=== PATIENT | male | born 1945 | race Caucasian/White ===

== ENCOUNTER → 2016-11-18 | Day surgery (SDC) | payer OTHER, BC ==
[2016-11-15 11:54] VITALS: Ht 190.5 cm; Wt 106.8 kg
[~2016-11-18] VITALS: Ht 190.5 cm; Wt 106.8 kg
[~2016-11-18] MED LIST: ACET-1138 PO; ASPCH81X PO; ASPEC325 PO; ASPI325T45 PO; ATOR-22 PO; BUPIVACAINE 0.25% 2.5MG/ML PF 10 ML VIAL ONE; DTRSR4 PO; FAMO40TA6 PO; FLUO0.0566 TOP; GABA1CAP5 PO; GABA800T PO; IOPAMIDOL INJ 61% 15 ML VIAL ONE; LIDOCAINE HCL 1% MPF 5 ML VIAL ONE; LOSA1TAB PO; MELO7.5T5 PO; METH500T37 PO; PEPCID PO; PRLSR20 PO; RXC5 PO; SODIUM CHLORIDE 0.9% INJ 10 ML VIAL ONE; TEST100I IM; TOLN1CRE TOP
--- NOTE | 2016-11-18 15:20 | History & Physical Bridge - [place] ---
H&P Re-Evaluation Bridge Note: I have examined the patient, reviewed the History & Physical and in the interval since the performance of the History & Physical I have noted the following changes of clinical significance: No changes noted
[2016-11-18 15:45] VITALS: TEMP 36.9
--- NOTE | 2016-11-18 15:47 | Discharge Instructions ---
Discharge Instructions Visit Reason for Visit: Lumbar Radiculopathy Discharge Discharge Diagnosis / Problem: lumbar stenosis with righ leg pain Discharge Goals Goal(s): Decrease discomfort, Improve function Medications Stopped Medications Name(s): mobtato and baby asa stopped x 1 week. Activity Recommendations Activity Limitations: resume your previous activity Anesthesia . Post Anesthesia Instructions: If you have had General Anesthesia or IV Sedation: * Do not drive today. * Resume driving when surgeon permits. * Do not make important decisions or sign legal documents today. * Call surgeon for: 1. Temperature elevations greater than 101 degrees F. 2. Uncontrollable pain. 3. Excessive bleeding. 4. Persistent nausea and vomiting. 5. Medication intolerance (nausea, vomiting or rash). * For nausea and vomiting use only clear liquids such as: tea, soda, bouillon until nausea subsides, then gradually increase diet as tolerated. * If you have any concerns or questions, call your surgeon's office. If physician is unavailable and it is an emergency, call 911 or go to the nearest emergency room. . Diet Recommendations Recommended Home Diet: resume previous diet Procedures Procedures Performed: Lumbar Epidural Steroid injection Pending Studies Studies pending at discharge: no Medical Emergencies . Who to Call and When: Medical Emergencies: If at any time you feel your situation is an emergency, please call 911 immediately. . Non-Emergent Contact Non-Emergency issues call your: Specialist . . "Provider Documentation" section prepared by Donald Ruiz.
[2016-11-18 15:57] VITALS: BP 159/92; PULSE 64; O2SAT 98
--- NOTE | 2016-11-18 16:00 | OPERATIVE REPORT ---
DATE OF OPERATION: 11/18/2016 PREOPERATIVE DIAGNOSIS: Severe L3-L4 foraminal stenosis with right lower extremity radiculopathy. History of an an L4-5 laminectomy. POSTOPERATIVE DIAGNOSIS: Same. PROCEDURE: Right paramedian L2-3 intralaminar epidural steroid injection under fluoroscopic guidance. SURGEON: Dr. Donald Ruiz. INDICATIONS: The patient is a 71-year-old white male who has underwent an epidural injection a little more than 3 months ago with good relief. He reports that he is now having problems a little bit higher up the leg that he did prior to the epidural, which was more distal. Recent imaging reveals very tight multifactorial stenosis at 3-4, presents today for an epidural injection to provide him with relief. In addition, he is describing pain in the groin which is uncomfortable to him and is becoming increasingly more uncomfortable. PHYSICAL EXAMINATION: Some reduced range of motion towards the right reproduces the intense pain. Tenderness to palpation of his lower lumbar spine. He has no focal weakness. CONSENT: Verbal and written consent was obtained from the patient and he wishes to proceed. PROCEDURE: The patient was taken back to the special procedures room of the [facility] maintained in a prone position. Backside was cleansed with Betadine x3 and a dry sterile dressing was applied. Fluoroscope was used to identify the interlaminar spaces. His surgical site and scar involved 3-4. Decision was made to enter superior to this area at L2-3. Overlying skin on the right side was anesthetized with 4 mL of lidocaine 1% with a 21 gauge 1.5-inch needle with 4 mL of lidocaine 1%. He then underwent placement of a 22 gauge 3-1/2 inch Tuohy needle. It was advanced under lateral fluoroscopic guidance and loss of resistance was noted at a depth of 7 cm. Isovue-300 contrast 1 mL was injected in which demonstrated epidural uptake pattern which was confirmed with both AP and lateral views. He then underwent injection after negative aspiration of 40 mg of Depo-Medrol and 4 mL of preservative free sodium chloride. Injection was well tolerated. DISPOSITION: 1. The patient is taken out into the discharge recovery area where he will be discharged home once discharge criteria have been met. 2. Follow up in the [facility] office in 2-4 weeks. I attest to the content of the Intraoperative Record and any orders documented therein. Any exceptio ns are noted below.
== END | disposition home or self-care (01) ==
LOC: X.SURG 14:09
PROVIDERS: ATTEND Physical Medicine & Rehabilitation
DX: M54.16 Radiculopathy, lumbar region (principal); M48.06 Spinal stenosis, lumbar region; Z98.890 Other specified postprocedural states

== ENCOUNTER → 2017-02-04 | Outpatient (CLI) | payer OTHER, BC ==
[~2017-02-04] MED LIST changes: -BUPIVACAINE 0.25% 2.5MG/ML PF 10 ML VIAL ONE; -IOPAMIDOL INJ 61% 15 ML VIAL ONE; -LIDOCAINE HCL 1% MPF 5 ML VIAL ONE; -SODIUM CHLORIDE 0.9% INJ 10 ML VIAL ONE
--- NOTE | 2017-02-04 12:49 | DIAGNOSTIC IMAGING REPORT ---
CHEST 2 VIEWS ROUTINE HISTORY: COUGH COMPARISON: Chest 06/28/2014. FINDINGS: No pleural effusions. No pneumothorax. There is mild diffuse interstitial thickening. Stable bilateral hilar prominence. No new focal lung consolidations. Linear densities at the left lung base persist and favor subsegmental atelectasis. IMPRESSION: 1 Mild diffuse interstitial thickening which is likely progressed. This may represent a chronic interstitial lung disease or a developing atypical pneumonitis. 2. Left basilar linear densities favor subsegmental atelectasis. Electronically signed by: Lorne Muñoz M.D. 02/04/2017 12:48 PM Dictated Date/Time: 02/04/2017 12:45 PM
== END | disposition home or self-care (01) ==
LOC: C.RAD1850 12:09
PROVIDERS: ATTEND Family Medicine
DX: R05 Cough (principal)

== ENCOUNTER 2017-03-22 05:15 | Inpatient (IN) | payer OTHER, BC ==
[2017-02-22 09:18] VITALS: BMI 31.0
--- NOTE | 2017-02-22 10:06 | PAT Medication Instructions ---
Service Date Feb 22, 2017. Current Home Medication List Aspirin (Aspirin Chewable), 81 MG PO QAM Atorvastatin (Lipitor), 20 MG PO QAM Famotidine (Pepcid), 40 MG PO HS Fluocinonide (Fluocinonide), 1 APPLN TOP DAILY PRN for PRN Gabapentin (Neurontin), 400 MG PO 6XA DAY Gabapentin (Neurontin), 800 MG PO HS Losartan Potassium (Cozaar), 25 MG PO HS Omeprazole (Prilosec), 20 MG PO BID Testosterone Cypionate (Depo-Testosterone), 50 MG IM MONTHLY Tolnaftate (Tolnaftate 1% Antifungal), 1 DOSE TOP QPM Tolterodine Tartrate (Detrol La *), 4 MG PO HS Medication Instructions For Your Scheduled Surgery Aspirin (Aspirin Chewable), 81 MG PO QAM (patient not taking currently) Testosterone Cypionate (Depo-Testosterone), 50 MG IM MONTHLY (continue as usual) - Hold the following medications 24 hours prior to surgery: Tolnaftate (Tolnaftate 1% Antifungal), 1 DOSE TOP QPM Fluocinonide (Fluocinonide), 1 APPLN TOP DAILY PRN for PRN - Hold the following medications evening prior to surgery: Losartan Potassium (Cozaar), 25 MG PO HS - Take the following medications the morning of surgery with a sip of water: Omeprazole (Prilosec), 20 MG PO BID Atorvastatin (Lipitor), 20 MG PO QAM Gabapentin (Neurontin), 400 MG PO 6XA DAY - Take the following medications as scheduled the night before surgery: Tolterodine Tartrate (Detrol La *), 4 MG PO HS Omeprazole (Prilosec), 20 MG PO BID Gabapentin (Neurontin), 800 MG PO HS Famotidine (Pepcid), 40 MG PO HS If you have any questions please call us at [phone] or [phone] or [phone]
[2017-02-22 10:42] LABS: MEAN CELL VOLUME 90.1 fL (80-100); MEAN CORPUSCULAR HGB CONC 34.4 g/dl (32-36); MEAN PLATELET VOLUME 8.9 fL (7.4-10.4); PLATELET COUNT 261 K/uL (130-400); RED BLOOD COUNT 4.55 M/uL (4.7-6.1)
--- NOTE | 2017-02-22 10:48 | DIAGNOSTIC IMAGING REPORT ---
CHEST PREADMISSION(PA/LAT) CLINICAL HISTORY: Preoperative evaluation. COMPARISON STUDY: Chest radiograph February 04, 2017. FINDINGS: Lung volumes are normal. There is no consolidation to suggest pneumonia. No pneumothorax or pleural effusion is present. Mild left lower lung opacity favors atelectasis. Cardiac size is at the upper limits of normal. IMPRESSION: 1. No acute cardiopulmonary findings. 2. Linear left basilar opacity suggestive of atelectasis. Electronically signed by: Jose Arias M.D. 02/22/2017 10:46 AM Dictated Date/Time: 02/22/2017 10:44 AM
[2017-02-22 10:55] LABS: PROTHROMBIN TIME (PATIENT) 10.9 SECONDS (9.0-12.0)
[2017-02-22 11:04] LABS: BLOOD UREA NITROGEN 24 mg/dl (7-18); BUN/CREATININE RATIO 20.2 (10-20); CARBON DIOXIDE 25 mmol/L (21-32); CHLORIDE 109 mmol/L (98-107); GLUCOSE 92 mg/dl (70-99); POTASSIUM 4.5 mmol/L (3.5-5.1); SODIUM 141 mmol/L (136-145)
[2017-02-22 11:06] LABS: C-REACTIVE PROTEIN < 0.29 mg/dl (0-0.29)
[2017-02-22 11:08] LABS: BASO ABS # 0.08 K/uL (0-0.2); BASOPHIL % 1.7 % (0-2); COMPLETE YES; LYMPH ABS # 1.41 K/uL (1.2-3.4); LYMPHOCYTE % 29.3 %; NEUTROPHILS % 53.5 %
--- NOTE | 2017-03-20 00:02 | HISTORY & PHYSICAL EXAMINATION ---
DATE OF ADMISSION: 03/22/2017 CHIEF COMPLAINT: Right knee pain and discomfort. HISTORY OF PRESENT ILLNESS: A 71-year-old gentleman who presents for surgical treatment of his right knee. He has had a long history of right knee pain and discomfort and these have been contemplating surgery for quite some time. The pain is mostly in the medial side, but some global pain. The more he walks, the more it hurts. He has become less active as a result of his pain. He has been through extensive conservative treatment including steroid shots and viscous supplementation which provided very temporary relief only. He is putting this off as he had a bad experience with his left knee and had multiple surgeries within 1 year of index operation done at [facility] 8-10 years ago. He now would like to proceed with right knee replacement helping things a little bit better. PAST MEDICAL HISTORY: 1. Left bundle branch block. 2. Hypertension. 3. Elevated cholesterol. 4. Sleep apnea. 5. Low back pain/sciatica/spinal stenosis. 6. Obesity with a BMI of 31. 7. Gastroesophageal reflux disease. PAST SURGICAL HISTORY: 1. Left knee replacement. Three revisions done within 1 year period of time, 8 to 10 years ago. 2. Spine surgery for spinal stenosis. 3. Hernia surgery x3. ALLERGIES: LEVAQUIN. CURRENT MEDICINES: 1. Aspirin 81 mg a day. 2. Lipitor 25 mg a day. 3. Prilosec 20 mg twice a day. 4. Gabapentin 3200 mg a day. 5. Losartan 20 mg a day. 6. Testosterone once a week. 7. Pepcid once a day. 8. Meloxicam once a day. 9. Tolterodine once a day. SOCIAL HISTORY: A 71-year-old gentleman. He is . Rare alcohol intake. FAMILY HISTORY: Significant for heart disease. REVIEW OF SYSTEMS: Negative for diabetes. Denies any chest pain. No shortness of breath. He denies any history of infection, problems with his other knee. No DVT or PE. PHYSICAL EXAMINATION: GENERAL: Reveals a pleasant, middle-aged male. He looks to be in good health. HEENT: Benign. NECK: Supple. No lymphadenopathy. LUNGS: Clear to auscultation. HEART: Has a regular rate and rhythm. ABDOMEN: Soft, nontender, nondistended. EXTREMITIES: Grossly neurovascularly intact except as follows: Examination of the right knee reveals patient walks with a slight varus alignment to his knee. He has got bony hypertrophy medially, tender over the medial joint line. Small knee effusion. Range of motion is 5-125. No instability. Examination of the left knee reveals a well-healed incision. Range of motion about 5 degrees short of full extension and 20 degrees of flexion. No significant effusion or signs of infection. X-RAYS: X-rays of the right knee were reviewed. It shows advanced medial compartment DJD. He has got complete loss of his medial joint space. He has got subchondral sclerosis. His left knee replacement looks to be in acceptable position without any obvious problems. A little lucency at the cement mantle. ASSESSMENT: A 71-year-old gentleman with advanced right knee degenerative joint disease. He has failed conservative treatment. He has been putting off surgery due to the poor experience he had in his left knee. The left knee does appear stable. PLAN: We are going to take him to the operating room and do a right total knee replacement. The risks and benefits of this procedure were explained to patient including but not limited to DVT, PE, , infection, neurological injury, vascular injury, bleeding problem, pain, limited range of motion, stiffness, failure to relieve his symptoms, incomplete relief of symptoms, need for further surgery in the future, fracture, leg length inequality, nerve palsy, etc. The patient understands and desires to proceed. Informed consent was obtained. I did check some labs, his sed rate and C-reactive protein are both normal, which pretty much rules out an infection in his other knee. As far as discharge plans, he is hoping to be discharged to home. He likely has [facility]. I will see him back 2 weeks postop. ISAURO
[2017-03-22] VITALS (8 sets, daily range): BP systolic 112–160; BP diastolic 70–92; PULSE 53–72; TEMP 36.4–37.3; O2SAT 97–100; Ht 188 cm; Wt 108.7 kg
[~2017-03-22] VITALS: Ht 188 cm; Wt 108.7 kg
[~2017-03-22 05:15] MED LIST changes: -ACET-1138 PO; -ASPEC325 PO; -ASPI325T45 PO; -MELO7.5T5 PO; -METH500T37 PO; -PEPCID PO; -RXC5 PO
[2017-03-22] MEDS ORDERED: CEFAZOLIN 2000 MG/60 ML D5W 60 ML IV SCH (06:00)
[2017-03-22] MEDS ORDERED: LACTATED RINGER'S 500 ML IV SCH (06:00)
[2017-03-22] MEDS ORDERED: TRANEXAMIC ACID INJ 1,000 MG in SODIUM CHLORIDE 0.9% 100ML 100 ML IV SCH ×2 (06:00→14:30)
[2017-03-22] MEDS ORDERED: SCOPOLAMINE 1.5 MG TDSY TD SCH (06:00)
[2017-03-22] MEDS ORDERED: GABAPENTIN 300 MG CAP PO SCH (06:00)
[2017-03-22] MEDS ORDERED: ACETAMINOPHEN 500 MG TAB PO SCH (06:00)
[2017-03-22] MEDS ORDERED: LACTATED RINGER'S 1000ML IV SCH ×2 (06:00)
[2017-03-22] MEDS ORDERED: FAMOTIDINE 20 MG TAB PO SCH (06:00)
[2017-03-22] MEDS ORDERED: BUPIVACAINE LIPOSOME 266 MG, BUPIVACAINE/EPINEPHRINE INJ 50 ML, SODIUM CHLORIDE 0.9% PF... INFIL SCH ×3 (06:00)
[2017-03-22] MEDS ORDERED: METOCLOPRAMIDE HCL 10 MG TAB PO SCH (06:00)
[2017-03-22] MEDS ORDERED: PROPOFOL IV EMULSION 10 MG/ML 20 ML VIAL IV ONE ×2 (06:18→07:35)
[2017-03-22] MEDS ORDERED: MIDAZOLAM HCL 1 MG/ML 2ML VIAL ONE (06:19)
[2017-03-22] MEDS ORDERED: BUPIVACAINE/EPINEPHRINE 0.25% 1:200,000 30 ML VIAL ONE ×3 (06:21→06:29)
[2017-03-22] MEDS ORDERED: BUPIVACAINE 0.5 % 5 MG/1 ML PF 10ML VIAL ONE (06:21)
[2017-03-22] MEDS ORDERED: BACITRACIN 50000 UNIT VIAL ONE (06:28)
[2017-03-22] MEDS ORDERED: SODIUM CHLORIDE 0.9% PF 50 ML VIAL ONE (06:28)
[2017-03-22] MEDS ORDERED: BUPIVACAINE LIPOSOME 1/3% 266 MG/20 ML VIAL INFIL ONE (06:28)
[2017-03-22] MEDS ORDERED: MEPERIDINE HCL 25 MG/ML CARP IV PRN (07:45)
[2017-03-22] MEDS ORDERED: PHENYLEPHRINE 100MCG/ML 5ML SYR IV PRN (07:45)
[2017-03-22] MEDS ORDERED: HYDROmorphone INJ 2 MG/ML SYR/VIAL IV PRN (07:45)
[2017-03-22] MEDS ORDERED: ATROPINE SULFATE 0.1 MG/ML 5ML SYR IV PRN (07:45)
[2017-03-22] MEDS ORDERED: NALOXONE HCL 0.4 MG/1 ML VIAL/CARP IV PRN (07:45)
[2017-03-22] MEDS ORDERED: FLUMAZENIL 0.1 MG/1 ML 10 ML VIAL IV PRN (07:45)
[2017-03-22] MEDS ORDERED: FENTANYL CITRATE INJ 50 MCG/1 ML 2 ML VIAL IV PRN (07:45)
[2017-03-22] MEDS ORDERED: ONDANSETRON INJ 2 MG/ML 2 ML VIAL IV PRN ×2 (07:45→08:45)
[2017-03-22] MEDS ORDERED: LABETALOL HCL IV 5 MG/ML 20ML IV PRN (07:45)
[2017-03-22] MEDS ORDERED: EpHEDrine SULFATE INJ 50 MG/ML AMP IV PRN (07:45)
--- NOTE | 2017-03-22 08:42 | [facility] Post Operative Brief Note ---
Immediate Operative Summary Operative Date March 22, 2017. Pre-Operative Diagnosis Advanced Right Knee Degenerative Joint Disease Post-Operative Diagnosis Advanced Right Knee Degenerative Joint Disease Procedure(s) Performed Right Total Knee Arthroplasty, Cemented Surgeon Dr. Carrera Vaccine Customer Representative Surgeon(s) Terrance Durbin PA-C Estimated Blood Loss 50 mL Findings Right Knee DJD Fluids (cc crystalloids) 1300 cc Specimens A: Right Knee Bone and Tissue Drains None Anesthesia Spinal Complication(s) None Disposition Recovery Room / PACU
[2017-03-22] MEDS ORDERED: TESTOSTERONE CYPIONATE 50 MG IM SCH (08:45)
[2017-03-22] MEDS ORDERED: FLUOCINONIDE 0.05% CR 15 GM TUBE EXT PRN (08:45)
[2017-03-22] MEDS ORDERED: ALUMINUM/MAGNESIUM/SIMETH (MAALOX MAX) 30 ML UDC PO PRN (08:45)
[2017-03-22] MEDS ORDERED: TAMSULOSIN HCL 0.4 MG CAP PO PRN (08:45)
[2017-03-22] MEDS ORDERED: MAGNESIUM HYDROXIDE SUSP 30 ML UDC PO PRN (08:45)
[2017-03-22] MEDS ORDERED: BISACODYL 10 MG SUPP PR PRN (08:45)
[2017-03-22] MEDS ORDERED: SILVER SULFADIAZINE 1% CR 50 GM JAR EXT PRN (08:45)
[2017-03-22] MEDS ORDERED: ZOLPIDEM TARTRATE 5 MG TAB PO PRN (08:45)
[2017-03-22] MEDS ORDERED: METOCLOPRAMIDE HCL INJ 5 MG/ML 2 ML VIAL IV PRN (08:45)
[2017-03-22] MEDS ORDERED: NON-FORMULARY MEDICATION (Omeprazole (Prilosec) 20 MG) PO SCH (09:00)
--- NOTE | 2017-03-22 09:23 | DIAGNOSTIC IMAGING REPORT ---
RIGHT KNEE 2 VIEWS History: Right total knee arthroplasty. Degenerative arthritis. Postop. FINDINGS: The patient is status post a right total knee arthroplasty. The hardware is intact. No fracture or dislocation. Skin radha are in place. IMPRESSION: Right total knee arthroplasty. No evidence for hardware complication. Electronically signed by: Lorne Muñoz M.D. 03/22/2017 9:21 AM Dictated Date/Time: 03/22/2017 9:21 AM
--- NOTE | 2017-03-22 09:59 | Anesthesiology Progress Note ---
Anesthesia Post Op Note Date & Time March 22, 2017 at 09:59 Vital Signs Pain Intensity: 0 Vital Signs Past 12 Hours Date Time Temp Pulse Resp B/P Pulse Ox O2 Delivery O2 Flow Rate FiO2 03/22/17 09:45 36.2 14 126/72 99 Nasal Cannula 4 03/22/17 09:30 64 17 121/64 99 Nasal Cannula 4 03/22/17 09:20 60 14 128/59 99 Nasal Cannula 4 03/22/17 09:10 62 12 110/78 98 Nasal Cannula 4 03/22/17 09:00 60 12 108/61 98 Nasal Cannula 4 03/22/17 08:50 60 18 96/73 97 Nasal Cannula 4 03/22/17 08:42 36.2 77 12 97/78 95 Nasal Cannula 4 03/22/17 05:45 36.7 72 18 140/92 97 Room Air Notes Mental Status: alert / awake / arousable, participated in evaluation Pt Amnestic to Procedure: Yes Nausea / Vomiting: adequately controlled Pain: adequately controlled Airway Patency, RR, SpO2: stable & adequate BP & HR: stable & adequate Hydration State: stable & adequate Neuraxial Anesthesia: was administered, sensory block is resolving Anesthetic Complications: no major complications apparent
[2017-03-22] MEDS ORDERED: HYDROmorphone INJ 1 MG/ML SYR IV PRN (11:00)
[2017-03-22] MEDS: D5W AND 1/2NSS + 20MEQ KCL 1,000 ML IV SCH ×2 (11:30→19:08)
[2017-03-22] MEDS: FERROUS GLUCONATE 324 MG TAB PO SCH ×2 (12:35→17:41)
[2017-03-22] MEDS: CEFAZOLIN IV 2,000 MG in DEXTROSE 5% 50ML 50 ML IV SCH ×2 (13:36→21:40)
[2017-03-22] MEDS: ACETAMINOPHEN 500 MG TAB PO SCH ×2 (13:37→21:42)
[2017-03-22] MEDS: KETOROLAC TROMETHAMINE 15 MG/ML VIAL IV. SCH ×2 (13:37→19:09)
[2017-03-22] MEDS ORDERED: OXYCODONE HCL IR 5 MG TAB (IMMEDIATE RELEASE) ONE (13:41)
[2017-03-22] MEDS: OXYCODONE HCL IR 5 MG TAB (IMMEDIATE RELEASE) PO PRN ×2 (13:43→19:11)
--- NOTE | 2017-03-22 15:40 | OPERATIVE REPORT ---
DATE OF OPERATION: 03/22/2017 SURGEON: Miko Carrera MD MEDICAL RECORD TRANSCRIBER: NOVA Hightower PREOPERATIVE DIAGNOSIS: Right knee degenerative joint disease. POSTOPERATIVE DIAGNOSIS: Same. PROCEDURE PERFORMED: Right cemented posterior stabilized total knee arthroplasty. COMPLICATIONS: None. ESTIMATED BLOOD LOSS: 50 mL. FLUID REPLACEMENT: 1300 mL crystalloid fluid replacement. ANESTHESIA: Spinal with adductor canal block. DRAINS: None. SPECIMENS: Right knee sent for pathology. TOURNIQUET TIME: 56 minutes at 300 mmHg. OPERATIVE INDICATIONS: The patient is a 71-year-old very active gentleman who has had his left knee replaced about 10 years ago. Pretty miserable experience with that and he has had a long history of knee pain on the right side, but put off surgery due to previous experience. He has failed conservative treatment. The pain has become more debilitating and he has elected to proceed with right total knee arthroplasty. OPERATIVE FINDINGS: Operative findings revealed advanced right knee DJD. He had grade 4 [id number] disease of the medial femoral condyle and medial tibial plateau with eburnation of both the structures, particular the posteromedial and medial femoral condyle. He did have some diffuse grade 3 and 4 changes of the patella, particular the medial facet as well as the trochlea and the lateral compartment. Moderate size joint effusion. OPERATIVE IMPLANTS: Operative implants consisted of: 1. Biomet Vanguard size 75 right posterior stabilized femoral component. 2. Biomet size 79 tibial tray. 3. A 12 mm posterior stabilized polyethylene insert. 4. A 34 x 8.5 all poly patella. OPERATIVE PROCEDURE: The patient was taken to the operating room, identified and placed on the operating room table in supine position. All contact areas were meticulously padded. A spinal anesthetic had been implemented in the holding area. Waters catheter was placed in sterile fashion. Right thigh tourniquet was then placed. The right lower extremity was then prepped and draped in usual sterile fashion. The right leg was elevated and exsanguinated with Esmarch and tourniquet was placed at 300 mmHg. An anterior approach to the right knee was then performed through a longitudinal incision centered over the patella. Sharp dissection was carried through the subcutaneous tissues down to the level of the extensor mechanism. A medial parapatellar arthrotomy incision was made. Some subperiosteal dissection was carried out medially. The fat pad was resected from beneath the patellar tendon. The lateral patellofemoral ligament was released. The patella was everted and knee was flexed. The osteophytes were taken off the distal femur. The ACL and PCL were then released from the distal femur and the tibia subluxated anteriorly. External tibial alignment jig was then placed in the anterior face of the tibia and adjusted 16 mm medially. Proximal tibial cut was made to remove about 1 millimeter or 2 of bone from the most deficient aspect of the posteromedial tibial plateau. Tibia was sized to a size 79. Some osteophytes were taken off medial and posteromedially. Attention was then drawn to the femur. The distal femur was entered with a sharp drill bit. Intramedullary canal was suctioned. A right 6 degree valgus cutting guide was placed. Distal femoral cutting block was pinned in place. Distal femoral cut was made to take an additional 5 mm of bone off the distal femur. The 3 mm cut did even get down to the intercondylar notch area. The femur was then sized to a size 75. We did downsize this slightly. The AP cutting block was pinned parallel to the epicondylar axis, which was 4 degrees of external rotation. The anterior cut, anterior chamfer, posterior cut, and posterior chamfer cuts were made. Box cutting guide was placed and adjusted slightly lateral and the box cut was made. The knee was flexed. The remnants of the medial and lateral menisci were excised. The osteophytes were taken off the posterior aspect of the femur. Trial femoral component was placed. Tibial tray was pinned in maximum external rotation and the drill and stem punch were used to create defect in the proximal tibia for the tibial tray. The knee was then trialed and the 12 mm insert fit most appropriately. Attention was then drawn to the patella. The patella was cleaned of all soft tissues. The patellar thickness measured 25 mm and cut down to 13. It was sized to a size 34 patella. Lug holes were drilled for a 34 patella. Lateral osteophyte was removed. Patellar button was placed. Knee was taken through range of motion and the patella tracked nicely with no thumbs test. Attention was then drawn toward placement of permanent components. All trial components were removed. A bone plug was placed in the distal femur to limit blood loss. A double batch of Palacos G cement was mixed. A right size 75 posterior stabilized femoral component, size 79 tibial tray, a 12 mm posterior stabilized polyethylene insert, and a 34 x 8.5 all poly patella were then cemented in place. Knee was brought out into full extension until cement hardened. A final cement check was performed. I did inject the knee with 100 mL of a combination of 20 mL of Exparel, 30 mL of normal saline, and 50 mL of 0.25% Marcaine with epinephrine. The patient did receive 1 gram of tranexamic acid. The tourniquet was then let down for final tourniquet time of 56 minutes. Hemostasis was assured with use of electrocautery. The extensor mechanism was then closed with a combination of #1 PDS suture and #1 Vicryl suture in a [id number] fashion. Extensor mechanism was checked and found to be intact. The subcutaneous tissues were then closed with 2-0 Dexon suture in a buried interrupted fashion. Skin was closed with skin radha. Leg was then cleaned and dried and a sterile dressing of Xeroform, 4 x 4, sterile cast padding and Oracio bandage were applied. The patient then transferred to the recovery room in stable condition. The patient tolerated the procedure well with no complications. All needle and sponge counts were correct at the end of the operation. I attest to the content of the Intraoperative Record and any orders documented therein. Any exceptions are noted below. LUNAD
[2017-03-22] MEDS: CHECK SCOPOLAMINE PATCH PLACEMENT SCH ×2 (16:26→23:46)
--- NOTE | 2017-03-22 20:13 | PROGRESS NOTE ---
DATE: 03/22/2017 SUBJECTIVE: A 71-year-old gentleman postop from a right knee replacement. He is doing well. Really not having too much pain yet. He rates it about a 4-5. No chest pain or shortness of breath. Not feeling dizzy or lightheaded. He had a bunch of medicine request, which I have addressed today. OBJECTIVE: VITAL SIGNS: Temperature is 36.5. Vital signs stable. GENERAL: Reveals a healthy, pleasant, middle-aged male. He is sitting up in bed reading when I visited him this evening. LUNGS: Clear to auscultation. HEART: Regular rate and rhythm. ABDOMEN: Soft, nontender, nondistended. EXTREMITIES: Grossly neurovascularly intact except as follows: Examination of the right lower extremity reveals the leg to be well aligned. Dressing is clean, dry, and intact. He can dorsiflex and plantarflex his foot appropriately. He is neurologically intact. X-RAYS: X-rays of the right knee from recovery room were reviewed. It shows a right cemented posterior stabilized total knee arthroplasty. Components looked to be in good position. No signs of problems. ASSESSMENT: A 71-year-old gentleman postop from a right knee replacement, doing pretty well. His pain is reasonably well controlled. He had a lot of medicine request today, which I have addressed. PLAN: 1. DVT prophylaxis including thigh-high TEDs, SCDs, and aspirin twice a day. 2. PT/OT. Weightbearing as tolerated. Right total knee protocol. 3. Pain control, doing pretty well with current pain regimen. We will get him back on close to his normal dose of gabapentin, supplement this with additional medications as needed. We will try and limit narcotics. 4. IV antibiotics x24 hours. 5. Disposition: He is hoping to be discharged likely to home with some home health once adequately recovered.
[2017-03-22] MEDS ORDERED: ASPIRIN 325 MG ECTAB PO SCH (21:00)
[2017-03-22] MEDS ORDERED: TOLNAFTATE TOP SCH (21:00)
[2017-03-22] MEDS: TAPENTADOL ER 50 MG TABCR PO SCH (21:39)
[2017-03-22] MEDS: GABAPENTIN 800 MG TAB PO SCH (21:42)
[2017-03-22] MEDS: LOSARTAN POTASSIUM 25 MG TAB PO SCH (21:43)
[2017-03-22] MEDS: DOCUSATE SODIUM 100 MG CAP PO SCH (21:43)
[2017-03-22] MEDS: TOLTERODINE TARTRATE LA 4 MG CAPCR PO SCH (21:44)
[2017-03-22] MEDS: FAMOTIDINE 20 MG TAB PO SCH (22:58)
[2017-03-23] MEDS: KETOROLAC TROMETHAMINE 15 MG/ML VIAL IV. SCH ×4 (01:55→21:38)
[2017-03-23] MEDS: D5W AND 1/2NSS + 20MEQ KCL 1,000 ML IV SCH (02:03)
[2017-03-23 03:24] VITALS: BP 118/70; PULSE 72; TEMP 36.9; O2SAT 94
[2017-03-23] MEDS: OXYCODONE HCL IR 5 MG TAB (IMMEDIATE RELEASE) PO PRN ×2 (04:17→23:48)
[2017-03-23] MEDS: ACETAMINOPHEN 500 MG TAB PO SCH ×3 (06:24→21:37)
[2017-03-23 07:01] LABS: HEMATOCRIT 39.6 % (42-52); MEAN CELL VOLUME 93.4 fL (80-100); MEAN CORPUSCULAR HEMOGLOBIN 31.1 pg (25-34); MEAN CORPUSCULAR HGB CONC 33.3 g/dl (32-36); MEAN PLATELET VOLUME 9.4 fL (7.4-10.4); PLATELET COUNT 202 K/uL (130-400); RED BLOOD COUNT 4.24 M/uL (4.7-6.1)
[2017-03-23] MEDS: ASPIRIN 325 MG ECTAB PO SCH ×2 (07:15→17:38)
[2017-03-23 07:38] LABS: BUN/CREATININE RATIO 15.6 (10-20); CALCIUM 8.3 mg/dl (8.5-10.1); CREATININE 1.2 mg/dl (0.60-1.40); POTASSIUM 4.3 mmol/L (3.5-5.1)
[2017-03-23] MEDS: CHECK SCOPOLAMINE PATCH PLACEMENT SCH ×3 (07:39→23:47)
[2017-03-23] MEDS: ATORVASTATIN 20 MG TAB PO SCH (07:49)
[2017-03-23] MEDS: MULTIVITAMIN TAB PO SCH (07:49)
[2017-03-23] MEDS: DOCUSATE SODIUM 100 MG CAP PO SCH ×2 (07:49→21:36)
[2017-03-23] MEDS: TAPENTADOL ER 50 MG TABCR PO SCH ×2 (07:49→21:37)
[2017-03-23] MEDS: GABAPENTIN 400 MG CAP PO PRN ×2 (07:49→16:12)
[2017-03-23] MEDS: FERROUS GLUCONATE 324 MG TAB PO SCH ×3 (07:49→17:39)
--- NOTE | 2017-03-23 08:17 | Anesthesiology Progress Note ---
Anesthesia Post Op Note Date & Time March 23, 2017 at 08:17 Vital Signs Pain Intensity: 5.0 Vital Signs Past 12 Hours Date Time Temp Pulse Resp B/P Pulse Ox O2 Delivery O2 Flow Rate FiO2 03/23/17 03:24 36.9 72 20 118/70 94 Room Air 03/23/17 00:00 Room Air 03/22/17 22:45 37.3 66 16 160/78 97 Room Air Notes Mental Status: alert / awake / arousable, participated in evaluation Pt Amnestic to Procedure: Yes Nausea / Vomiting: adequately controlled Pain: adequately controlled Airway Patency, RR, SpO2: stable & adequate BP & HR: stable & adequate Hydration State: stable & adequate Neuraxial Anesthesia: sensory block resolved Anesthetic Complications: no major complications apparent
[2017-03-23 08:19] VITALS: BP 135/77; PULSE 74; TEMP 37.3; O2SAT 93
[2017-03-23] MEDS ORDERED: PANTOprazole SOD 40 MG TAB PO SCH (09:00)
[2017-03-23] MEDS ORDERED: GABAPENTIN 400 MG CAP PO SCH (09:00)
[2017-03-23 12:45] VITALS: BP 139/77; PULSE 78; TEMP 36.8; O2SAT 93
[2017-03-23] MEDS ORDERED: ASPEC325 PO (12:51)
[2017-03-23] MEDS ORDERED: ACET-1138 PO (12:51)
[2017-03-23] MEDS ORDERED: RXC5 PO (12:51)
--- NOTE | 2017-03-23 12:53 | Discharge Instructions ---
Discharge Instructions Date of Service March 23, 2017. Admission Reason for Admission: Right Knee Degenerative Joint Disease Discharge Discharge Diagnosis / Problem: Right Knee Replacement Discharge Goals Goal(s): Decrease discomfort, Improve function, Increase independence, Improve disease control, Therapeutic intervention Activity Recommendations Activity Level: Assistance Required Therapies: Physical Therapy, Occupational Therapy . Additional Information Patient informed of condition: Yes Advance Directives: No DNR: No Level of Care: Acute Rehab Communicable Disease: No Prognosis: Improving Instructions / Follow-Up Instructions / Follow-Up ACTIVITY RECOMMENDATIONS: Physical Therapy: * You will go to physical therapy three times each week for four to six weeks after your surgery in order to regain your knee range of motion and to retrain your knee to work properly. * It is just as important to make sure you are getting your knee perfectly straight as it is to regain your knee bend. * Taking a pain pill an hour before therapy can help you have a more productive and comfortable therapy session. Home Exercise: * You were shown a series of exercises (heel props, heel slides, etc.) in the hospital. Do these exercises three to four times each day including the exercises you were shown in physical therapy. Walking: * Get up and walk several times each day. For the first four weeks, try not to stand or walk for more than one hour at a time. If you do stand or walk for more than one hour, you will not hurt anything, but your knee and leg will likely swell. * As you feel comfortable, you may change from the walker or crutches to a cane and then to independent walking. MEDICATIONS: New Medicine: * You will likely be taking one or more of these medications: 1. Oxycodone - A quick and shorter-acting pain medication. Take one to two tablets every four to six hours to lessen your pain. 2. Aspirin - Thins your blood to lessen the chance of forming a blood clot. * The most common side effects of pain medicine and iron are nausea and constipation. If nausea or constipation is too much of a problem or if you have any questions about your new medicines or doses, call [facility] at [phone]. We will try to help you manage these issues. VERY IMPORTANT TO READ AND REVIEW" Pain: * The immediate post-operative period after knee replacement surgery is often quite painful. * You are given a prescription for pain medicine. You should take it, as directed, when you need it, especially before physical therapy and before going to bed. Pain that interferes with sleep is very common and can last several months. * You will likely need pain medicine for the first four to six weeks. It will not stop all of the pain. The pain will lessen and as you feel better, you may change to milder pain medicine such as Tylenol. * The most common side effects of pain medicine are nausea and constipation, so don't take more than you need. SPECIAL CARE INSTRUCTIONS: TEDs/Elastic Stockings: * The white elastic stockings help limit swelling and prevent blood clots from forming in your legs. The more you wear them, the more they work. * Wear them for six weeks after knee replacement surgery and four weeks after partial knee replacement. Prevention of Infection: * Take antibiotics one hour before any dental cleaning, dental work, urological procedure, gastrointestinal procedure or any invasive surgery in order to prevent your new joint from getting infected. * You may get the antibiotics from the doctor performing the procedure or you may call our office at before and we will call in a prescription to the pharmacy of your choice. Things to Watch For: * Drainage from the incision site that occurs more than one week after your surgery. * Severely increased knee/leg pain or swelling. * Increased redness at the incision site. * Fever above 102 degrees Fahrenheit. * Unusual chest pain or shortness of breath. * Unusual pain or burning with urination. Call [facility] at with any of the above problems or if you have any questions about your medicines or recovery. FOLLOW UP VISIT: Make an appointment to see your doctor for approximately two weeks after surgery for a progress check and staple removal by calling the office at . Current Hospital Diet Patient's current hospital diet: Regular Diet Discharge Diet Recommended Diet: Regular Diet Procedures Procedures Performed: Right Total Knee Arthroplasty, Cemented Pending Studies Studies pending at discharge: no Medical Emergencies . Who to Call and When: Medical Emergencies: If at any time you feel your situation is an emergency, please call [phone] immediately. . Non-Emergent Contact Non-Emergency issues call your: Surgeon . . "Provider Documentation" section prepared by Miko Carrera. . Core Measure Problem Core Measures: None
--- NOTE | 2017-03-23 13:28 | PROGRESS NOTE ---
DATE: 03/23/2017 SUBJECTIVE: A 71-year-old gentleman postop day #1 from right knee replacement. He is doing pretty well. Still more sore today. No chest pain or shortness of breath. Not feeling dizzy or lightheaded. OBJECTIVE: VITAL SIGNS: Temperature 36.8. Vital signs stable. PHYSICAL EXAMINATION: GENERAL: Reveals a healthy, pleasant, middle-aged male. He is sitting up in bed and looks reasonably comfortable. LUNGS: Clear to auscultation. HEART: Regular rate and rhythm. ABDOMEN: Soft, nontender, and nondistended. EXTREMITIES: Grossly neurovascularly intact except as follows. Examination of the right lower extremity reveals the dressing to be clean, dry, and intact. He can dorsiflex and plantarflex his foot appropriately. He is neurologically intact. LABORATORY DATA: Hemoglobin 13.2. Hematocrit 39.6. Electrolytes are stable. ASSESSMENT: A 71-year-old gentleman postop day #1 from right knee replacement, doing reasonably well. His pain is reasonably well controlled. He is neurologically intact. PLAN: 1. DVT prophylaxis including thigh-high TEDs, SCDs, and aspirin twice a day. 2. PT/OT. Weightbearing as tolerated. Right total knee protocol. 3. Pain control, doing pretty well with current pain regimen. We are going to try and limit narcotics to avoid constipation issues. 4. Disposition: He is hoping to be discharged to [facility] for rehab stay. Allow the mental health social worker involved and see if he qualifies.
[2017-03-23 15:59] VITALS: BP 134/77; PULSE 75; TEMP 37.1; O2SAT 93
[2017-03-23 19:53] VITALS: BP 127/65; PULSE 73; TEMP 36.8; O2SAT 99
[2017-03-23] MEDS: LOSARTAN POTASSIUM 25 MG TAB PO SCH (21:36)
[2017-03-23] MEDS: GABAPENTIN 800 MG TAB PO SCH (21:36)
[2017-03-23] MEDS: TOLTERODINE TARTRATE LA 4 MG CAPCR PO SCH (21:36)
[2017-03-23] MEDS: FAMOTIDINE 20 MG TAB PO SCH (21:40)
[2017-03-23 23:29] VITALS: BP 134/70; PULSE 76; TEMP 37.1; O2SAT 92
[2017-03-24] MEDS: KETOROLAC TROMETHAMINE 15 MG/ML VIAL IV. SCH ×2 (02:00→07:23)
[2017-03-24] MEDS: ACETAMINOPHEN 500 MG TAB PO SCH ×2 (05:24→13:32)
[2017-03-24 06:00] VITALS: BP 145/81; PULSE 75; TEMP 36.8; O2SAT 98
[2017-03-24] MEDS ORDERED: PANTOprazole SOD 40 MG TAB PO SCH (07:00)
[2017-03-24] MEDS: ASPIRIN 325 MG ECTAB PO SCH (07:14)
[2017-03-24] MEDS: ATORVASTATIN 20 MG TAB PO SCH (07:23)
[2017-03-24] MEDS: FERROUS GLUCONATE 324 MG TAB PO SCH ×2 (07:23→12:34)
[2017-03-24] MEDS: MULTIVITAMIN TAB PO SCH (07:23)
[2017-03-24] MEDS: DOCUSATE SODIUM 100 MG CAP PO SCH (07:23)
[2017-03-24] MEDS: TAPENTADOL ER 50 MG TABCR PO SCH (07:24)
[2017-03-24] MEDS: GABAPENTIN 400 MG CAP PO PRN ×3 (07:24→16:14)
[2017-03-24] MEDS: OXYCODONE HCL IR 5 MG TAB (IMMEDIATE RELEASE) PO PRN ×2 (07:25→16:15)
--- NOTE | 2017-03-24 07:41 | PROGRESS NOTE ---
DATE: 03/24/2017 DATE: 03/24/2017. SUBJECTIVE: A 71-year-old gentleman postop day 2 from a right knee replacement. He is doing okay. Moderate amount of pain. Denies any chest pain or shortness of breath. OBJECTIVE: VITAL SIGNS: Temperature 36.8. Vital signs stable. PHYSICAL EXAMINATION: GENERAL: Reveals a pleasant elderly male. He is lying in bed, looks pretty comfortable. LUNGS: Clear to auscultation. HEART: Regular rate and rhythm. ABDOMEN: Soft, nontender, nondistended. He has got good bowel sounds. EXTREMITIES: Examination of the lower extremities reveals his right leg to be well aligned. Dressing is clean, dry and intact. No significant drainage. He is neurologically intact. He can dorsiflex and plantarflex his foot appropriately. ASSESSMENT: A 71-year-old gentleman postop day 2 from a right knee replacement, doing pretty well. His pain is controlled. He is hoping to go to [facility] for rehab. PLAN: 1. DVT prophylaxis including thigh-high TEDs, SCDs, and aspirin twice a day. 2. PT/OT. Weightbearing as tolerated. Right total knee protocol. 3. Pain control. Doing pretty well with current pain regimen. 4. Disposition. He is hoping to go to [facility] for a brief rehab stay. We will see if he gets approved.
[2017-03-24 10:23] VITALS: BP 145/81; PULSE 75; TEMP 36.8; O2SAT 98
--- NOTE | 2017-03-30 16:05 | DISCHARGE SUMMARY ---
ADMITTING PHYSICIAN AND SURGEON: Dr. Carrera. ADMITTING DIAGNOSIS: Right knee degenerative joint disease. SURGERY PERFORMED: Right total knee arthroplasty. SECONDARY DIAGNOSES: Left bundle branch block, hypertension, elevated cholesterol, sleep apnea, low back pain, sciatica, spinal stenosis, obesity, gastroesophageal reflux disease. CONSULTS: None obtained. HISTORY AND PHYSICAL EXAMINATION: Well documented in the patient's chart. HOSPITAL COURSE: The patient was admitted on 03/22/2017, underwent total knee arthroplasty. He tolerated the procedure well. There were no complications. He was transferred to the PACU postoperatively and later to the orthopedic floor for further care. He was given Ancef for antibiotic prophylaxis, SRIDEVI stockings, SCDs and aspirin for DVT prophylaxis. Hemoglobin, hematocrit and vital signs were monitored during his hospital stay and remained stable. He did not require any blood transfusions. There were no complications. By postoperative day #2, he was tolerating a general diet. Pain was controlled with oral pain medicine. He was participating in physical therapy and had no signs or symptoms of deep vein thrombosis. On postop day #2, he was transferred to rehab facility. He was given printed discharge instructions including prescriptions for extra strength Tylenol, aspirin 325 mg b.i.d., and oxycodone. Continue his home medications with exception of his home dose of aspirin which was changed. Continue physical therapy, weightbearing as tolerated. SRIDEVI stockings. Follow up in 10-12 days or sooner if there are any problems or concerns.
[2017-06-02] MEDS ORDERED: ASPI325T45 PO (13:38)
[2017-09-28] MEDS ORDERED: MIRA100T PO (11:17)
== END 2017-03-24 16:41 | DRG 470 ==
LOC: ENRESERVDT → ENRESERVTM → C.ACU 05:15 → C.3E 06:40
PROVIDERS: ADMIT Orthopaedic Surgery Sports Medicine; ATTEND Orthopaedic Surgery Sports Medicine
PROC: 0SRC0J9 Replacement of Right Knee Joint with Synthetic Substitute, Cemented, Open Approach (ICD-10-PCS; principal; 2017-03-22 07:00)
DX: M17.11 Unilateral primary osteoarthritis, right knee (principal); I47.1 Supraventricular tachycardia; I10 Essential (primary) hypertension; E78.00 Pure hypercholesterolemia, unspecified; G47.33 Obstructive sleep apnea (adult) (pediatric); M54.5 Low back pain; E66.9 Obesity, unspecified; K21.9 Gastro-esophageal reflux disease without esophagitis; M54.10 Radiculopathy, site unspecified; M48.00 Spinal stenosis, site unspecified; I44.7 Left bundle-branch block, unspecified; M25.461 Effusion, right knee; Z96.652 Presence of left artificial knee joint; Z79.82 Long term (current) use of aspirin; Z79.899 Other long term (current) drug therapy; Z68.31 Body mass index [BMI] 31.0-31.9, adult; Z99.89 Dependence on other enabling machines and devices

== ENCOUNTER → 2017-06-17 | Outpatient (CLI) | payer OTHER, BC ==
[~2017-06-17] MED LIST changes: -ASPCH81X PO; +ASPI325T45 PO; -FLUO0.0566 TOP; -TOLN1CRE TOP
--- NOTE | 2017-06-17 10:15 | DIAGNOSTIC IMAGING REPORT ---
RIGHT HAND 3 VIEWS CLINICAL HISTORY: Right hand pain. No reported history of trauma. FINDINGS: 3 views of the right hand are obtained. No prior studies are available for comparison at the time of dictation. The skeletal structures are well mineralized for age. No fracture is seen. There is mild arthritic change at the first metacarpophalangeal joint and throughout the interphalangeal joints. No erosive change is identified. The overlying soft tissues are within normal limits. IMPRESSION: Minimal arthritic change as above. No acute bony abnormality is seen in the right hand. Electronically signed by: Rubén Winslow M.D. 06/17/2017 10:14 AM Dictated Date/Time: 06/17/2017 10:12 AM
== END | disposition home or self-care (01) ==
LOC: C.RDSM 10:52
PROVIDERS: ATTEND Physician Assistant
DX: M79.641 Pain in right hand (principal)

== ENCOUNTER → 2017-06-29 | Day surgery (SDC) | payer OTHER, BC ==
[2017-06-02 13:41] VITALS: Ht 188 cm; Wt 108.7 kg
[~2017-06-29] VITALS: Ht 188 cm; Wt 108.7 kg
[~2017-06-29] MED LIST changes: +IOPAMIDOL INJ 61% 15 ML VIAL ONE; +LIDOCAINE HCL 1% MPF 5 ML VIAL ONE; +SODIUM CHLORIDE 0.9% INJ 10 ML VIAL ONE
[2017-06-29 14:46] VITALS: TEMP 36.3
--- NOTE | 2017-06-29 14:51 | Discharge Instructions ---
Discharge Instructions Date of Service Jun 29, 2017. Visit Reason for Visit: Lumbar Radiculopathy Discharge Discharge Diagnosis / Problem: right leg pain Discharge Goals Goal(s): Decrease discomfort, Improve function Activity Recommendations Activity Limitations: resume your previous activity Anesthesia . Post Anesthesia Instructions: If you have had General Anesthesia or IV Sedation: * Do not drive today. * Resume driving when surgeon permits. * Do not make important decisions or sign legal documents today. * Call surgeon for: 1. Temperature elevations greater than 101 degrees F. 2. Uncontrollable pain. 3. Excessive bleeding. 4. Persistent nausea and vomiting. 5. Medication intolerance (nausea, vomiting or rash). * For nausea and vomiting use only clear liquids such as: tea, soda, bouillon until nausea subsides, then gradually increase diet as tolerated. * If you have any concerns or questions, call your surgeon's office. If physician is unavailable and it is an emergency, call 911 or go to the nearest emergency room. . Diet Recommendations Recommended Home Diet: resume previous diet Procedures Procedures Performed: CAUDAL EPIDURAL STEROID INJECTION Pending Studies Studies pending at discharge: no Medical Emergencies . Who to Call and When: Medical Emergencies: If at any time you feel your situation is an emergency, please call 911 immediately. . Non-Emergent Contact Non-Emergency issues call your: Specialist . . "Provider Documentation" section prepared by Donald Ruiz. .
[2017-06-29 15:00] VITALS: BP 134/80; PULSE 64; O2SAT 96
--- NOTE | 2017-06-29 15:04 | OPERATIVE REPORT ---
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 POSTOPERATIVE DIAGNOSIS: Same. PROCEDURE: Caudal epidural steroid injection under fluoroscopic guidance. SURGEON: Dr. Donald Ruiz. INDICATIONS: The patient is a 72-year-old white male who underwent a lumbar epidural steroid injection in October for radicular pain. He has good results that last a fair number of months. He reports, however, the improvement he had received from October injection of last year is starting to wane and become problematic for him. He presents today for an epidural steroid injection. He did take aspirin this morning inadvertently and the injection will be done via the caudal approach rather than an intralaminar approach. PHYSICAL EXAMINATION: GENERAL: Pleasant male seated comfortably in no apparent distress. MUSCULOSKELETAL EXAMINATION: Lumbar paraspinal muscles were palpated and noted be nontender. He had no focal weakness of the lower extremities. Negative seated straight leg raises. CONSENT: Verbal and written consent was obtained from the patient. Risks and benefits were reviewed. Risks include but are not limited to abscess and allergic reaction. The patient wishes to proceed. PROCEDURE: The patient was taken back to the special procedures room of the [facility] maintained in a prone position. Backside was cleansed with Betadine x3 and a dry sterile dressing was applied. Fluoroscope was used to identify the sacral hiatus from a lateral view. The overlying skin was anesthetized with 4 mL of lidocaine 1% with a 25 gauge 1.5-inch needle. A 25 gauge 3.5 inch spinal needle was then directed under fluoroscopic guidance into the canal. He then underwent injection after negative aspiration of 40 mg of Depo-Medrol, 4 mL of preservative free sodium chloride. Injection was well tolerated. DISPOSITION: 1. The patient is taken out into the discharge recovery area where he will be discharged home once discharge criteria have been met. 2. Follow up in the [facility] office in 2-4 weeks. I attest to the content of the Intraoperative Record and any orders documented therein. Any exception s are noted below.
== END | disposition home or self-care (01) ==
LOC: X.SURG 13:18
PROVIDERS: ATTEND Physical Medicine & Rehabilitation
DX: M48.06 Spinal stenosis, lumbar region (principal)

== ENCOUNTER → 2017-10-27 | Day surgery (SDC) | payer OTHER, BC ==
[2017-09-28 11:18] VITALS: Ht 188 cm; Wt 108.6 kg
[~2017-10-27] VITALS: Ht 188 cm; Wt 108.6 kg
[~2017-10-27] MED LIST changes: -DTRSR4 PO; -GABA800T PO; +MIRA100T PO
[2017-10-27 14:19] VITALS: TEMP 36.6
[2017-10-27 14:21] VITALS: BP 133/83; PULSE 59; O2SAT 98
--- NOTE | 2017-10-27 14:22 | OPERATIVE REPORT ---
DATE OF OPERATION: 10/27/2017 PREOPERATIVE DIAGNOSES: Neural foraminal stenosis with right L5 radiculopathy and a history of an L4-L5 laminectomy. POSTOPERATIVE DIAGNOSES: Same. PROCEDURE: Caudal epidural steroid injection under fluoroscopic guidance. INDICATIONS: The patient is a 72-year-old white male who underwent a caudal epidural injection a number of months ago. The caudal approach was done as he forgot to take his aspirin. He reports that he is doing fantastic and it was the best response he had better than an intralaminar approach. He desires to do a caudal approach today given the success of that last approach and it helped him in terms of reducing right L5 radiculopathy. PHYSICAL EXAMINATION: Pleasant male seated comfortably. He has some intact sensation and strength and negative seated straight leg raises. CONSENT: Verbal and written consent was obtained from the patient. Risks and benefits were reviewed. Risks include, but are not limited to abscess and allergic reaction. The patient wishes to proceed. DESCRIPTION OF PROCEDURE: The patient was taken back into the special procedures room of the [facility], where he was maintained in a prone position. Backside was cleansed with Betadine x3 and a dry sterile dressing was applied. Fluoroscope was used to identify the sacral hiatus and overlying skin was anesthetized with 4 mL of lidocaine 1% with a 25-gauge 1-1/2 inch needle. A 25-gauge 3-1/2 inch spinal needle was then directed under fluoroscopic guidance into the canal. He then underwent injection after negative aspiration of 40 mg of Depo-Medrol and 4 mL of preservative free sodium chloride. Injection was well tolerated. DISPOSITION: 1. The patient was taken out into the discharge recovery area, where he will be discharged home once discharge criteria have been met. 2. Follow up in the [facility] office in 2-4 weeks. I attest to the content of the Intraoperative Record and any orders documented therein. Any exception s are noted below.
--- NOTE | 2017-10-27 14:30 | Discharge Instructions ---
Discharge Instructions Date of Service Oct 27, 2017. Visit Reason for Visit: Lumbar Radiculopathy Discharge Discharge Diagnosis / Problem: Right leg pain Discharge Goals Goal(s): Decrease discomfort, Improve function Activity Recommendations Activity Limitations: resume your previous activity Anesthesia . Post Anesthesia Instructions: If you have had General Anesthesia or IV Sedation: * Do not drive today. * Resume driving when surgeon permits. * Do not make important decisions or sign legal documents today. * Call surgeon for: 1. Temperature elevations greater than 101 degrees F. 2. Uncontrollable pain. 3. Excessive bleeding. 4. Persistent nausea and vomiting. 5. Medication intolerance (nausea, vomiting or rash). * For nausea and vomiting use only clear liquids such as: tea, soda, bouillon until nausea subsides, then gradually increase diet as tolerated. * If you have any concerns or questions, call your surgeon's office. If physician is unavailable and it is an emergency, call 911 or go to the nearest emergency room. . Diet Recommendations Recommended Home Diet: resume previous diet Procedures Procedures Performed: LUMBAR EPIDURAL STEROID INJECTION Pending Studies Studies pending at discharge: no Medical Emergencies . Who to Call and When: Medical Emergencies: If at any time you feel your situation is an emergency, please call 911 immediately. . Non-Emergent Contact Non-Emergency issues call your: Specialist . . "Provider Documentation" section prepared by Donald Ruiz. .
== END | disposition home or self-care (01) ==
LOC: X.SURG 12:44
PROVIDERS: ATTEND Physical Medicine & Rehabilitation
DX: M54.16 Radiculopathy, lumbar region (principal); Z79.82 Long term (current) use of aspirin

== ENCOUNTER → 2017-12-08 | Outpatient (CLI) | payer OTHER, BC ==
[~2017-12-08] MED LIST changes: -IOPAMIDOL INJ 61% 15 ML VIAL ONE; -LIDOCAINE HCL 1% MPF 5 ML VIAL ONE; -SODIUM CHLORIDE 0.9% INJ 10 ML VIAL ONE
--- NOTE | 2017-12-08 11:30 | DIAGNOSTIC IMAGING REPORT ---
CHEST 2 VIEWS ROUTINE CLINICAL HISTORY: COUGH dyspnea COMPARISON STUDY: 02/22/2017 FINDINGS: Chronic pleural and parenchymal scarring left lung base. Mild stable cardiomegaly. Lungs are considered clear. IMPRESSION: Chronic change left base. Mild stable cardiomegaly. Otherwise negative study. The above report was generated using voice recognition software. It may contain grammatical, syntax or spelling errors. Electronically signed by: Quang Jackson M.D. 12/08/2017 11:28 AM Dictated Date/Time: 12/08/2017 11:28 AM
== END | disposition home or self-care (01) ==
LOC: C.RAD 10:56
PROVIDERS: ATTEND Family Medicine
DX: R05 Cough (principal)

== ENCOUNTER 2018-03-05 18:27 | Emergency (ER) | payer OTHER, BC ==
[~2018-03-05] VITALS: Ht 188 cm; Wt 99.8 kg
[~2018-03-05 18:27] MED LIST changes: +AMOX500C3 PO; +ASPI-461 PO; -ASPI325T45 PO; +GABA-1220 PO; -GABA1CAP5 PO
[2018-03-05 18:29] VITALS: BP 150/88; PULSE 83; TEMP 36.8; Ht 188 cm; Wt 99.8 kg
[2018-03-05] MEDS ORDERED: PROPARACAINE HCL 0.5% OP SOLN 15 ML BTL OP STA (18:53)
--- NOTE | 2018-03-05 19:00 | EMERGENCY ROOM VISIT NOTE ---
History First contact with patient: 18:38 Chief Complaint: EYE ASSESSMENT Stated Complaint: EYE PROBLEM? History of Present Illness The patient is a 72 year old male who presents to the Emergency Room with complaints of drainage and irritation of left eye. The patient reports that he has had redness, greenish discharge and irritation in the left eye since this morning. 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 He does report that he uses a chemical substance which sometimes aerosolizes and he is not sure if this is acidic or basic. The patient additionally reports he is currently on a course of steroids due to issues with his ears. He has been seen twice at urgent care and by his primary care provider for right-sided ear infection. He was on a course of amoxicillin and was then started on prednisone due to having persistent pressure in the ear. The patient denies any changes of his vision. He denies any history of problems with his eyes. He rates his discomfort a 5/10. Review of Systems A complete 10 point review of systems was reviewed with the patient with pertinent positives and negatives as per history of present illness. All else were negative. Past Medical/Surgical History Medical Problems: (1) Benign Neoplasm Lg Bowel (2) Bilat Inguinal Hernia (3) Esophageal Reflux (4) Hypertension Nos (5) Pure Hypercholesterolem (6) Right Knee DJD (7) Umbilical Hernia Family History Cardiovascular disease Social History Smoking Status: Never Smoker Alcohol Use: occasionally Drug Use: none Marital Status: Housing Status: lives with family Occupation Status: retired Current/Historical Medications Scheduled Amoxicillin (Amoxil), Unknown Dose PO BID Aspirin (Aspirin), 162 MG PO QAM Atorvastatin (Lipitor), 20 MG PO QAM Famotidine (Pepcid), 40 MG PO HS Gabapentin (Neurontin), 400 MG PO QID Losartan Potassium (Cozaar), 25 MG PO HS Mirabegron (Myrbetriq Er), 25 MG PO HS Omeprazole (Prilosec), 20 MG PO BID Testosterone Cypionate (Depo-Testosterone), 50 MG IM MONTHLY Physical Exam Vital Signs Date Time Temp Pulse Resp B/P (MAP) Pulse Ox O2 Delivery O2 Flow Rate FiO2 03/05/18 20:01 18 99 03/05/18 18:29 36.8 83 18 150/88 96 Room Air Right Eye Acuity: 20/50 Left Eye Acuity: 20/40 Physical Exam VITALS: Vitals are noted on the nurse's note and reviewed by myself. Vital signs stable. GENERAL: This is a 72-year-old male, in no acute distress, nondiaphoretic, well- developed well-nourished. SKIN: The skin was without rashes. EARS: External auditory canals clear, tympanic membranes pearly thomas without erythema or effusion bilaterally. EYES: Pupils equal round and reactive to light and accommodation. There is greenish discharge from the left eye which is mildly injected. Slit lamp examination shows no foreign bodies or fluorescein uptake under UV light examination. NOSE: Patent, turbinates without inflammation or discharge. MOUTH: Mucous membranes moist. Tonsils are not enlarged. Pharynx without erythema or exudate. NEURO: Patient was alert and oriented to person place and time. Medical Decision & Procedures Medications Administered Medications (Trade) Dose Ordered Sig/Shemar Route Start Time Stop Time Status Last Admin Dose Admin Ciprofloxacin HCl (Ciprofloxacin 0.3% Op Soln) 2 drops Q4H ONCE OP 03/05/18 19:45 03/05/18 19:47 DC 03/05/18 19:45 2 DROPS Medical Decision Differential diagnosis includes conjunctivitis, corneal abrasion, corneal ulcer , foreign body, among others. The patient is a 72-year-old male who presents today complaining of left eye irritation. Exam showed no foreign body or uptake of fluorescein. The patient appears to have a conjunctivitis. He was given Floxin drops and instructed on the use. 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 He verbalized understanding of my assessment and treatment plan was discharged home in good condition. Medication Reconcilliation Current Medication List: was personally reviewed by me Blood Pressure Screening Patient's blood pressure: Elevated blood pressure Blood pressure disposition: Elevated BP felt to be situational Impression Primary Impression: Acute conjunctivitis Departure Information Dispostion Home / Self-Care Condition GOOD Referrals Giancarlo Lester M.D. (PCP) Patient Instructions My [facility] Additional Instructions You have been treated in the Emergency Department today for your conjunctivitis. You have been prescribed Ciloxan eye drops. This is an antibiotic. You should use 2 drops in the affected eye every 2 hours while awake for the first 2 days, then every 4 hours for the remaining 5 days. This is a total of a 7-day course for these antibiotic eye drops. For pain control, you can use the following [id number] medicines (if >12 yo): - Regular strength (325mg/tab) Tylenol (acetaminophen) 2 tabs every 4-6 hours as needed. Do not exceed 12 tablets in a 24 hour period. Avoid taking more than 4 grams (4000 mg) of Tylenol per day. This includes any other sources of acetaminophen you may take on a regular basis. - Regular strength (200 mg/tab) Advil (ibuprofen) 1-2 tabs every 4-6 hours as needed. Do not exceed a dose of 3200 mg per day. Follow-up with your primary care provider or eye doctor this week if you have persistent symptoms. Return to the Emergency Department if your current symptoms worsen despite treatment course outlined above, or if you develop any of the following symptoms : intractable pain, visual disturbances, loss of vision, increased redness, swelling, increasing drainage drainage, or if you develop a fever. Problem Qualifiers Primary Impression: Acute conjunctivitis Acute conjunctivitis type: bacterial Laterality: left Qualified Codes: H10.32 - Unspecified acute conjunctivitis, left eye
[2018-03-05] MEDS ORDERED: CIPROFLOXACIN HCL 0.3% OP SOLN 2.5 ML BTL OP ONE (19:45)
[2018-03-05 20:01] VITALS: O2SAT 99
[2018-03-08] MEDS ORDERED: PRED10TA PO (14:17)
== END 2018-03-05 20:02 | disposition home or self-care (01) ==
LOC: C.EDB 18:28 → C.EDD 20:02
DX: H10.32 Unspecified acute conjunctivitis, left eye (principal); I10 Essential (primary) hypertension; K21.9 Gastro-esophageal reflux disease without esophagitis; E78.00 Pure hypercholesterolemia, unspecified; M17.11 Unilateral primary osteoarthritis, right knee; Z79.82 Long term (current) use of aspirin

== ENCOUNTER → 2018-03-08 | Day surgery (SDC) | payer OTHER, BC ==
[2018-02-21 10:36] VITALS: Ht 188 cm; Wt 106.8 kg
[~2018-03-08] VITALS: Ht 188 cm; Wt 106.8 kg
[~2018-03-08] MED LIST changes: +IOPAMIDOL INJ 61% 15 ML VIAL ONE; +LIDOCAINE HCL 1% MPF 5 ML VIAL ONE; +PRED10TA PO; +SODIUM CHLORIDE 0.9% INJ 10 ML VIAL ONE
[2018-03-08 14:20] VITALS: TEMP 36
--- NOTE | 2018-03-08 15:16 | [facility] Post Operative Brief Note ---
Immediate Operative Summary Operative Date Mar 08, 2018. 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 Valerio Ruiz Chimney Repairer Surgeon(s) None Estimated Blood Loss 0 Findings Consistent with Post-Op Diagnosis Specimens NA Drains None Anesthesia Type Local Complication(s) none Disposition Disposition:
--- NOTE | 2018-03-08 15:17 | Discharge Instructions ---
Discharge Instructions Date of Service Mar 08, 2018. Visit Reason for Visit: Radiculopathy, Lumbar Region, Neural Foraminal Cy Discharge Discharge Diagnosis / Problem: right leg pain Discharge Goals Goal(s): Decrease discomfort, Improve function Medications Stopped Medications Name(s): aspirin stopped. last dose on tuesday03/04/18 Activity Recommendations Activity Limitations: resume your previous activity Anesthesia . Post Anesthesia Instructions: If you have had General Anesthesia or IV Sedation: * Do not drive today. * Resume driving when surgeon permits. * Do not make important decisions or sign legal documents today. * Call surgeon for: 1. Temperature elevations greater than 101 degrees F. 2. Uncontrollable pain. 3. Excessive bleeding. 4. Persistent nausea and vomiting. 5. Medication intolerance (nausea, vomiting or rash). * For nausea and vomiting use only clear liquids such as: tea, soda, bouillon until nausea subsides, then gradually increase diet as tolerated. * If you have any concerns or questions, call your surgeon's office. If physician is unavailable and it is an emergency, call 911 or go to the nearest emergency room. . Diet Recommendations Recommended Home Diet: resume previous diet Procedures Procedures Performed: Lumbar Epidural Steroid Injection Pending Studies Studies pending at discharge: no Medical Emergencies . Who to Call and When: Medical Emergencies: If at any time you feel your situation is an emergency, please call 911 immediately. . Non-Emergent Contact Non-Emergency issues call your: Specialist . . "Provider Documentation" section prepared by Donald Ruiz. .
[2018-03-08 15:35] VITALS: BP 120/73; PULSE 67; O2SAT 96
--- NOTE | 2018-03-08 16:17 | OPERATIVE REPORT ---
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 PROCEDURE: Right paramedian L5-S1 interlaminar epidural steroid injection under fluoroscopic guidance. INDICATIONS: The patient is a 72-year-old white male who received an epidural injection in October, did very well for a number of days following the injection; however, the pain has returned, and he is requesting another injection be done, is wondering if it could be done via the interlaminar approach despite the fact that he has had a surgery in the low back. We will do at the interlaminar approach and enter either above or below his surgical site. PHYSICAL EXAMINATION: Pleasant male seated comfortably. Lower extremities were examined. He is without any focal weakness of the hip flexors, hip adductors, hip adductors, knee extensors, dorsi and plantar flexors. Intact sensation with negative seated straight leg raises. CONSENT: Verbal and written consent obtained from the patient. Risks and benefits reviewed. Risks include but are not limited to epidural abscess, epidural hematoma, allergic reaction, dural puncture. The patient wishes to proceed. DESCRIPTION OF PROCEDURE: The patient was taken back to the special procedures room of the [facility] where he was maintained in a prone position. Backside was cleansed with Betadine x3, and a dry sterile dressing was applied. Fluoroscope was used to identify the L5-S1 interlaminar space. Overlying skin on the right side was anesthetized with 4 mL of lidocaine 1% with a 25 gauge 1-1/2-inch needle. A 22-gauge 3-1/2 inch Tuohy needle was then directed down toward the interlaminar space. It was advanced under lateral fluoroscopic guidance, and loss of resistance was noted at a depth of 6.5 cm. Isovue 300 contrast was injected 1 mL which demonstrated epidural uptake pattern on lateral views. He then underwent injection after negative aspiration of 40 mg Depo-Medrol and 4 mL of preservative free sodium chloride. Injection was well tolerated and reproduced the familiar transient radicular sensation down the right leg. DISPOSITION: 1. The patient is taken out into the discharge recovery area where he will be discharged home once discharge criteria met. 2. Follow up in the [facility] office in 4 weeks' time. I attest to the content of the Intraoperative Record and any orders documented therein. Any exception s are noted below.
== END | disposition home or self-care (01) ==
LOC: X.SURG 14:08
PROVIDERS: ATTEND Physical Medicine & Rehabilitation
DX: M48.00 Spinal stenosis, site unspecified (principal); M54.10 Radiculopathy, site unspecified

== ENCOUNTER 2020-05-27 12:03 | Observation (INO) ==
[2020-05-27] MEDS ORDERED: fentaNYL citrate 100 MCG/2 ML VIAL ONE ×2 (12:33→14:05)
[2020-05-27] MEDS ORDERED: MIDAZOLAM HCL 5 MG/ML 1 ML VIAL ONE ×2 (12:33→14:07)
[2020-05-27] MEDS ORDERED: BACITRACIN OINT 0.9 GM PKT ONE (12:33)
[2020-05-27] MEDS ORDERED: LIDOCAINE HCL 1% 20 ML VIAL ONE (12:34)
[2020-05-27] MEDS ORDERED: BACITRACIN INJ 50,000 UNIT VIAL ONE (12:34)
[2020-05-27] MEDS ORDERED: CEFAZOLIN 250 MG/ML 1 GM VIAL ONE (12:43)
--- NOTE | 2020-05-27 13:35 | History & Physical Report ---
Date of Service May 27, 2020 Assessment & Plan (1) Nonischemic cardiomyopathy: Bi-Ventricular ICD implant today. 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 He describes being aware that he has periods of a rapid heart rate since somewhere around 1999, they occurred sporadically but approximately 6-8 times per year for 1-2 times per month initially. He has checked his pulse during the arrhythmia and it is regular and he has timed it between 120 and 130 beats per minute, the episodes almost always terminated after around 5 minutes. Other than being aware of the heart rate which he believes starts and stops suddenly he does not have much in the way of symptoms although he had a somewhat more prolonged episode on one occasion and had a little chest discomfort with it. After that episode he was aware of having an irregular pulse, I don't believe he has had palpitations but when he checks his pulse he will sometimes feel what he calls a skipped beat. By his description it sounds like premature beat. He was worried about that sensation and therefore presented to the [facility] room on February 05, 2012. He was monitored there and did have premature atrial beats and premature ventricular beats. He was also scheduled for an echocardiogram and a stress test to evaluate his prior chest discomfort, he has knee problems and therefore a dobutamine echo was done which was negative for ischemia. He underwent an EGD on 06/03/2015 and during that was noted to have a wide QRS complex on monitoring. Electrocardiography after the procedure confirmed a left bundle branch block pattern with a QRS duration of 160 ms. His electrocardiogram was repeated on 06/04/2015 in our office at a follow-up visit and he had an IVCD of the left bundle type. This was similar to May 2014, but in 2011 his complex was narrow. Evaluation subsequent to identification of this abnormality included an echocardiogram which showed an abnormal septal motion consistent with the bundle branch block but low normal left ventricular function and no wall motion abnormalities, a Lexiscan Cardiolite stress test June 25, 2015 showed a moderate size defect in the inferior and inferoseptal area, this was fixed and thought to be diaphragmatic attenuation. There was however a possible small area of ischemia in the base to mid inferior and inferoseptal fleming versus attenuation artifact. Echocardiography July 13, 2017 showed normal left ventricular size with a low normal ejection fraction of 50-55%. He had been feeling more fatigued than usual and developed left jaw discomfort associated with precordial chest discomfort around mid July 2018. He was seen in the emergency room and his enzymes were negative, however the discomfort lasted several hours and was worrisome. With his left bundle branch block and risk factors for coronary disease he had catheterization performed on July 28, 2018 where nonobstructive disease was identified. He has therefore been treated with aspirin and atorvastatin for this. He then had worsening difficulty with fatigue and echocardiography February 13, 2019 showed an ejection fraction of 30 to 35%. He was scheduled to come in for an office visit but he was moving at the time and he missed an appointment, I did see him on May 31, 2019. It appeared that he developed a nonischemic cardiomyopathy which may have been related to his left bundle branch block pattern. We decided to treat his cardiomyopathy medically, with plans to consider biventricular pacing if that failed to improve his ejection fraction. I started him on carvedilol and Entresto at that time and stopped his losartan. He was then seen very frequently in our heart failure area and had a lot of difficulty with medical therapy. He felt that he had severe side effects both on carvedilol and on Entresto and ultimately metoprolol succinate was tried and titrated but he also had severe side effects on that (fatigue and decreased mental acuity) and he has dropped back down to 50 mg daily, feels better and is going to discontinue that starting today by his choice. He did go back on the losartan which he had been on for some time for hypertension and feels that he does not have side effects with that. With this medical therapy another echocardiogram was done on December 04, 2019 which showed an ejection fraction of 30 to 35% felt to be unchanged from his prior last year. He has continued to adjust his medications, currently he is cutting a losartan tablet of 50 mg down to 6.25 mg (1/8 tablet) and recognizes that this is not very accurate. He feels he cannot tolerate it anymore. He did try metoprolol succinate 50 mg daily but had a lot of difficulty with it. He therefore remains on virtually nothing for his left ventricular dysfunction. 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 He feels that his quality of life has diminished substantially. He also has frequent episodes of hypotension and he brought in a log to demonstrate, his blood pressure will sometimes be in the 80s and he feels very fatigued. He has not had presyncope or syncope. At his last visit I had discussed the possibility of biventricular pacing with him, he is still considering that but his symptoms have certainly not improved recently. After discussion we have elected to implant a Bi-Ventricular ICD. I discussed the indications, procedure, risks and alternatives with him and he understands and agrees to proceed. Consent obtained. I also discussed sedation with him and he agrees. Consent obtained. Allergies Allergy/AdvReac Type Severity Reaction Status Date / Time levofloxacin AdvReac Intermediate achilles Verified 04/29/20 09:09 heel pain-po only Home Medications Home Medications Medication Instructions Recorded Confirmed Type Myrbetriq 25 mg PO QPM 10/06/18 05/27/20 History meloxicam 15 mg PO DAILY PRN 10/06/18 05/27/20 History aspirin 325 mg PO QAM 10/31/18 05/27/20 History atorvastatin 80 mg tablet 40 mg PO QAM #90 tab 06/08/19 05/27/20 History acetaminophen-codeine 0.5 tab PO DAILY PRN 06/12/19 05/27/20 History [Tylenol-Codeine #3] pregabalin 50 mg capsule 50 mg PO BID 07/19/19 05/27/20 History tolterodine 4 mg capsule,extended 2 mg PO PM cap 11/20/19 05/27/20 History release 24 hr pantoprazole 40 mg PO QAM 03/28/20 05/27/20 History cyanocobalamin (vitamin B-12) 1,000 mcg IM MONTHLY ea 04/08/20 05/27/20 History 1,000 mcg/mL injection kit losartan 50 mg tablet 6.25 mg PO QPM tab 04/25/20 05/27/20 History testosterone propionate See Rx Instructions .ROUTE .COMPLEX 04/25/20 05/27/20 History melatonin 5 mg PO HS 05/27/20 05/27/20 History Past Med/Surg History Social History Preferred Language: Tristanian Communication Ability: Effective Fur Blower Required: No Beliefs That Will Affect Care: None Current Living Situation: Alone Feels Safe at Home: Yes Safety Concerns: Feels Safe At This Time Smoking Status: Never smoker Tobacco Type: cigars ; Cigarettes Per Day: CIGAR ONCE A YEAR ; Second Hand Exposure: No ; Hx Alcohol Use: No Hx Substance Use: No Physical Exam Physical Exam: Constitutional: Alert, cooperative and in no distress. HEENT: Unremarkable Neck: No jugular venous distention, carotid pulses are normal and equal bilaterally without bruits. Pulmonary: Clear to auscultation bilaterally. Cardiac: Regular rhythm with no murmur, gallop or rub. Abdomen: Soft, nontender with normal bowel sounds. Extremities: No edema. Distal pulses intact. Neurologic: No focal findings. Gait is steady. Skin: No rash, ecchymoses or petechiae. Results & Data Results & Data ([facility]) Vital Signs (Past 12 Hours) Vital Signs Temp Pulse Resp BP Pulse Ox 05/27/20 12:24 36.7 C 74 18 158/95 H 97 PG Care Time/CCT Total # of Minutes Spent Total Time Spent with Patient: Total time spent is greater than 50% in coordination of care (as documented) at patient's floor/unit and/or counseling patient: Coding Level of Care Code None Diagnoses Nonischemic cardiomyopathy I42.8
--- NOTE | 2020-05-27 13:37 | Pre Anesthesia Assessment ---
Date of Service May 27, 2020 Pre Sedation Assessment Vital Signs Temp Pulse Resp BP Pulse Ox 05/27/20 12:24 36.7 C 74 18 158/95 H 97 Cardiovascular RRR, no murmur, no edema Respiratory normal respiratory effort, lungs clear to auscultation Pre-Sedation Airway Assessment Smoking Status: Never smoker Hx Sleep Apnea: No Hx Difficult Intubation: No Short, Thick Neck: No Thyromental Distance: > or= 3.5 Finger Breadths Oral Cavity: + WNL Mallampati Class: III ASA: ASA3 NPO Status Date of Last Intake of Fluids: 05/19/20 Date of Last Intake of Solid Food: 05/26/20 Procedure Planning Contraindications for Sedation: none Current Medications Reviewed: Yes Notes The planned sedation has been discussed with the patient. Informed Consent was obtained. I have identified the patient, determined the appropriateness of sedation and have assessed the patient immediately prior to the procedure. All medicine(s) and interventions are by my order.
[2020-05-27] MEDS ORDERED: ACETAMINOPHEN W/CODEINE #3 1 TAB PO PRN (15:30)
[2020-05-27] MEDS ORDERED: ACETAMINOPHEN 325 MG TAB PO PRN (15:30)
--- NOTE | 2020-05-27 15:30 | Electrophysiology Report ---
Date of Service May 27, 2020 Electrophysiology Procedure Electrophysiology Procedure Report Preoperative diagnosis: Left bundle branch block, cardiomyopathy, congestive heart failure Postoperative diagnosis: Same Procedure: Atrial and ventricular defibrillator lead implantation Coronary sinus angiography Left ventricular lead implantation Biventricular ICD implantation Surgeon: Sriram Byrd MD Estimated blood loss: 30 cc Complications: None Disposition: Cardiology recovery Procedure details: After obtaining informed consent for the procedure, the patient was brought to the laboratory and prepped and draped in the standard sterile manner. The left prepectoral region was anesthetized with 1% lidocaine local anesthetic and left axillary venipuncture was performed by percutaneous technique and a guidewire placed through the left subclavian vein into the superior vena cava. The area was further infiltrated with 1% lidocaine local anesthetic and a 5 cm incision was made parallel to the left clavicle and 2 cm below it and carried down to the anterior pectoralis fascia. An ICD pocket was formed by blunt dissection anterior to the pectoralis fascia and a bacitracin- soaked sponge (50,000 units in 50 cc normal saline solution) was placed in the pocket. A 10.5 Hungarian Medtronic lead introducer was placed over the guidewire into the left subclavian vein, the dilator and guidewire were removed and a bipolar active fixation steroid tipped ventricular ICD lead was advanced through the introducer into the superior vena cava. A guidewire was placed through the introducer and the introducer was stripped from the lead and guidewire. An 8 Hungarian Medtronic lead introducer was placed over the guidewire into the left subclavian vein, the dilator and guidewire were removed and a bipolar active fixation steroid tipped atrial lead was advanced through the introducer into the superior vena cava. A guidewire was placed back through the introducer and the introducer was stripped from the lead and guidewire. Using a curved stylette the ventricular lead was advanced through the right ventricular outflow tract into the pulmonary artery and then using a straight stylette was positioned in the right ventricular apex. The screw was extended fixing the lead in position. Pacing and sensing thresholds were evaluated in bipolar configuration and are recorded on the implant data sheet. Diaphragmatic pacing was evaluated at full bipolar output as indicated on the data sheet. Using a curved stylette the atrial lead was positioned in the region of the atrial appendage and the screw extended fixing the lead in position. Pacing and sensing thresholds were evaluated in bipolar configuration and are recorded on the implant data sheet. Diaphragmatic pacing was evaluated at full bipolar output as indicated on the data sheet. Once the leads were in position they were attached to the anterior pectoralis fascia using 1 suture of 2-0 silk around each lead collar. The short guidewire was exchanged for a long guidewire and a Lind coronary sinus sheath was advanced to position in the right atrium. The curved obturator was placed through the sheath and using x-ray dye the os of the coronary sinus was identi fied. A guidewire was placed through the introducer into the coronary sinus and the Lind sheath was advanced into the coronary sinus. A balloon occlusion catheter was advanced through this sheath into the coronary sinus, the balloon was inflated and dye was injected in various projections to obtain a coronary sinus angiogram. A good vessel was identified and a 0.014 inch guidewire was advanced into this vessel. A quadripolar coronary sinus catheter was advanced over the guidewire into good distal position. The left ventricular pacing threshold was evaluated in various configurations, as recorded on the implant data sheet. Diaphragmatic pacing was evaluated at full output, as indicated on the data sheet. Once this lead was in position the introducer system was removed from the lead and the lead was attached to the anterior pectoral fascia using 2 sutures of 2-0 silk around the lead collar. An additional suture of 2-0 silk was placed around each of the atrial and ventricular lead collars as well. The bacitracin-soaked sponge was removed from the pocket, hemostasis was obtained, the ICD was attached to the leads and placed in the pocket with the leads coiled beneath it. The incision was closed with a running double subcutaneous closure of 3-0 Vicryl absorbable suture, followed by running subcuticular skin closure of 4-0 Vicryl absorbable suture. Bacitracin ointment was placed on the incision and a dressing applied. [facility] [place] [place] codes Indication for Procedure (1) Nonischemic cardiomyopathy: (2) LBBB (left bundle branch block): (3) Systolic CHF, chronic: Pacing Procedure 1: Pacin BiV electrode w/Pacer / ICD implant, add on code ICD Procedure 1: ICD: 26812 Insert single or dual ICD system Miscellaneous Procedures Procedure 1: EP Miscellaneous: 75025 Contrast injection for venography Procedure 2: EP Miscellaneous: 47751-26 Venography, CS supevsion/interp PG Moderate Sedation Codes Moderate Sedation Codes Procedure 1: Sedation/Anesthesia: 07012 Mod Sedation by the same physician;Init15 Min Child Age 5 & Up Procedure 2: Sedation/Anesthesia: 96476 Mod Sedation by the same physician; Ea [id number] Minutes
[2020-05-27] MEDS ORDERED: MELOXICAM 7.5 MG TAB PO PRN (15:35)
[2020-05-27] MEDS ORDERED: NON-FORMULARY MEDICATION (Cyanocobalamin (Vitamin B-12) 1,000 MCG) IM SCH (15:45)
[2020-05-27] MEDS: PREGABALIN 50 MG CAP PO SCH (20:17)
[2020-05-27] MEDS ORDERED: MELATONIN 3 MG TAB PO SCH (21:00)
[2020-05-27] MEDS ORDERED: MIRABEGRON ER 25 MG TAB PO SCH (21:00)
[2020-05-27] MEDS ORDERED: TOLTERODINE TARTRATE LA 2 MG CAPCR PO SCH (21:00)
[2020-05-27] MEDS ORDERED: LOSARTAN POTASSIUM 25 MG TAB PO SCH (21:00)
--- NOTE | 2020-05-28 07:30 | XRay Report ---
TWO VIEW CHEST CLINICAL HISTORY: Pacemaker implantation. FINDINGS: PA and lateral chest radiographs are compared to study dated 07/25/2018. A 3-lead cardiac AI CD has been placed. This partially obscures the left mid chest. Leads project over the right atrial a ppendage, the right ventricle, and the coronary sinus. The heart is enlarged noting atherosclerotic c alcification of the thoracic aorta. The pulmonary vasculature is noncongested. Chronic interstitial t hickening is similar to previous. There is bibasilar scarring/atelectasis. No airspace consolidation or pleural effusion is identified. There is no pneumothorax. The skeletal structures are osteopenic. The bony thorax appears intact. Degenerative change is seen throughout the thoracic spine. IMPRESSION: 1. A 3-lead cardiac AICD has been placed as above. No pneumothorax is seen post procedure. 2. Cardiomegaly without radiographic evidence of congestive failure. 3. There is no airspace consolidation or pleural effusion identified.. ACT 112: Negative or not required by law. Electronically signed by: Rubén Winslow M.D. 05/28/2020 7:28 AM
[2020-05-28] MEDS: PREGABALIN 50 MG CAP PO SCH (07:45)
--- NOTE | 2020-05-28 07:50 | Cardiology Progress Note ---
Date of Service May 28, 2020 Assessment & Plan (1) Status post implantation of automatic cardioverter/defibrillator (AICD): He is doing well postoperatively. The device is working well, electrocardiogram looks good, his chest x-ray looks good and the site looks good. He is stable for discharge. Admission and Anticipated Discharge Date Admission Date: May 27, 2020 Subjective He is feeling relatively well, he had a little bit of a lightheaded spell with some clammy sensation while in x-ray today, that resolved quickly. He also notes some type of floater sensation in his left eye transiently for a few minutes this morning and that has resolved as well. No significant discomfort his site. No chest pain or shortness of breath. Physical Exam Physical Exam: The incision is clean and dry, no bleeding, no ecchymosis or swelling. Results & Data ([facility]) Vital Signs (Past 12 Hours) Vital Signs Temp Pulse Resp BP Pulse Ox 05/28/20 04:13 36.7 C 65 18 109/71 95 05/27/20 23:08 36.7 C 79 18 122/75 94 05/27/20 20:23 36.4 C L 76 18 134/89 94 Laboratory Results Intake and Output 05/27/20 05/28/20 05/28/20 22:59 06:59 14:59 Intake Total 240 / 440 200 / 440 Output Total 500 / 500 Balance -260 / -60 200 / -60 Intake: Oral 240 / 440 200 / 440 Output: Urine 500 / 500 Other: # Unmeasured Voids 1 Cardiac Enzymes 05/28/20 Range/Units 08:13 AST 15 (15-37) U/L Lipids 05/28/20 Range/Units 08:13 Triglycerides 91 (0-150) mg/dl Cholesterol 137 (0-200) mg/dl HDL Cholesterol 47 mg/dl Cholesterol/HDL Ratio 3 Comprehensive Metabolic Panel 05/28/20 Range/Units 08:13 Sodium 138 (136-145) mmol/L Potassium 4.0 (3.5-5.1) mmol/L Chloride 106 (98-107) mmol/L Carbon Dioxide 25 (21-32) mmol/L BUN 19 H (7-18) mg/dl Creatinine 1.33 (0.6-1.4) mg/dl Glucose 139 H (70-99) mg/dl Calcium 8.5 (8.5-10.1) mg/dl Direct Bilirubin 0.2 (0-0.2) mg/dl AST 15 (15-37) U/L ALT 26 (12-78) U/L Alkaline Phosphatase 60 (45-117) U/L Total Protein 6.4 (6.4-8.2) gm/dl Albumin 3.5 (3.4-5.0) gm/dl Intake and Output 05/27/20 05/28/20 05/28/20 22:59 06:59 14:59 Intake Total 240 / 440 200 / 440 Output Total 500 / 500 Balance -260 / -60 200 / -60 Intake: Oral 240 / 440 200 / 440 Output: Urine 500 / 500 Other: # Unmeasured Voids 1 Diagnostic Findings Postop electrocardiogram: Appropriate pacing, with complex looks much better th an preop. Telemetry: Normal ICD function with biventricular pacing. Chest x-ray: Good lead position, no pneumothorax. ICD evaluation: Excellent pacing and sensing characteristics. PG Care Time/CCT Total # of Minutes Spent Total Time Spent with Patient: Total time spent is greater than 50% in coord ination of care (as documented) at patient's floor/unit and/or counseling patient: Coding Level of Care Code 49222 Post Operative Follow-Up Diagnoses Status post implantation of automatic cardioverter/defibrillator (AICD) Z95.810 CPT Codes Implantable Defib Multi lead programming - 81476 ([id number])
[2020-05-28] MEDS ORDERED: PANTOprazole 40 MG TAB PO SCH (09:00)
[2020-05-28] MEDS ORDERED: ATORVASTATIN 40 MG TAB PO SCH (09:00)
[2020-05-28] MEDS ORDERED: ASPIRIN 325 MG ECTAB PO SCH (09:00)
[2020-05-28 09:01] LABS: Albumin Level 3.5 gm/dl (3.4-5.0); BUN Creatinine Ratio 14.6 (10-20); Bilirubin Direct 0.2 mg/dl (0-0.2); Calcium 8.5 mg/dl (8.5-10.1); Creatinine Clr Calc Pharmacy 62.5 ml/min; Est GFR (African American) 60.2; Est GFR (Non-African American) 51.9
[2020-05-28 09:04] LABS: Bilirubin,Total 0.8 mg/dl (0.2-1); Total Protein 6.4 gm/dl (6.4-8.2)
[2020-05-28 10:07] LABS: Estimated Average Glucose 114 mg/dl; Hemoglobin A1C 5.6 % (4.5-5.6)
--- NOTE | 2020-05-28 19:14 | Electrocardiogram Report ---
Test Reason : Blood Pressure : / mmHG Vent. Rate : 070 BPM Atrial Rate : 070 BPM P-R Int : 180 ms QRS Dur : 132 ms QT Int : 470 ms P-R-T Axes : 050 014 -48 degrees QTc Int : 507 ms Atrial-sensed ventricular-paced rhythm Abnormal ECG When compared with ECG of 25-JUL-2018 23:08, Electronic ventricular pacemaker has replaced Sinus rhythm Confirmed by Akin Zafar ([id number]) on 05/28/2020 7:14:27 PM Referred By: Sriram Byrd Confirmed By:Isidro Zafar
--- NOTE | 2020-05-29 08:03 | Post Anesthesia Assessment ---
Date of Service May 29, 2020 Post Sedation Assessment Vital Signs Temp Pulse Resp BP Pulse Ox 05/28/20 10:08 36.5 C 67 19 153/89 H 98 Recovery Score Activity: Moves 4 extremities Respiration: Deep Breath/Cough Circulation: +/-20% PreAnes Value Consciousness: Fully Awake Oxygen Saturation: > 92% On Room Air Post Anesthesia Score: 10 Discharge Sedation Level of Care: Fast Track Phase II Post Sedation Plan On clinical assessment, the patient appears to have tolerated the sedation without complications. Patient is recovering as anticipated. Patient will continue to be monitored by nursing and may be discharged when sedation discharge criteria are met per below protocol. Upon Completions of procedure up to 15 minutes continue every 5 minute vital signs and the P.A.R. score; then discharge to a Phase I or Fast Track to Phase II per the following guidelines: * Discharge Patient to appropriate Phase II area if PAR is 8 or greater or return to pre- procedure baseline. The post - procedure orders will be as directed. * If PAR score is less than 8 or not return to pre-procedure baseline then patient will follow Phase I monitoring till PAR is reached for Phase II. The Phase I may be done in procedure room or may call to secure a Phase I area. * If naloxone or flumazenil are used for reversal, hold in Phase I for continued monitoring from when last reversal dose was given for a minimum of 60 minutes or longer pending the nurse and/or physician discretion of patient condition before discharge to Phase II. Please call the Sedation Physician to re-evaluate and complete post-note for discharge to Phase II area. Do NOT discharge from procedure sedation or Phase 1 until post- sedation evaluation note is complete by procedure /sedation MD Sedation Discharge Instructions to be given to the patient at discharge to home.
--- NOTE | 2020-06-02 09:34 | Discharge Summary ---
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 He describes being aware that he has periods of a rapid heart rate since somewhere around 1999, they occurred sporadically but approximately 6-8 times per year for 1-2 times per month initially. He has checked his pulse during the arrhythmia and it is regular and he has timed it between 120 and 130 beats per minute, the episodes almost always terminated after around 5 minutes. Other than being aware of the heart rate which he believes starts and stops suddenly he does not have much in the way of symptoms although he had a somewhat more prolonged episode on one occasion and had a little chest discomfort with it. After that episode he was aware of having an irregular pulse, I don't believe he has had palpitations but when he checks his pulse he will sometimes feel what he calls a skipped beat. By his description it sounds like premature beat. He was worried about that sensation and therefore presented to the emergency room on February 05, 2012. He was monitored there and did have premature atrial beats and premature ventricular beats. He was also scheduled for an echocardiogram and a stress test to evaluate his prior chest discomfort, he has knee problems and therefore a dobutamine echo was done which was negative for ischemia. He underwent an EGD on 06/03/2015 and during that was noted to have a wide QRS complex on monitoring. Electrocardiography after the procedure confirmed a left bundle branch block pattern with a QRS duration of 160 ms. His electrocardiogram was repeated on 06/04/2015 in our office at a follow-up visit and he had an IVCD of the left bundle type. This was similar to May 2014, but in 2011 his complex was narrow. Evaluation subsequent to identification of this abnormality included an echocardiogram which showed an abnormal septal motion consistent with the bundle branch block but low normal left ventricular function and no wall motion abnormalities, a Lexiscan Cardiolite stress test June 25, 2015 showed a moderate size defect in the inferior and inferoseptal area, this was fixed and thought to be diaphragmatic attenuation. There was however a possible small area of ischemia in the base to mid inferior and inferoseptal fleming versus attenuation artifact. Echocardiography July 13, 2017 showed normal left ventricular size with a low normal ejection fraction of 50-55%. He had been feeling more fatigued than usual and developed left jaw discomfort associated with precordial chest discomfort around mid July 2018. He was seen in the emergency room and his enzymes were negative, however the discomfort lasted several hours and was worrisome. With his left bundle branch block and risk factors for coronary disease he had catheterization performed on July 28, 2018 where nonobstructive disease was identified. He has therefore been treated with aspirin and atorvastatin for this. He then had worsening difficulty with fatigue and echocardiography February 13, 2019 showed an ejection fraction of 30 to 35%. He was scheduled to come in for an office visit but he was moving at the time and he missed an appointment, I did see him on May 31, 2019. It appeared that he developed a nonischemic cardiomyopathy which may have been related to his left bundle branch block pattern. We decided to treat his cardiomyopathy medically, with plans to consider biventricular pacing if that failed to improve his ejection fraction. I started him on carvedilol and Entresto at that time and stopped his losartan. He was then seen very frequently in our heart failure area and had a lot of difficulty with medical therapy. He felt that he had severe side effects both on carvedilol and on Entresto and ultimately metoprolol succinate was tried and titrated but he also had severe side effects on that (fatigue and decreased mental acuity) and he has dropped back down to 50 mg daily, feels better and is going to discontinue that starting today by his choice. He did go back on the losartan which he had been on for some time for hypertension and feels that he does not have side effects with that. With this medical therapy another echocardiogram was done on December 04, 2019 which showed an ejection fraction of 30 to 35% felt to be unchanged from his prior last year. He has continued to adjust his medications, currently he is cutting a losartan tablet of 50 mg down to 6.25 mg (1/8 tablet) and recognizes that this is not very accurate. He feels he cannot tolerate it anymore. He did try metoprolol succinate 50 mg daily but had a lot of difficulty with it. He therefore remains on virtually nothing for his left ventricular dysfunction. 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 He feels that his quality of life has diminished substantially. He also has frequent episodes of hypotension and he brought in a log to demonstrate, his blood pressure will sometimes be in the 80s and he feels very fatigued. He has not had presyncope or syncope. At his last visit I had discussed the possibility of biventricular pacing with him, he is still considering that but his symptoms have certainly not improved recently. After discussion we have elected to implant a Bi-Ventricular ICD. I discussed the indications, procedure, risks and alternatives with him and he understands and agrees to proceed. Consent obtained. I also discussed sedation with him and he agrees. Consent obtained. Admission Exam Per Admitting Provider Constitutional: Alert, cooperative and in no distress. HEENT: Unremarkable Neck: No jugular venous distention, carotid pulses are normal and equal bilaterally without bruits. Pulmonary: Clear to auscultation bilaterally. Cardiac: Regular rhythm with no murmur, gallop or rub. Abdomen: Soft, nontender with normal bowel sounds. Extremities: No edema. Distal pulses intact. Neurologic: No focal findings. Gait is steady. Skin: No rash, ecchymoses or petechiae. Principal Diagnosis Cardiomyopathy, nonischemic Discharge Exam The implant site is clean and dry, no bleeding or ecchymosis Cardiac rhythm is regular with no rub Lungs are clear to auscultation Discharge Data Allergies Allergy/AdvReac Type Severity Reaction Status Date / Time levofloxacin AdvReac Intermediate achilles Verified 04/29/20 09:09 heel pain-po only Procedures Performed Operation Date: 05/27/20 13:00 Actual Procedures p ICD Insertion Single or Dual - Sriram Byrd MD s Lead LV (No Priopr Implant) - Sriram Byrd MD Ordered Studies 05/27/20 06:45 EP Lab Images for PACS ONCE Hospital Course (1) History of implantable cardioverter-defibrillator (ICD) placement: A biventricular ICD was implanted on May 27, 2020, the procedure was uneventful. He did well overnight, feels better this morning and has no sig nificant discomfort. He is stable for discharge. Total Time Total Time Spent Total Time Spent (In Minutes): 15 Total Time Includes: Examination of the Patient, Discharge Planning and Medication Reconciliation Discharge Plan Discharge Items Patient Disposition: Home - Self-Care Reason For Visit: Biventricular ICD implantation Discharge Diagnosis: Nonischemic cardiomyopathy Activity: Per Instructions section Bathing: Keep incision dry Driving/Machine Use: No limitations Non-emergency contact: Primary Care Provider Call non-emergency contact if: you have any medication questions Follow-up/Referrals: Sriram Byrd MD [Physician] - 05/30/20 11:00 am Giancarlo Lester MD [Primary Care Provider] - 06/05/20 11:20 am Diet: Heart Healthy Addtl Attending Provider Instructions: ACTIVITY RECOMMENDATIONS: * Do not raise affected arm over head for 2 weeks. SPECIAL CARE INSTRUCTIONS: * If bleeding occurs, apply direct pressure to area for 5 minutes. * Call your doctor if you have severe pain, fever, drainage or bleeding at site. * Keep dressing on and dry for 48 hours then remove. * Keep any scheduled doctor's appointment. * Implant Card - hand held device with website information given. SKIN IRRITATION: * You may experience some redness and/or swelling in the area where radiation was administered. If any skin irritation occurs, please contact your family physician. FOLLOW UP VISIT: Keep any scheduled doctor appointments. Pending Studies at Discharge: Yes Studies:: Hgb A1c Stand-Alone Forms: My [facility] Medications and DC Order Prescriptions: Continued cyanocobalamin (vitamin B-12) 1,000 mcg/mL kit 1,000 mcg IM MONTHLY RF: 0 atorvastatin [Lipitor] 80 mg tablet 40 mg PO QAM Qty: 90 RF: 0 pregabalin [Lyrica] 50 mg capsule 50 mg PO BID RF: 0 testosterone propionate See Rx Instructions .ROUTE .COMPLEX RF: 0 acetaminophen-codeine [Tylenol-Codeine #3] 300-30 mg tablet 0.5 tab PO DAILY PRN (Reason: pain) RF: 0 tolterodine 4 mg capsule,extended release 24hr 2 mg PO PM RF: 0 melatonin 5 mg Capsule 5 mg PO HS RF: 0 aspirin 325 mg Tablet,Delayed Release (Dr/Ec) 325 mg PO QAM RF: 0 meloxicam 15 mg Tablet 15 mg PO DAILY PRN (Reason: Pain) RF: 0 Myrbetriq 25 mg Tablet Extended Release 24 Hr 25 mg PO QPM RF: 0 pantoprazole 40 mg Tablet,Delayed Release (Dr/Ec) 40 mg PO QAM RF: 0 losartan [Cozaar] 50 mg tablet 6.25 mg PO QPM RF: 0 Discharge Orders: Discharge Order (Routine); Ordered 05/28/20 Ordered By: Sriram Dumont/Other Patient Handouts: Pacemaker Biventricular and ICD, Living with a Pacemaker Admission Data Admit Date/Time: 05/27/20 15:40 Attending Provider: Sriram Byrd Admit Provider: Sriram Byrd Primary Care Provider: Giancarlo Lester Other Interventions: Discharge Summary Assessment (RN) Last Done: 05/28/20 10:08 DC Date/Time DO NOT enter until pt leaves facility: 05/28/20 11:06 Coding Level of Care Code D/C Day Management <30 mins Diagnoses History of implantable cardioverter-defibrillator (ICD) placement Z95.810 Time Spent (min) 15
== END 2020-05-28 11:06 | disposition home or self-care (01) ==
LOC: EP 12:03 → 2S 12:03
PROC: EPB.ICD (2020-05-27 13:00)

== ENCOUNTER 2024-03-05 08:22 | Inpatient (IN) ==
--- NOTE | 2024-03-05 08:54 | Emergency Department Note ---
Impression & Plan Pneumonia, Shortness of breath, Cough productive of yellow sputum, Non-ST elevation IN (NSTEMI), Coronavirus infection, Leukocytosis ED Provider Note HISTORY OF PRESENT ILLNESS: Patient is a 78-year-old male presenting with shortness of breath and productive cough. Reports that symptoms started 10 to 12 days ago. Reports that his symptoms began progressively worse. He reports he is unable to walk more than about 15 feet before he becomes lightheaded like he is going to pass out. He has a cough productive of a yellow-white sputum. Reports that 2 weeks ago he was around someone with similar symptoms, but their symptoms improved after only a few days. He denies any chest pain. Denies any measured fevers at home. Denies any recent antibiotic or steroid use. Denies any DVT or PE history. Denies any anticoagulation use. Reports that he was dry heaving 3 days ago but otherwise has not had any vomiting. He states he feels very fatigued and rundown over the last week. ROS: as above PHYSICAL EXAM: Constitutional: Patient appears in no acute distress. HENT: Head: Normocephalic and atraumatic. Eyes: EOMI, PERRL Mouth/Throat: Mucous membranes moist. Neck: Trachea midline. Neck supple. Cardiovascular: RRR, No murmurs, rubs or gallops. Intact distal pulses. Pulmonary/Chest: No respiratory distress. Breath sounds clear and equal bilaterally. No wheezes or rales. Abdominal: Abdomen soft, no tenderness, rebound or guarding. Musculoskeletal: No edema, tenderness or deformity noted. Skin: Warm and dry. No rash, erythema, pallor or cyanosis Psychiatric: Appropriate mood and affect for situation. Neurological: Alert and keenly responsive. CN II-XII grossly intact, moving all extremities equally and fully. MDM: - Vitals signs stable - History obtained via patient. History as above. - Chronic conditions affecting care: CAD; LBBB; HTN; non-ischemic cardiomyopathy (s/p ICD implantation) - Differential diagnoses include, but are not limited to: Congestive heart failure; acute coronary syndrome; COPD/asthma exacerbation; pulmonary edema; pulmonary embolism; pneumonia; pneumothorax; viral syndrome - Order placed for continuous cardiac monitoring. At this time, monitor showed rate of 95 bpm with normal sinus rhythm, per my interpretation. - External medical records reviewed. Echocardiogram dated 12/15/2023 was reviewed. Patient has reduced EF at 30-35% - EKG interpreted by myself showed normal sinus rhythm. Rate 97 bpm. QT 362. No acute ischemic changes - Laboratory workup interpreted by myself showed leukocytosis (WBC 15.54) with left shift; hyponatremia (Na 129); elevated anion gap (13); normal BNP; elevated troponin (25.9); normal procalcitonin; normal lactate - Blood cultures obtained - CXR shows left-sided pneumonia, per my interpretation - Viral respiratory panel positive for coronavirus type OC43 - Patient given 1L NS and 2g IV rocephin and 100 mg IV doxycycline for antibiotic therapy. Only 1L NS ordered, as patient's EF is low at 30-35%. - Patient moderate risk based on CURB-65 score. - Discussion was had with pillowcase cutter about patient's case and need for admission - Hospitalist consulted for admission - [facility] ASSESSMENT AND PLAN: Diagnosis: shortness of breath; productive cough; pneumonia; coronavirus infection; NSTEMI; leukocytosis Plan: admit Past Med/Surg History Medical History LBBB (left bundle branch block) CAD (coronary artery disease) Barretts esophagus Zenkers diverticulum Right lumbar radiculopathy History of pacemaker Nonischemic cardiomyopathy Osteoarthritis Chronic back pain Overactive bladder Hiatal hernia GERD (gastroesophageal reflux disease) Hypertension Hyperlipidemia Sleep apnea Lumbar stenosis with neurogenic claudication Surgical History History of umbilical hernia repair (10/27/12) History of repair of rotator cuff History of revision of total replacement of left knee joint History of cataract surgery History of implantable cardioverter-defibrillator (ICD) placement Hx of surgical procedure Hx of vasectomy History of cardiac cath History of esophageal dilatation History of total knee replacement History of laminectomy History of colonoscopy History of esophagogastroduodenoscopy (EGD) History of tooth extraction History of tonsillectomy S/P hernia surgery (06/24/14) Family History Father Heart disease Mother Heart disease Other No pertinent family history Social History Smoking Status: Never smoker Second Hand Exposure: No; Do You Dip or Chew Tobacco: No; Hx Alcohol Use: No Hx Substance Use: No Preferred Language: Sudanese Communication Ability: Effective Visual Impairment: No Limitations Sleeping Room Cleaner Required: No Beliefs That Will Affect Care: None Current Living Situation: Alone current occupational status: employed 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 [employer] Feels Safe at Home: Yes Assistive Devices: Glasses Allergies Allergies Allergy/AdvReac Type Severity Reaction Status Date / Time hazelnut AdvReac Mild Throat Verified 12/26/23 11:23 numbness levofloxacin AdvReac Unknown Achilles Verified 12/26/23 11:23 heel pain (rxn with oral, tolerated IV) cough suppressant Allergy Mild Swelling Uncoded 12/26/23 11:23 of Lip/Tongue/Throat Home Meds Home Medications Medication Instructions Recorded Confirmed tolterodine 4 mg capsule,extended 2 mg PO HS 11/20/19 03/05/24 release 24 hr pantoprazole 40 mg tablet,delayed 20 mg PO QAM 03/28/20 03/05/24 release cyanocobalamin (vitamin B-12) 1,000 mcg IM UD 04/08/20 03/05/24 1,000 mcg/mL injection kit testosterone propionate 1 dose UD 04/25/20 03/05/24 amitriptyline 50 mg tablet 12.5 mg PO QPM 12/08/20 03/05/24 mirabegron 25 mg tablet,extended 25 mg PO QPM 12/08/20 03/05/24 release 24 hr (Myrbetriq) Magnesium Otc 1 tab PO HS 06/04/21 03/05/24 melatonin 3 mg tablet 3 mg PO HS 06/04/21 03/05/24 multivitamin 1 tab PO QAM 06/04/21 03/05/24 atorvastatin 80 mg tablet (Lipitor) 20 mg PO QAM #90 tabs 05/13/22 03/05/24 sacubitril 97 mg-valsartan 103 mg 0.5 tab PO BID 09/07/22 03/05/24 tablet (Entresto) Previous Rx's Medication Instructions Recorded BiPap Machine #1 ea 06/23/20 spironolactone 25 mg tablet 25 mg PO DAILY #30 tabs 02/08/24 Results & Data (ED) Vital Signs Vital Signs - 24 hr 03/05/24 08:29 03/05/24 08:41 03/05/24 09:16 Temperature 36.2 C L Temperature Source Temporal Artery Scan Pulse Rate 101 H 95 H Pulse Rate [Apical] Respiratory Rate 18 Respiratory Effort / Characteristics Non-Labored Respiratory Depth Normal Respiratory Pattern Regular Blood Pressure 109/59 L Blood Pressure [Left Arm] Blood Pressure Mean 75 Blood Pressure Mean [Left Arm] Pulse Oximetry 93 Oxygen Delivery Method Room Air Room Air Sepsis Recent Fever Within 48 Hours No Sepsis New/Unexplained Change in Mental Status N/A Sepsis Action Taken by Nursing No Action Required 03/05/24 11:09 Temperature Temperature Source Pulse Rate Pulse Rate [Apical] 92 H Respiratory Rate 15 Respiratory Effort / Characteristics Respiratory Depth Respiratory Pattern Blood Pressure Blood Pressure [Left Arm] 118/69 Blood Pressure Mean Blood Pressure Mean [Left Arm] 85 Pulse Oximetry 93 Oxygen Delivery Method Room Air Sepsis Recent Fever Within 48 Hours Sepsis New/Unexplained Change in Mental Status Sepsis Action Taken by Nursing Laboratory Data 03/05/24 09:06 03/05/24 09:06 Lab Results 03/05/24 03/05/24 Range/Units 09:06 10:55 WBC 15.54 H (4.8-10.8) K/ul RBC 4.31 L (4.70-6.10) M/uL Hgb 13.8 L (14.0-18.0) g/dl Hct 39.6 L (42.0-52.0) % MCV 91.9 (80.0-100.0) fL MCH 32.0 (25.0-34.0) pg MCHC 34.8 (32.0-36.0) g/dL RDW Std Deviation 48.6 H (36.4-46.3) fL RDW Coeff of Joshua 14.3 (11.5-14.5) % Plt Count 253 (130-400) K/uL MPV 9.2 L (9.4-12.4) fL Immature Gran % (Auto) 1.5 % Neut % (Auto) 80.2 % Lymph % (Auto) 7.9 % Kay % (Auto) 9.0 % Eos % (Auto) 0.9 % Baso % (Auto) 0.5 % Neut # (Auto) 12.48 H (1.40-6.50) K/uL Lymph # (Auto) 1.22 (1.20-3.40) K/uL Kay # (Auto) 1.40 H (0.11-0.59) K/uL Eos # (Auto) 0.14 (0.00-0.50) K/uL Baso # (Auto) 0.07 (0.00-0.20) K/uL Immature Gran # (Auto) 0.23 H (0.01-0.20) K/uL PT 12.4 H (9.0-12.0) Seconds INR 1.1 (0.9-1.1) Sodium 129 L (136-145) mmol/L Potassium 3.8 (3.5-5.1) mmol/L Chloride 98 (98-107) mmol/L Carbon Dioxide 18 L (21-32) mmol/L Anion Gap 13 H (3-11) BUN 19 (6-23) mg/dl Creatinine 1.24 (0.6-1.4) mg/dl Est Cr Clr Drug Dosing 62.2 ml/min Est GFR ( Amer) 64.1 ml/min Est GFR (Non-Af Amer) 55.3 ml/min BUN/Creatinine Ratio 15.3 (10-20) Glucose 117 H (70-99(Fasting)) mg/dl Lactate 1.1 (0.4-2.0) mmol/L Calcium 9.1 (8.6-10.3) mg/dl Total Bilirubin 1.0 (0.2-1.0) mg/dl AST 43 H (13-39) U/L ALT 53 H (7-52) U/L Alkaline Phosphatase 100 (34-104) U/L Troponin I High Sens 25.9 H (0-20) pg/ml B-Natriuretic Peptide 73 (0-100) pg/ml Total Protein 6.7 (6.0-8.3) gm/dl Albumin 3.8 (3.4-5.0) gm/dl Globulin 2.9 (2.5-4.0) gm/dl Albumin/Globulin Ratio 1.3 (0.9-2) Procalcitonin 0.21 (0-0.5) ng/ml Adenovirus (PCR) Not Detected (NotDetected) B. pertussis DNA (PCR) Not Detected (NotDetected) B.parapertussis DNA PCR Not Detected (NotDetected) C. pneumoniae DNA (PCR) Not Detected (NotDetected) Coronavirus OC43 (PCR) DETECTED A (NotDetected) Coronavirus HKU1 (PCR) Not Detected (NotDetected) Coronavirus 229E (PCR) Not Detected (NotDetected) SARS-CoV-2 (PCR) Not Detected (NotDetected) Coronavirus NL63 (PCR) Not Detected (NotDetected) Human Metapneumovir PCR Not Detected (NotDetected) Influenza Type A (PCR) Not Detected (NotDetected) Influenza Type B (PCR) Not Detected (NotDetected) M. pneumoniae (PCR) Not Detected (NotDetected) Parainfluenza 1 (PCR) Not Detected (NotDetected) Parainfluenza 2 (PCR) Not Detected (NotDetected) Parainfluenza 3 (PCR) Not Detected (NotDetected) Parainfluenza 4 (PCR) Not Detected (NotDetected) RSV (PCR) Not Detected (NotDetected) Entero/Rhino (PCR) Not Detected (NotDetected) Administered Medications Doxycycline Hyclate 100 mg/ (Dextrose) 100 mls @ 50 mls/hr IV NOW STA Stop: 03/05/24 12:18 Last Admin: 03/05/24 10:58 Dose: 50 mls/hr Documented By: LÓPEZ Discontinued Medications Sodium Chloride (Nss) 1,000 mls @ 999 mls/hr IV .Q1H1M ONE Stop: 03/05/24 11:17 Last Admin: 03/05/24 10:58 Dose: 999 mls/hr Documented By: LÓPEZ Ceftriaxone Sodium (Rocephin) 2,000 mg in 50 mls @ 100 mls/hr IV NOW STA Stop: 03/05/24 10:48 Last Admin: 03/05/24 10:58 Dose: 100 mls/hr Documented By: LÓPEZ Imaging Data Radiologist's Impression: Chest X-Ray 03/05/24 08:41 XR chest 1V portable HISTORY: 78 years-old Male productive cough acute cough COMPARISON: 09/03/2023 TECHNIQUE: AP view of the chest FINDINGS: Cardiomediastinal and hilar silhouettes are unchanged. Left subclavian pacer/AICD. No pneumothorax, pleural effusion or overt pulmonary edema. Ill- defined retrocardiac left basilar opacities. Mild chronic interstitial coarsening of the lung bases. Degenerative changes of the shoulders and spine. IMPRESSION: Mild retrocardiac left basilar opacities are suspicious for pneumonia. ACT 112: Negative or not required by law. The above report was generated using voice recognition software. It may contain grammatical, syntax or spelling errors. Electronically signed by: Israel Infante M.D. 03/05/2024 9:10 AM Discharge Plan Visit Data Chief Complaint: Illness Stated Complaint: COUGH, MUCUS, FATIGUE, DIZZY, LETHARGIC ED Provider: Radha Rdz Discharge Problem: Pneumonia, Shortness of breath, Cough productive of yellow sputum, Non-ST elevation IN (NSTEMI), Coronavirus infection, Leukocytosis Forms Stand Alone Forms: [facility] Prescriptions Prescriptions: No Action (DME) BiPap Machine Misc See Rx Instructions .ROUTE .MEDSUPPLY Qty: 1 0RF Rx Instructions: BIPAP 14/10 with heated humidification, tubing, and supplies. OLYA: 99+ years. Entresto 97-103 mg tablet 0.5 tab PO BID spironolactone 25 mg tablet 25 mg PO DAILY Qty: 30 5RF cyanocobalamin (vitamin B-12) 1,000 mcg/mL kit 1,000 mcg IM UD Rx Instructions: once every other month atorvastatin [Lipitor] 80 mg tablet 20 mg PO QAM Qty: 90 testosterone propionate 1 dose UD Patient Comments: INJECTIONS ONCE A MONTH Rx Instructions: injection monthly. tolterodine 4 mg capsule,extended release 24hr 2 mg PO HS Myrbetriq 25 mg tablet extended release 24 hr 25 mg PO QPM pantoprazole 40 mg Tablet,Delayed Release (Dr/Ec) 20 mg PO QAM amitriptyline 50 mg tablet 12.5 mg PO QPM multivitamin Tablet 1 tab PO QAM melatonin 3 mg Tablet 3 mg PO HS Magnesium Otc 1 tab PO HS Referrals Referrals: Giancarlo Lester MD [Primary Care Provider] -
--- OUTSIDE RECORDS SUMMARY | 2024-03-05 08:59 | External Medical Summary | Summary of Care ---
Author Name Unknown Organization [facility] Address [address] [place] [address] Phone [phone] Care Team Providers Care Master Certified Rv Technician Name Role Phone Giancarlo Lester MD Primary Care Provider [phone] Reason for Visit * Reason Comments Follow Up Bilateral feet Encounter Details Date Type Department Care Team (Late st Contact Info) Description 02/24/2024 3:40 PM EDT Office Visit Podiatry [facility] [address] [facility] [place] [id number] Radha Da Silva, DPJohn [address], [place] [address] Pain in toes of both feet*; Bony prominence Allergies Active Allergy Reactions Criticality Noted Date Comments Cephalexin Diarrhea Low 01/03/2012 Levofloxacin 06/12/2012 Pt developed pain in his achilles tendon. Levofloxacin Unknown 02/27/2017 Other Reaction(s): Achilles heel pain (rxn with oral, tolerated IV) Benzonatate Cough 10/18/2019 documented as of this encounter (statuses as of 02/24/2024) Medications Medication Sig Dispensed Refills Start Date End Date Status Multiple Vitamin Tablet Take 1 Tablet by mouth in the morning. 0 Active melatonin 3 MG Tablet Take 2 Tablets by mouth at bedtime. 0 Active zoster vac recomb adjuvanted (SHINGRIX) 50 MCG/0.5ML injectionIndications:N eed for vaccination for zoster Inject 0.5 mL into a large muscle now and repeat dose in 60 to 180 days 1 Each 1 01/14/2020 Active Additional Information Patient not taking.Reported on 10/04/2023 Cyanocobalamin 1000 MCG/ML Injection Solution (CYANOCOBALAMIN) Inject 1,000 mcg into a large muscle. 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 0 Active Diclofenac Sodium 75 MG Oral Tablet Delayed Release (Voltaren) Take 1 Tablet by mouth daily as needed. 0 01/12/2023 Active Azithromycin 250 MG Oral Tablet (Zithromax)Indications :SOB (shortness of breath),Acute cough,Hyponatremia Take 2 Tablets by mouth in the morning. 20 Tablet 0 09/02/2023 Active Additional Information Patient not taking.Reported on 01/23/2024 traMADol HCl 50 MG Oral Tablet (Ultram)Indications:En thesopathy of knee,Spinal stenosis of lumbar region with neurogenic claudication Take 1 Tablet by mouth every 8 hours as needed for Pain, Moderate. 90 Tablet 0 10/04/2023 Active Pantoprazole Sodium 40 MG Oral Tablet Delayed Release (Protonix) Take one tablet by mouth before breakfast 90 Tablet 3 10/04/2023 Active Tolterodine Tartrate ER 4 MG Oral Capsule Extended Release 24 Hour (Detrol LA)Indications:Urinary frequency Take 1 Capsule by mouth in the morning. 90 Capsule 3 10/04/2023 Active Myrbetriq 50 MG Oral Tablet Extended Release 24 Hour (Mirabegron ER)Indications:Urinary frequency Take 1 Tablet by mouth in the morning. 90 Tablet 3 10/04/2023 Active Additional Information Patient taking differently: 25 mgOral Daily(AM), Reported on 01/23/2024 Amitriptyline HCl 50 MG Oral Tablet (Elavil) Take 1 Tablet by mouth at bedtime. 90 Tablet 3 10/04/2023 Active Atorvastatin Calcium 80 MG Oral Tablet (Lipitor) Take 1 Tablet by mouth in the morning. 90 Tablet 3 10/04/2023 Active Additional Information Patient taking differently: 40 mgOral Daily(AM), Reported on 01/23/2024 guaiFENesin-Codeine 100-10 MG/5ML Oral Syrup (Robitussin AC)Indications:Acute bronchitis, antibiotics not indicated Take 5 mL by mouth every 4 hours as needed for Cough. 120 mL 0 10/19/2023 Active Additional Information Patient not taking.Reported on 01/23/2024 Doxycycline Hyclate 100 MG Oral Tablet Take 1 Tablet by mouth in the morning and 1 Tablet before bedtime. 14 Tablet 0 01/11/2024 Active Additional Information Patient not taking.Reported on 01/23/2024 Magnesium Citrate 100 MG Oral Capsule Take 200 mg by mouth at bedtime. 0 07/29/2023 Active Sacubitril-Valsartan 97-103 MG Oral Tablet (Entresto) Take one pill by mouth twice a day 180 Tablet 3 02/13/2024 Active Hospital, Clinic, or Other Facility Administered Medication Ordered Dose Route Frequency Start Date End Date Status testosterone cypionate (DEPOTESTOSTERONE CYPIONATE) 200 MG/ML inj 200 mgIndications:Hypotestoster onism 200 mg IM [id number] 10/15/2020 Active vitamin b-12 (Cyanocobalamin) inj 1,000 mcgIndications:B12 deficiency 1000 mcg IM [id number] 06/16/2022 03/20/2025 Active Testosterone Cypionate (Depotestosterone Cypionate) 200 MG/ML inj 200 mgIndications:Hypotestoster onemia 200 mg IM [id number] 02/15/2023 Active vitamin b-12 (Cyanocobalamin) inj 1,000 mcgIndications:B12 deficiency 1000 mcg IM [id number] 02/15/2023 12/18/2024 Active vitamin b-12 (Cyanocobalamin) inj 1,000 mcgIndications:B12 deficiency 1000 mcg IM [id number] 10/04/2023 08/06/2025 Active Testosterone Cypionate (Depotestosterone Cypionate) 200 MG/ML inj 200 mgIndications:Hypotestoster onemia 200 mg IM [id number] 10/04/2023 09/04/2024 Active documented as of this encounter (statuses as of 02/24/2024) Active Problems Problem Noted Date Diagnosed Date 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 10/27/2022 History of esophageal surgery 10/27/2022 Zenkers diverticulum 10/22/2022 B12 deficiency 02/04/2022 Chronic kidney disease, stage 3a 11/23/2021 Overview: Per CKD protocol Prediabetes 11/24/2020 Overview: Per Prediabetes protocol Nonischemic cardiomyopathy 02/06/2020 Paroxysmal supraventricular tachycardia 01/24/20 19 Idiopathic chronic gout of multiple sites withou t tophus 07/13/2018 Neuropathy 11/17/2017 Essential tremor 03/08/2017 Dyslipidemia, goal LDL below 100 10/22/2013 Prostatalgia 07/10/2012 Urge incontinence 06/12/2012 Testosterone deficiency in male 06/12/2012 SLEEP APNEA, UNSPECIFIED: moderate, AHI 19 01/26 Periodic limb movement disorder (PLMD) 1 Osteoarthritis of knee 06/12/2008 Other adverse food reactions, not elsewhere clas sified 10/02/2002 HTN, goal below 140/90 10/29/1998 Knee joint replacement status, bilateral GERD (gastroesophageal reflux disease) documented as of this encounter (statuses as of 02/24/2024) Resolved Problems Problem Noted Date Diagnosed Date Resolved Date 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 Sleep apnea 11/11/2008 01/26/2011 Anemia 07/04/2008 11/19/2018 Knee joint replacement status 07/04/2008 11/19/2018 ADVANCE DIRECTIVE INFORMATION 05/13/2006 11/19/2018 Overview: Yes-advised to bring copy into be scanned into EMR Certain adverse effects, not elsewhere classified, other 08/28/2003 11/11/2008 Overview: pt declines generics, wants brand rx's Reflux esophagitis 10/29/1998 9 Mixed dyslipidemia 10/29/1998 9 Overview: Per Lipid Taxonomy. Allergic rhinitis 09/05/2019 HTN, goal to be determined 0 03/02/2019 Dyslipidemia, goal to be determined 03/02/2019 documented as of this encounter (statuses as of 02/24/2024) Immunizations Name Administration Dates Next Due COVID-19 mRNA, LNP-s, No Pre serve, 2-Dose Series ([employer]) 08/10/2022,01/27/2021,12/30/2020 HEP A - Hepatitis A (Adult > 18 yrs) 04/02/2008, 07/03/2007 Hepatitis B, 20+ yrs 04/02/2008,08/17/2007,07/03 Pneumococcal Conjugate Vacc, 13 Valent (Prevnar) 11/02/2016 Pneumococcal Polysaccharide PPV23 (Pneumovax) 08/14/2010 RSV Vac., Recomb, Adjuvant, PF,0.5 Ml (Arexvy) 11/17/2023 Seasonal Influenza, PF, 6 M & above, IM , (FluLaval or Fluzone) 08/04/2020,08/09/2019,08/03/2018 Seasonal Influenza, Quadriva lent Hd (Fluzone Hd) 08/08/2023,08/11/2022,09/18/2021 Seasonal Influenza, Quadriva lent Hd, 65+ Yrs 08/04/2020 Seasonal Influenza, Quadriva lent, No Preserve, IM 07/28/2017,07/28/2016 Seasonal Influenza, Split, I IV3, With Preserve, Inj 07/31/2015,07/31/2014,08/01/2013,09/03/2012,08/13/2011,08/14/2010,10/15/20,08/17/2007,09/24/2006 07/31/2016 TD, Preservative Free 10/15/2008 TDAP (age 10 and older)(Boostrix) 08/05/2014 Varicella Zoster Vaccine (Adult) 08/09/2011 Zoster Vaccine Recombinant (Shingrix) 04/15/2020 ,01/17/2020 documented as of this encounter Social History Tobacco Use Types Packs/Day Years Used Date Smoking Tobacco: Never Smokeless Tobacco: Never Alcohol Use Standard Drinks/Week Comments Yes 0 (1 standard drink = 0.6 oz pur e alcohol) rarely PHQ-2 Answer Date Recorded PHQ Adult Total Score 0 02/15/2023 Hunger Vital Sign Answer Date Recorded Worried About Running Out of Food in the Last Ye ar Never true 06/05/2020 Ran Out of Food in the Last Year Never true 06/05/2020 Sex and Gender Information Value Date Recorded Sex Assigned at Not on file Gender Identity Not on file Sexual Orientation Not on file Job Start Date Occupation Industry Not on file Not on file Not on file documented as of this encounter Progress Notes * Radha Da Silva DPM - 02/24/2024 3:40 PM EDT Podiatry Established Note [facility] Name: Tato Sterling : 1945 Date: 02/24/2024 REASON FOR VISIT: return - persistent toe pain, had fungal culture and SOLIS studies SUBJECTIVE: This patient is a 78 year old male who presents today for follow up of bilateral great toe pain. I had seen Bishop twice before. At his last visit, I discussed options of SOLIS studies, fungal culture, and return for partial nail avulsion if needed. He was to make a follow up but did not. I asked our nurse to reach out with results and he then requested a follow up as both great toes stil l hurt. He had previously reported this started after a nail trimming at another office. He notes using Benzocaine 20% with a toe cap daily. He also uses kerasol cream to the areas of thickened skin which includes the distal nail folds. He notes feeling a little better. He no longer notices as muchpain in the evening. He also inquires about the right great toe prominence. Past Medical History: Diagnosis Date Dyslipidemia, goal to be determined GERD (gastroesophageal reflux disease) HTN, goal to be determined Knee joint replacement status, bilateral Localized osteoarthrosis, lower leg Osteoarthritis, local/knee left Neuropathy 11/17/2017 Other and unspecified hormones and synthetic substitutes causing adverse effect in therapeutic use decrease testosterone level Periodic limb movement disorder (PLMD) 01/26/2011 ALLERGIES: Review of patient's allergies indicates: Allergen Reactions Levofloxacin Pt developed pain in his achilles tendon. Levofloxacin Unknown Other Reaction(s): Achilles heel pain (rxn with oral, tolerated IV) Tessalon [Benzonatate] Cough Cephalexin Diarrhea REVIEW OF SYSTEMS: N/A FOCUSED PODIATRIC EXAM: Vascular: Pedal pulses palpable including dorsalis pedis and posterior tibial artery at 2/4 bilaterally. Capillary refill time is within normal limits to all toes. Mild chronic appearing edema of both lower legs. No warmth. Pedal hair growth diminished. Neurologic: Sensation (light touch) intact to the bilateral forefoot. (Patient notes a history of peripheral neuropathy). Musculoskeletal: No significant pain is reported with palpation of either great toes. Prominent dorsal IPJ to the right great toe. Dermatological: Skin is thin, dry. DIAGNOSTIC STUDIES: SOLIS vasospasm studies, 02/02/24, Dr. Vallecillo report: IMPRESSION: SOLIS at rest is 1.3 on the right and 1.2 on the left. For the right lower extremity: Lower extremity Doppler Evaluation is normal at rest with no evidence of significant arterial occlusive disease. Great toe pressure is 140. PPG tracing of the great toe has decreased amplitude. For the left lower extremity: Lower extremity Doppler Evaluation is normal at rest with no evidence of significant arterial occlusive disease. Great toe pressure is 152. PPG tracing of the great toe has decreased amplitude Toenail culture: CULTURE, FUNGUS, DERM Order: [id number] Status: Final result Visible to patient: Yes (not seen) Next appt: 02/24/2024 at 03:40 PM in *Ortho* (Radha Da Silva DPM) Dx: Onychomycosis Specimen Information: Toe, Right; Nail 0 Result Notes Culture Growth No fungus isolated ASSESSMENT: ICD-10-CM 1. Pain in toes of both feet M79.674 M79.675 2. Bony prominence M89.8X9 PLAN: Fungal culture was negative. SOLIS studies reviewed. I discussed decreased waveform to the toes, but this may in part be due to age. He prefers to avoid an ingrown toenail procedure and is doing slightly better. We discussed possibility of radiculopathy and neuropathy pain of which he declines further work up. He may continue OTC anesthetic agent (benzocaine). My nurse was to provide him with toe caps today. He plans on following up with [facility] podiatry for foot care. I did review the prominence of the right first toe of which the toe cap may be helpful. I advised against removal though. Radha Da Silva DPM documented in this encounter Nursing Notes * Camille Calderon LPN - 02/24/2024 3:06 PM EDT Pt presents for follow up bilateral feet, had vascular studies 02/02/2024. C/o 'moderate pain' in bilateral great toes, a 5-6/10. documented in this encounter Plan of Treatment Upcoming Encounters Date Type Department Care Team (Late st Contact Info) Description 03/08/2024 10:30 AM EDT Immunization/Injecti on Ancillary Department, [address] [address] [place], Nurse [address] [place] [address] 03/09/2024 10:15 AM EDT Office Visit Otolaryngology [facility] [address] [address] Kavya Knight MD [address] [address] 04/05/2024 9:30 AM EDT Procedure Only Endoscopy, [facility]ldo Jeffers [address] [place] [address] William Hoffmann MD [address] [place] [address] 06/05/2024 9:30 AM EDT Office Visit Urology, [facility] [address] [place] [address] Edd Schuster MD [address] [place] [address] Scheduled Procedures Name Priority Associated Diagnoses Date/Ti me COLONOSCOPY FLEXIBLE PROXIMA L DIAGNOSTIC Recall Personal history of colonic polyps Health Maintenance Due Date Last Done Comments CKD PHOS USE SMARTSET 60060 04/23/2023 04/23/2022 COVID-19 Vaccine ( season) 2023 08/10/2022, 01/27/2021, 12/30/2020 Depression Screening 02/16/2024 02/15/2023 Albumin/Creatinine Ratio 02/23/2024 02/22/2023, 09/15 GFR 03/03/2024 09/02/2023, 08/14, 02/22/2023, Additional history exists COLONOSCOPY-EVERY 5 YRS AGES 18-100 06/07/2024 06/07/2019, 06/07/2019, 11/19/2013, Additional history exists DTaP,Tdap,and Td Vaccines (2 - Td or Tdap) 08/05/2024 08/05/2014, 10/15/2008, 04/11/1998 CKD HGB USE SMARTSET 40877 11/24/202411/24, 09/02/2023, 09/02/2023, Additional history exists HbA1c 11/24/2024 11/24/2023, 02/12, 09/15/2022, Additional history exists Grimaldo's Esophagus Surveilance 10/21/2025 10/21/2022, 10/21/2022, 09/17/2022, Additional history exists Hepatitis B Completed 04/02/2008, 02/2007, 07/03/2007 Pneumococcal Vaccine: 65+ Years Completed 11/02/2016, 08/14/2010 Zoster Vaccines Completed 04/15/2020, 03/2020, 08/09/2011 Influenza Vaccine (FLU shot) Completed , 08/11/2022, 09/18/2021, Additional history exists GARDASIL-HPV IMMUNIZATION SERIES Aged Out No longer eligible based on patient's age to complete this topic MENINGOCOCCAL (MENACTRA/MENVEO) Aged Out No longer eligible based on patient's age to complete this topic documented as of this encounter Medical Devices Implanted Type Area R Programmer Device Identifier Shelf Expiration Date Model / Serial / Lot Cement Bone R 1112-140-01 - [id number] Implanted:Qty: 1 on 07/03/2008 [place] [facility] [place] Knee [employer] 10/14/2012 00-1112-1 40-01 / / [id number] Plate Tibial Flu - [id number] Implanted:Qty: 1 on 07/03/2008 at [place] [facility] [place]: Knee [employer] 00-5996-0 58-02 / / [id number] Patella Poly Nexgen - [id number] Implanted:Qty: 1 on 07/03/2008 at [place] [facility] [place]: Knee [employer] 03/14/2016 00-5972-0 65-41 / / [id number] Femur Nexgn F Left - [id number] Implanted:Qty: 1 on 07/03/2008 at [place] [facility] [place]: Knee [employer] 04/14/2018 [id number] 16-51 / / [id number] Implant On [employer] Fly - [id number] Implanted:Qty: 1 on 07/03/2008 at [place] [facility] [place]: Knee [employer] 00-5964-0 51-10 / / [id number] Duraclip 11mm Repositionable - [id number] Implanted:Qty: 6 on 10/21/2022 by Elmo Booker MD at [place] [facility] [place] N/A: [facility] [employer] 01/20/2025 [id number] / / [id number] documented as of this encounter Visit Diagnoses Diagnosis Pain in toes of both feet- Primary Bony prominence documented in this encounter Advance Directives Latest Code Status on File Code Status Date Activated Date Inactivated Comments Full Code 10/21/2022 5:37 PM 10/22/2022 8:56 PM This order reflects the patients wishes and were consensually agreed upon. Question Answer Comments Discussion of Advance Directives occurred with: Patient Code Status History Code Status Date Activated Date Inactivated Comments Full Code 10/21/2022 12:57 PM 10/21/2022 5:37 PM Question Answer Comments Discussion of Advance Directives occurred with: Not Discussed due to patient's condition Full Code 06/18/2009 12:05 PM 06/20/2009 4:32 PM This o rder reflects the patients wishes and were consensually agreed upon. Full Code 02/12/2009 1:22 PM 02/13/2009 6:53 PM Full Code 02/12/2009 1:21 PM 02/12/2009 1:22 PM Care Teams Master Certified Rv Technician Relationship Specialty Start Date End Date Giancarlo Lester MD [address] [place] [address] PCP - General Family Medicine 12/21/18 documented as of this encounter
--- OUTSIDE RECORDS SUMMARY | 2024-03-05 09:00 | External Medical Summary | Summary of Care ---
Author Name Unknown Organization [facility] Address [address] [place] [address] Phone [phone] Care Team Providers Care Correctional Lieutenant Name Role Phone Giancarlo Lester MD Primary Care Provider [phone]- [phone] Reason for Visit * Reason Comments Follow Up Encounter Details Date Type Department Care Team (Late st Contact Info) Description 02/01/2024 1:00 PM EDT Office Visit Podiatry [facility] [address] [facility] [place] [id number] Radha Da Silva, DPM [address] [place] [address] Pain in toes of both feet*; Onychomycosis Allergies Active Allergy Reactions Criticality Noted Date Comments Cephalexin Diarrhea Low 01/03/2012 Levofloxacin 06/12/2012 Pt developed pain in his achilles tendon. Levofloxacin Unknown 02/27/2017 Other Reaction(s): Achilles heel pain (rxn with oral, tolerated IV) Benzonatate Cough 10/18/2019 documented as of this encounter (statuses as of 02/01/2024) Medications Medication Sig Dispensed Refills Start Date End Date Status Multiple Vitamin Tablet Take 1 Tablet by mouth in the morning. 0 Active melatonin 3 MG Tablet Take 2 Tablets by mouth at bedtime. 0 Active zoster vac recomb adjuvanted (SHINGRIX) 50 MCG/0.5ML injectionIndications: Need for vaccination for zoster Inject 0.5 mL into a large muscle now and repeat dose in 60 to 180 days 1 Each 1 01/14/2020 Active Additional Information Patient not taking.Reported on 10/04/2023 Cyanocobalamin 1000 MCG/ML Injection Solution (CYANOCOBALAMIN) Inject 1,000 mcg into a large muscle. Q60 days 0 04/08/2020 Active Triamcinolone Acetonide 0.1 % External Cream (Aristocort)Indicatio ns:Atopic dermatitis, unspecified type Apply twice per day to affected area behind ear as needed 15 g 1 04/23/2022 Active Acetaminophen 500 MG Oral Tablet (Tylenol)Indications: Zenkers diverticulum,Grimaldo' s esophagus without dysplasia,HTN, goal below 140/90,Nonischemic cardiomyopathy (HCC),Dyslipidemia, goal LDL below 100,Gastroesophageal reflux disease with esophagitis without hemorrhage,Chronic kidney disease, stage 3a (HCC),Pre-op evaluation,Pre-operat doreen examination take 2 tabs by mouth every 8 hours pain after surgery for 3 days 18 Tablet 0 09/22/2022 Active CPAP every night at bedtime. 0 Active Diclofenac Sodium 75 MG Oral Tablet Delayed Release (Voltaren) Take 1 Tablet by mouth daily as needed. 0 01/12/2023 Active Azithromycin 250 MG Oral Tablet (Zithromax)Indication s:SOB (shortness of breath),Acute cough,Hyponatremia Take 2 Tablets by mouth in the morning. 20 Tablet 0 09/02/2023 Active Additional Information Patient not taking.Reported on 01/23/2024 traMADol HCl 50 MG Oral Tablet (Ultram)Indications:E nthesopathy of knee,Spinal stenosis of lumbar region with neurogenic claudication Take 1 Tablet by mouth every 8 hours as needed for Pain, Moderate. 90 Tablet 0 10/04/2023 Active Pantoprazole Sodium 40 MG Oral Tablet Delayed Release (Protonix) Take one tablet by mouth before breakfast 90 Tablet 3 10/04/2023 Active Sacubitril-Valsartan 97-103 MG Oral Tablet (Entresto) Take 1 by mouth daily 90 Tablet 3 10/04/2023 Active Additional Information Patient taking differently: 1 Tablet Oral BID (.AM/PM), (No instructions reported), Reported on 01/23/2024 Tolterodine Tartrate ER 4 MG Oral Capsule Extended Release 24 Hour (Detrol LA)Indications:Urinar y frequency Take 1 Capsule by mouth in the morning. 90 Capsule 3 10/04/2023 Active Myrbetriq 50 MG Oral Tablet Extended Release 24 Hour (Mirabegron ER)Indications:Urinar y frequency Take 1 Tablet by mouth in [...] by mouth at bedtime. 0 07/29/2023 Active Hospital, Clinic, or Other Facility Administered Medication Ordered Dose Route Frequency Start Date End Date Status testosterone cypionate (DEPOTESTOSTERONE CYPIONATE) 200 MG/ML inj 200 mgIndications:Hypotestoster onism 200 mg IM [id number] 10/15/2020 Active vitamin b-12 (Cyanocobalamin) inj 1,000 mcgIndications:B12 deficiency 1000 mcg IM [id number] 06/16/2022 03/20/2025 Active Testosterone Cypionate (Depotestosterone Cypionate) 200 MG/ML inj 200 mgIndications:Hypotestoster onemia 200 mg IM [id number] 02/15/2023 Active vitamin b-12 (Cyanocobalamin) inj 1,000 mcgIndications:B12 deficiency 1000 mcg IM [id number] 02/15/2023 12/18/2024 Active vitamin b-12 (Cyanocobalamin) inj 1,000 mcgIndications:B12 deficiency 1000 mcg IM [id number] 10/04/2023 08/06/2025 Active Testosterone Cypionate (Depotestosterone Cypionate) 200 MG/ML inj 200 mgIndications:Hypotestoster onemia 200 mg IM [id number] 10/04/2023 09/04/2024 Active documented as of this encounter (statuses as of 02/01/2024) Active Problems Problem Noted Date Diagnosed Date 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 10/27/2022 History of esophageal surgery 10/27/2022 Zenkers diverticulum 10/22/2022 B12 deficiency 02/04/2022 Chronic kidney disease, stage 3a 11/23/2021 Overview: Per CKD protocol Prediabetes 11/24/2020 Overview: Per Prediabetes protocol Nonischemic cardiomyopathy 02/06/2020 Paroxysmal supraventricular tachycardia 01/24/20 Idiopathic chronic gout of multiple sites withou [...] as of this encounter (statuses as of 02/01/2024) Resolved Problems Problem Noted Date Diagnosed Date [...] as of this encounter (statuses as of 02/01/2024) Immunizations Name Administration Dates Next Due COVID-19 mRNA, LNP-s, No Pre serve, 2-Dose Series ([employer]) 08/10/2022,01/27/2021,12/30/2020 HEP A - Hepatitis A (Adult [...] Influenza, Split, I IV3, With Preserve, Inj 07/31/2015,07/31/2014,08/01/2013,03/2012,08/13/2011,08/14/2010,10/15/20 08,08/17/2007,09/24/2006 07/31/2016 TD, Preservative Free 10/15/2008 TDAP (age [...] Notes * Radha Da Silva DPM - 02/01/2024 12:51 PM EDT Podiatry Established Note [facility] Name: Tato Sterling : 1945 Date: 02/01/2024 REASON FOR VISIT: toe pain follow up SUBJECTIVE: This patient is a 78 year old male who presents today for follow up of bilateral great toe pain. At his last appointment (01/11/24), he complained of similar issues which seemed to start after a routine nail care visit at another office. He failed to get relief after following up there. I had prescribed Doxycycline and recommended an OTC topical. He reports today with no significant change in his symptoms. He notes the right is more painful than the left. Most soreness to the right first toe medial border. He notes a flare a few nights ago that prevented him from resting. He questions if he can use benzocaine topical. He inquires about discoloration to the right first toenail, chronic discoloration of the second toenail, as well as a chronic bump to the top of the right first toe. He also requests I trim the left toe thickened skin. He reports being aware that I am not accepting new foot care. Past Medical History: Diagnosis Date Dyslipidemia, goal [...] legs. No warmth. Pedal hair growth diminished. Toes are cool to touch. Neurologic: Sensation (light touch) intact to the bilateral forefoot. (Patient notes a history of peripheral neuropathy). Musculoskeletal: No significant pain is reported with palpation of either great toes. Dermatological: Skin is thin, dry. There are two small calluses to the distal tips of left toes 2, 3. There is slight discoloration of the right first toenail, distal medial aspect. There is complete discoloration of the right second toenail. Class Findings for Routine Foot Care Class A Findings: None Class B Findings: Advanced trophic changes (at least three of the following): hair growth (decreaseor absence), nail changes (thickening), and pigmentary changes (discoloration) Class C Findings: Edema and Paresthesia (abnormal spontaneous sensations in feet) Modifier: Q9 - 1 Class B Finding and 2 Class C Findings DIAGNOSTIC STUDIES: None ASSESSMENT: ICD-10-CM 1. Pain in toes of both feet M79.674 M79.675 2. Onychomycosis B35.1 PLAN: I discussed with Bishop the possibility of nerve pain, ingrown toenail pain, or small vessel diseasewhich could cause pain. I recommended he try an OTC analgesic and I ordered SOLIS studies. If SOLIS studies are normal, we can consider a partial nail avulsion if needed. He inquired about discoloration. I obtained a culture of both the right first and second toenails. We can consider an anti fungal based on the results which can take 2 weeks. As far as the prominence, this would require x-rays and a return to further discuss, but I suspect this is his joint and not a spur. (Top of the right first IP joint). I did explain foot care is only covered every 60+ days and I have no follow up appointments for this. He is to follow up after ABIs and we may consider partial nail avulsion. Radha Da Silva DPM documented in this encounter Nursing Notes * Camille Calderon LPN - 02/01/2024 12:47 PM EDT Pt presents for follow up, c/o continuing pain in bilateral first toes, along the nail borders, R > L. documented in this encounter Plan of Treatment Upcoming Encounters Date Type Department Care Team (Late st Contact Info) Description 02/02/2024 11:30 AM EDT Imaging Vascular Lab, [facility] 2nd Floor, [address] [place] [address] 02/07/2024 10:30 AM EDT Immunization/Injecti on Ancillary Department, [facility] [place] [address] Nurse [facility] [address] [place] [address] 03/08/2024 10:30 AM EDT Immunization/Injecti on Ancillary Department, [place] [address] [place] [address] [place], Nurse [address] [facility], [place] [address] 03/09/2024 10:15 AM EDT Office Visit Otolaryngology [facility] [address] [facility] [place] [address] Kavya Knight MD [address] [place] [address] 04/05/2024 9:30 AM EDT Procedure Only Endoscopy, [place] [address] [facility] [place] [address] William Hoffmann MD [address] [place] [address] 06/05/2024 9:30 AM EDT Office Visit Urology, [facility] [address] [facility] [place] [address] Edd Schuster MD [address] [address] [place] [address] Scheduled Orders Name Type Priority Associated Diagnoses Orde r Schedule VASC ANKLE BRACHIAL INDICES WITH PPG (DIABETIC FOOT/VASOSPASM) Medical Imaging Routine Pain in toes of both feet Expected: 02/02/2024, Expires: 03/03/2025 CULTURE, FUNGUS, DERM Lab Routine Onychomycosis Ordered: 02/01/2024 Scheduled Procedures Name Priority Associated Diagnoses Date/Ti me COLONOSCOPY FLEXIBLE PROXIMA L DIAGNOSTIC Recall Personal history of colonic polyps Health Maintenance Due Date Last Done Comments CKD PHOS USE SMARTSET 54752 04/23/2023 04/23/2022 COVID-19 Vaccine ( season) 2023 08/10/2022, 01/27/2021, 12/30/2020 Depression Screening 02/16/2024 02/15/2023 Albumin/Creatinine Ratio 02/23/2024 02/22/2023, 09/15 GFR 03/03/2024 09/02/2023, 08/14, 02/22/2023, Additional history exists COLONOSCOPY-EVERY 5 YRS AGES 18-100 06/07/2024 06/07/2019, 06/07/2019, 11/19/2013, Additional history exists DTaP,Tdap,and Td Vaccines (2 - Td or Tdap) 08/05/2024 08/05/2014, 10/15/2008, 04/11/1998 CKD HGB USE SMARTSET 47785 11/24/202411/24, 09/02/2023, 09/02/2023, Additional history exists HbA1c [...] this encounter Medical Devices Implanted Type Area Gasoline Attendant Device Identifier Shelf Expiration Date Model / Serial / Lot Cement Bone R 1112-140-01 - [id number] Implanted:Qty: 1 on 07/03[place] [facility] [place] Knee [employer] 10/14/2012 00-1112-1 40- / [id number] Plate Tibial Flu - [id number] Implanted:Qty: 1 on 07/03/2008 at [place] [facility] [place]: Knee [employer] 00-5996-0 58 [id number] Patella Poly Nexgen - [id number] Implanted:Qty: 1 on 07/03/2008 at [place] [facility] [place]: Knee [employer] 03/14/2016 00-5972-0 65-41 / / [id number] Femur Nexgn F Left - [id number] Implanted:Qty: 1 on 07/03/2008 at [place] [facility] [place]: Knee [employer] 04/14/2018-5996-0 16-51 / / [id number] Implant On The Fly - [id number] Implanted:Qty: 1 on 07/03/2008 at [place] [facility] [place]: Knee [employer] 00-5964-0 51-10 / / [id number] Duraclip 11mm Repositionable - [id number] Implanted:Qty: 6 on 10/21/2022 by Elmo Booker MD at [place] [facility] [place] N/A: [facility] Creditable 01/20/2025 [id number] / / [id number] documented as of this encounter Visit Diagnoses Diagnosis Pain in toes of both feet- Primary Onychomycosis Dermatophytosis of nail documented in this encounter Advance Directives Latest [...] 1:21 PM 02/12/2009 1:22 PM Care Teams Correctional Lieutenant Relationship Specialty Start Date End Date Giancarlo Lester MD [address] [place] [address] PCP - General Family Medicine 12/21/18 documented as of this encounter
--- OUTSIDE RECORDS SUMMARY | 2024-03-05 09:00 | External Medical Summary | Summary of Care ---
Author Name Unknown Organization [facility] Address [address] [place] [address] Phone [phone] Care Team Providers Care Retail Merchandiser Name Role Phone Giancarlo Lester MD Primary Care Provider [phone]- [phone] Reason for Visit * Reason Comments Medication Administration Pt here today for his testosterone injection Encounter Details Date Type Department Care Team (Latest Contact Info) Description 02/07/2024 10:30 AM EDT Immunization/I njection Ancillary Department, [place] [address] [place] [address] [place], Nurse [address] [place] [address] Testosterone deficiency in male* Allergies Active Allergy Reactions Criticality Noted Date Comments Cephalexin Diarrhea Low 01/03/2012 Levofloxacin 06/12/2012 Pt developed pain in his achilles tendon. Levofloxacin Unknown 02/27/2017 Other Reaction(s): Achilles heel pain (rxn with oral, tolerated IV) Benzonatate Cough 10/18/2019 documented as of this encounter (statuses as of 02/07/2024) Medications Medication Sig Dispensed Refills Start Date [...] inj 200 mgIndications:Hypotestoster onism 200 mg IM [id number] 10/15/2020 Active vitamin b-12 (Cyanocobalamin) inj 1,000 mcgIndications:B12 deficiency 1000 mcg IM [id number] 06/16/2022 03/20/2025 Active Testosterone Cypionate (Depotestosterone Cypionate) 200 MG/ML inj 200 mgIndications:Hypotestoster onemia 200 mg IM [id number] 02/15/2023 Active vitamin b-12 (Cyanocobalamin) inj 1,000 mcgIndications:B12 deficiency 1000 mcg IM [id number] 02/15/2023 12/18/2024 Active vitamin b-12 (Cyanocobalamin) inj 1,000 mcgIndications:B12 deficiency 1000 mcg IM [id number] 10/04/2023 08/06/2025 Active Testosterone Cypionate (Depotestosterone Cypionate) 200 MG/ML inj 200 mgIndications:Hypotestoster onemia 200 mg IM [id number] 10/04/2023 09/04/2024 Active documented as of this encounter (statuses as of 02/07/2024) Active Problems Problem Noted Date Diagnosed Date [...] as of this encounter (statuses as of 02/07/2024) Resolved Problems Problem Noted Date Diagnosed Date Resolved Date 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, bilateral legs 01/23/2019 02/15/2023 Prediabetes 12/27/2017 10/30/2020 Overview: Per Prediabetes protocol #1 Cellulitis 06/06/2016 11/17/2017 Urinary frequency 06/12/2012 11/23/2017 Acute prostatitis 06/12/2012 11/23/2017 Dysuria 06/12/2012 11/23/2017 Obesity, Class I, BMI 30.0-3 4.9 (see actual BMI) 12/17/2011 07/01/2018 Overview: BMI= 31.58 2/3/12 Dyslipidemia, goal to be determined 10/23/2009 10/22/2013 [...] as of this encounter (statuses as of 02/07/2024) Immunizations Name Administration Dates Next Due COVID-19 mRNA, LNP-s, No Pre serve, 2-Dose Series ([employer]) 08/10/2022,01/27/2021,12/30/2020 HEP A - Hepatitis A (Adult [...] as of this encounter Progress Notes * Caitie Stanley LPN - 02/07/2024 11:04 AM EDT Immunization Administration Documentation Time Out Procedure Performed: Yes Patient Identified (Ask Name/Date of ): Yes Does the patient have a fever greater than 101 degrees today? No Patient allergic to latex? No VFC Stock: No Injection(s) verified: Yes, Injection Name: testosterone cypionate 200 mg/ml Verified Side and Site: Yes Verified Shot(s) with Parent(s)/Patient: Yes documented in this encounter Plan of Treatment Upcoming Encounters Date Type Department Care Team (Late st Contact Info) Description 03/08/2024 10:30 AM EDT Immunization/Injecti on Ancillary Department, [address] [address] [place] Nurse [address] [facility] [place] [address] 03/09/2024 10:15 AM EDT Office Visit Otolaryngology [facility] [address] [place] [address] Kavya Knight MD [address] [place] [address] 04/05/2024 9:30 AM EDT Procedure Only Endoscopy, [place] [address] [place] [address] William Hoffmann MD [address] [place] [address] 06/05/2024 9:30 AM EDT [facility], [facility] [place] [address] Edd Schuster MD [address] [place] [id number] Scheduled Procedures Name Priority Associated Diagnoses Date/Ti me COLONOSCOPY FLEXIBLE PROXIMA L DIAGNOSTIC Recall Personal history of colonic polyps Health Maintenance Due Date Last Done Comments CKD PHOS USE SMARTSET 51613 04/23/2023 04/23/2022 COVID-19 Vaccine ( season) 2023 08/10/2022, 01/27/2021, 12/30/2020 Depression Screening 02/16/2024 02/15/2023 Albumin/Creatinine Ratio 02/23/2024 02/22/2023, 09/15 GFR 03/03/2024 09/02/2023, 08/14, 02/22/2023, Additional history exists COLONOSCOPY-EVERY 5 YRS AGES 18-100 06/07/2024 06/07/2019, 06/07/2019, 11/19/2013, Additional history exists DTaP,Tdap,and Td Vaccines (2 - Td or Tdap) 08/05/2024 08/05/2014, 10/15/2008, 04/11/1998 CKD HGB USE SMARTSET 21164 11/24/202411/24, 09/02/2023, 09/02/2023, Additional history exists HbA1c [...] this encounter Medical Devices Implanted Type Area Exploitation Analyst Device Identifier Shelf Expiration Date Model / Serial / Lot Cement Bone R 1112-140-01 - [id number] Implanted:Qty: 1 on 07/03/2008 at [place] [facility] [place] Left: Knee [employer] 10/14/2012 00-1112-1 40-01 / / [id number] Plate Tibial Flu - [id number] Implanted:Qty: 1 on 07/03/2008 at [place] [facility] [place] Left: Knee [employer] 00-5996-0 58-02 / / [id number] Patella Poly Nexgen - [id number] Implanted:Qty: 1 on 07/03/2008 at [place] [facility] [place] Left: Knee [employer] 03/14/2016 00-5972-0 65-41 / / [id number] Femur Nexgn F Left - [id number] Implanted:Qty: 1 on 07/03/2008 at [facility] Left: Knee [employer] 04/14/2018 00-5996-0 16-51 / / [id number] Implant On The Fly - [id number] Implanted:Qty: 1 on 07/03/2008 at [facility] Left: Knee [employer] 00-5964-0 51-10 / / [id number] Duraclip 11mm Repositionable - [id number] Implanted:Qty: 6 on 10/21/2022 by Elmo Booker MD at [place] [facility] [place] N/A: Esophagus [employer] SHANEKA 01/20/2025 [id number] / / [id number] documented as of this encounter Visit Diagnoses Diagnosis Testosterone deficiency in male- Primary documented in this encounter Administered Medications Active Administered Medications - up to 3 most recent administrations Medication Order MAR Action Action Date Dose Rate Site testosterone cypionate (DEPOTESTOSTERONE CYPIONATE) 200 MG/ML inj 200 mg 200 mg, Intramuscular, [id number], First dose on Tue10/15/20 at 1115, Until Discontinued Given 02/07/2024 10:59 AM EDT 200 mg Dorsogluteal Right Given 01/10/2024 11:23 AM EST 200 mg D orsogluteal Left Given 08/08/2023 10:18 AM EDT 200 mg D orsogluteal Left documented in this encounter Advance Directives Latest [...] 1:21 PM 02/12/2009 1:22 PM Care Teams Retail Merchandiser Relationship Specialty Start Date End Date Giancarlo Lester MD [address] [place] [address] PCP - General Family Medicine 12/21/18 documented as of this encounter
--- OUTSIDE RECORDS SUMMARY | 2024-03-05 09:00 | External Medical Summary | Summary of Care ---
Author Name Unknown Organization [facility] Address [address] [place] [address] Phone [phone] Care Team Providers Care Bd Special Education Teacher Name Role Phone Giancarlo Lester MD Primary Care Provider [phone]- [phone] Reason for Visit * Reason Onset Date Comments Test Results 02/17/2024 SOLIS results Encounter Details Date Type Department Care Team (Late st Contact Info) Description 02/17/2024 Telephone Podiatry [facility] [address] [facility] [place] [address] Radha Da Silva, [address] [place], [place] [id number] Test Results (SOLIS results ) Allergies Active Allergy Reactions Criticality Noted Date Comments Cephalexin Diarrhea Low 01/03/2012 Levofloxacin 06/12/2012 Pt developed pain in his achilles tendon. Levofloxacin Unknown 02/27/2017 Other Reaction(s): Achilles heel pain (rxn with oral, tolerated IV) Benzonatate Cough 10/18/2019 documented as of this encounter (statuses as of 02/17/2024) Medications Medication Sig Dispensed Refills Start Date [...] inj 200 mgIndications:Hypotestoster onism 200 mg IM [id number] 10/15/2020 Active vitamin b-12 (Cyanocobalamin) inj 1,000 mcgIndications:B12 deficiency 1000 mcg IM [id number] 06/16/2022 03/20/2025 Active Testosterone Cypionate (Depotestosterone Cypionate) 200 MG/ML inj 200 mgIndications:Hypotestoster onemia 200 mg IM [id number] 02/15/2023 Active vitamin b-12 (Cyanocobalamin) inj 1,000 mcgIndications:B12 deficiency 1000 mcg IM [id number] 02/15/2023 12/18/2024 Active vitamin b-12 (Cyanocobalamin) inj 1,000 mcgIndications:B12 deficiency 1000 mcg IM [id number] 10/04/2023 08/06/2025 Active Testosterone Cypionate (Depotestosterone Cypionate) 200 MG/ML inj 200 mgIndications:Hypotestoster onemia 200 mg IM [id number] 10/04/2023 09/04/2024 Active documented as of this encounter (statuses as of 02/17/2024) Active Problems Problem Noted Date Diagnosed Date [...] as of this encounter (statuses as of 02/17/2024) Resolved Problems Problem Noted Date Diagnosed Date [...] as of this encounter (statuses as of 02/17/2024) Immunizations Name Administration Dates Next Due COVID-19 mRNA, LNP-s, No Pre serve, 2-Dose Series ([employer]) 08/10/2022,01/27/2021,12/30/2020 HEP A - Hepatitis A (Adult [...] Influenza, Split, I IV3, With Preserve, Inj 07/31/2015,07/31/2014,08/01/2013,09/0 03/2012,08/13/2011,08/14/2010,10/15/20 08,08/17/2007,09/24/2006 07/31/2016 TD, Preservative Free 10/15/2008 TDAP [...] on file documented as of this encounter Miscellaneous Notes * Telephone Encounter - Emilie Tobar MED ASSIST - 02/17/2024 8:36 AM EDT Called patient to let him know that Dr. Da Silva has got the results from his blood flow study and she noticed that he did not schedule a follow up appointment. Was to let him know that his recent vascular study did not show significant arterial disease, that there is some decrease to the toes but thatmay be age related. If he continues to have issues, he can follow up if needed. Got sent to [facility], and told him to call back. * Telephone Encounter - Radha Da Silva DPM - 02/17/2024 8:31 AM EDT I thought Bishop was following up after his blood flow studies. I checked today and he did not schedule a follow up. Could you update him that his recent vascular study did not show significant arterial disease. There is some decreased wave form to the toes which may be in part age related. If he con tinues to have issues, he certainly can follow up. (Just FYI - he had requested foot care and I was not willing to follow up for this) documented in this encounter Plan of Treatment Upcoming Encounters Date Type Department Care Team (Late st Contact Info) Description 03/08/2024 10:30 AM EDT Immunization[facility]Injecti on Ancillary Department, [place] [address] [facility] [address] [place], Nurse [address] [place] [address] 03/09/2024 10:15 AM EDT Office Visit Otolaryngology [facility] [address] [place] [address] Kavya Knight MD [address] [place] [address] 04/05/2024 9:30 AM EDT Procedure Only Endoscopy, [facility] [address] [place] [address] William [facility] [place] [address] 06/05/2024 9:30 AM EDT Office Visit Urology, [facility] [place] [address] Edd Schuster MD [address] [place] [address] Scheduled Procedures Name Priority Associated Diagnoses Date/Ti me COLONOSCOPY FLEXIBLE PROXIMA L DIAGNOSTIC Recall Personal history of colonic polyps Health Maintenance Due Date Last Done Comments CKD PHOS USE SMARTSET 61471 04/23/2023 04/23/2022 COVID-19 Vaccine ( season) 2023 08/10/2022, 01/27/2021, 12/30/2020 Depression Screening 02/16/2024 02/15/2023 Albumin/Creatinine Ratio 02/23/2024 02/22/2023, 09/15 GFR 03/03/2024 09/02/2023, 08/14, 02/22/2023, Additional history exists COLONOSCOPY-EVERY 5 YRS AGES 18-100 06/07/2024 06/07/2019, 06/07/2019, 11/19/2013, Additional history exists DTaP,Tdap,and Td Vaccines (2 - Td or Tdap) 08/05/2024 08/05/2014, 10/15/2008, 04/11/1998 CKD HGB USE SMARTSET 26217 11/24/202411/24, 09/02/2023, 09/02/2023, Additional history exists HbA1c [...] this encounter Medical Devices Implanted Type Area Accounting Intern Device Identifier Shelf Expiration Date Model / Serial / Lot Cement Bone R 1112-140-01 - [id number] Implanted:Qty: 1 on 07/03/2008 at [place] [facility] Left: Knee [employer] 10/14/2012 00-1112-1 40-01 / / [id number] Plate Tibial Flu - [id number] Implanted:Qty: 1 on 07/03/2008 at OR [facility] Left: Knee [employer] 00-5996-0 58-02 / / [id number] Patella Poly Nexgen - [id number] Implanted:Qty: 1 on 07/03/2008 at OR [facility] Left: Knee [employer] 03/14/2016-5972-0 65-41 / / [id number] Femur Nexgn F Left - [id number] Implanted:Qty: 1 on 07/03/2008 at OR [facility] Left: Knee [employer] 04/14/2018 00-5996-0 16-51 / / [id number] Implant On The Fly - [id number] Implanted:Qty: 1 on 07/03/2008 at OR [facility] Left: Knee [employer] 00-5964-0 51-10 / / [id number] Duraclip 11mm Repositionable - [id number] Implanted:Qty: 6 on 10/21/2022 by Elmo Booker MD at OR [facility] N/A: [facility] [employer] 01/20/2025 [id number] / / [id number] documented as of this encounter Advance Directives Latest Code Status [...] 1:21 PM 02/12/2009 1:22 PM Care Teams Bd Special Education Teacher Relationship Specialty Start Date End Date Giancarlo Lester MD [address] [place] [address] PCP - General Family Medicine 12/21/18 documented as of this encounter
--- OUTSIDE RECORDS SUMMARY | 2024-03-05 09:00 | External Medical Summary | Summary of Care ---
Author Name Unknown Organization [facility] Address [address] [place] [address] Phone [phone] Care Team Providers Care Electronics Manufacturer Name Role Phone Giancarlo Lester MD Primary Care Provider [phone]- [phone] Reason for Visit * Reason Onset Date Comments Test Results 02/17/2024 SOLIS results Encounter Details Date Type Department Care Team (Late st Contact Info) Description 02/17/2024 Telephone Podiatry [facility] [address] [facility] [place] [address] Radha Da Silva, [address] [place], [place] [id number] Test Results (SOLIS results ) Allergies Active [...] inj 200 mgIndications:Hypotestoster onism 200 mg IM [id number] 10/15/2020 Active vitamin b-12 (Cyanocobalamin) inj 1,000 mcgIndications:B12 deficiency 1000 mcg IM [id number] 06/16/2022 03/20/2025 Active Testosterone Cypionate (Depotestosterone Cypionate) 200 MG/ML inj 200 mgIndications:Hypotestoster onemia 200 mg IM [id number] 02/15/2023 Active vitamin b-12 (Cyanocobalamin) inj 1,000 mcgIndications:B12 deficiency 1000 mcg IM [id number] 02/15/2023 12/18/2024 Active vitamin b-12 (Cyanocobalamin) inj 1,000 mcgIndications:B12 deficiency 1000 mcg IM [id number] 10/04/2023 08/06/2025 Active Testosterone Cypionate (Depotestosterone Cypionate) 200 MG/ML inj 200 mgIndications:Hypotestoster onemia 200 mg IM [id number] 10/04/2023 09/04/2024 Active documented as of this [...] mRNA, LNP-s, No Pre serve, 2-Dose Series ([employer]) 08/10/2022,01/27/2021,12/30/2020 Diptheria/Tetanus (Adult) 04/11/1998 HEP A - Hepatitis A (Adult > 18 yrs) 04/02/2008, 07/03/2007 Hepatitis B, 20+ yrs 04/02/2008,08/17/2007,07/03 Pneumococcal Conjugate Vacc, 13 Valent (Prevnar) 11/02/2016 Pneumococcal Polysaccharide PPV23 (Pneumovax) 08/14/2010 RSV Vac., Recomb, Adjuvant, PF,0.5 Ml (Arexvy) 11/17/2023 Seasonal Influenza Virus Vac cine, Unspecified Formulation 09/16/1998 Seasonal Influenza, PF, 6 M & above, IM , (FluLaval or Fluzone) 08/04/2020,08/09/2019,08/03/2018 Seasonal Influenza, Quadriva lent Hd (Fluzone Hd) 08/08/2023,08/11/2022,09/18/2021 Seasonal Influenza, Quadriva lent Hd, 65+ Yrs 08/04/2020 Seasonal Influenza, Quadriva lent, No Preserve, IM 07/28/2017,07/28/2016 Seasonal Influenza, Split, I IV3, With Preserve, Inj 07/31/2015,07/31/2014,08/01/2013,03/2012,08/13/2011,08/14/2010,10/15/20 08,08/17/2007,09/24/2006,10/19/2005,0 11/16/2004,08/28/2003,11/17/2000,08/2507/31/2016 TD, Preservative Free 10/15/2008 TDAP (age 10 [...] encounter Miscellaneous Notes * Telephone Encounter - Marlene Chauhan OSA - 02/17/2024 10:24 AM EDT Patient returned your call. When he called back it brought him into scheduling. We can not relay the results to patients. Please call [phone] * Telephone Encounter - Emilie Tobar MED [...] follow up if needed. Got sent to [employer], and told him to call back. * [...] 10:30 AM EDT Immunization/Injecti on Ancillary Department, [place] [address] [place] [address] [place], Nurse [address] [place] [address] 03/09/2024 10:15 AM EDT Office Visit Otolaryngology [facility] [address] [place] [address] Kavya Knight MD [address] [place] [address] 04/05/2024 9:30 AM EDT Procedure Only Endoscopy, [facility] [address] [place] [address] William Hoffmann MD [address] [place] [address] 06/05/2024 9:30 AM EDT Office Visit Urology, [facility] [address] [place] [address] Edd Schuster MD [address] [place] [address] Scheduled Procedures Name Priority Associated Diagnoses Date/Ti me COLONOSCOPY FLEXIBLE PROXIMA L DIAGNOSTIC Recall Personal history of colonic polyps Health Maintenance Due Date Last Done Comments CKD PHOS USE SMARTSET 96688 04/23/2023 04/23/2022 COVID-19 Vaccine ( season) 2023 08/10/2022, 01/27/2021, 12/30/2020 Depression Screening 02/16/2024 02/15/2023 Albumin/Creatinine Ratio 02/23/2024 02/22/2023, 09/15 GFR 03/03/2024 09/02/2023, 08/14, 02/22/2023, Additional history exists COLONOSCOPY-EVERY 5 YRS AGES 18-100 06/07/2024 06/07/2019, 06/07/2019, 11/19/2013, Additional history exists DTaP,Tdap,and Td Vaccines (2 - Td or Tdap) 08/05/2024 08/05/2014, 10/15/2008, 04/11/1998 CKD HGB USE SMARTSET 45370 11/24/202411/24, 09/02/2023, 09/02/2023, Additional history exists HbA1c [...] this encounter Medical Devices Implanted Type Area Professional Development Director Device Identifier Shelf Expiration Date Model / Serial / Lot Cement Bone R 1112-140-01 - [id number] Implanted:Qty: 1 on 07/03/2008 at [place] [facility] [facility] Left: Knee [employer] 10/14/2012 00-1112-1 40-01 / / [id number] Plate Tibial Flu - [id number] Implanted:Qty: 1 on 07/03/2008 at [place] [facility] [place] Left: Knee [employer] 00-5996-0 58-02 / / [id number] Patella Poly Nexgen - [id number] Implanted:Qty: 1 on 07/03/2008 at [place] [facility] [place] Left: Knee [employer] 03/14/2016 00-5972-0 65-41 / / [id number] Femur Nexgn F Left - [id number] Implanted:Qty: 1 on 07/03/2008 at [place] [facility] [place] Left: Knee [employer] 04/14/2018 00-5996-0 16-51 / / [id number] Implant On The Fly - [id number] Implanted:Qty: 1 on 07/03/2008 at [place] [facility] [place] Left: Knee [employer] 00-5964-0 51-10 / / [id number] Duraclip 11mm Repositionable - [id number] Implanted:Qty: 6 on 10/21/2022 by Elmo Booker MD at [place] [facility] [place] [facility] N/A: [facility] [employer] 01/20/2025 [id number] / / [id number] 2 documented as of this encounter Advance [...] 1:21 PM 02/12/2009 1:22 PM Care Teams Electronics Manufacturer Relationship Specialty Start Date End Date Giancarlo Lester MD [address] [place] [address] PCP - General Family Medicine 12/21/18 documented as of this encounter
--- OUTSIDE RECORDS SUMMARY | 2024-03-05 09:00 | External Medical Summary | Summary of Care ---
Author Name Unknown Organization [facility] Address [address] [place] [address] Phone [phone] Care Team Providers Care Rope Silica Machine Operator Name Role Phone Giancarlo Lester MD Primary Care Provider +1- [phone] Reason for Visit * Reason Onset Date Comments Test Results 02/17/2024 SOLIS results Encounter Details Date Type Department Care Team (Late st Contact Info) Description 02/17/2024 Telephone Podiatry [facility] [address] [facility] [place] [address] Radha Da Silva, [address] [place], [place] [id number] Test Results (SOLIS results ) Allergies Active [...] inj 200 mgIndications:Hypotestoster onism 200 mg IM [id number] 10/15/2020 Active vitamin b-12 (Cyanocobalamin) inj 1,000 mcgIndications:B12 deficiency 1000 mcg IM [id number] 06/16/2022 03/20/2025 Active Testosterone Cypionate (Depotestosterone Cypionate) 200 MG/ML inj 200 mgIndications:Hypotestoster onemia 200 mg IM [id number] 02/15/2023 Active vitamin b-12 (Cyanocobalamin) inj 1,000 mcgIndications:B12 deficiency 1000 mcg IM [id number] 02/15/2023 12/18/2024 Active vitamin b-12 (Cyanocobalamin) inj 1,000 mcgIndications:B12 deficiency 1000 mcg IM [id number] 10/04/2023 08/06/2025 Active Testosterone Cypionate (Depotestosterone Cypionate) 200 MG/ML inj 200 mgIndications:Hypotestoster onemia 200 mg IM [id number] 10/04/2023 09/04/2024 Active documented as of this [...] mRNA, LNP-s, No Pre serve, 2-Dose Series ([employer]) 08/10/2022,01/27/2021,12/30/2020 Diptheria/Tetanus (Adult) 04/11/1998 HEP A - [...] - Emilie Tobar MED ASSIST - 02/17/2024 10:32 AM EDT Returned patients phone call. Let him know that Dr. Da Silva had gotten the results, I had tried telling the patient about the results, but he stated he wanted to talk to Dr. Da Silva instead of me. Transferred him to front desk lead to schedule a follow up visit. * Telephone Encounter - Marlene Chauhan OSA - 02/17/2024 10:24 AM EDT Patient returned your call. When he called back it brought him into scheduling. We can not relay the results to patients. Please call [phone] * Telephone Encounter - Emilie Tobar MED [...] follow up if needed. Got sent to [employer], and told him to call back. * [...] EDT Immunization/Injecti on Ancillary Department, [place] [address] [facility] [address] [place] [facility] [address] [facility] [address] 03/09/2024 10:15 AM EDT Office Visit Otol[facility]ology [facility] [address] [place] [address] Kavya Knight MD [address] [place] [address] 04/05/2024 9:30 AM EDT Procedure Only Endoscopy, [place] [address] [place] [address] William Hoffmann MD [address] [place] [address] 06/05/2024 9:30 AM EDT Office Visit Urology, [facility] [address] [place] [address] Edd Schuster MD [address] [place] [address] Scheduled Procedures Name Priority Associated Diagnoses Date/Ti me COLONOSCOPY FLEXIBLE PROXIMA L DIAGNOSTIC Recall Personal history of colonic polyps Health Maintenance Due Date Last Done Comments CKD PHOS USE SMARTSET 86083 04/23/2023 04/23/2022 COVID-19 Vaccine ( season) 2023 08/10/2022, 01/27/2021, 12/30/2020 Depression Screening 02/16/2024 02/15/2023 Albumin/Creatinine Ratio 02/23/2024 02/22/2023, 09/15 GFR 03/03/2024 09/02/2023, 08/14, 02/22/2023, Additional history exists COLONOSCOPY-EVERY 5 YRS AGES 18-100 06/07/2024 06/07/2019, 06/07/2019, 11/19/2013, Additional history exists DTaP,Tdap,and Td Vaccines (2 - Td or Tdap) 08/05/2024 08/05/2014, 10/15/2008, 04/11/1998 CKD HGB USE SMARTSET 28197 11/24/202411/24, 09/02/2023, 09/02/2023, Additional history exists HbA1c 11/24/2024 11/24/2023, 04/11/2022, 09/15/2022, Additional history exists Grimaldo's Esophagus Surveilance [...] this encounter Medical Devices Implanted Type Area Horse Rider Device Identifier Shelf Expiration Date Model / Serial / Lot Cement Bone R 1112-140-01 - [id number] [place]planted:[place] 1 [place] 07/03[place] [facility] [place] Knee [employer] 10/14/2012 00-1112-1 40-01 / / [id number] Plate Tibial Flu - [id number] Implanted:Qty: 1 on 07/03/2008 [place] [facility] [place]: Knee [employer] 00-5996-0 58-02 / / [id number] Patella Poly Nexgen - [id number] Implanted:Qty: 1 on 07/03/2008 [place] [facility] [place]: Knee [employer] 03/14/2016 00-5972-0 65-41 / / [id number] Femur Nexgn F Left - [id number] Implanted:Qty: 1 on 07/03/2008 [place] [facility]: Knee [employer] 04/14/2018 00-5996-0 16-51 / / [id number] Implant On The Fly - [id number] Implanted:Qty: 1 on 07/03/2008 [place] [facility] [place]: Knee [employer] 00-5964-0 51-10 / / [id number] Duraclip 11mm Repositionable - [id number] Implanted:Qty: 6 on 10/21/2022 by Elmo Booker MD [place] [facility] N/A: Esophagus [employer] 01/20/2025 [id number] / / [id number] documented as of this encounter Advance [...] 1:21 PM 02/12/2009 1:22 PM Care Teams Rope Silica Machine Operator Relationship Specialty Start Date End Date Giancarlo Lester MD [address] [place] [address] PCP - General Family Medicine 12/21/18 documented as of this encounter
--- OUTSIDE RECORDS SUMMARY | 2024-03-05 09:00 | External Medical Summary | Summary of Care ---
Author Name Unknown Organization [facility] Address [address] [place] [address] Phone [phone] Care Team Providers Care Occupational Therapy Technician Name Role Phone Giancarlo Lester MD Primary Care Provider [phone]- [phone] Encounter Details Date Type Department Care Team (Late st Contact Info) Description 02/13/2024 Telephone [facility] [address] [place] [address] Giancarlo Lester MD [address] [place] [address] Allergies Active Allergy Reactions Criticality Noted Date Comments Cephalexin Diarrhea Low 01/03/2012 Levofloxacin 06/12/2012 Pt developed pain in his achilles tendon. Levofloxacin Unknown 02/27/2017 Other Reaction(s): Achilles heel pain (rxn with oral, tolerated IV) Benzonatate Cough 10/18/2019 documented as of this encounter (statuses as of 02/13/2024) Medications Medication Sig Dispensed Refills Start Date [...] 60 to 180 days 1 Each 1 0 Active Additional Information Patient not taking.Reported on 10/04/2023 Cyanocobalamin 1000 MCG/ML Injection Solution (CYANOCOBALAMIN) Inject 1,000 mcg into a large muscle. 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 0 Active Diclofenac Sodium 75 MG Oral Tablet Delayed Release (Voltaren) Take 1 Tablet by mouth daily as needed. 0 3 Active Azithromycin 250 MG Oral Tablet (Zithromax)Indication s:SOB (shortness of breath),Acute cough,Hyponatremia Take 2 Tablets by mouth in the morning. 20 Tablet 0 3 Active Additional Information Patient not taking.Reported on 01/23/2024 traMADol HCl 50 MG Oral Tablet (Ultram)Indications:E nthesopathy of knee,Spinal stenosis of lumbar region with neurogenic claudication Take 1 Tablet by mouth every 8 hours as needed for Pain, Moderate. 90 Tablet 0 3 Active Pantoprazole Sodium 40 MG Oral Tablet Delayed Release (Protonix) Take one tablet by mouth before breakfast 90 Tablet 3 3 Active Tolterodine Tartrate ER 4 MG Oral Capsule Extended Release 24 Hour (Detrol LA)Indications:Urinar y frequency Take 1 Capsule by mouth in the morning. 90 Capsule 3 3 Active Myrbetriq 50 MG Oral Tablet Extended Release 24 Hour (Mirabegron ER)Indications:Urinar y frequency Take 1 Tablet by mouth in the morning. 90 Tablet 3 3 Active Additional Information Patient taking differently: 25 mgOral Daily(AM), Reported on 01/23/2024 Amitriptyline HCl 50 MG Oral Tablet (Elavil) Take 1 Tablet by mouth at bedtime. 90 Tablet 3 3 Active Atorvastatin Calcium 80 MG Oral Tablet (Lipitor) Take 1 Tablet by mouth in the morning. 90 Tablet 3 3 Active Additional Information Patient taking differently: 40 mgOral Daily(AM), Reported on 01/23/2024 guaiFENesin-Codeine 100-10 MG/5ML Oral Syrup (Robitussin AC)Indications:Acute bronchitis, antibiotics not indicated Take 5 mL by mouth every 4 hours as needed for Cough. 120 mL 0 3 Active Additional Information Patient not taking.Reported on 01/23/2024 Doxycycline Hyclate 100 MG Oral Tablet Take 1 Tablet by mouth in the morning and 1 Tablet before bedtime. 14 Tablet 0 4 Active Additional Information Patient not taking.Reported on 01/23/2024 Magnesium Citrate 100 MG Oral Capsule Take 200 mg by mouth at bedtime. 0 3 Active Sacubitril-Valsartan 97-103 MG Oral Tablet (Entresto) Take one pill by mouth twice a day 180 Tablet 3 4 Active Sacubitril-Valsartan 97-103 MG Oral Tablet (Entresto) Take 1 by mouth daily 90 Tablet 3 3 02/13/20 24 Discontinu ed(Refill) Hospital, Clinic, or Other Facility Administered Medication Ordered Dose Route Frequency Start Date End Date Status testosterone cypionate (DEPOTESTOSTERONE CYPIONATE) 200 MG/ML inj 200 mgIndications:Hypotestoster onism 200 mg IM [id number] 10/15/2020 Active vitamin b-12 (Cyanocobalamin) inj 1,000 mcgIndications:B12 deficiency 1000 mcg IM [id number] 06/16/2022 03/20/2025 Active Testosterone Cypionate (Depotestosterone Cypionate) 200 MG/ML inj 200 mgIndications:Hypotestoster onemia 200 mg IM [id number] 02/15/2023 Active vitamin b-12 (Cyanocobalamin) inj 1,000 mcgIndications:B12 deficiency 1000 mcg IM [id number] 02/15/2023 12/18/2024 Active vitamin b-12 (Cyanocobalamin) inj 1,000 mcgIndications:B12 deficiency 1000 mcg IM [id number] 10/04/2023 08/06/2025 Active Testosterone Cypionate (Depotestosterone Cypionate) 200 MG/ML inj 200 mgIndications:Hypotestoster onemia 200 mg IM [id number] 10/04/2023 09/04/2024 Active documented as of this encounter (statuses as of 02/13/2024) Active Problems Problem Noted Date Diagnosed Date [...] as of this encounter (statuses as of 02/13/2024) Resolved Problems Problem Noted Date Diagnosed Date [...] as of this encounter (statuses as of 02/13/2024) Immunizations Name Administration Dates Next Due COVID-19 mRNA, LNP-s, No Pre serve, 2-Dose Series (ClickHome) 08/10/2022,01/27/2021,12/30/2020 HEP A - Hepatitis A (Adult [...] on file documented as of this encounter Plan of Treatment Upcoming Encounters Date Type Department Care Team (Late st Contact Info) Description 03/08/2024 10:30 AM EDT Immunization/Injecti on Ancillary Department, Aldo [facility] [address] [facility] [address] [facility] [address] 03/09/2024 10:15 AM EDT Office Visit Otolaryngology [facility] [address] [address] Kavya Knight MD [address] [place] [address] 04/05/2024 9:30 AM EDT Procedure Only Endoscopy, [facility] [address] [place] [address] William Hoffmann MD [address] [place] [address] 06/05/2024 9:30 AM EDT Office Visit Urology, [facility] [address] [place] [address] Edd Schuster MD [address] [place] [address] Scheduled Procedures Name Priority Associated Diagnoses Date/Ti me COLONOSCOPY FLEXIBLE PROXIMA L DIAGNOSTIC Recall Personal history of colonic polyps Health Maintenance Due Date Last Done Comments CKD PHOS USE SMARTSET 05830 04/23/2023 04/23/2022 COVID-19 Vaccine ( season) 2023 08/10/2022, 01/27/2021, 12/30/2020 Depression Screening 02/16/2024 02/15/2023 Albumin/Creatinine Ratio 02/23/2024 02/22/2023, 09/15 GFR 03/03/2024 09/02/2023, 08/14, 02/22/2023, Additional history exists COLONOSCOPY-EVERY 5 YRS AGES 18-100 06/07/2024 06/07/2019, 06/07/2019, 11/19/2013, Additional history exists DTaP,Tdap,and Td Vaccines (2 - Td or Tdap) 08/05/2024 08/05/2014, 10/15/2008, 04/11/1998 CKD HGB USE SMARTSET 75950 11/24/202411/24, 09/02/2023, 09/02/2023, Additional history exists HbA1c [...] this encounter Medical Devices Implanted Type Area 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 Rack Worker Device Identifier Shelf Expiration Date Model / Serial / Lot Cement Bone R 1112-140-01 - [id number] Implanted:Qty: 1 on 07/03/2008 at OR [facility] Left: Knee [employer] 10/14/2012 00-1112-1 40-01 / / [id number] Plate Tibial Flu - [id number] Implanted:Qty: 1 on 07/03/2008 at OR [facility] Left: Knee [employer] 00-5996-0 58-02 / / [id number] Patella Poly Nexgen - [id number] Implanted:Qty: 1 on 07/03/2008 at OR [facility] Left: Knee [employer] 03/14/2016 00-5972-0 65-41 / / [id number] Femur Nexgn F Left - [id number] Implanted:Qty: 1 on 07/03/2008 at OR [facility] Left: Knee [employer] 04/14/2018 [id number] 16-51 / / [id number] Implant On The Fly - [id number] Implanted:Qty: 1 on 07/03/2008 at OR [facility] Left: Knee [employer] 00-5964-0 51-10 / / [id number] Duraclip 11mm Repositionable - [id number] Implanted:Qty: 6 on 10/21/2022 by Elmo Booker MD at OR [facility] N/A: [facility] [employer] 01/20/2025 [id number] / / [id number] documented as of this encounter Advance [...] 1:21 PM 02/12/2009 1:22 PM Care Teams Occupational Therapy Technician Relationship Specialty Start Date End Date Giancarlo Lester MD [address] [place] [facility] [place] [address] PCP - General Family Medicine 12/21/18 documented as of this encounter
--- OUTSIDE RECORDS SUMMARY | 2024-03-05 09:01 | External Medical Summary | Summary of Care ---
Author Name Unknown Organization [facility] Address [address] [place] [address] Phone [phone] Care Team Providers Care Mortgage Or Loan Underwriter Name Role Phone Giancarlo Lester MD Primary Care Provider [phone]- [phone] Reason for Visit * Reason Comments NEW PATIENT Encounter Details Date Type Department Care Team (Late st Contact Info) Description 01/11/2024 9:20 AM EST Office Visit Podiatry [facility] [address] [facility] [place] [address] Radha Da Silva, DPJohn [address] [place] [address] Paronychia of toe, unspecified laterality*; Pain in toes of both feet; Neuropathy; Chronic kidney disease, stage 3a (HCC); Callus of toe Allergies Active Allergy Reactions Criticality Noted Date Comments Levofloxacin 06/12/2012 Pt developed pain in his achilles tendon. Benzonatate Cough 10/18/2019 documented as of this encounter (statuses as of 01/11/2024) Medications Medication Sig Dispensed Refills Start Date [...] 10/04/2023 Cyanocobalamin 1000 MCG/ML Injection Solution (CYANOCOBALAMIN) MONTHLY 0 04/08/2020 Active Triamcinolone Acetonide 0.1 % [...] the morning. 20 Tablet 0 09/02/2023 Active traMADol HCl 50 MG Oral Tablet (Ultram)Indications:En [...] mouth daily 90 Tablet 3 10/04/2023 Active Tolterodine Tartrate ER 4 MG Oral Capsule Extended Release 24 Hour (Detrol LA)Indications:Urinary frequency Take 1 Capsule by mouth in the morning. 90 Capsule 3 10/04/2023 Active Myrbetriq 50 MG Oral Tablet Extended Release 24 Hour (Mirabegron ER)Indications:Urinary frequency Take 1 Tablet by mouth in the morning. 90 Tablet 3 10/04/2023 Active Amitriptyline HCl 50 MG Oral Tablet (Elavil) Take 1 Tablet by mouth at bedtime. 90 Tablet 3 10/04/2023 Active Atorvastatin Calcium 80 MG Oral Tablet (Lipitor) Take 1 Tablet by mouth in the morning. 90 Tablet 3 10/04/2023 Active guaiFENesin-Codeine 100-10 MG/5ML Oral Syrup (Robitussin AC)Indications:Acute bronchitis, antibiotics not indicated Take 5 mL by mouth every 4 hours as needed for Cough. 120 mL 0 10/19/2023 Active Doxycycline Hyclate 100 MG Oral Tablet Take 1 Tablet by mouth in the morning and 1 Tablet before bedtime. 14 Tablet 0 01/11/2024 Active Hospital, Clinic, or Other Facility Administered Medication Ordered Dose Route Frequency Start Date End Date Status testosterone cypionate (DEPOTESTOSTERONE CYPIONATE) 200 MG/ML inj 200 mgIndications:Hypotestoster onism 200 mg IM [id number] 10/15/2020 Active vitamin b-12 (Cyanocobalamin) inj 1,000 mcgIndications:B12 deficiency 1000 mcg IM [id number] 06/16/2022 03/20/2025 Active Testosterone Cypionate (Depotestosterone Cypionate) 200 MG/ML inj 200 mgIndications:Hypotestoster onemia 200 mg IM [id number] 02/15/2023 Active vitamin b-12 (Cyanocobalamin) inj 1,000 mcgIndications:B12 deficiency 1000 mcg IM [id number] 02/15/2023 12/18/2024 Active vitamin b-12 (Cyanocobalamin) inj 1,000 mcgIndications:B12 deficiency 1000 mcg IM [id number] 10/04/2023 08/06/2025 Active Testosterone Cypionate (Depotestosterone Cypionate) 200 MG/ML inj 200 mgIndications:Hypotestoster onemia 200 mg IM [id number] 10/04/2023 09/04/2024 Active documented as of this encounter (statuses as of 01/11/2024) Active Problems Problem Noted Date Diagnosed Date [...] as of this encounter (statuses as of 01/11/2024) Resolved Problems Problem Noted Date Diagnosed Date [...] as of this encounter (statuses as of 01/11/2024) Immunizations Name Administration Dates Next Due COVID-19 mRNA, LNP-s, No Pre serve, 2-Dose Series (Nasty Gal) 08/10/2022,01/27/2021,12/30/2020 Diptheria/Tetanus (Adult) 04/11/1998 HEP A - [...] Influenza, Split, I IV3, With Preserve, Inj 07/31/2015,07/31/2014,08/01/2013,090 03/2012,08/13/2011,08/14/2010,10/15/20 08,08/17/2007,09/24/2006,10/19/2005,0 11/16/2004,08/28/2003,11/17/2000,08/2507/31/2016 TD, Preservative Free 10/15/2008 TDAP (age 10 and older)(Boostrix) 08/05/2014 Varicella Zoster Vaccine (Adult) 08/09/2011 Zoster Vaccine Recombinant (Shingrix) 04/15/2020 ,01/17/2020 documented as of this encounter Social History Tobacco Use Types Packs/Day Years Used Date Smoking Tobacco: Never Smokeless Tobacco: Never Alcohol Use Standard Drinks/Week Comments Yes 0 (1 standard drink = 0.6 oz pur e alcohol) once a month PHQ-2 Answer Date Recorded PHQ Adult Total [...] this encounter Progress Notes * Radha Da Silva, DPM - 01/11/2024 9:20 AM EST Podiatry New Patient Note [facility] Name: Tato Sterling : 1945 Date: 01/11/2024 CHIEF COMPLAINT: toe pain HISTORY OF PRESENT ILLNESS: This patient is a 78 year old male who presents today with complaints of persisting toe pain. He notes a history of neuropathy and has his nails and callosities done by a package center supervisor on a routine basis. He had seen a doctor who recently left and he started with a new doctor. He reports pain after nail trimming sometime in November. Pain is located to both borders of bothgreat toes. He returned two more times and the nails were trimmed down which did not seem to help. It was then discussed his pain may be from an L5 nerve issue or arterial disease. He feels these areunlikely as pain started only after nail trimming. He does complain of callosities to left toes 2-3of which he would like me to pare. He also reports using urea cream on a routine basis. Medical necessity reason: CKD 3 and peripheral neuropathy Last primary care appointment: 10/04/2023 Giancarlo Lester MD Past Medical History: Diagnosis Date Dyslipidemia, goal to be determined GERD (gastroesophageal reflux disease) HTN, goal to be determined Knee joint replacement status, bilateral Localized osteoarthrosis, lower leg Osteoarthritis, local/knee left Neuropathy 11/17/2017 Other and unspecified hormones and synthetic substitutes causing adverse effect in therapeutic use decrease testosterone level Periodic limb movement disorder (PLMD) 01/26/2011 Past Surgical History: Procedure Laterality Date ARTHROPLASTY KNEE TOTAL 07/03/2008 ARTHROPLASTY KNEE TOTAL performed by JASNO CLOUD at [facility] COLONOSCOPY, DIAGNOSTIC (RECTUM) 06/10/2008 normal, repeat in 5 yrs COLONOSCOPY, DIAGNOSTIC (RECTUM) 11/19/2013 COLONOSCOPY FLEXIBLE PROXIMAL DIAGNOSTIC performed by Alonso Gonsales MD at ENDOSCOPY [facility] COLONOSCOPY, DIAGNOSTIC (RECTUM) 06/07/2019 normal w/ fair prep, repeat 5 yrs/COLONOSCOPY FLEXIBLE PROXIMAL DIAGNOSTIC performed by Alonso Gonsales MD at ENDOSCOPY [facility] EGD, FLEXIBLE, DIAGNOSTIC 06/03/2015 [place], HH, repeat 3 yrs EGD, FLEXIBLE, DIAGNOSTIC 03/31/2018 [place]ts, hiatal hernia, repeat 3 yrs/ESOPHAGOGASTRODUODENOSCOPY (EGD), FLEXIBLE, TRANSORAL, DIAGNOSTIC performed by Alonso Gonsales MD at ENDOSCOPY [facility] EGD, FLEXIBLE, DIAGNOSTIC 10/24/2019 [place]ts, Zenkers diverticulum, hiatal hernia, repeat 3 yrs / [facility] EGD, FLEXIBLE, DIAGNOSTIC N/A 10/21/2022 ESOPHAGOGASTRODUODENOSCOPY (EGD), FLEXIBLE, TRANSORAL, DIAGNOSTIC performed by Elmo Booker MD at [facility] EGD, FLEXIBLE, DIAGNOSTIC 09/17/2022 moderate chronic reflux esophagitis, egd, 3 yr recall, [place] ESOPHAGOSCOPY RIGID TRANSORAL HYPOPHARYNX ESOPHAGUS N/A 10/21/2022 ESOPHAGOSCOPY, RIGID, TRANSORAL WITH DIVERTICULECTOMY OF HYPOPHARYNX OR CERVICAL ESOPHAGUS (EG, ZENKER'S DIVERTICULUM), WITH CRICOPHARYNGEAL MYOTOMY performed by Elmo Booker MD at [facility] KNEE ARTHROSCOPY, DIAGNOSTIC Knee Arthroscopy Left MISCELLANEOUS ORDER ([facility] ONLY) 1985 Had to have part of epidydimitis removed PUNCTURE DRAINAGE BREAST CYST age 29 REMOVE TONSILS & ADENOIDS, UNDER 12 age 10 REVISE KNEE JOINT REPLACEMENT 06/18/2009 TOTAL KNEE REVISION ONE COMPONENT performed by JASON CLOUD at [facility] REVISION OF UNSTABLE KNEECAP 02/12/2009 RECONSTRUCTION OF PATELLA TENDON WITH EXTENSOR REALIGNMENT performed by JASON CLOUD at [facility] SIGMOIDOSCOPY/BIOPSY 10/21/1995 THROAT MUSCLE SURGERY N/A 10/21/2022 CRICOPHARYNGEAL MYOTOMY performed by Elmo Booker MD at [facility] VASECTOMY 1983 Family History Problem Relation Age of Onset Heart Disorder Mother DC 64 Heart Disorder Father DC 50's No Past Hx Sister No Past Hx Sister No Past Hx Son Social History Socioeconomic History Marital status: Spouse name: Jaimee Number of children: 1 Occupational History 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 melatonin 3 MG Tablet Take 2 Tablets by mouth at bedtime. (Patient not taking: Reported on 08/29/2023) zoster vac recomb adjuvanted (SHINGRIX) 50 MCG/0.5ML injection Inject 0.5 mL into a large muscle now and repeat dose in 60 to 180 days (Patient not taking: Reported on 10/04/2023) 1 Each 1 Cyanocobalamin 1000 MCG/ML Injection Solution (CYANOCOBALAMIN) MONTHLY Triamcinolone Acetonide 0.1 % External Cream (Aristocort) Apply twice per day to affected area behind ear as needed 15 g 1 Acetaminophen 500 MG Oral Tablet (Tylenol) take 2 tabs by mouth every 8 hours pain after surgery for 3 days 18 Tablet 0 CPAP every night at bedtime. Diclofenac Sodium 75 MG Oral Tablet Delayed Release (Voltaren) Take 1 Tablet by mouth daily as needed. (Patient not taking: Reported on 08/29/2023) Azithromycin 250 MG Oral Tablet (Zithromax) Take 2 Tablets by mouth in the morning. 20 Tablet 0 traMADol HCl 50 MG Oral Tablet (Ultram) Take 1 Tablet by mouth every 8 hours as needed for Pain, Moderate. 90 Tablet 0 Pantoprazole Sodium 40 MG Oral Tablet Delayed Release (Protonix) Take one tablet by mouth before breakfast 90 Tablet 3 Sacubitril-Valsartan 97-103 MG Oral Tablet (Entresto) Take 1 by mouth daily 90 Tablet 3 Tolterodine Tartrate ER 4 MG Oral Capsule Extended Release 24 Hour (Detrol LA) Take 1 Capsule by mouth in the morning. 90 Capsule 3 Myrbetriq 50 MG Oral Tablet Extended Release 24 Hour (Mirabegron ER) Take 1 Tablet by mouth in the morning. 90 Tablet 3 Amitriptyline HCl 50 MG Oral Tablet (Elavil) Take 1 Tablet by mouth at bedtime. 90 Tablet 3 Atorvastatin Calcium 80 MG Oral Tablet (Lipitor) Take 1 Tablet by mouth in the morning. 90 Tablet 3 guaiFENesin-Codeine 100-10 MG/5ML Oral Syrup (Robitussin AC) Take 5 mL by mouth every 4 hours as needed for Cough. 120 mL 0 Current Facility-Administered Medications Medication Dose Route Frequency Provider Last Rate Last Admin testosterone cypionate (DEPOTESTOSTERONE CYPIONATE) 200 MG/ML inj 200 mg 200 mg Intramuscular Q30 Days Giancarlo Lester MD 200 mg at 08/08/23 1018 vitamin b-12 (Cyanocobalamin) inj 1,000 mcg 1,000 mcg Intramuscular Q12 Weeks Giancarlo Lester MD 1,000 mcg at 09/09/23 0939 Testosterone Cypionate (Depotestosterone Cypionate) 200 MG/ML inj 200 mg 200 mg Intramuscular Q4 Weeks Giancarlo Lester MD 200 mg at 11/09/23 1122 vitamin b-12 (Cyanocobalamin) inj 1,000 mcg 1,000 mcg Intramuscular Q8 Weeks Giancarlo Lester MD 1,000 mcg at 11/09/23 1123 vitamin b-12 (Cyanocobalamin) inj 1,000 mcg 1,000 mcg Intramuscular Q8 Weeks Giancarlo Lester MD Testosterone Cypionate (Depotestosterone Cypionate) 200 MG/ML inj 200 mg 200 mg Intramuscular Q4 Weeks Giancarlo Lester MD 200 mg at 12/12/23 1157 ALLERGIES: Review of patient's allergies indicates: Allergen Reactions Levofloxacin Pt developed pain in his achilles tendon. Tessalon [Benzonatate] Cough REVIEW OF SYSTEMS: CONSTITUTIONAL: No fever FOCUSED PODIATRIC EXAM: Vascular: Pedal pulses palpable including dorsalis pedis and posterior tibial artery at 2/4 bilaterally. Capillary refill time is within normal limits to all toes. Mild chronic appearing edema of both lower legs. No warmth. Pedal hair growth diminished. Neurologic: Sensation (light touch) intact to the bilateral forefoot. Musculoskeletal: Discomfort is reported with side to side palpation of both great toes. Pain is noted to the medial and lateral borders of both great toenails. Contracture of the right first toe at the IP joint with prominent bone noted. Dermatological: Skin is thin, dry. There are two small calluses to the distal tips of left toes 2, 3. There is faint redness to the left first toe medial skin fold. The nails do not appear incurvated, but have been trimmed back. The nails appear mildly thickened. Class Findings for Routine Foot Care Class A Findings: None Class B Findings: Advanced trophic changes (at least three of the following): hair growth (decreaseor absence), nail changes (thickening), and pigmentary changes (discoloration) Class C Findings: Edema and Paresthesia (abnormal spontaneous sensations in feet) Modifier: Q9 - 1 Class B Finding and 2 Class C Findings DIAGNOSTIC STUDIES: No new ASSESSMENT: 1. Paronychia of toe, unspecified laterality 2. Pain in toes of both feet 3. Neuropathy 4. Chronic kidney disease, stage 3a (HCC) 5. Callus of toe x 2 left toes, 2, 3 PLAN: I suspect he is having residual pain from ingrown toenails and possible infection. I recommended weconsider oral antibiotic and topical antibiotic. Orders Placed This Encounter Medications Doxycycline Hyclate 100 MG Oral Tablet Sig: Take 1 Tablet by mouth in the morning and 1 Tablet before bedtime. Dispense: 14 Tablet Refill: 0 Triple antibiotic ointment or similar recommended to the nail borders without a dressing once dailyx 7 days. He may use urea to thicker callus type skin and plantar feet. He inquired about soaking. I am ok if he wants to consider this, but soaking can dry skin out so he may want to apply cream regimen after soaking. Procedure: After prepping the area with alcohol and allowing to dry, the hyperkeratotic lesions to left toes 2and 3 (2 total) were sharply pared of all hyperkeratotic skin without incident. This was performed with a #15 blade. An electrical umbrella bur was used to reduce any remaining edges. Patient tolerated well and noted improvement following procedure. He may contact this office if symptoms persist. I did explain that we do not accept new foot care due to clinical capacity and need for follow ups.Our hotel front desk agent can provide outside list of doctors for this service. I did apologize to him as we did not know the reason for today's visit included this. Radha Da Silva DPM documented in this encounter Nursing Notes * Camille Calderon LPN - 01/11/2024 9:04 AM EST Pt presents for new visit, c/o pain in bilateral great toes. States he had his nails trimmed the first week of November, continues to have pain since. documented in this encounter Plan of Treatment Upcoming Encounters Date Type Department Care Team (Late st Contact Info) Description 02/06/2024 10:30 AM EDT Immunization/Injecti on [address]illary Department, [address] [address] Nurse Aldo [address] [place] [facility] [place] [address] 02/14/2024 10:40 AM EDT Office Visit Gastroenterology, [facility] [address] [place] [address] William Hoffmann MD [address] [place] [address] 03/08/2024 10:30 AM EDT Immunization/Injecti on Ancillary Department, [address] [address] Aldo [facility] [address] [facility] [address] 03/09/2024 10:15 AM EDT Office Visit Otolaryngology [facility] [address] [place] [address] Kavya Knight MD [address] [place] [address] 04/05/2024 9:30 AM EDT Procedure Only [facility] [place] [address] William Hoffmann MD [address] [place] [address] 06/05/2024 9:30 AM EDT Office Visit Urology, [facility] [address] [facility] [place] [address] Edd Schuster MD [address] [place] [address] Scheduled Procedures Name Priority Associated Diagnoses Date/Ti me COLONOSCOPY FLEXIBLE PROXIMA L DIAGNOSTIC Recall Personal history of colonic polyps Health Maintenance Due Date Last Done Comments CKD PHOS USE SMARTSET 87775 04/23/2023 04/23/2022 COVID-19 Vaccine ( season) 2023 08/10/2022, 01/27/2021, 12/30/2020 Depression Screening 02/16/2024 02/15/2023 Albumin/Creatinine Ratio 02/23/2024 02/22/2023, 09/15 GFR 03/03/2024 09/02/2023, 08/14, 02/22/2023, Additional history exists COLONOSCOPY-EVERY 5 YRS AGES 18-100 06/07/2024 06/07/2019, 06/07/2019, 11/19/2013, Additional history exists DTaP,Tdap,and Td Vaccines (2 - Td or Tdap) 08/05/2024 08/05/2014, 10/15/2008, 04/11/1998 CKD HGB USE SMARTSET 59233 11/24/202411/24, 09/02/2023, 09/02/2023, Additional history exists HbA1c [...] this encounter Medical Devices Implanted Type Area Sports [employer] Manager Device Identifier Shelf Expiration Date Model / Serial / Lot Cement Bone R 1112-140-01 - [id number] Implanted:Qty: 1 on 07/03/2008 at [facility] Left: Knee [employer] 10/14/2012 00-1112-1 40-01 / / [id number] Plate Tibial Flu - [id number] Implanted:Qty: 1 on 07/03/2008 at [facility] Left: Knee [employer] 00-5996-0 58-02 / / [id number] Patella Poly Nexgen - [id number] Implanted:Qty: 1 on 07/03/2008 at [facility] Left: Knee [employer] 03/14/2016 00-5972-0 65-41 / / [id number] Femur Nexgn F Left - [id number] Implanted:Qty: 1 on 07/03/2008 at [facility] Left: Knee [employer] 04/14/2018 [id number] 16-51 / / [id number] Implant On The [facility] - [id number] Implanted:Qty: 1 on 07/03/2008 at [facility] Left: Knee [employer] 00-5964-0 51-10 / / [id number] Duraclip 11mm Repositionable - [id number] Implanted:Qty: 6 on 10/21/2022 by Elmo Booker MD at [facility] N/A: Esophagus [employer] SHANEKA 01/20/2025 [id number] / / [id number] documented as of this encounter Visit Diagnoses Diagnosis Paronychia of toe, unspecified laterality- Primary Pain in toes of both feet Neuropathy Mononeuritis of unspecified site Chronic kidney disease, stage 3a (HCC) Callus of toe documented in this encounter Advance Directives Latest [...] 1:21 PM 02/12/2009 1:22 PM Care Teams Mortgage Or Loan Underwriter Relationship Specialty Start Date End Date Giancarlo Lester MD [address] [place] [address] PCP - General Family Medicine 12/21/18 documented as of this encounter
--- OUTSIDE RECORDS SUMMARY | 2024-03-05 09:01 | External Medical Summary | Summary of Care ---
Author Name Unknown Organization [facility] Address [address] [place] [address] Phone [phone] Care Team Providers Care Jewelry Racker Name Role Phone Giancarlo Lester MD Primary Care Provider [phone]- [phone] Reason for Visit * Reason Comments Medication Administration Pt here for hi s B-12 shot and testosterone given Encounter Details Date Type Department Care Team (Late st Contact Info) Description 01/10/2024 11:00 AM EST Nurse Only Ancillary Department, [address] [address] [place], Nurse [address] [place] [address] Medication Administration (Pt here for his... Allergies Active Allergy Reactions Criticality Noted Date Comments Levofloxacin 06/12/2012 Pt developed pain in his achilles tendon. Benzonatate Cough 10/18/2019 documented as of this encounter (statuses as of 01/10/2024) Medications Medication Sig Dispensed Refills Start Date [...] for Cough. 120 mL 0 10/19/2023 Active Hospital, Clinic, or Other Facility Administered Medication Ordered Dose Route Frequency Start Date End Date Status testosterone cypionate (DEPOTESTOSTERONE CYPIONATE) 200 MG/ML inj 200 mgIndications:Hypotestoster onism 200 mg IM [id number] 10/15/2020 Active vitamin b-12 (Cyanocobalamin) inj 1,000 mcgIndications:B12 deficiency 1000 mcg IM [id number] 06/16/2022 03/20/2025 Active Testosterone Cypionate (Depotestosterone Cypionate) 200 MG/ML inj 200 mgIndications:Hypotestoster onemia 200 mg IM [id number] 02/15/2023 Active vitamin b-12 (Cyanocobalamin) inj 1,000 mcgIndications:B12 deficiency 1000 mcg IM [id number] 02/15/2023 12/18/2024 Active vitamin b-12 (Cyanocobalamin) inj 1,000 mcgIndications:B12 deficiency 1000 mcg IM [id number] 10/04/2023 08/06/2025 Active Testosterone Cypionate (Depotestosterone Cypionate) 200 MG/ML inj 200 mgIndications:Hypotestoster onemia 200 mg IM [id number] 10/04/2023 09/04/2024 Active documented as of this encounter (statuses as of 01/10/2024) Active Problems Problem Noted Date Diagnosed Date [...] as of this encounter (statuses as of 01/10/2024) Resolved Problems Problem Noted Date Diagnosed Date [...] as of this encounter (statuses as of 01/10/2024) Immunizations Name Administration Dates Next Due COVID-19 mRNA, LNP-s, No Pre serve, 2-Dose Series (CircleCI) 08/10/2022,01/27/2021,12/30/2020 HEP A - Hepatitis A (Adult [...] Progress Notes * Caitie Stanley LPN - 01/10/2024 11:26 AM EST Immunization Administration Documentation Time Out Procedure Performed: Yes Patient Identified (Ask Name/Date of ): Yes Does the patient have a fever greater than 101 degrees today? No Patient allergic to latex? No VFC Stock: No Injection(s) verified: Yes, Injection Name: Testosterone Cypionate 200 mg and Vitamin B-12 Verified Side and Site: Yes Verified Shot(s) with Parent(s)/Patient: Yes documented in this encounter Plan of Treatment Upcoming Encounters Date Type Department Care Team (Late st Contact Info) Description 01/11/2024 9:20 AM EST Office Visit Podiatry [facility] [address] [facility] [place] [address] Radha Da Silva DPM [address] [place] [address] 02/06/2024 10:30 AM EDT Immunization/Injecti on Ancillary Department, [place] [address] [place] [address] [place], Nurse [address] [place] [address] 02/14/2024 10:40 AM EDT Office Visit Gastroenterology, [facility] [address] [place] [address] William Hoffmann MD 132 [facility] [place] [address] 03/08/2024 10:30 AM EDT Immunization/Injecti on Ancillary Department, [place] [address] [facility] [place] [address] [place], Nurse [address] [place] [address] 03/09/2024 10:15 AM EDT Office Visit Otolaryngology [facility] [address] [facility] [place] [address] Kavya Knight MD [address] [place] [address] 04/05/2024 9:30 AM EDT Procedure Only [facility], [facility] [place] [address] William Hoffmann MD [address] [place] [address] 06/05/2024 9:30 AM EDT Office Visit Urology, [facility] [address] [facility] [place] [address] Edd Schuster MD [address] [place] [address] Scheduled Procedures Name Priority Associated Diagnoses Date/Ti me COLONOSCOPY FLEXIBLE PROXIMA L DIAGNOSTIC Recall Personal history of colonic polyps Health Maintenance Due Date Last Done Comments CKD PHOS USE SMARTSET 29764 04/23/2023 04/23/2022 COVID-19 Vaccine ( season) 2023 08/10/2022, 01/27/2021, 12/30/2020 Depression Screening 02/16/2024 02/15/2023 Albumin/Creatinine Ratio 02/23/2024 02/22/2023, 09/15 GFR 03/03/2024 09/02/2023, 08/14, 02/22/2023, Additional history exists COLONOSCOPY-EVERY 5 YRS AGES 18-100 06/07/2024 06/07/2019, 06/07/2019, 11/19/2013, Additional history exists DTaP,Tdap,and Td Vaccines (2 - Td or Tdap) 08/05/2024 08/05/2014, 10/15/2008, 04/11/1998 CKD HGB USE SMARTSET 58834 11/24/202411/24, 09/02/2023, 09/02/2023, Additional history exists HbA1c [...] this encounter Medical Devices Implanted Type Area Superintendent Laundry Device Identifier Shelf Expiration Date Model / Serial / Lot Cement Bone R 1112-140-01 - [id number] Implanted:Qty: 1 on 07/03/2008 at OR [facility] Left: Knee [employer] 10/14/2012 00-1112-1 40-01 / / [id number] Plate Tibial Flu - [id number] Implanted:Qty: 1 on 07/03/2008 at OR [facility] Left: Knee [employer] 00-5996-0 58-02 / / [id number] Patella Poly Nexgen - [id number] Implanted:Qty: 1 on 07/03/2008 at OR [facility] Left: Knee [employer] 03/14/2016 00-5972-0 65-41 / / [id number] Femur Nexgn F Left - [id number] Implanted:Qty: 1 on 07/03/2008 at OR [facility] Left: Knee [employer] 04/14/2018 00-5996-0 16-51 / / [id number] Implant On The Fly - [id number] Implanted:Qty: 1 on 07/03/2008 at OR [facility] Left: Knee [employer] 00-5964-0 51-10 / / [id number] Duraclip 11mm Repositionable - [id number] Implanted:Qty: 6 on 10/21/2022 by Elmo Booker MD at OR [facility] N/A: [facility] [employer] 01/20/2025 [id number] / / [id number] documented as of this encounter Visit Diagnoses Diagnosis Testosterone deficiency in male- Primary B12 deficiency Other B-complex deficiencies documented in this encounter Administered Medications Active Administered Medications - up to 3 most recent administrations Medication Order MAR Action Action Date Dose Rate Site testosterone cypionate (DEPOTESTOSTERONE CYPIONATE) 200 MG/ML inj 200 mg 200 mg, Intramuscular, [id number], First dose on Tue10/15/20 at 1115, Until Discontinued Given 01/10/2024 11:23 AM EST 200 mg Dorsogluteal Left Given 08/08/2023 10:18 AM EDT 200 mg D orsogluteal Left Given 07/07/2023 10:37 AM EDT 200 mg D orsogluteal Right vitamin b-12 (Cyanocobalamin) inj 1,000 mcg 1,000 mcg, Intramuscular, [id number], First dose on Tue06/16/22 at 1415, Last dose on Tue12/26/24 at 1415, For 12 doses Given 01/10/2024 11:05 AM EST 1,000 mcg Deltoid Left Upper Given 09/09/2023 9:39 AM EDT 1,000 mcg De ltoid Left Upper Given 08/08/2023 10:17 AM EDT 1,000 mcg D eltoid Right Upper documented in this encounter Advance Directives Latest [...] 1:21 PM 02/12/2009 1:22 PM Care Teams Jewelry Racker Relationship Specialty Start Date End Date Giancarlo Lester MD [address] [facility] [place] [address] PCP - General Family Medicine 12/21/18 documented as of this encounter
--- OUTSIDE RECORDS SUMMARY | 2024-03-05 09:01 | External Medical Summary | Summary of Care ---
Author Name Unknown Organization [facility] Address [address] [place] [address] Phone [phone] Care Team Providers Care Copyman Name Role Phone Giancarlo Lester MD Primary Care Provider +1- [phone] Reason for Visit * Reason Comments NEW PATIENT Encounter Details Date Type Department Care Team (Latest Contact Info) Description 01/23/2024 2:00 PM EDT Office Visit Gastroenterology, [facility] [address] [place] [address] William Hoffmann MD [address] [facility] [place] [address] Gastroesophageal reflux disease without esophagitis* Allergies Active Allergy Reactions Criticality Noted Date Comments Cephalexin Diarrhea Low 01/03/2012 Levofloxacin 06/12/2012 Pt developed pain in his achilles tendon. Levofloxacin Unknown 02/27/2017 Other Reaction(s): Achilles heel pain (rxn with oral, tolerated IV) Benzonatate Cough 10/18/2019 documented as of this encounter (statuses as of 01/23/2024) Medications Medication Sig Dispensed Refills Start Date [...] inj 200 mgIndications:Hypotestoster onism 200 mg IM [id number] 10/15/2020 Active vitamin b-12 (Cyanocobalamin) inj 1,000 mcgIndications:B12 deficiency 1000 mcg IM [id number] 06/16/2022 03/20/2025 Active Testosterone Cypionate (Depotestosterone Cypionate) 200 MG/ML inj 200 mgIndications:Hypotestoster onemia 200 mg IM [id number] 02/15/2023 Active vitamin b-12 (Cyanocobalamin) inj 1,000 mcgIndications:B12 deficiency 1000 mcg IM [id number] 02/15/2023 12/18/2024 Active vitamin b-12 (Cyanocobalamin) inj 1,000 mcgIndications:B12 deficiency 1000 mcg IM [id number] 10/04/2023 08/06/2025 Active Testosterone Cypionate (Depotestosterone Cypionate) 200 MG/ML inj 200 mgIndications:Hypotestoster onemia 200 mg IM [id number] 10/04/2023 09/04/2024 Active documented as of this encounter (statuses as of 01/23/2024) Active Problems Problem Noted Date Diagnosed Date [...] as of this encounter (statuses as of 01/23/2024) Resolved Problems Problem Noted Date Diagnosed Date [...] as of this encounter (statuses as of 01/23/2024) Immunizations Name Administration Dates Next Due COVID-19 mRNA, LNP-s, No Pre serve, 2-Dose Series (uParts) 08/10/2022,01/27/2021,12/30/2020 HEP A - Hepatitis A (Adult [...] Date Smoking Tobacco: Never Smokeless Tobacco: Never Tobacco Cessation:Counseling Given: Not Answered Alcohol Use Standard Drinks/Week Comments Yes 0 [...] on file documented as of this encounter Last Filed Vital Signs Vital Sign Reading Time Taken Comments Blood Pressure 121/76 01/23/2024 1:44 PM EDT Pulse 95 01/23/2024 1:44 PM EDT Temperature 36.8 C (98.2 F) 01/23/2024 1:44 PM ED T Respiratory Rate 20 01/23/2024 1:44 PM EDT Oxygen Saturation - - Inhaled Oxygen Concentration - - Weight 107.2 kg (236 lb 4.8 oz) 01/23/2024 1:44 PM EDT Height 180.3 cm (5' 11") 01/23/2024 1:44 PM EDT Body Mass Index 32.96 01/23/2024 1:44 PM EDT documented in this encounter Progress Notes * William Hoffmann MD - 01/23/2024 2:22 PM EDT Consult requested by Ref: SELF[[id number]] NO STREET ADDRESS AVAILABLE None (office) None (fax) HPI: 78 year old male with 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 He reports chest pain, acid taste in back of mouth, sensation of globus. Symptoms are sporadic, mayoccur daily for a week; may not occur for a weeks at a time. He takes two tums tabs with complete relief of his symptoms. No chest burning/regurgitation. No post-prandial symptoms. No nocturnal symptoms. Persistent cough. No dysphagia - prior to Zenker's, he had prominent dysphagia localized to neck and frequent regurgitation. Prior EGD with "irregular Z line." Focal IM on bx. Last scope 10/05. ROS: GEN: no weight loss, fever, fatigue HEENT: no changes in vision or hearing, no sinus problems, no sore throat, no hoarsenss RESP: no cough, wheezing, SOB or change in breathing CARDIOVASCULAR: no exertional chest pain, dyspnea, palpitations GI: see HPI , otherwise negative : no dysuria, hematuria, polyuria MUSCULOSKELETAL: no change in joint pains, no new arthritis PSYCHIATRIC: no significant anxiety or depression, unchanged sleep pattern HEME: no bleeding tendency, no transfusion history NEURO: no significant headache, no seizures , no tremors SKIN: no new rashes, no itching ALLERGIES: Review of patient's allergies indicates: Allergen Reactions Levofloxacin Pt developed pain in his achilles tendon. Levofloxacin Unknown Other Reaction(s): Achilles heel pain (rxn with oral, tolerated IV) Tessalon [Benzonatate] Cough Cephalexin Diarrhea Past Medical History: Diagnosis Date Dyslipidemia, goal [...] TOTAL 07/03/2008 ARTHROPLASTY KNEE TOTAL performed by JASON CLOUD at OR [facility] COLONOSCOPY, DIAGNOSTIC (RECTUM) 06/10/2008 normal, repeat in 5 yrs COLONOSCOPY, DIAGNOSTIC (RECTUM) 11/19/2013 COLONOSCOPY FLEXIBLE PROXIMAL DIAGNOSTIC performed by Alonso Gonasles MD at [facility] COLONOSCOPY, DIAGNOSTIC (RECTUM) 06/07/2019 normal w/ fair prep, repeat 5 yrs/COLONOSCOPY FLEXIBLE PROXIMAL DIAGNOSTIC performed by Alonso Gonsales MD at [facility] EGD, FLEXIBLE, DIAGNOSTIC 06/03/2015 [place], HH, repeat 3 yrs EGD, FLEXIBLE, DIAGNOSTIC 03/31/2018 [place], hiatal hernia, repeat 3 yrs/ESOPHAGOGASTRODUODENOSCOPY (EGD), FLEXIBLE, TRANSORAL, DIAGNOSTIC performed by Alonso Gonsales MD at [facility] EGD, FLEXIBLE, DIAGNOSTIC 10/24/2019 [place], Zenkers diverticulum, hiatal hernia, repeat 3 yrs / [facility] EGD, FLEXIBLE, DIAGNOSTIC N/A 10/21/2022 ESOPHAGOGASTRODUODENOSCOPY (EGD), FLEXIBLE, TRANSORAL, DIAGNOSTIC performed by Elmo Booker MD at OR [facility] EGD, FLEXIBLE, DIAGNOSTIC 09/17/2022 moderate chronic reflux esophagitis, egd, 3 yr recall, [place] ESOPHAGOSCOPY RIGID TRANSORAL HYPOPHARYNX ESOPHAGUS N/A 10/21/2022 ESOPHAGOSCOPY, RIGID, TRANSORAL WITH DIVERTICULECTOMY OF HYPOPHARYNX OR CERVICAL ESOPHAGUS (EG, ZENKER'S DIVERTICULUM), WITH CRICOPHARYNGEAL MYOTOMY performed by Elmo Booker MD at [facility] KNEE ARTHROSCOPY, DIAGNOSTIC Knee Arthroscopy Left MISCELLANEOUS ORDER ([facility] ONLY) 1984 Had to have part of epidydimitis removed PUNCTURE DRAINAGE BREAST CYST age 29 REMOVE TONSILS & ADENOIDS, UNDER 12 age 10 REVISE KNEE JOINT REPLACEMENT 06/18/2009 TOTAL KNEE REVISION ONE COMPONENT performed by JASON CLOUD at [facility] REVISION OF UNSTABLE KNEECAP 02/12/2009 RECONSTRUCTION OF PATELLA TENDON WITH EXTENSOR REALIGNMENT performed by JASON CLOUD at [facility] SIGMOIDOSCOPY/BIOPSY 10/21/1995 THROAT MUSCLE SURGERY N/A 10/21/2022 CRICOPHARYNGEAL MYOTOMY performed by Elmo Booker MD at [facility] VASECTOMY 1982 Family History Problem Relation Age of Onset Heart Disorder Mother [place] 64 Heart Disorder Father [place] 50's No Past Hx Sister No Past Hx Sister No Past Hx Son Social History Socioeconomic History Marital status: Spouse name: Jaimee Number of children: 1 Occupational History 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 Triamcinolone Acetonide 0.1 % External Cream (Aristocort) Apply twice per day to affected area behind ear as needed 15 g 1 Acetaminophen 500 MG Oral Tablet (Tylenol) take 2 tabs by mouth every 8 hours pain after surgery for 3 days 18 Tablet 0 CPAP every night at bedtime. traMADol HCl 50 MG Oral Tablet (Ultram) Take 1 Tablet by mouth every 8 hours as needed for Pain, Moderate. 90 Tablet 0 Pantoprazole Sodium 40 MG Oral Tablet Delayed Release (Protonix) Take one tablet by mouth before breakfast 90 Tablet 3 Tolterodine Tartrate ER 4 MG Oral Capsule Extended Release 24 Hour (Detrol LA) Take 1 Capsule by mouth in the morning. 90 Capsule 3 Myrbetriq 50 MG Oral Tablet Extended Release 24 Hour (Mirabegron ER) Take 1 Tablet by mouth in the morning. (Patient taking differently: Take 25 mg by mouth in the morning.) 90 Tablet 3 Amitriptyline HCl 50 MG Oral Tablet (Elavil) Take 1 Tablet by mouth at bedtime. 90 Tablet 3 Atorvastatin Calcium 80 MG Oral Tablet (Lipitor) Take 1 Tablet by mouth in the morning. (Patient taking differently: Take 0.5 Tablets by mouth in the morning.) 90 Tablet 3 Magnesium Citrate 100 MG Oral Capsule Take 200 mg by mouth at bedtime. zoster vac recomb adjuvanted (SHINGRIX) 50 MCG/0.5ML injection Inject 0.5 mL into a large muscle now and repeat dose in 60 to 180 days (Patient not taking: Reported on 10/04/2023) 1 Each 1 Cyanocobalamin 1000 MCG/ML Injection Solution (CYANOCOBALAMIN) Inject 1,000 mcg into a large muscle. Q60 days Diclofenac Sodium 75 MG Oral Tablet Delayed Release (Voltaren) Take 1 Tablet by mouth daily as needed. (Patient not taking: Reported on 08/29/2023) Azithromycin 250 MG Oral Tablet (Zithromax) Take 2 Tablets by mouth in the morning. (Patient not taking: Reported on 01/23/2024) 20 Tablet 0 Sacubitril-Valsartan 97-103 MG Oral Tablet (Entresto) Take 1 by mouth daily (Patient taking differently: Take 1 Tablet by mouth in the morning and 1 Tablet before bedtime.) 90 Tablet 3 guaiFENesin-Codeine 100-10 MG/5ML Oral Syrup (Robitussin AC) Take 5 mL by mouth every 4 hours as needed for Cough. (Patient not taking: Reported on 01/23/2024) 120 mL 0 Doxycycline Hyclate 100 MG Oral Tablet Take 1 Tablet by mouth in the morning and 1 Tablet before bedtime. (Patient not taking: Reported on 01/23/2024) 14 Tablet 0 Current Facility-Administered Medications Medication Dose Route Frequency Provider Last Rate Last Admin testosterone cypionate (DEPOTESTOSTERONE CYPIONATE) 200 MG/ML inj 200 mg 200 mg Intramuscular Q30 Days Giancarlo Lester MD 200 mg at 01/10/24 1123 vitamin b-12 (Cyanocobalamin) inj 1,000 mcg 1,000 mcg Intramuscular Q12 Weeks Giancarlo Lester MD 1,000 mcg at 01/10/24 1105 Testosterone Cypionate (Depotestosterone Cypionate) 200 MG/ML inj [...] Lester MD 200 mg at 12/12/23 1157 BP 121/76 | Pulse 95 | Temp 36.8 C (98.2 F) (Infrared ) | Resp 20 | Ht 1.803 m (5' 11") | Wt 107.2 kg (236 lb 4.8 oz) | BMI 32.96 kg/m | BSA 2.32 m GENERAL: well developed and well nourished in no acute distress SKIN: no rashes, ulcers, or spider angiomata HEENT: normocephalic, sclerae clear, pharynx normal NECK: supple, no masses or thyroid enlargement NEURO: no lateralizing findings, Sensory/Motor grossly normal ASSESSMENT/PLAN: GERD - GERD symptoms are mild and stable, without any alarm symptoms. He can continue once daily PPI and PRN antacid. We discussed possible alarm symptoms, and indications for endoscopy. Review of prior scopes do not show columnar mucosa > 1 cm above GEJ; he does not have Grimaldo's. William Hoffmann MD documented in this encounter Nursing Notes * Kristie Richardson RN - 01/23/2024 1:52 PM EDT Patient identified by full name and date of Chief Complaint Patient presents with NEW PATIENT Duration of symptoms: years Symptoms: occasional dysphagia, globus sensation, mid epigastric pain/reflux Bowel Movement frequency: few times per week, then several times daily Bowel Movement consistency: grape/raisin sized stool Straining: no Rectal pain: yes Blood in stool: no Type of blood: N/A Previous procedures: EGD 2021 and Colonoscopy 2018 History of Zenkers Diverticulum. Takes Pantoprazole daily. documented in this encounter Plan of Treatment Upcoming Encounters Date Type Department Care Team (Late st Contact Info) Description 02/06/2024 11:40 AM EDT Office Visit Podiatry [facility] [address] [place] [address] Radha Da Silva DPM [address] [place] [address] [place] [id number] 02/07/2024 10:30 AM EDT Immunization/Injecti on Ancillary Department, [address] [place] [address] [place], Nurse [address] [facility], [place] [address] 03/08/2024 10:30 AM EDT Immunization/Injecti on Ancillary Department, [place] [address] [facility], [place] [address] [place], Nurse [address] [facility], [place] [address] 03/09/2024 10:15 AM EDT Office Visit Otolaryngology [facility] 132 [facility] [place] [address] Kavya Knight MD 132 [facility] [place] [address] 04/05/2024 9:30 AM EDT Procedure Only Endoscopy, [facility] 132 [facility] [place] [address] William Hoffmann MD 132 [facility] [place] [address] 06/05/2024 9:30 AM EDT Office Visit Urology, [facility] 132 [facility] [place] [address] Edd Schuster MD [address] [facility] [address] [place] [id number] Scheduled Procedures Name Priority Associated Diagnoses Date/Ti me COLONOSCOPY FLEXIBLE PROXIMA L DIAGNOSTIC Recall Personal history of colonic polyps Health Maintenance Due Date Last Done Comments CKD PHOS USE SMARTSET 80764 04/23/2023 04/23/2022 COVID-19 Vaccine ( season) 2023 08/10/2022, 01/27/2021, 12/30/2020 Depression Screening 02/16/2024 02/15/2023 Albumin/Creatinine Ratio 02/23/2024 02/22/2023, 09/15 GFR 03/03/2024 09/02/2023, 08/14, 02/22/2023, Additional history exists COLONOSCOPY-EVERY 5 YRS AGES 18-100 06/07/2024 06/07/2019, 06/07/2019, 11/19/2013, Additional history exists DTaP,Tdap,and Td Vaccines (2 - Td or Tdap) 08/05/2024 08/05/2014, 10/15/2008, 04/11/1998 CKD HGB USE SMARTSET 99980 11/24/202411/24, 09/02/2023, 09/02/2023, Additional history exists HbA1c [...] this encounter Medical Devices Implanted Type Area Lock And Dam Operator Device Identifier Shelf Expiration Date Model / Serial / Lot Cement Bone R 1112-140-01 - [id number] Implanted:Qty: 1 on 07/03/[address] [facility] Left: Knee [employer] 10/14/2012 00-1112-1 40- [id number] Plate Tibial Flu - [id number] Implanted:Qty: 1 on 07/03/[address] [facility] Left: Knee [employer] 00-5996-0 58-02 / / [id number] Patella Poly Nexgen - [id number] Implanted:Qty: 1 on 07/03/[address] [facility] Left: Knee [employer] 03/14/2016 00-5972-0 65-41 / / [id number] Femur Nexgn F Left - [id number] Implanted:Qty: 1 on 07/03/[address] [facility] Left: Knee [employer] 04/14/2018-5996-0 16-51 / / [id number] Implant On The Fly - [id number] Implanted:Qty: 1 on 07/03/[address] [facility] Left: Knee [employer] 00-5964-0 51-10 / / [id number] Duraclip 11mm Repositionable - [id number] Implanted:Qty: 6 on 10/21/2022 by Elmo Booker MD at OR [facility] N/A: Esophagus CONMED SHANEKA 01/20/2025 [id number] / / [id number] documented as of this encounter Visit Diagnoses Diagnosis Gastroesophageal reflux disease without esophagitis- Primary Esophageal reflux documented in this encounter Advance Directives Latest [...] 1:21 PM 02/12/2009 1:22 PM Care Teams Copyman Relationship Specialty Start Date End Date Giancarlo Lester MD [address] [place] [address] PCP - General Family Medicine 12/21/18 documented as of this encounter
--- OUTSIDE RECORDS SUMMARY | 2024-03-05 09:01 | External Medical Summary ---
Author Name Unknown Address Unknown Organization K01:[facility] [place] [facility] [place] [address] [place] [address] Laboratory Report Ordering Provider Test Date Status ALYSAYULISA 02/01/2024 13:54:34 Final Observation Date Value Abnormality Reference (Units ) Status Bacteria identified in Specimen by Culture 02/01/2024 13:54:34 No fungus isolated Final Test: Culture, Fungus, Derm< br/>Specimen Source: Toe, Right
Specimen Type: Nail
Specimen Date: 02/01/2024 1:54 PM
Result Date: 02/22/2024 8:31 AM
Result Status: Final result
Resulting Lab: [facility] [place] [place]
[address]
[place] [id number]

CULTURE

No fungus isolated

null Performing Location [facility] [place] [facility] [place] - [address] [place] [facility]
--- OUTSIDE RECORDS SUMMARY | 2024-03-05 09:01 | External Medical Summary | Summary of Care ---
Author Name Unknown Organization [facility] Address [address] [place] [address] Phone [phone] Care Team Providers Care Acute Specialist Name Role Phone Giancarlo Lester MD Primary Care Provider +1- [phone] Reason for Visit * Reason Comments NEW PATIENT Encounter Details Date Type Department Care Team (Late st Contact Info) Description 01/11/2024 9:20 AM EST Office Visit Podiatry [facility] [address] [facility] [place] [address] Radha Da Silva, DPJohn [address] [place] [address] Paronychia of toe, unspecified laterality*; Pain [...] inj 200 mgIndications:Hypotestoster onism 200 mg IM [id number] 10/15/2020 Active vitamin b-12 (Cyanocobalamin) inj 1,000 mcgIndications:B12 deficiency 1000 mcg IM [id number] 06/16/2022 03/20/2025 Active Testosterone Cypionate (Depotestosterone Cypionate) 200 MG/ML inj 200 mgIndications:Hypotestoster onemia 200 mg IM [id number] 02/15/2023 Active vitamin b-12 (Cyanocobalamin) inj 1,000 mcgIndications:B12 deficiency 1000 mcg IM [id number] 02/15/2023 12/18/2024 Active vitamin b-12 (Cyanocobalamin) inj 1,000 mcgIndications:B12 deficiency 1000 mcg IM [id number] 10/04/2023 08/06/2025 Active Testosterone Cypionate (Depotestosterone Cypionate) 200 MG/ML inj 200 mgIndications:Hypotestoster onemia 200 mg IM [id number] 10/04/2023 09/04/2024 Active documented as of this [...] mRNA, LNP-s, No Pre serve, 2-Dose Series (WebKite) 08/10/2022,01/27/2021,12/30/2020 Diptheria/Tetanus (Adult) 04/11/1998 HEP A - [...] 9:20 AM EST Podiatry New Patient Note [facility] Name: Tato Sterling : 1945 Date: 01/11/2024 CHIEF COMPLAINT: toe pain HISTORY OF PRESENT ILLNESS: This patient is a 78 year old male who presents today with complaints of persisting toe pain. He notes a history of neuropathy and has his nails and callosities done by a information technology project manager on a routine basis. He had seen [...] KNEE TOTAL performed by JASON CLOUD at [facility] COLONOSCOPY, DIAGNOSTIC (RECTUM) 06/10/2008 normal, repeat in 5 yrs COLONOSCOPY, DIAGNOSTIC (RECTUM) 11/19/2013 COLONOSCOPY FLEXIBLE PROXIMAL DIAGNOSTIC performed by Alonso Gonsales MD at ENDOSCOPY [facility] COLONOSCOPY, DIAGNOSTIC (RECTUM) 06/07/2019 normal w/ fair prep, repeat 5 yrs/COLONOSCOPY FLEXIBLE PROXIMAL DIAGNOSTIC performed by Alonso Gonsales MD at ENDOSCOPY [facility] EGD, FLEXIBLE, DIAGNOSTIC 06/03/2015 [place], HH, repeat 3 yrs EGD, FLEXIBLE, DIAGNOSTIC 03/31/2018 [place], hiatal hernia, repeat 3 yrs/ESOPHAGOGASTRODUODENOSCOPY (EGD), FLEXIBLE, TRANSORAL, DIAGNOSTIC performed by Alonso Gonsales MD at ENDOSCOPY [facility] EGD, FLEXIBLE, DIAGNOSTIC 10/24/2019 [place], Zenkers diverticulum, hiatal hernia, repeat 3 yrs / [facility] EGD, FLEXIBLE, DIAGNOSTIC N/A 10/21/2022 ESOPHAGOGASTRODUODENOSCOPY (EGD), FLEXIBLE, TRANSORAL, DIAGNOSTIC performed by Elmo Booker MD at [facility] EGD, FLEXIBLE, DIAGNOSTIC 09/17/2022 moderate chronic reflux esophagitis, egd, 3 yr recall, [place] ESOPHAGOSCOPY RIGID TRANSORAL HYPOPHARYNX ESOPHAGUS N/A 10/21/2022 ESOPHAGOSCOPY, RIGID, TRANSORAL WITH DIVERTICULECTOMY OF HYPOPHARYNX OR CERVICAL ESOPHAGUS (EG, ZENKER'S DIVERTICULUM), WITH CRICOPHARYNGEAL MYOTOMY performed by Elmo Booker MD at [facility] KNEE ARTHROSCOPY, DIAGNOSTIC Knee Arthroscopy Left MISCELLANEOUS ORDER ([facility] ONLY) 1985 Had to have part of epidydimitis removed PUNCTURE DRAINAGE BREAST CYST age 29 REMOVE TONSILS & ADENOIDS, UNDER 12 age 10 REVISE KNEE JOINT REPLACEMENT 06/18/2009 TOTAL KNEE REVISION ONE COMPONENT performed by JASON CLODU at [facility] REVISION OF UNSTABLE KNEECAP 02/12/2009 RECONSTRUCTION OF PATELLA TENDON WITH EXTENSOR REALIGNMENT performed by JASON CLOUD at [facility] SIGMOIDOSCOPY/BIOPSY 10/21/1995 THROAT MUSCLE SURGERY N/A 10/21/2022 CRICOPHARYNGEAL MYOTOMY performed by Elmo Booker MD at [facility] VASECTOMY 1983 Family History Problem Relation Age of Onset Heart Disorder Mother [place] 64 Heart Disorder Father [place] 50's No Past Hx Sister No Past [...] clinical capacity and need for follow ups.Our front desk specialist can provide outside list of doctors for [...] 10:30 AM EDT Immunization/Injecti on Ancillary Department, [address] [address] Nurse Aldo [address] [place] [facility] [place] [address] 02/14/2024 10:40 AM EDT Office Visit Gastroenterology, [facility] [address] [place] [address] William Hoffmann MD [address] [place] [address] 03/08/2024 10:30 AM EDT Immunization/Injecti on Ancillary Department, [address] [address] Aldo [facility] [address] [facility] [address] 03/09/2024 10:15 AM EDT Office Visit Otolaryngology [facility] [address] [place] [address] Kavya Knight MD [address] [place] [address] 04/05/2024 9:30 AM EDT Procedure Only [facility], [facility] [place] [address] William Hoffmann MD [address] [place] [address] 06/05/2024 9:30 AM EDT Office Visit Urology, [facility] [address] [facility] [place] [address] Edd Schuster MD [address] [place] [address] Scheduled Procedures Name Priority Associated Diagnoses Date/Ti me COLONOSCOPY FLEXIBLE PROXIMA L DIAGNOSTIC Recall Personal history of colonic polyps Health Maintenance Due Date Last Done Comments CKD PHOS USE SMARTSET 07843 04/23/2023 04/23/2022 COVID-19 Vaccine ( season) 2023 08/10/2022, 01/27/2021, 12/30/2020 Depression Screening 02/16/2024 02/15/2023 Albumin/Creatinine Ratio 02/23/2024 02/22/2023, 09/15 GFR 03/03/2024 09/02/2023, 08/14, 02/22/2023, Additional history exists COLONOSCOPY-EVERY 5 YRS AGES 18-100 06/07/2024 06/07/2019, 06/07/2019, 11/19/2013, Additional history exists DTaP,Tdap,and Td Vaccines (2 - Td or Tdap) 08/05/2024 08/05/2014, 10/15/2008, 04/11/1998 CKD HGB USE SMARTSET 30361 11/24/202411/24, 09/02/2023, 09/02/2023, Additional history exists HbA1c [...] this encounter Medical Devices Implanted Type Area Kiln Operator Device Identifier Shelf Expiration Date Model / Serial / Lot Cement Bone R 1112-140-01 - [id number] Implanted:Qty: 1 on 07/03/2008 at [place] [facility] Left: Knee [employer] 10/14/2012 00-1112-1 40-01 / / [id number] Plate Tibial Flu - [id number] Implanted:Qty: 1 on 07/03/2008 at OR [facility] Left: Knee [employer] 00-5996-0 58-02 / / [id number] Patella Poly Nexgen - [id number] Implanted:Qty: 1 on 07/03/2008 at OR [facility] Left: Knee [employer] 03/14/2016 00-5972-0 65-41 / / [id number] Femur Nexgn F Left - [id number] Implanted:Qty: 1 on 07/03/2008 at OR [facility] Left: Knee [employer] 04/14/2018 00-5996-0 16-51 / / [id number] Implant On [facility] - [id number] Implanted:Qty: 1 on 07/03/2008 at OR [facility] Left: Knee [employer] 00-5964-0 51-10 / / [id number] Duraclip 11mm Repositionable - [id number] Implanted:Qty: 6 on 10/21/2022 by Elmo Booker MD at OR [facility] N/A: Esophagus CONMED SHANEKA 01/20/2025 [id number] / / [id number] 2 documented as of this encounter Visit [...] 1:21 PM 02/12/2009 1:22 PM Care Teams Acute Specialist Relationship Specialty Start Date End Date Giancarlo Lester MD [address] [place] [address] PCP - General Family Medicine 12/21/18 documented as of this encounter
--- OUTSIDE RECORDS SUMMARY | 2024-03-05 09:01 | External Medical Summary | Continuity of Care Document ---
Author Name Unknown Organization [facility] [address] [place], [place] [address] Address [address] [place] [id number] Care Team Providers Care Economic Specialist Name Role Phone Giancarlo Lester Primary Care Physician [phone] [facility]counter [facility] [id number] Date(s): 01/24/24 - 01/24/24 [facility] [address] [email or web address] [address] [facility] [address] [address] Encounter Diagnosis Right lumbar radiculopathy(Discharge Diagnosis) - 01/23/24 Neural foraminal stenosis of lumbar spine(Discharge Diagnosis) - 01/23/24 Discharge Disposition: Home or Self Care Attending Physician: MD Ruiz Gregory G Referring Physician: MD Ruiz Gregory G Allergies, Adverse Reactions, Alerts Substance Reaction Severity Status benzonatate Cough Active Levaquin ORAL pain/achilles heel tendon Active Cephalexin Monohydrate Diarrhea Mild Activ e levoFLOXacin Unknown Active Medications Allergy 25 mg oral capsule Start: 10/18/16 10:23:00, 1 cap, PO, qhs, Disp# 100 cap, given to patient Start Date: 10/18/16 Status: Ordered amitriptyline 50 mg oral tablet Start: 02/24/21 10:38:00 EDT, 0.5 tab, PO, qhs Start Date: 02/24/21 Status: Ordered Entresto 97 mg-103 mg oral tablet Start: 07/05/23 16:37:00 EDT, 1 tab, PO, bid Start Date: 07/05/23 Status: Ordered famotidine 40 mg oral tablet Start: 10/18/16 13:02:00, 1 tab, PO, Daily, Disp# 30 tab, Refills: 5 Start Date: 10/18/16 Status: Ordered Lipitor 20 mg oral tablet Start: 03/13/13 11:02:00 EDT, 2 tab, PO, Daily Start Date: 03/13/13 Status: Ordered magnesium citrate 100 mg oral capsule Start: 07/29/23 12:45:00 EDT, 1 cap, PO, Daily Start Date: 07/29/23 Status: Ordered melatonin Start: 06/16/22 7:59:00 EDT Start Date: 06/16/22 Status: Ordered multivitamin Start: 06/16/22 8:03:00 EDT, 1 tab, PO, Daily Start Date: 06/16/22 Status: Ordered Myrbetriq 50 mg oral tablet, extended release Start: 09/15/23 13:03:00 EDT, 30 tab Start Date: 09/15/23 Status: Ordered pantoprazole 40 mg oral delayed release tablet Start: 06/16/22 8:00:00 EDT Start Date: 06/16/22 Status: Ordered testosterone 50 mg/mL intramuscular solution Start: 08/20/13 8:11:00, IM, once a month Start Date: 08/20/13 Status: Ordered tolterodine 2 mg oral capsule, extended release Start: 08/23/19 8:05:00 EDT Start Date: 08/23/19 Status: Ordered triamcinolone 0.1% topical lotion Start: 06/17/23 10:01:00 EDT, 1 appl, topical, bid, Disp# 60 mL, Refills: 3, apply to ears, scalp, neck, Pharmacy: [id number] Start Date: 06/17/23 Status: Ordered Tylenol with Codeine #3 oral tablet Start: 04/20/18 8:36:00 EDT, 1 tab, PO, bid, Disp# 10 tab, Refills: 0, PRN: Breakthrough Pain Start Date: 04/20/18 Stop Date: 04/25/18 Status: Ordered Vitamin B12 Start: 06/17/23 9:44:00 EDT Start Date: 06/17/23 Status: Ordered Mental Status 01/24/24 Barriers to Learning one year None evide nt Mandatory Health Literacy Documentation Yes Health Literacy Communication Barriers N ever Primary Language Andorran Problem List Condition Confirmation Course Effective Dates Status H ealth Status Informant Acid reflux Confirmed Active Rhinitis, allergic Confirmed Active Back pain Confirmed Active Biceps tendinitis Confirmed Active Cervical arthritis Confirmed Active Chronic knee pain Confirmed Active Rash Confirmed Active HTN (hypertension) Confirmed Active Injury of shoulder region Confirmed Active Ulnar neuropathy Confirmed Active Knee pain Confirmed Active Lateral epicondylitis Confirmed Active Osteoarthritis of knee Confirmed Active Right lumbar radiculopathy Confirmed Active Medial epicondylitis Confirmed Active Neuropathy 1 Confirmed Active Pain in elbow Confirmed Active Patellar tendinitis, left knee Confirmed Active Pes anserinus bursitis of right knee Confirmed Active Bursitis/tendonitis, pes anserinus Confirmed Active Rotator cuff syndrome Confirmed Active Spastic bladder Confirmed Active Neural foraminal stenosis of lumbar spine Confirmed Active Strain of muscle and/or tendon of elbow region Confirmed Active 1perif. Diagnosis Diagnosis Type Effective Dates Health Status Clinical Service Informant Right lumbar radiculopathy Discharge Diagnosis 01/23/24 Neural foraminal stenosis of lumbar spine Discharge Diagnosis 01/23/24 Procedures Procedure Date Related Diagnosis Body Site Status Excision 03/23/18 Completed TKA + 2 revisions 2007 Complet ed Hernia repair Completed Surgery 1 Completed vesectomy Completed 1For lumbar stenosis Vital Signs Most recent to oldest [Reference Range]: 1 Heart Rate 87 bpm (01/24/24 10:56 AM) Blood Pressure 130/84mmHg (01/24/24 10:56 AM) Social History Social History Type Response Smoking Status Never smoked cigaret benji Sex Male Ortho Outpt Note * MD Joseph, Donald Neely: PERFORM Event Display: Ortho Outpt Note Authored Date: Name:JAYLEEN REGAN Patient Number:[id number] :1945 Date of Service:01/24/2024 Preoperative diagnosis:Neuroforaminal stenosis with right lumbar radiculopathyhistory of prior back surgery Postoperative diagnosis: Same Procedure: Right paramedian L5-S1 interlaminar epidural steroid injection under fluoroscopic guidance Indications: Patient is [id number] male who had an effective epidural done in September 2023 the effectiveness is worn off he presents today for another injection. Physical examination:Pleasant malewithout any focal motor or sensory deficit negative seated straight leg raises Consent: Verbal consent was obtained from the patient. Prior to the procedure a timeout was done for safety to confirm patient's full name and date of injection type location and approach. Procedure: Patient was maintained in a prone position backside was cleansed with orange ChloraPrep 3, fluoroscope was used to identify the L5-S1 interlaminar space. The overlying skin on the right side was anesthetized with 4 mL of lidocaine 1% with a 25-gauge 1-1/2 inch needle. 22-gauge 3-1/2 inch Tuohy needle was then directed down towards the interlaminar space was advanced under lateralfluoroscopic guidance and loss of resistance was noted at a depth of 6-1/2cm. Omnipaque 300 contrast half milliliter was injected and which demonstrated an epidural uptake pattern they then underwent injection after negative aspiration of 40 mg Depo-Medrol and 4 mL of preservative-free sodium chloride. Injection was tolerated. Images from the procedure were saved and downloaded to PACS. Disposition: Patient will be discharged home once discharge criteria have been met Electronic Signature on File CC: Giancarlo Lester MD [address] [place] [id number] * Electronically Reviewed/Signed by: Donald Ruiz MD Author Signature Dt/Tm:01/24/2024 11:14 AM Distance Education Director of Orthopaedics & Rehabilitation and Physical Medicine & Rehabilitation [facility] .Outpt Proc * GLENNA Carbone Angela M: PERFORM Event Display: .Outpt Proc Authored Date: OUTPATIENT PROCEDURE Name: JAYLEEN REGAN Patient Number: [id number] : 1945 Date of Service: 01/24/2024 OUTPATIENT PROCEDURE NOTE Is patient no Procedure performedRightLumbar Epidural Steroid Injection 70165Mrntneoea byDr. Donald Ruiz MD Resuscitation equipment checkedyes Anticoagulants stoppedN/A Patient has a driveryes xray guidance usedyesConscious sedationnoTime out completedyes consent signedyes Allergies checkedyeslevoFLOXacin; Cephalexin Monohydrate; Levaquin; benzonatate Diabeticno PositionPronePre procedure pain level __7_/10 Skin PrepchlorhexadineSterile drapes usedyes Skin Local Anesthetic: Needle ___25__ga ___1.5___in Lidocaile __1___%__4___ml Other HR: 87 SpO2: 95% BP: 130/84 Block Needle _25_GA3.5__InchesType _Tuohy needle_ Procedure medication used Cortical Steroids _40__mg MethylprednisoloneLocal Anesthetic % ml _NSS 4 ml TimeDrug/Event/RemarkBPHRSPO2 Comments 1106 Omnipaque 0.25 ml 1107 Procedure complete 128/82 84 98 Status:Pain on discharge _7___/10ComplicationsNo Neurologically stableYes DispositionDischarged Home with aftercare instructions given Follow up __4-6___weeks _ Electronic Signature on File Electronically Reviewed/Signed by: Yari Carbone Author Signature Dt/Tm:01/24/2024 11:14 AM Electronically Reviewed/Signed by: Donald Ruiz MD Cosigner Signature Dt/Tm: 01/24/2024 01:48 PM Distance Education Director of Orthopaedics & Rehabilitation and Physical Medicine & Rehabilitation AM Patient Care team information Care Team Personnel Name: MD Trevon, Giancarlo Kirby Position: Referring DIRECT Member Role: Primary Care Provider Address: Address: [address] [place] [address] [place] Care Team Related Persons Name: LUPILLO REGAN Name: LUPILLO REGAN Address: home No Address Provided
--- OUTSIDE RECORDS SUMMARY | 2024-03-05 09:01 | External Medical Summary | Summary of Care ---
Author Name Unknown Organization [facility] Address [address] [place] [address] Phone [phone] Care Team Providers Care Web Methods Developer Name Role Phone Giancarlo Lester MD Primary Care Provider +[phone]- [phone] Reason for Visit * Reason Onset Date Comments Appointment 02/01/2024 Encounter Details Date Type Department Care Team (Late st Contact Info) Description 02/01/2024 Telephone Podiatry [facility] [address] [facility] [place] [address] Radha Da Silva, DPJohn [address] [place] [address] Appointment Allergies Active Allergy Reactions Criticality Noted Date [...] inj 200 mgIndications:Hypotestoster onism 200 mg IM [id number] 10/15/2020 Active vitamin b-12 (Cyanocobalamin) inj 1,000 mcgIndications:B12 deficiency 1000 mcg IM [id number] 06/16/2022 03/20/2025 Active Testosterone Cypionate (Depotestosterone Cypionate) 200 MG/ML inj 200 mgIndications:Hypotestoster onemia 200 mg IM [id number] 02/15/2023 Active vitamin b-12 (Cyanocobalamin) inj 1,000 mcgIndications:B12 deficiency 1000 mcg IM [id number] 02/15/2023 12/18/2024 Active vitamin b-12 (Cyanocobalamin) inj 1,000 mcgIndications:B12 deficiency 1000 mcg IM [id number] 10/04/2023 08/06/2025 Active Testosterone Cypionate (Depotestosterone Cypionate) 200 MG/ML inj 200 mgIndications:Hypotestoster onemia 200 mg IM [id number] 10/04/2023 09/04/2024 Active documented as of this [...] mRNA, LNP-s, No Pre serve, 2-Dose Series (Baynote) 08/10/2022,01/27/2021,12/30/2020 HEP A - Hepatitis A (Adult [...] Influenza, Split, I IV3, With Preserve, Inj 07/31/2015,07/31/2014,08/01/2013,03/2012,08/13/2011,08/14/2010,10/15/20,08/17/2007,09/24/2006 07/31/2016 TD, Preservative Free 10/15/2008 TDAP (age [...] encounter Miscellaneous Notes * Telephone Encounter - Linette Ritchie OSA - 02/01/2024 1:21 PM EDT Bishop will call to set up his f/u appt with Dr. Da Silva documented in this encounter Plan of Treatment Upcoming Encounters Date Type Department Care Team (Late st Contact Info) Description 02/02/2024 11:30 AM EDT Imaging Vascular Lab, [facility] 2nd Floor, [address] [place] [address] 02/07/2024 10:30 AM EDT Immunization/Injecti on Ancillary Department, [place] [address] [place] [address] [place] [address] [facility] [address] 03/08/2024 10:30 AM EDT Immunization/Injecti on Ancillary Department, [place] [address] [facility] [address] [place], Nurse [address] [facility], [place] [address] 03/09/2024 10:15 AM EDT Office Visit [facility]ology [facility] [place] [address] Kavya Knight MD [address] [place] [address] 04/05/2024 9:30 AM EDT Procedure Only Endoscopy, [facility] [address] [place] [address] William Hoffmann MD [address] [place] [address] 06/05/2024 9:30 AM EDT Office Visit Urology, [facility] [address] [facility] [place] [address] Edd Schuster MD [address] [facility] [address] [place] [id number] Scheduled Procedures Name Priority Associated Diagnoses Date/Ti me COLONOSCOPY FLEXIBLE PROXIMA L DIAGNOSTIC Recall Personal history of colonic polyps Health Maintenance Due Date Last Done Comments CKD PHOS USE SMARTSET 90988 04/23/2023 04/23/2022 COVID-19 Vaccine ( season) 2023 08/10/2022, 01/27/2021, 12/30/2020 Depression Screening 02/16/2024 02/15/2023 Albumin/Creatinine Ratio 02/23/2024 02/22/2023, 09/15 GFR 03/03/2024 09/02/2023, 08/14, 02/22/2023, Additional history exists COLONOSCOPY-EVERY 5 YRS AGES 18-100 06/07/2024 06/07/2019, 06/07/2019, 11/19/2013, Additional history exists DTaP,Tdap,and Td Vaccines (2 - Td or Tdap) 08/05/2024 08/05/2014, 10/15/2008, 04/11/1998 CKD HGB USE SMARTSET 31041 11/24/202411/24, 09/02/2023, 09/02/2023, Additional history exists HbA1c [...] encounter Medical Devices Implanted Type Area Kiln Repairer Device Identifier Shelf Expiration Date Model / Serial / Lot Cement Bone R 1112-140-01 - [id number] Implanted:Qty: 1 on 07/03/2008 at OR [facility] Left: Knee [employer] 10/14/2012 00-1112-1 40- / / [id number] Plate Tibial Flu - [id number] Implanted:Qty: 1 on 07/03/2008 at OR [facility] Left: Knee [employer] 00-5996-0 58- / / [id number] Patella Poly Nexgen - [id number] Implanted:Qty: 1 on 07/03/2008 at OR [facility] Left: Knee [employer] 03/14/2016 00-5972-0 65-41 / / [id number] Femur Nexgn F Left - [id number] Implanted:Qty: 1 on 07/03/2008 at OR [facility] Left: Knee [employer] 04/14/2018 00-5996-0 16-51 / / [id number] Implant On The Fly - [id number] Implanted:Qty: 1 on 07/03/2008 at OR [facility] Left: Knee [employer] 00-5964-0 51-10 / / [id number] Duraclip 11mm Repositionable - [id number] Implanted:Qty: 6 on 10/21/2022 by Elmo Booker MD at OR [facility] N/A: Esophagus [employer] 01/20/2025 [id number] / / [id number] 2 documented as of this encounter Advance [...] 1:21 PM 02/12/2009 1:22 PM Care Teams Web Methods Developer Relationship Specialty Start Date End Date Giancarlo Lester MD [address] [facility] [place] [address] PCP - General Family Medicine 12/21/18 documented as of this encounter
--- NOTE | 2024-03-05 09:11 | XRay Report ---
XR chest 1V portable HISTORY: 78 years-old Male productive cough acute cough COMPARISON: 09/03/2023 TECHNIQUE: AP view of the chest FINDINGS: Cardiomediastinal and hilar silhouettes are unchanged. Left subclavian pacer/AICD. No pneumothorax, p leural effusion or overt pulmonary edema. Ill-defined retrocardiac left basilar opacities. Mild chron ic interstitial coarsening of the lung bases. Degenerative changes of the shoulders and spine. IMPRESSION: Mild retrocardiac left basilar opacities are suspicious for pneumonia. ACT 112: Negative or not required by law. The above report was generated using voice recognition software. It may contain grammatical, syntax o r spelling errors. Electronically signed by: Israel Infante M.D. 03/05/2024 9:10 AM
[2024-03-05 10:03] LABS: Basophils # (auto) 0.07 K/uL (0.00-0.20); Basophils % (auto) 0.5 %; Eosinophils # (auto) 0.14 K/uL (0.00-0.50); Eosinophils % (auto) 0.9 %; Hematocrit (blood only) 39.6 % (42.0-52.0); Hemoglobin 13.8 g/dl (14.0-18.0); Immature Granulocytes # (auto) 0.23 K/uL (0.01-0.20); Immature Granulocytes % (auto) 1.5 %; Lymphocytes # (auto) 1.22 K/uL (1.20-3.40); Lymphocytes % (auto) 7.9 %; Mean Corpuscular Hgb Conc 34.8 g/dL (32.0-36.0); Mean Corpuscular Volume 91.9 fL (80.0-100.0); Mean Platelet Volume 9.2 fL (9.4-12.4); Neutrophils # (auto) 12.48 K/uL (1.40-6.50); Neutrophils % (auto) 80.2 %; Platelet Count 253 K/uL (130-400); RDW Coefficient of Variation 14.3 % (11.5-14.5); RDW Standard Deviation 48.6 fL (36.4-46.3); Red Blood Count 4.31 M/uL (4.70-6.10); White Blood Count 15.54 K/ul (4.8-10.8)
[2024-03-05 10:16] LABS: Albumin Globulin Ratio 1.3 (0.9-2); Albumin Level 3.8 gm/dl (3.4-5.0); BUN Creatinine Ratio 15.3 (10-20); Calcium 9.1 mg/dl (8.6-10.3); Creatinine Clr Calc Pharmacy 62.2 ml/min; Est GFR (African American) 64.1 ml/min; Est GFR (Non-African American) 55.3 ml/min; Globulin 2.9 gm/dl (2.5-4.0); Potassium 3.8 mmol/L (3.5-5.1); Total Protein 6.7 gm/dl (6.0-8.3)
[2024-03-05 10:17] LABS: Adenovirus PCR Not Detected (NotDetected); Bordetella parapertussis PCR Not Detected (NotDetected); Bordetella pertussis PCR Not Detected (NotDetected); Chlamydia pneumoniae PCR Not Detected (NotDetected); Coronavirus 229E PCR Not Detected (NotDetected); Coronavirus CoV-2 (COVID19)PCR Not Detected (NotDetected); Coronavirus HKU1 PCR Not Detected (NotDetected); Coronavirus NL63 PCR Not Detected (NotDetected); Coronavirus OC43PCR DETECTED (NotDetected); Human Metapneumovirus PCR Not Detected (NotDetected); Influenza A PCR Not Detected (NotDetected); Influenza B PCR Not Detected (NotDetected); Mycoplasma pneumoniae PCR Not Detected (NotDetected); Parainfluenza Virus 1 PCR Not Detected (NotDetected); Parainfluenza Virus 2 PCR Not Detected (NotDetected); Parainfluenza Virus 3 PCR Not Detected (NotDetected); Parainfluenza Virus 4 PCR Not Detected (NotDetected); Respiratory Syncytial VirusPCR Not Detected (NotDetected); Rhinovirus/Enterovirus PCR Not Detected (NotDetected)
[2024-03-05 10:22] LABS: INR 1.1 (0.9-1.1); Prothrombin Time 12.4 Seconds (9.0-12.0); Troponin I High Sensitivity 25.9 pg/ml (0-20)
[2024-03-05] MEDS: DOXYCYCLINE HYCLATE 100 MG in DEXTROSE 5% MINI-B 100 ML IV STA (10:58)
[2024-03-05] MEDS: cefTRIAXone SODIUM 2,000 MG/50 ML BAG IV STA (10:58)
[2024-03-05] MEDS: SODIUM CHLORIDE 0.9% 1,000 ML IV ONE (10:58)
--- NOTE | 2024-03-05 11:03 | Electrocardiogram Report ---
Test Reason : Blood Pressure : / mmHG Vent. Rate : 097 BPM Atrial Rate : 097 BPM P-R Int : 188 ms QRS Dur : 092 ms QT Int : 362 ms P-R-T Axes : 059 126 069 degrees QTc Int : 459 ms Normal sinus rhythm ventricular-paced complexes Low voltage QRS Anterolateral infarct (cited on or before 03-SEP-2023) Abnormal ECG When compared with ECG of 03-SEP-2023 11:20, Premature ventricular complexes are no longer Present QRS axis Shifted right Questionable change in initial forces of Lateral leads Confirmed by Alonso Girard ([id number]) on 03/05/2024 11:02:52 AM Referred By: Confirmed By:Alonso Girard
--- NOTE | 2024-03-05 11:33 | History & Physical Report ---
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 Patient was seen and examined in collaboration with, Dr. Chandler, please see addendum A total of 60 minutes was spent coordinating, documenting, and providing care for this patient excluding time spent in the performance of separately billed services. This included personally viewing all current laboratories and imaging studies, medication reconciliation, outpatient chart review, and discussion with specialists. History of Present Illness Chief Complaint: Cough x 2 weeks. 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 Initially sx started with cough, general malaise, weakness and dizziness. After 3-4 days he started producing productive purulent sputum. He has been producing anywhere between 1/3 to 1/2 cup of mucus a day. He denies hemoptysis. He did feel nausea but was unable to vomit. He generally feels weak and unwell. He initially got an appt with his PCP, but was feeling so bad that he had his son bring him to the hospital. Overall appetite has been reduced, but admits to fasting. In ED patient was hemodynamically stable and oxygen saturations were in the low 90s. His respiratory bio fire did reveal a coronavirus strain. Lab abnormalities were notable for mild elevation in AST and ALT at 43 and 53, sodium 129, leukocytosis with WBC of 15.5k,, H&H 13.8 and 39.6. Chest x-ray concerning for pneumonia. Chest CTA was negative for PE but did reveal a bilateral lower lobe airspace opacity consistent with pneumonia. He received IV Rocephin and doxycycline. Allergies Allergy/AdvReac Type Severity Reaction Status Date / Time hazelnut AdvReac Mild Throat Verified 12/26/23 11:23 numbness levofloxacin AdvReac Unknown Achilles Verified 12/26/23 11:23 heel pain (rxn with oral, tolerated IV) cough suppressant Allergy Mild Swelling Uncoded 12/26/23 11:23 of Lip/Tongue/Throat Home Medications Medication Instructions Recorded Confirmed Type tolterodine 4 mg capsule,extended 2 mg PO HS 11/20/19 03/05/24 History release 24 hr pantoprazole 40 mg tablet,delayed 20 mg PO QAM 03/28/20 03/05/24 History release cyanocobalamin (vitamin B-12) 1,000 mcg IM UD 04/08/20 03/05/24 History 1,000 mcg/mL injection kit testosterone propionate 1 dose UD 04/25/20 03/05/24 History BiPap Machine #1 ea 06/23/20 03/05/24 Rx amitriptyline 50 mg tablet 25 mg PO QPM 12/08/20 03/05/24 History mirabegron 25 mg tablet,extended 25 mg PO QPM 12/08/20 03/05/24 History release 24 hr (Myrbetriq) Magnesium Otc 1 tab PO HS 06/04/21 03/05/24 History melatonin 3 mg tablet 3 mg PO HS 06/04/21 03/05/24 History multivitamin 1 tab PO QAM 06/04/21 03/05/24 History atorvastatin 80 mg tablet (Lipitor) 20 mg PO QAM #90 tabs 05/13/22 03/05/24 History sacubitril 97 mg-valsartan 103 mg 0.5 tab PO BID 09/07/22 03/05/24 History tablet (Entresto) spironolactone 25 mg tablet 25 mg PO DAILY 03/05/24 03/05/24 History Past Med/Surg History Medical History LBBB (left bundle branch block) CAD (coronary artery disease) Mild non-obstructive CAD per 2018 cardiac cath Barretts esophagus Zenkers diverticulum Right lumbar radiculopathy History of pacemaker Pacer/ICD (Implanted 05/2020), [employer]> follows with Dr. Kong> will be getting checked today (04/16/22) per pt Nonischemic cardiomyopathy Echo 02/2019 showed EF 30-35%, felt secondary to LBBB. No improvement with medical therapy. S/P pacer/ICD implantation 05/2020. Osteoarthritis Chronic back pain Overactive bladder Hiatal hernia GERD (gastroesophageal reflux disease) Hypertension Hyperlipidemia Sleep apnea BIPAP Lumbar stenosis with neurogenic claudication Surgical History History of umbilical hernia repair (10/27/12) Umbilical hernia repair History of repair of rotator cuff right History of revision of total replacement of left knee joint x2 History of cataract surgery R/L History of implantable cardioverter-defibrillator (ICD) placement 05/2020 Hx of surgical procedure Epididymectomy Hx of vasectomy History of cardiac cath 2017 > no stents History of esophageal dilatation History of total knee replacement R/L History of laminectomy Lumbar History of colonoscopy History of esophagogastroduodenoscopy (EGD) History of tooth extraction History of tonsillectomy S/P hernia surgery (06/24/14) Laparoscopic bilateral inguinal hernia repair, Family History Father Heart disease Mother Heart disease Other No pertinent family history Social History Smoking Status: Never smoker Second Hand Exposure: No; Do You Dip or Chew Tobacco: No; Hx Alcohol Use: No Hx Substance Use: No Preferred Language: Maldivian Communication Ability: Effective Visual Impairment: No Limitations 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 Chandler addendum for physical exam findings. Results & Data Results & Data Vital Signs (Past 12 Hours) Vital Signs Temp Pulse Pulse Resp BP BP Pulse Ox 03/05/24 11:09 92 H 15 118/69 93 03/05/24 09:16 95 H 03/05/24 08:41 03/05/24 08:29 36.2 C L 101 H 18 109/59 L 93 O2 Del Method 03/05/24 11:09 Room Air 03/05/24 09:16 03/05/24 08:41 Room Air 03/05/24 08:29 Room Air Laboratory Results I have independently reviewed and interpreted patient's admitting labs including CBC, CMP, PTT, PT/INR, lactate, bnp, procal and troponin. SARS COV 2 Diagnostic Findings Chest X-Ray 03/05/24 08:41 XR chest 1V portable HISTORY: 78 years-old Male productive cough acute cough COMPARISON: 09/03/2023 TECHNIQUE: AP view of the chest FINDINGS: Cardiomediastinal and hilar silhouettes are unchanged. Left subclavian pacer/AICD. No pneumothorax, pleural effusion or overt pulmonary edema. Ill- defined retrocardiac left basilar opacities. Mild chronic interstitial coarsening of the lung bases. Degenerative changes of the shoulders and spine. IMPRESSION: Mild retrocardiac left basilar opacities are suspicious for pneumonia. ACT 112: Negative or not required by law. The above report was generated using voice recognition software. It may contain grammatical, syntax or spelling errors. Electronically signed by: Israel Infante M.D. 03/05/2024 9:10 AM Medications Administered Medication List Doxycycline Hyclate 100 mg/ (Dextrose) 100 mls @ 50 mls/hr IV NOW STA Stop: 03/05/24 12:18 Last Admin: 03/05/24 10:58 Dose: 50 mls/hr Documented By: LÓPEZ Discontinued Medications Sodium Chloride (Nss) 1,000 mls @ 999 mls/hr IV .Q1H1M ONE Stop: 03/05/24 11:17 Last Admin: 03/05/24 10:58 Dose: 999 mls/hr Documented By: LÓPEZ Ceftriaxone Sodium (Rocephin) 2,000 mg in 50 mls @ 100 mls/hr IV NOW STA Stop: 03/05/24 10:48 Last Admin: 03/05/24 10:58 Dose: 100 mls/hr Documented By: LÓPEZ COVID-19 Results Results COVID-19 Adm Lab Results: RBC 4.31 M/uL (4.70-6.10) L 03/05/24 WBC 15.54 K/ul (4.8-10.8) H 03/05/24 Hgb 13.8 g/dl (14.0-18.0) L 03/05/24 Hct 39.6 % (42.0-52.0) L 03/05/24 Plt Count 253 K/uL (130-400) 03/05/24 Neutrophils (%) (Auto) 80.2 % 03/05/24 Lymphocytes (%) (Auto) 7.9 % 03/05/24 Monocytes # (Auto) 1.40 K/uL (0.11-0.59) H 03/05/24 Eosinophils # (Auto) 0.14 K/uL (0.00-0.50) 03/05/24 Immature Granulocyte % (Auto) 1.5 % 03/05/24 Neutrophils # (Auto) 12.48 K/uL (1.40-6.50) H 03/05/24 Lymphocytes # (Auto) 1.22 K/uL (1.20-3.40) 03/05/24 Monocytes # (Auto) 1.40 K/uL (0.11-0.59) H 03/05/24 Eosinophils # (Auto) 0.14 K/uL (0.00-0.50) 03/05/24 Immature Granulocyte # (Auto) 0.23 K/uL (0.01-0.20) H 03/05 Na 129 mmol/L (136-145) L 03/05/24 K 3.8 mmol/L (3.5-5.1) 03/05/24 Cl 98 mmol/L (98-107) 03/05/24 CO2 18 mmol/L (21-32) L 03/05/24 Anion Gap 13 (3-11) H 03/05/24 BUN 19 mg/dl (6-23) 03/05/24 Creatinine 1.24 mg/dl (0.6-1.4) 03/05/24 BUN/Creatinine Ratio 15.3 (10-20) 03/05/24 Glucose Level 117 mg/dl (70-99(Fasting)) H 03/05/24 Ca 9.1 mg/dl (8.6-10.3) 03/05/24 Total Bilirubin 1.0 mg/dl (0.2-1.0) 03/05/24 AST/SGOT 43 U/L (13-39) H 03/05/24 ALT/SGPT 53 U/L (7-52) H 03/05/24 Alkaline Phosphatase 100 U/L (34-104) 03/05/24 Total Protein 6.7 gm/dl (6.0-8.3) 03/05/24 Albumin 3.8 gm/dl (3.4-5.0) 03/05/24 Globulin 2.9 gm/dl (2.5-4.0) 03/05/24 Albumin/Globulin Ratio 1.3 (0.9-2) 03/05/24 Procalcitonin 0.21 ng/ml (0-0.5) 03/05/24 INR 1.1 (0.9-1.1) 03/05/24 Adenovirus (PCR) Not Detected (NotDetected) 03/05/24 B. parapertussis DNA (PCR) Not Detected (NotDetected) 02/13 01/07 B. pertussis DNA (PCR) Not Detected (NotDetected) 03/05/24 C. pneumoniae DNA (PCR) Not Detected (NotDetected) 4 Coronavirus Type OC43 (PCR) DETECTED (NotDetected) A 03/05 Coronavirus Type HKU1 (PCR) Not Detected (NotDetected) Coronavirus Type 229E (PCR) Not Detected (NotDetected) COVID-19 PCR Not Detected (NotDetected) 03/05/24 Coronavirus Type NL63 (PCR) Not Detected (NotDetected) Human Metapneumovirus (PCR) Not Detected (NotDetected) Influenza Virus Type A (PCR) Not Detected (NotDetected) Influenza Virus Type B (PCR) Not Detected (NotDetected) M. pneumoniae (PCR) Not Detected (NotDetected) 03/05/24 Parainfluenza Type 1 (PCR) Not Detected (NotDetected) 02/13 01/07 Parainfluenza Type 2 (PCR) Not Detected (NotDetected) 02/13 01/07 Parainfluenza Type 3 (PCR) Not Detected (NotDetected) 02/13 01/07 Parainfluenza Type 4 (PCR) Not Detected (NotDetected) 02/13 01/07 RSV (PCR) Not Detected (NotDetected) 03/05/24 Enterovirus/Rhinovirus (PCR) Not Detected (NotDetected) Chest X-Ray 03/05/24 Code Status & VTE Plan Code Status FULL CODE VTE Prophylaxis Plan VTE Prophylaxis will be ordered: Yes Supervising Physician Co-Signing Physician Notes Patient is a 78-year-old male with past medical history of hyperlipidemia, gout, testosterone deficiency, hypertension, paroxysmal SVT, GERD, Grimaldo's esophagus, urgent continence, osteoarthritis who presents to the ED with productive cough, generalized weakness for several days. Patient reports that he started coughing 10 days back; initially nonproductive. He started to produce yellowish mucus last few days. He reports generalized weakness, fatigue and tiredness. Denies any fever recently. On physical examination; Constitutional: Alert oriented x 3; not in distress. Respiratory: Decreased breath sound at bases. No added sound. Cardiovascular: RRR, no murmur, no edema Vessels: no JVD or carotid bruit Chest: normal inspection of chest Abdomen: normal bowel sounds, soft, nontender, no hepatosplenomegaly Musculoskeletal: no cyanosis or clubbing, extremities motor strength 5/5 Skin: no rashes, warm and dry normal turgor Neurologic: PERRL, EOMI, accommodation nl, no face palsy, no dysarthria CN's II- XI intact bilaterally and moves all extremities Psychiatric: A+Ox3, euthymic affect Assessment/plan Coronavirus Pneumonia Patient presents with productive cough fatigue and tiredness Leukocytosis present Respiratory viral panel positive for coronavirus Chest x-raymild retrocardiac left basilar opacities. CTA personally reviewed; no PE. Airway opacity present consistent with pneumonia. Suspect superimposed bacterial infection along with coronavirus infection; will start on ceftriaxone and doxycycline DuoNebs and hypertonic saline for airway clearance Obtain sputum culture Obtain urine Legionella antigen Monitor oxygen saturations; supplemental oxygen as needed if SpO2 is less than 92%. Hyponatremia Suspect due to decreased oral intake Sodium of 129 on presentation Serum osmolarity consistent with true hyponatremia Obtain urine osmolarity, urine electrolytes Will start him on IV fluids with NS at 100 cc/h for 1 L and response BMP daily Chronic conditions; History of nonischemic cardiomyopathy-biventricular ICD in place; continue on Entresto, spironolactone. Paroxysmal SVT; no recent episodes; monitor on telemetry History of GERD, Grimaldo esophaguscontinue on PPI. CTA chest showed fluid- filled esophagus. Patient had recently followed up with GI as outpatient on 01/23/2024. He has a history of prior Zenker's myotomy in 11/04. Will need follow-up with GI after discharge from the hospital. Hyperlipidemiacontinue Lipitor Mood disordercontinue on amitriptyline OSAcontinue BiPAP at night. I have reviewed the advanced practitioner's documentation, and I agree with, and take responsibility for the plan of care I spent a total of 60 minutes coordinating, documenting, and providing care for this patient excluding time spent in the performance of separately billed services. All of the aforementioned completed while collaborating with the assigned advanced practitioner for a full treatment plan Please note the above document was generated using voice recognition software. It may contain grammatical, syntax or spelling errors. Any formal questions or concerns about the content, text or information contained within the body of this dictation should be directly addressed to the provider for clarification (4) CAD (coronary artery disease) Associated angina: without angina Coronary Disease-Associated Artery/Lesion type: [place] artery [place] vs. transplanted heart: [place] heart Qualified Code(s): I25.10 - Atherosclerotic heart disease of [place] coronary artery without angina pectoris
[2024-03-05] MEDS: OPTIRAY 320 125ml IV ONE (12:11)
--- NOTE | 2024-03-05 12:39 | CT Scan Report ---
CHEST CTA for PULMONARY ARTERIES CT DOSE: 984.41 mGy.cm HISTORY: Productive cough. Weakness. TECHNIQUE: Multiaxial CT images of the chest were performed following the intravenous administration of contrast to evaluate the pulmonary arteries. 3D/Maximal intensity projection images were also obta ined. Sagittal and coronal reformations were also reviewed. A dose lowering technique was utilized a dhering to the principles of ALARA. COMPARISON STUDY: Chest CTA 09/03/2023. FINDINGS: Normal caliber thoracic aorta with no evidence for a dissection. The heart is top normal in size. No pleural or pericardial effusions. Is left-sided pacemaker noted. Advanced coronary artery c alcifications are present. No filling defects within the pulmonary arteries to suggest a pulmonary em bolus. Postoperative changes seen within the proximal esophagus. Partially fluid-filled mildly disten ded esophagus. Mildly enlarged distal paraesophageal lymph node on image 54 measuring 12 mm. Limited views of the upper abdomen demonstrate a normal liver, spleen, and adrenal glands. The thyroid gland enhances normally. Mild mediastinal and bilateral hilar lymphadenopathy. No acute fractures. No pneum othorax. Near complete opacification of the bilateral lower lobe segmental/subsegmental bronchi. Ther e is associated patchy consolidation within the base of the lower lobes most pronounced on the left. Therefore, this likely represents a pneumonia and could be due to prior aspiration. A 4 mm subpleural nodule along the right minor fissure on image 138. No evidence for pulmonary edema. Bibasilar puncta te calcified granulomas are noted. IMPRESSION: 1. No evidence for a pulmonary embolus. 2. Bilateral lower lobe patchy airspace opacities consistent with a pneumonia. This could be due to p rior aspiration. 3. Mildly distended and fluid-filled esophagus. 4. A 4 mm subpleural nodule at the right minor fissure. This is technically indeterminate but likely benign. One year chest CT follow-up recommended to ensure stability. ACT 112: Negative or not required by law. Electronically signed by: Lorne Muñoz M.D. 03/05/2024 12:37 PM
[2024-03-05 13:27] LABS: Appearance Urine Clear (Clear); Bacteria Urine Automated None Seen (None Seen); Bilirubin Urine Negative (Negative); Blood Urine Trace (Negative); Cast Urine Automated 0-2 /lpf (0-2); Color Urine Yellow; Epithelial Cell Urine Auto 0-2 /hpf (0-2); Glucose Urine UA Negative (Negative); Ketones Urine 1+ (Negative); Leukocyte Esterase Urine Negative (Negative); Nitrite Urine Negative (Negative); Protein Urine Trace (Negative); RBC Urine Automated 0-2 /hpf (0-2); Specific Gravity Urine 1.028 (1.000-1.030); Urobilinogen Urine Negative (Negative); WBC Urine Automated 0-5 /hpf (0-5)
[2024-03-05] MEDS ORDERED: POLYETHYLENE (MIRALAX) 17 GM PACK PO PRN (14:14)
[2024-03-05] MEDS ORDERED: ALUMINUM/MAGNESIUM SUSP 30 ML UDC PO PRN (14:14)
[2024-03-05] MEDS ORDERED: MAGNESIUM HYDROXIDE SUSP 30 ML UDC PO PRN (14:14)
[2024-03-05] MEDS ORDERED: ONDANSETRON INJ 2 MG/ML 2 ML VIAL IV PRN (14:14)
[2024-03-05] MEDS: ALBUT/IPRATROP 3MG/0.5MG NEB 3 ML VIAL NEB SCH (15:14)
[2024-03-05] MEDS: ACETAMINOPHEN 325 MG TAB PO PRN (15:39)
[2024-03-05] MEDS: SODIUM CHLORIDE 0.9% 1,000 ML IV SCH (15:40)
[2024-03-05] MEDS: SODIUM CHLOR 7% 4 ML NEB NEB SCH (19:24)
[2024-03-05] MEDS: DOXYCYCLINE HYCLATE 100 MG in DEXTROSE 5% MINI-B 100 ML IV SCH (20:41)
[2024-03-05] MEDS: ENOXAPARIN INJ 40 MG/0.4 ML SYR SQ SCH (20:42)
[2024-03-05] MEDS: AMITRIPTYLINE HCL 25 MG TAB PO SCH (20:42)
[2024-03-05] MEDS: MELATONIN 3 MG TAB PO SCH (20:43)
[2024-03-05] MEDS: OXYBUTYNIN CHLORIDE XL 5 MG TABCR PO SCH (20:43)
[2024-03-05] MEDS: VALSARTAN/SACUBITRIL 51/49 MG TAB PO SCH (20:46)
[2024-03-05] MEDS: VIBEGRON 75 MG TAB PO SCH (21:36)
[2024-03-06] MEDS: guaiFENesin/CODEINE 100MG/10MG 5ML UDC ONE (02:12)
[2024-03-06 02:55] LABS: Basophils # (auto) 0.05 K/uL (0.00-0.20); Basophils % (auto) 0.3 %; Eosinophils # (auto) 0.11 K/uL (0.00-0.50); Eosinophils % (auto) 0.7 %; Hematocrit (blood only) 35.4 % (42.0-52.0); Hemoglobin 12.5 g/dl (14.0-18.0); Immature Granulocytes # (auto) 0.19 K/uL (0.01-0.20); Immature Granulocytes % (auto) 1.1 %; Lymphocytes # (auto) 1.31 K/uL (1.20-3.40); Lymphocytes % (auto) 7.8 %; Mean Corpuscular Hemoglobin 32.5 pg (25.0-34.0); Mean Corpuscular Hgb Conc 35.3 g/dL (32.0-36.0); Mean Corpuscular Volume 91.9 fL (80.0-100.0); Mean Platelet Volume 8.7 fL (9.4-12.4); Monocytes # (auto) 1.22 K/uL (0.11-0.59); Monocytes % (auto) 7.3 %; Neutrophils # (auto) 13.81 K/uL (1.40-6.50); Neutrophils % (auto) 82.8 %; Platelet Count 220 K/uL (130-400); RDW Coefficient of Variation 14.6 % (11.5-14.5); RDW Standard Deviation 48.9 fL (36.4-46.3); Red Blood Count 3.85 M/uL (4.70-6.10); White Blood Count 16.69 K/ul (4.8-10.8)
[2024-03-06 03:20] LABS: Albumin Globulin Ratio 1.3 (0.9-2); Albumin Level 3.4 gm/dl (3.4-5.0); BUN Creatinine Ratio 14.9 (10-20); Bilirubin,Total 0.6 mg/dl (0.2-1.0); Calcium 8.5 mg/dl (8.6-10.3); Creatinine Clr Calc Pharmacy 80.6 ml/min; Est GFR (African American) 89.6 ml/min; Est GFR (Non-African American) 77.3 ml/min; Globulin 2.7 gm/dl (2.5-4.0); Magnesium 1.9 mg/dl (1.7-2.4); Potassium 3.7 mmol/L (3.5-5.1); Total Protein 6.1 gm/dl (6.0-8.3); Troponin I High Sensitivity 24.6 pg/ml (0-20)
[2024-03-06] MEDS: ADVANCED PROBIOTIC 625 MG CAPSULE PO SCH (08:49)
[2024-03-06] MEDS: PANTOprazole 40 MG TAB PO SCH (08:49)
[2024-03-06] MEDS: ATORVASTATIN 20 MG TAB PO SCH (08:49)
[2024-03-06] MEDS: SPIRONOLACTONE 25 MG TAB PO SCH (08:49)
[2024-03-06] MEDS: MULTIVITAMIN TAB PO SCH (08:49)
[2024-03-06] MEDS: cefTRIAXone SODIUM 2,000 MG in DEXTROSE 5 % MINI-B 50 ML IV SCH (08:50)
[2024-03-06] MEDS: guaiFENesin/CODEINE 100MG/10MG 5ML UDC PO PRN (08:59)
[2024-03-06] MEDS ORDERED: VIBEGRON 75 MG TAB PO SCH (09:00)
[2024-03-06] MEDS ORDERED: ALBUT/IPRATROP 3MG/0.5MG NEB 3 ML VIAL NEB PRN (11:30)
[2024-03-06] MEDS ORDERED: SODIUM CHLOR 7% 4 ML NEB NEB PRN (11:31)
--- NOTE | 2024-03-06 14:52 | Hospitalist Progress Note ---
Date of Service March 06, 2024 Assessment & Plan (1) Pneumonia: (2) Coronavirus infection: (3) Elevated troponin: (4) CAD (coronary artery disease): (5) Obstructive sleep apnea: (6) Prediabetes: Plan Patient is a 78-year-old male with past medical history of hyperlipidemia, gout, testosterone deficiency, hypertension, paroxysmal SVT, GERD, Grimaldo's esophagus, urgent continence, osteoarthritis who presents to the ED with productive cough, generalized weakness for several days. Patient reports that he started coughing 10 days back; initially nonproductive. He started to produce yellowish mucus last few days. He reports generalized weakness, fatigue and tiredness. Denies any fever recently. CT chest 1. No evidence for a pulmonary embolus. 2. Bilateral lower lobe patchy airspace opacities consistent with a pneumonia. This could be due to prior aspiration. 3. Mildly distended and fluid-filled esophagus. 4. A 4 mm subpleural nodule at the right minor fissure. This is technically indeterminate but likely benign. One year chest CT follow-up recommended to ensure stability. Bilateral PNA ? d/t aspiration tanner with bilateral opacities and fluid filled esophagus; Covid positive Patient presents with productive cough fatigue and tiredness. WBC 16. RVP positive for maya virus Xray and CT chest with PNA as above Will switch ceftriaxone to Unasyn due to concern of aspiration. Consult [employer] REPORTER. Continue duoNebs and hypertonic saline for airway clearance. Continue IS, flutter valve Follow up on sputum culture Check MRSA nare- if positive, will need vanc coverage Does not need treatment for COVID currently Hyponatremia- sodium improving to 131. s/p IVF. Recheck in am History of nonischemic cardiomyopathy-biventricular ICD in place; continue on Entresto, spironolactone. Paroxysmal SVT; no recent episodes; monitor on telemetry History of GERD, Grimaldo esophaguscontinue on PPI. CTA chest showed fluid- filled esophagus. Patient had recently followed up with GI as outpatient on 01/23/2024. He has a history of prior Zenker's myotomy in 11/04. Will need follow-up with GI after discharge from the hospital. Hyperlipidemiacontinue Lipitor Mood disordercontinue on amitriptyline OSAcontinue BiPAP at night Pulmonary nodule- seen in CT- recommended [address] chest DVT ppx- sc lovenox Dispo- TBD. pending medical stability Time spent- approx 35 mins Admission and Anticipated Discharge Date Admission Date: March 05, 2024 Subjective Patient was seen and examined at bedside. He feels about the same- no improvement. Still with cough with thick yellow phlegm. Hoarse voice. No fever, chills, N/V, CP. Review of Systems Review of Systems: All systems reviewed & are unremarkable except as noted in Subjective Physical Exam Physical Exam: General: Lying comfortably in bed, not in distress, on room air HEENT: EOMI, SHAUNA, MMM Chest: Clear breath sounds bilaterally, no wheezes or crackles CVS: Regular rate and rhythm, normal heart sounds, no murmur Abdomen: Soft, non tender, not distended, normal bowel sounds Neuro: Awake, alert, oriented, conversing well, non focal Extremities: No cyanosis, clubbing or edema Results & Data Results & Data Vital Signs (Past 12 Hours) Vital Signs Temp Pulse Pulse Pulse Resp BP BP 03/06/24 14:22 36.6 C 86 18 127/73 03/06/24 13:00 72 18 122/63 03/06/24 10:45 84 22 99/52 L 03/06/24 07:13 81 18 03/06/24 07:00 88 18 136/79 03/06/24 06:58 78 03/06/24 04:00 74 22 123/75 03/06/24 03:00 76 20 126/72 Pulse Ox O2 Del Method FiO2 03/06/24 14:22 91 Room Air 03/06/24 13:00 91 Room Air 03/06/24 10:45 93 Room Air 03/06/24 07:13 90 Room Air 21 03/06/24 07:00 93 Room Air 03/06/24 06:58 03/06/24 04:00 91 Room Air 03/06/24 03:00 92 Room Air Laboratory Results Short CBC 03/06/24 Range/Units 02:38 WBC 16.69 H (4.8-10.8) K/ul Hgb 12.5 L (14.0-18.0) g/dl Hct 35.4 L (42.0-52.0) % Plt Count 220 (130-400) K/uL BMP 03/06/24 02:38 Sodium 131 L Potassium 3.7 Chloride 103 Carbon Dioxide 18 L BUN 14 Creatinine 0.94 D Glucose 139 H Calcium 8.5 L Liver Function 03/06/24 Range/Units 02:38 Total Bilirubin 0.6 (0.2-1.0) mg/dl AST 44 H (13-39) U/L ALT 52 (7-52) U/L Alkaline Phosphatase 98 (34-104) U/L Albumin 3.4 (3.4-5.0) gm/dl (4) CAD (coronary artery disease) Associated angina: without angina Coronary Disease-Associated Artery/Lesion type: [place] artery [place] vs. transplanted heart: [place] heart Qualified Code(s): I25.10 - Atherosclerotic heart disease of [place] coronary artery without angina pectoris
[2024-03-06] MEDS ORDERED: AMPICILLIN SOD/SULBACTAM SOD 3 GM VIAL IV SCH (15:00)
[2024-03-06] MEDS: AMPICILLIN/SULBACTAM SOD 3,000 MG in SODIUM CHLOR 0.9% MINI-B 100 ML IV SCH (15:36)
[2024-03-07 06:16] LABS: Basophils # (auto) 0.07 K/uL (0.00-0.20); Basophils % (auto) 0.6 %; Eosinophils # (auto) 0.41 K/uL (0.00-0.50); Eosinophils % (auto) 3.4 %; Hematocrit (blood only) 37.1 % (42.0-52.0); Hemoglobin 12.7 g/dl (14.0-18.0); Immature Granulocytes # (auto) 0.21 K/uL (0.01-0.20); Immature Granulocytes % (auto) 1.7 %; Lymphocytes # (auto) 1.58 K/uL (1.20-3.40); Mean Corpuscular Hemoglobin 31.9 pg (25.0-34.0); Mean Corpuscular Hgb Conc 34.2 g/dL (32.0-36.0); Mean Corpuscular Volume 93.2 fL (80.0-100.0); Mean Platelet Volume 8.7 fL (9.4-12.4); Monocytes # (auto) 1.05 K/uL (0.11-0.59); Monocytes % (auto) 8.6 %; Neutrophils # (auto) 8.84 K/uL (1.40-6.50); Neutrophils % (auto) 72.7 %; Platelet Count 231 K/uL (130-400); RDW Coefficient of Variation 14.6 % (11.5-14.5); RDW Standard Deviation 50.2 fL (36.4-46.3); Red Blood Count 3.98 M/uL (4.70-6.10); White Blood Count 12.16 K/ul (4.8-10.8)
[2024-03-07 06:27] LABS: Albumin Globulin Ratio 1.1 (0.9-2); Albumin Level 3.2 gm/dl (3.4-5.0); BUN Creatinine Ratio 12.4 (10-20); Bilirubin,Total 0.7 mg/dl (0.2-1.0); Calcium 8.7 mg/dl (8.6-10.3); Creatinine Clr Calc Pharmacy 87.3 ml/min; Est GFR (African American) 94.9 ml/min; Est GFR (Non-African American) 81.9 ml/min; Globulin 2.8 gm/dl (2.5-4.0); Magnesium 1.8 mg/dl (1.7-2.4); Potassium 3.8 mmol/L (3.5-5.1)
[2024-03-07] MEDS: AMOXICILLIN/CLAVULANATE 875 MG TAB PO SCH (15:28)
--- NOTE | 2024-03-07 17:14 | Hospitalist Progress Note ---
Date of Service March 07, 2024 Assessment & Plan (1) Pneumonia: (2) Coronavirus infection: (3) Elevated troponin: (4) CAD (coronary artery disease): (5) Obstructive sleep apnea: (6) Prediabetes: Plan Mr. Sterling is a 78-year-old male with past medical history of hyperlipidemia, gout, testosterone deficiency, hypertension, paroxysmal SVT, GERD, Grimaldo's esophagus, urgent continence, osteoarthritis who presents to the ED with productive cough, generalized weakness for several days. Patient reports that he started coughing 10 days back; initially nonproductive. He started to produce yellowish mucus last few days. He reports generalized weakness, fatigue and tiredness. Denies any fever recently. Patient states he is doing much better overall. CT chest 1. No evidence for a pulmonary embolus. 2. Bilateral lower lobe patchy airspace opacities consistent with a pneumonia. This could be due to prior aspiration. 3. Mildly distended and fluid-filled esophagus. 4. A 4 mm subpleural nodule at the right minor fissure. This is technically in determinate but likely benign. One year chest CT follow-up recommended to ensure stability. #COVID pneumonia with superimposed bacterial infection -Speech with low suspicion for aspiration Xray and CT chest with PNA as above Unasyn to Augmentin to trial PO regimen Continue duoNebs and hypertonic saline for airway clearance. Continue IS, flutter valve Follow up on sputum culture: light dean Check MRSA nare-negative 2 step prior to discharge #Hyponatremia- sodium improving to 131. s/p IVF. Recheck in am #History of nonischemic cardiomyopathy-biventricular ICD in place; continue on Entresto, spironolactone. #Paroxysmal SVT; no recent episodes; monitor on telemetry #History of GERD, Grimaldo esophaguscontinue on PPI. CTA chest showed fluid- filled esophagus. Patient had recently followed up with GI as outpatient on 01/23/2024. He has a history of prior Zenker's myotomy in 11/04. Will need follow-up with GI after discharge from the hospital. #Hyperlipidemiacontinue Lipitor #Mood disordercontinue on amitriptyline #OSAcontinue BiPAP at night #Pulmonary nodule- seen in CT- recommended [address] chest DVT ppx- sc lovenox Dispo- TBD. pending medical stability, possibly tomorrow Time spent- approx 35 mins Admission and Anticipated Discharge Date Admission Date: March 05, 2024 Subjective ANKITA Reports feeling subjectively better overall; still with productive cough, but less so than prior Reports sore throat from coughing, but states he is improving overall Physical Exam Constitutional: WD/WN, vitals as above Respiratory: normal respiratory effort, lungs clear to auscultation good airway movement Cardiovascular: RRR, no murmur, no edema Gastrointestinal (Abdomen): normal bowel sounds, soft, nontender, no hepatosplenomegaly Results & Data Results & Data Vital Signs (Past 12 Hours) Vital Signs Temp Pulse Pulse Resp BP Pulse Ox O2 Del Method 03/07/24 16:20 116 H 03/07/24 15:59 36.7 C 69 20 134/81 93 Room Air 03/07/24 11:25 36.7 C 77 20 124/76 94 Room Air 03/07/24 07:46 37.0 C 74 20 122/73 91 Room Air 03/07/24 07:00 Room Air 03/07/24 07:00 78 Laboratory Results Short CBC 03/07/24 Range/Units 05:47 WBC 12.16 H (4.8-10.8) K/ul Hgb 12.7 L (14.0-18.0) g/dl Hct 37.1 L (42.0-52.0) % Plt Count 231 (130-400) K/uL BMP 03/07/24 05:47 Sodium 133 L Potassium 3.8 Chloride 104 Carbon Dioxide 19 L BUN 11 Creatinine 0.89 Glucose 108 H Calcium 8.7 Liver Function 03/07/24 Range/Units 05:47 Total Bilirubin 0.7 (0.2-1.0) mg/dl AST 41 H (13-39) U/L ALT 55 H (7-52) U/L Alkaline Phosphatase 85 (34-104) U/L Albumin 3.2 L (3.4-5.0) gm/dl Medications Administered Home Medications Medication Instructions Recorded Confirmed Last Taken tolterodine 4 mg capsule,extended 2 mg PO HS 11/20/19 03/05/24 12/22/22 release 24 hr pantoprazole 40 mg tablet,delayed 20 mg PO QAM 03/28/20 03/05/24 12/22/22 release cyanocobalamin (vitamin B-12) 1,000 mcg IM UD 04/08/20 03/05/24 12/22/22 1,000 mcg/mL injection kit testosterone propionate 1 dose UD 04/25/20 03/05/24 08/22/22 BiPap Machine #1 ea 06/23/20 03/05/24 Unknown amitriptyline 50 mg tablet 25 mg PO QPM 12/08/20 03/05/24 12/22/22 mirabegron 25 mg tablet,extended 25 mg PO QPM 12/08/20 03/05/24 12/22/22 release 24 hr (Myrbetriq) Magnesium Otc 1 tab PO HS 06/04/21 03/05/24 12/22/22 melatonin 3 mg tablet 3 mg PO HS 06/04/21 03/05/24 12/22/22 multivitamin 1 tab PO QAM 06/04/21 03/05/24 12/22/22 atorvastatin 80 mg tablet (Lipitor) 20 mg PO QAM #90 tabs 05/13/22 03/05/24 12/22/22 sacubitril 97 mg-valsartan 103 mg 0.5 tab PO BID 09/07/22 03/05/24 12/23/22 11:00 tablet (Entresto) spironolactone 25 mg tablet 25 mg PO DAILY 03/05/24 03/05/24 Unknown Active Medications Generic Name Dose Route Start Last Admin Trade Name Freq PRN Reason Stop Dose Admin Acetaminophen 650 mg 03/05/24 14:14 03/07/24 08:31 Acetaminophen 325 Mg Tab PO 04/04/24 14:13 650 mg Q4H PRN Administration Pain or Fever Amitriptyline HCl 25 mg 03/05/24 21:00 03/06/24 21:21 Amitriptyline Hcl 25 Mg Tab PO 04/04/24 20:59 25 mg QPM ALF Administration Amoxicillin/Clavulanate Potassium 1 tab 03/07/24 17:00 03/07/24 15:28 Amoxicillin/Clavulanate 875 Mg Tab PO 03/14/24 16:59 1 tab BIDM ALF Administration Protocol Atorvastatin Calcium 20 mg 03/06/24 09:00 03/07/24 08:29 Atorvastatin 20 Mg Tab PO 04/05/24 08:59 20 mg QAM ALF Administration Enoxaparin Sodium 40 mg 03/05/24 21:00 03/06/24 21:24 Enoxaparin Inj 40 Mg/0.4 Ml Syr SQ 04/04/24 20:59 40 mg HS ALF Administration Guaifenesin/Codeine Phosphate 5 ml 03/06/24 01:40 03/07/24 08:31 Guaifenesin/Codeine 100mg/10mg 5ml Udc PO 04/05/24 01:39 5 ml Q6H PRN Administration Cough Doxycycline Hyclate 100 mg/ 100 mls @ 50 mls/hr 03/05/24 21:00 03/07/24 10:32 Dextrose IV 03/12/24 20:59 Infused Q12H ALF Infusion Lactobacillus Acidophilus 1,250 mg 03/06/24 09:00 03/07/24 08:30 Advanced Probiotic 625 Mg Capsule PO 04/05/24 08:59 1,250 mg DAILY ALF Administration Melatonin 3 mg 03/05/24 21:00 03/06/24 21:21 Melatonin 3 Mg Tab PO 04/04/24 20:59 3 mg HS ALF Administration Multivitamins 1 tab 03/06/24 09:00 03/07/24 08:30 Multivitamin Tab PO 04/05/24 08:59 1 tab QAM ALF Administration Oxybutynin Chloride 5 mg 03/05/24 21:00 03/06/24 21:22 Oxybutynin Chloride Xl 5 Mg Tabcr PO 04/04/24 20:59 5 mg HS ALF Administration Protocol Pantoprazole Sodium 40 mg 03/06/24 09:00 03/07/24 08:30 Pantoprazole 40 Mg Tab PO 04/05/24 08:59 40 mg QAM ALF Administration Protocol Sacubitril/Valsartan 1 tab 03/05/24 21:00 03/07/24 08:30 Valsartan/Sacubitril 51/49 Mg Tab PO 04/04/24 20:59 1 tab BID ALF Administration Spironolactone 25 mg 03/06/24 09:00 03/07/24 08:30 Spironolactone 25 Mg Tab PO 04/05/24 08:59 25 mg DAILY ALF Administration Vibegron 75 mg 03/05/24 21:30 03/06/24 21:23 Vibegron 75 Mg Tab PO 04/04/24 21:29 75 mg PM ALF Administration Protocol (4) CAD (coronary artery disease) Associated angina: without angina Coronary Disease-Associated Artery/Lesion type: [place] artery [place] vs. transplanted heart: [place] heart Qualified Code(s): I25.10 - Atherosclerotic heart disease of [place] coronary artery without angina pectoris
[2024-03-08 05:21] LABS: Creatinine Clr Calc Pharmacy 80.1 ml/min; Est GFR (African American) 86.3 ml/min; Est GFR (Non-African American) 74.5 ml/min
--- NOTE | 2024-03-08 15:55 | Discharge Summary ---
Discharge Summary Date of Service March 08, 2024 Notes For Next Care Provider Repeat BMP in 1 week Medication Changes From Visit -Augmentin Admission HPI Per Admitting Provider This is a 78 year old M who has a significant PMH of nonischemic cardiomyopathy, history of PSVT, HTN, HLD, prediabetes, GERD, 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, CKD stage III, essential tremor, neuropathy who presents who presents to ED 2/2 cough x 2 weeks. Initially sx started with cough, general malaise, weakness and dizziness. After 3-4 days he started producing productive purulent sputum. He has been producing anywhere between 1/3 to 1/2 cup of mucus a day. He denies hemoptysis. He did feel nausea but was unable to vomit. He generally feels weak and unwell. He initially got an appt with his PCP, but was feeling so bad that he had his son bring him to the hospital. Overall appetite has been reduced, but admits to fasting. In ED patient was hemodynamically stable and oxygen saturations were in the low 90s. His respiratory bio fire did reveal a coronavirus strain. Lab abnormalities were notable for mild elevation in AST and ALT at 43 and 53, sodium 129, leukocytosis with WBC of 15.5k,, H&H 13.8 and 39.6. Chest x-ray concerning for pneumonia. Chest CTA was negative for PE but did reveal a bilateral lower lobe airspace opacity consistent with pneumonia. He received IV Rocephin and doxycycline. Admission Exam Per Admitting Provider Constitutional: Alert oriented x 3; not in distress. Respiratory: Decreased breath sound at bases. No added sound. Cardiovascular: RRR, no murmur, no edema Vessels: no JVD or carotid bruit Chest: normal inspection of chest Abdomen: normal bowel sounds, soft, nontender, no hepatosplenomegaly Musculoskeletal: no cyanosis or clubbing, extremities motor strength 5/5 Skin: no rashes, warm and dry normal turgor Neurologic: PERRL, EOMI, accommodation nl, no face palsy, no dysarthria CN's II- XI intact bilaterally and moves all extremities Psychiatric: A+Ox3, euthymic affect Principal Dx & Hospital Course #1 = Principal Diagnosis (1) Pneumonia: (2) Coronavirus infection: (3) Elevated troponin: (4) CAD (coronary artery disease): (5) Obstructive sleep apnea: (6) Prediabetes: Plan Mr. Sterling is a 78-year-old male with past medical history of hyperlipidemia, gout, testosterone deficiency, hypertension, paroxysmal SVT, GERD, Grimaldo's esophagus, urgent continence, osteoarthritis who presents to the ED with productive cough, generalized weakness for several days. Patient reports that he started coughing 10 days back; initially nonproductive. He started to produce yellowish mucus last few days. He reports generalized weakness, fatigue and tiredness. Denies any fever recently. Patient states he is doing much better overall and eager to get home. He denies any new concerns and feels notably improved from a respiratory standpoint. CT chest 1. No evidence for a pulmonary embolus. 2. Bilateral lower lobe patchy airspace opacities consistent with a pneumonia. This could be due to prior aspiration. 3. Mildly distended and fluid-filled esophagus. 4. A 4 mm subpleural nodule at the right minor fissure. This is technically indeterminate but likely benign. One year chest CT follow-up recommended to ensure stability. #COVID pneumonia with superimposed bacterial infection -Speech with low suspicion for aspiration Xray and CT chest with PNA as above Unasyn to Augmentin to trial PO regimen Continue duoNebs and hypertonic saline for airway clearance. Continue IS, f lutter valve Follow up on sputum culture: light dean Check MRSA nare-negative 2 step prior to discharge: no oxygen requirement -Discharged with Augmentin course to complete #Hyponatremia- resolving. Plan for repeat BMP in 1 week #History of nonischemic cardiomyopathy-biventricular ICD in place; continue on Entresto, spironolactone. #Paroxysmal SVT; no recent episodes; monitor on telemetry #History of GERD, Grimaldo esophaguscontinue on PPI. CTA chest showed fluid- filled esophagus. Patient had recently followed up with GI as outpatient on 01/23/2024. He has a history of prior Zenker's myotomy in 11/04. #Hyperlipidemiacontinue Lipitor #Mood disordercontinue on amitriptyline #OSAcontinue BiPAP at night #Pulmonary nodule- seen in CT- recommended [address] chest Discharge Exam Constitutional WD/WN, vitals as above Respiratory normal respiratory effort, lungs clear to auscultation Cardiovascular RRR, no murmur, no edema Updated Medication List Medication Instructions Recorded Confirmed Type tolterodine 4 mg capsule,extended 2 mg PO HS 11/20/19 03/05/24 History release 24 hr pantoprazole 40 mg tablet,delayed 20 mg PO QAM 03/28/20 03/05/24 History release cyanocobalamin (vitamin B-12) 1,000 mcg IM UD 04/08/20 03/05/24 History 1,000 mcg/mL injection kit BiPap Machine #1 ea 06/23/20 03/05/24 Rx amitriptyline 50 mg tablet 25 mg PO QPM 12/08/20 03/05/24 History mirabegron 25 mg tablet,extended 25 mg PO QPM 12/08/20 03/05/24 History release 24 hr (Myrbetriq) Magnesium Otc 1 tab PO HS 06/04/21 03/05/24 History melatonin 3 mg tablet 3 mg PO HS 06/04/21 03/05/24 History multivitamin 1 tab PO QAM 06/04/21 03/05/24 History atorvastatin 80 mg tablet (Lipitor) 20 mg PO QAM #90 tabs 05/13/22 03/05/24 History sacubitril 97 mg-valsartan 103 mg 0.5 tab PO BID 09/07/22 03/05/24 History tablet (Entresto) spironolactone 25 mg tablet 25 mg PO DAILY 03/05/24 03/05/24 History amoxicillin 875 mg-potassium 1 tab PO BIDM 3 days #7 tabs 03/08/24 Rx clavulanate 125 mg tablet Hospital Stay Data Consultations 03/05/24 11:25 ED Decision to Admit Stat Diagnostic Imagining Performed 03/05/24 11:33 CT angio chest PE protocol Stat Pending Results Patient Have Any Pending Studies at Discharge: No Discharge Instructions Given to Patient (Per Discharging Provider) You were admitted for cough and worsening illness. You were found to have COVID with superimposed pneumonia. You were treated with antibiotics with notable improvement. You will continue the course of antibiotics by mouth: -Augmentin 1 tablet two times a day, your next dose is this evening. There were no other changes to your home medications. Total Time Total Time Spent Total Time Spent (In Minutes): 35
== END 2024-03-08 13:06 | disposition home or self-care (01) | DRG 194 ==
LOC: ED 08:22 → SUATTDRO 11:22 → EDINP 11:22 → 2W 03-06 13:49

== ENCOUNTER 2024-11-24 11:42 | Inpatient (IN) ==
--- OUTSIDE RECORDS SUMMARY | 2024-11-24 11:46 | External Medical Summary | Summary of Care ---
Author Name Unknown Organization [facility] Address [address] [place] [address] Phone [phone] Care Team Providers Care Radio Board Operator Name Role Phone Giancarlo Lester MD Primary Care Provider [phone] Reason for Visit * Reason Onset Date Comments Nurse Documentation 11/23/2024 Encounter Details Date Type Department Care Team (Late st Contact Info) Description 11/23/2024 Telephone [facility] [address] [facility] [place] [address] Giancarlo Lester MD [address] [facility] [address] Nurse Documentation Allergies Active Allergy Reactions Criticality Noted Date Comments Cephalexin Diarrhea Low 01/03/2012 Levofloxacin 06/12/2012 Pt developed pain in his achilles tendon. Levofloxacin Unknown 02/27/2017 Other Reaction(s): Achilles heel pain (rxn with oral, tolerated IV) Benzonatate Cough 10/18/2019 documented as of this encounter (statuses as of 11/23/2024) Medications Multiple Vitamin Tablet Take 1 Tablet by mouth in the morning. Active melatonin 3 MG Tablet Take 2 Tablets by mouth at bedtime. Active Cyanocobalamin 1000 MCG/ML Injection Solution (CYANOCOBALAMIN) Inject 1 mL into a large muscle. Q60 days 04/08/20 20 Active Triamcinolone Acetonide 0.1 % External Cream (Aristocort)Indicati ons:Atopic dermatitis, unspecified type Apply twice per day to affected area behind ear as needed 15 g 1 04/23/20 22 Active Acetaminophen 500 MG Oral Tablet (Tylenol)Indications :Zenkers diverticulum,Grimaldo 's esophagus without dysplasia,HTN, goal below 140/90,Nonischemic cardiomyopathy (HCC),Dyslipidemia, goal LDL below 100,Gastroesophageal reflux disease with esophagitis without hemorrhage,Chronic kidney disease, stage 3a (HCC),Pre-op evaluation,Pre-opera tive examination take 2 tabs by mouth every 8 hours pain after surgery for 3 days 18 Tablet 09/22/20 22 Active CPAP every night at bedtime. Active Magnesium Citrate 100 MG Oral Capsule Take 200 mg by mouth at bedtime. 07/29/20 23 Active Sacubitril-Valsartan 97-103 MG Oral Tablet (Entresto) Take one pill by mouth twice a day 180 Tablet 3 02/13/20 24 Active Montelukast Sodium 10 MG Oral Tablet (Singulair) Take 1 Tablet by mouth in the morning. 90 Tablet 3 07/10/20 24 Active Albuterol Sulfate HFA 108 (90 Base) MCG/ACT Inhalation Aerosol Solution Inhale 2 Puffs by mouth every 6 hours as needed (cough). 18 g 5 07/10/20 24 Active Fluticasone Propionate 50 MCG/ACT Nasal Suspension (Flonase) Administer 2 Sprays into each nostril in the morning. 16 g 1 07/10/20 24 Active predniSONE 10 MG Oral Tablet (Deltasone) Take 4 tabs for 2 days, 3 tabs for 2 days, 2 tabs for 2 days 1 tab for 2 days 20 Tablet 07/13/20 24 Active Additional Information Patient not taking.Reported on 10/24/2024 Azelastine HCl 0.1 % Nasal Solution (Astelin) Administer 1 Murphy into nostril in the morning and 1 Murphy before bedtime. 30 mL 12 10/05/20 24 Active Fluocinolone Acetonide Scalp 0.01 % External Oil ([place]-Smoothe/FS Scalp) Apply to external ear bilaterally as needed for itching. 20 mL 6 10/05/20 24 Active Additional Information Patient not taking.Reported on 10/24/2024 Fluticasone Propionate 50 MCG/ACT Nasal Suspension (Flonase) Administer 2 Sprays into each nostril in the morning and 2 Sprays before bedtime. 3 Each 10/05/20 24 025 Active guaiFENesin-Codeine 100-10 MG/5ML Oral Solution (Robitussin AC) Take 5 mL by mouth every 4 hours as needed for Cough. 120 mL 10/24/20 24 Active Atorvastatin Calcium 80 MG Oral Tablet (Lipitor)Indications :Dyslipidemia, goal LDL below 70 Take 1 Tablet by mouth in the morning. 90 Tablet 3 10/24/20 24 Active Amitriptyline HCl 50 MG Oral Tablet (Elavil) Take 1 Tablet by mouth at bedtime. 90 Tablet 3 10/24/20 24 Active Tolterodine Tartrate ER 4 MG Oral Capsule Extended Release 24 Hour (Detrol LA)Indications:Urina ry frequency Take 1 Capsule by mouth in the morning. 90 Capsule 3 10/24/20 24 Active Mirabegron ER 50 MG Oral Tablet Extended Release 24 Hour (Myrbetriq)Indicatio ns:Urinary frequency Take 1 Tablet by mouth in the morning. 90 Tablet 3 10/24/20 24 Active Pantoprazole Sodium 40 MG Oral Tablet Delayed Release (Protonix)Indication s:Gastroesophageal reflux disease with esophagitis without hemorrhage Take one tablet by mouth before breakfast 90 Tablet 3 10/24/20 24 Active Triamcinolone Acetonide 0.1 % External Lotion (Aristocort) Apply topically to affected area 2 times a day. To affected area. 60 mL 5 10/24/20 24 Active traMADol HCl 50 MG Oral Tablet (Ultram)Indications: Enthesopathy of knee,Spinal stenosis of lumbar region with neurogenic claudication Take 1 Tablet by mouth every 8 hours as needed for Pain, Moderate. 90 Tablet 10/24/20 24 Active Hospital, Clinic, or Other Facility Administered Medication Ordered Dose Route Frequency Start Date End Date Status vitamin b-12 (Cyanocobalamin) inj 1,000 mcgIndications:B12 deficiency 1000 mcg IM [id number] 06/16/2022 03/20/2025 Active vitamin b-12 (Cyanocobalamin) inj 1,000 mcgIndications:B12 deficiency 1000 mcg IM [id number] 02/15/2023 12/18/2024 Active vitamin b-12 (Cyanocobalamin) inj 1,000 mcgIndications:B12 deficiency 1000 mcg IM [id number] 10/04/2023 08/06/2025 Active Testosterone Cypionate (Depotestosterone Cypionate) 200 MG/ML inj 200 mgIndications:Testosterone deficiency in male 200 mg IM [id number] 10/10/2024 Active documented as of this encounter (statuses as of 11/23/2024) Active Problems Problem Noted Date Diagnosed Date 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 10/27/2022 History of esophageal surgery 10/27/2022 Zenkers diverticulum 10/22/2022 B12 deficiency 02/04/2022 Prediabetes 11/24/2020 Overview: Per Prediabetes protocol Nonischemic cardiomyopathy 02/06/2020 Paroxysmal supraventricular tachycardia 01/24/20 19 Idiopathic chronic gout of multiple sites withou t tophus 07/13/2018 Neuropathy 11/17/2017 Essential tremor 03/08/2017 Dyslipidemia, goal LDL below 100 10/22/2013 Urge incontinence 06/12/2012 Testosterone deficiency in male 06/12/2012 SLEEP APNEA, UNSPECIFIED: moderate, AHI 19 01/26 Periodic limb movement disorder (PLMD) 1 Osteoarthritis of knee 06/12/2008 Other adverse food reactions, not elsewhere clas sified 10/02/2002 HTN, goal below 140/90 10/29/1998 Knee joint replacement status, bilateral GERD (gastroesophageal reflux disease) documented as of this encounter (statuses as of 11/23/2024) Resolved Problems Problem Noted Date Diagnosed Date Resolved Date Chronic kidney disease, stage 3a 11/23/2021 10/24/2024 Overview: Per CKD protocol 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 Sleep apnea 11/11/2008 01/26/2011 Anemia 07/04/2008 11/19/2018 Knee joint replacement status 07/04/2008 11/19/2018 ADVANCE DIRECTIVE INFORMATION 05/13/2006 11/19/2018 Overview (05/13/2006): Yes-advised to bring copy into be scanned into EMR Certain adverse effects, not elsewhere classified, other 08/28/2003 11/11/2008 Overview (08/28/2003): pt declines generics, wants brand rx's Reflux esophagitis 10/29/1998 9 Mixed dyslipidemia 10/29/1998 9 Overview (10/23/2009): Per Lipid Taxonomy. Allergic rhinitis 09/05/2019 HTN, goal to be determined 0 03/02/2019 Dyslipidemia, goal to be determined 03/02/2019 documented as of this encounter (statuses as of 11/23/2024) Immunizations Name Administration Dates Next Due COVID-19 mRNA, LNP-s, No Pre serve, 2-Dose Series (Excellence4u) 08/10/2022,01/27/2021,12/30/2020 COVID-19, MRNA-LNP, PF, 30 M CG/0.3 mL, 12 YRS AND ABOVE, IM (PFIZER-Comirnat) 11/12/2024 HEP A - Hepatitis A (Adult > 18 yrs) 04/02/2008, 07/03/2007 Hepatitis B, 20+ yrs 04/02/2008,08/17/2007,07/03 Pneumococcal Conjugate Vacc, 13 Valent (Prevnar) 11/02/2016 Pneumococcal Polysaccharide PPV23 (Pneumovax) 08/14/2010 RSV Vac., Recomb, Adjuvant, PF,0.5 Ml (Arexvy) 11/17/2023 Seasonal Influenza Vac., MDV , IM, 0.5 mL (Fluzone) 07/31/2015,07/31/2014,08/01/2013,03/2012,08/13/2011,08/14/2010,10/15/20 08,08/17/2007,09/24/2006 07/31/2016 Seasonal Influenza, High Dos e, Trivalent, PF, IM (Fluzone HD) 09/10/2024 Seasonal Influenza, PF, 6 M & above, IM , (FluLaval or Fluzone) 08/04/2020,08/09/2019,08/03/2018 Seasonal Influenza, Quadriva lent Hd (Fluzone Hd) 08/08/2023,08/11/2022,09/18/2021 Seasonal Influenza, Quadriva lent Hd, 65+ Yrs 08/04/2020 Seasonal Influenza, Quadriva lent, No Preserve, IM 07/28/2017,07/28/2016 TD, Preservative Free 10/15/2008 TDAP (age 10 [...] Date Recorded PHQ Adult Total Score 0 03/26/2024 Hunger Vital Sign Answer Date Recorded Within the past 12 months, y ou worried that your food would run out before you got the money to buy more. Never true 03/26/20 24 Within the past 12 months, t he food you bought just didn't last and you didn't have money to get more. Never true 03/26/2024 Childcare Answer Date Recorded Do you feel overwhelmed with taking care of a child, family member or friend? No 03/26/2024 Does your family need help f inding childcare? (Household - for ages 0-17 years) Not on file 03/26/2024 Clothing Answer Date Recorded Have you been unable to get clothing when it was really needed? No 03/26/2024 Is your family able to get c lothes or diapers when needed? (Household - for ages 0-17 years) Not on file 03/26/2024 Personal Safety Answer Date Recorded Do you feel unsafe or have concerns for your saf ety? No 03/26/2024 Do you have concerns for you r family's safety? (Household - for ages 0-17 years) Not on file 03/26/2024 Utilities Answer Date Recorded Do you have trouble paying y our heating, water, or electric bill? No 03/26/2024 Is your family able to pay t he heat, water, or electric bill? (Household - for ages 0-17 years) Not on file 03/26/2024 Does your family have access to good internet? (Household - for ages 0-17 years) Not on file 03/26/2024 Employment Status Answer Date Recorded Are you unemployed or without regular income? No 03/26/2024 Does the household have a re gular source of income? (Household - for ages 0-17 years) Not on file 03/26/2024 Social Connections Answer Date Recorded How often do you feel lonely or isolated from th ose around you? Never 03/26/2024 Financial Resource Strain Answer Date R ecorded Do you have any trouble payi ng for your medications, or do you think you might in the future? No 03/26/2024 Does your family have troubl e paying for medicine? (Household - for ages 0-17 years) Not on file 03/26/2024 Transportation Needs Answer Date Record ed READ ONLY Do you have troubl e getting a ride to medical visits or work? Never True 03/26/2024 Does your family have a hard time getting a ride to doctors visits? (Household - for ages 0-17 years) Not on file 03/26/2024 Has lack of transportation k ept you from medical appointments, meetings, work, or from getting things needed for daily living? Check all that apply. (Adult - for ages 18 years and over) Not on file 03/26/2024 Do you (or your family) have trouble finding or paying for a ride (transportation)? (Household - for ages 0-17 years) Not on file 03/26/2024 Housing Stability Answer Date Recorded Do you currently live in a s helter or have no steady place to sleep at night? No 03/26/2024 READ ONLY Do you think you a re at risk of becoming homeless? No 03/26/2024 Does your family worry about paying for your home or becoming homeless? (Household - for ages 0-17 years) Not on file 0 03/26/2024 Are you homeless or worried that you might be in the future? (Adult - for ages 18 years and over) Not on file Are you (or your family) adriana eless or worried that you might be in the future? (Household - for ages 0-17 years) Not on file Food Insecurity Answer Date Recorded Do you need food for this week? No 03/26/2024 Are you able to get enough f ood for your family? (Household - for ages 0-17 years) Not on file 03/26/2024 Does your family need food t his week? (Household - for ages 0-17 years) Not on file 03/26/2024 Do you always have enough fo od for your family? 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 Giancarlo Lester OTHER received from [facility] documented in this encounter Plan of Treatment Upcoming Encounters Date Type Department Care Team (Late st Contact Info) Description 12/10/2024 11:00 AM EST Nurse Only Ancillary Department, Aldo Lowery [address] [address] Nurse Aldo [address] [place] [id number] 12/21/2024 10:00 AM EST Nutrition Services [facility], [facility] [address] [place] [address] Liberty Mayfield, RDN [address] [place] [address] 01/07/2025 11:00 AM EST Nurse Only Ancillary Department, Aldo Bales [address] [place] [phone] Aldo, Nurse [address] [place] [address] 02/07/2025 11:00 AM EDT Nurse Only Ancillary Department, Aldo [address]ales [address] [place] [phone] Aldo, Nurse [address] [address] 03/14/2025 10:00 AM EDT Office Visit Dermatology [facility] [address] [place] [address] Martínez Neri MD [address] [place] [address] 09/27/2025 11:00 AM EST Office Visit Otolaryngology [facility] [address] [place] [address] Kavya Knight MD [address] [place] [address] Scheduled Procedures Name Priority Associated Diagnoses Date/Ti me COLONOSCOPY FLEXIBLE PROXIMA L DIAGNOSTIC Recall Personal history of colonic polyps Health Maintenance Due Date Last Done Comments Adult Wellness Visit 06/03/2018 06/03/2017 Colonoscopy 06/07/2024 06/07/2019, 05/15, 11/19/2013, Additional history exists DTap/Tdap Vaccines (2 - Td or Tdap) 08/05/2024 08/05/2014, 10/15/2008, 04/11/1998 Depression Screening 03/26/2025 03/26/2024 Grimaldo's Esophagus Surveilance 10/21/2025 10/21/2022, 10/21/2022, 09/17/2022, Additional history exists GFR 10/24/2025 10/24/2024, 03/14, 09/02/2023, Additional history exists HbA1c 10/24/2025 10/24/2024, 11/14, 02/22/2023, Additional history exists Albumin/Creatinine Ratio 03/26/2027 024, 02/22/2023, 10/12/2005 Hepatitis B Vaccine Completed 04/02/2008, 08/17/2007, 07/03/2007 Pneumococcal Vaccine: 50+ Years Completed 11/02/2016, 08/14/2010 RETIRED - COLONOSCOPY-EVERY 5 YRS AGES 18-100 Discontinued 06/07/2019, 06/07/2019, 11/19/2013, Additional history exists Zoster Vaccines Completed 04/15/2020, 03/2020, 08/09/2011 Influenza Vaccine (FLU shot) Completed 09/10/2024, 09/10/2024, 08/08/2023, Additional history exists COVID-19 Vaccine Completed 11/12/2024, , 09/07/2022, Additional history exists HPV (Gardasil) Vaccine Aged Out No lo nger eligible based on patient's age to complete this topic MENINGOCOCCAL (MENACTRA/MENVEO) Aged Out No longer eligible based on patient's age to complete this topic documented as of this encounter Medical Devices Implanted Type Area Operational Intelligence Analyst Device Identifier Shelf Expiration Date Model / Serial / Lot Cement Bone R 1112-140-01 - [id number] Implanted:Qty: 1 on 07/03/2008 [place] [facility] [place]: Knee [employer] 10/14/2012 00-1112-1 40-01 / / [id number] Plate Tibial Flu - [id number] Implanted:Qty: 1 on 07/03/2008 at [place] [facility] [place]: Knee [employer] 00-5996-0 58-02 / / [id number] Patella Poly Nexgen - [id number] Implanted:Qty: 1 on 07/03/2008 at [place] [facility] [place]: Knee [employer] 03/14/2016 [id number] 65-41 / / [id number] Femur Nexgn F Left - [id number] Implanted:Qty: 1 on 07/03/2008 at [place] [facility] [place]: Knee [employer] 04/14/2018 [id number] 16-51 / / [id number] Implant On The Fly - [id number] Implanted:Qty: 1 on 07/03/2008 at [place] [facility] [place]: Knee [employer] 00-5964-0 51-10 / / [id number] Duraclip 11mm Repositionable - [id number] Implanted:Qty: 6 on 10/21/2022 by Elmo Booker MD at [place] [facility] [place] N/A: Esophagus Marquee 01/20/2025 [id number] / / [id number] documented as of this encounter Advance Directives * Full Code (Latest Code Status on File) Date Activated Date Inactivated Comments 10/21/2022 5:37 PM 10/22/2022 8:56 PM This order r eflects the patients wishes and were consensually agreed upon. Question Answer Comments Discussion of Advance Directives occurred with: Patient * Full Code Date Activated Date Inactivated Comments 10/21/2022 12:57 PM 10/21/2022 5:37 PM Question Answer Comments Discussion of Advance Direct leydi occurred with: Not Discussed due to patient's condition * Full Code Date Activated Date Inactivated Comments 06/18/2009 12:05 PM 06/20/2009 4:32 PM This order re flects the patients wishes and were consensually agreed upon. * Full Code Date Activated Date Inactivated Comments 02/12/2009 1:22 PM 02/13/2009 6:53 PM * Full Code Date Activated Date Inactivated Comments 02/12/2009 1:21 PM 02/12/2009 1:22 PM Care Teams Radio Board Operator Relationship Specialty Start Date End Date Giancarlo Lester MD PCP - General Family Medicine 12/21/18 documented as of this encounter
--- NOTE | 2024-11-24 11:51 | Emergency Department Note ---
Impression & Plan Lightheadedness, Blood bacterial culture positive ED Provider Note HISTORY OF PRESENT ILLNESS: Patient is a 79-year-old male presenting with lightheadedness and dizziness. Patient was seen in the emergency department yesterday and diagnosed with COVID- 19. He had sepsis protocol orders initiated and was found to have 2 out of 4 blood culture bottles that resulted as positive today and he was called to return to the emergency department. Patient reports that since discharge his coughing has gotten slightly better since yesterday. He denies any fevers. He is currently taking doxycycline and steroids for his symptoms. Patient does report that he did not sleep well for the last 24 hours. He states that he feels very lightheaded and dizzy with getting up and around. He denies any chest pain. Reports feeling very weak and rundown. ROS: as above PHYSICAL EXAM: Constitutional: Patient appears in no acute distress. HENT: Head: Normocephalic and atraumatic. Eyes: EOMI, PERRL Mouth/Throat: Mucous membranes moist. Neck: Trachea midline. Neck supple. Cardiovascular: RRR, No murmurs, rubs or gallops. Intact distal pulses. Pulmonary/Chest: No respiratory distress. Breath sounds clear and equal bilaterally. No wheezes or rales. Abdominal: Abdomen soft, no tenderness, rebound or guarding. Musculoskeletal: No edema, tenderness or deformity noted. Skin: Warm and dry. No rash, erythema, pallor or cyanosis Psychiatric: Appropriate mood and affect for situation. Neurological: Alert and keenly responsive. CN II-XII grossly intact, moving all extremities equally and fully. MDM: - Vitals signs showed tachycardia. - History obtained via patient. History as above. - Chronic conditions affecting care: obesity; LBBB; CHANDRA; CHF; nonischemic cardiomyopathy; CAD; GERD; HTN - Differential diagnoses include, but are not limited to: Bacteremia; UTI; pneumonia; viral syndrome; colitis; diverticulitis - Order placed for continuous cardiac monitoring. At this time, monitor showed rate of 86 bpm with normal sinus rhythm, per my interpretation. - External medical records reviewed. Discharge summary dated03/2024 was reviewed. Patient was admitted at that time for pneumonia and coronavirus infection. He was discharged on Augmentin. - EKG interpreted by myself showed normal sinus rhythm. Rate 80 bpm. QT 384. No acute ischemic changes. - Laboratory workup interpreted by myself showed leukocytosis (WBC 18.57); slight hyponatremia (Na 131); normal troponin; normal procalcitonin; normal lactate - Blood cultures obtained - Leukocytosis may be confounded by patient's steroid dosing. - CXR negative for pneumonia, per my interpretation - Blood cultures obtained on 11/18/2024 grew Staph epidermidis as well as Staphylococcus aureus. On discussion with pharmacist, recommended IV daptomycin. - Discussion was had with top case assembler about patient's case and need for admission - Hospitalist consulted for admission - Patient admitted to [facility] for further evaluation and management. ASSESSMENT AND PLAN: Diagnosis: lightheadedness; positive blood culture Plan: admit Past Med/Surg History Problem List (Updated 11/24/24 @ 13:15 by Radha Rdz MD) Blood bacterial culture positive (Acute) Lightheadedness (Acute) Acute bronchitis (Acute) COVID-19 (Acute) Cardiomyopathy Finger pain Toe pain Coronavirus infection (Acute) Non-ST elevation PA (NSTEMI) (Acute) Cough productive of yellow sputum (Acute) Shortness of breath (Acute) Pneumonia (Acute) Osteoarthritis of wrist Spondylolisthesis, lumbar region Scoliosis of lumbar region due to degenerative disease of spine in adult Hx of decompressive lumbar laminectomy Wrist arthritis CMC arthritis Sleep disorder, circadian, delayed sleep phase type Barretts esophagus Trigger finger of left hand Abdominal pain (Acute) Acute conjunctivitis (Acute) Back pain (Acute) Constipation (Acute) Umbilical hernia (Acute) Right knee DJD (Acute) Pure hypercholesterolemia (Acute) Bilateral inguinal hernia (Acute) Benign neoplasm of colon (Acute) H/O umbilical hernia repair (Acute) Right groin pain (Acute) Prediabetes (Acute) Peripheral neuropathy (Acute) Periodic limb movement disorder (Acute) Paroxysmal supraventricular tachycardia (Acute) Palpitations (Acute) Overweight (Acute) Obstructive sleep apnea (Acute) Obesity (Acute) Lumbar canal stenosis (Acute) Low testosterone (Acute) Low back pain (Acute) LBBB (left bundle branch block) (Acute) Knee pain (Acute) Insomnia (Chronic) Impaired fasting glucose (Acute) IVCD (intraventricular conduction defect) (Acute) Hiatal hernia with GERD and esophagitis (Acute) H/O right inguinal hernia repair (Acute) H/O left inguinal hernia repair (Acute) GERD without esophagitis (Acute) Chest pain radiating to jaw (Acute) CAD (coronary artery disease) (Acute) BMI 30.0-30.9,adult (Acute) BMI 29.0-29.9,adult (Acute) Acquired deviated nasal septum (Acute) Abnormal weight gain (Acute) Abnormal EKG (Acute) Odynophagia Grimaldo esophagus Fatigue Rotator cuff tear, right Systolic CHF, chronic Right lumbar radiculopathy Painful total knee replacement, left ICD (implantable cardioverter-defibrillator), biventricular, in situ Right lumbar radiculopathy Encounter for pre-operative examination S/P rotator cuff repair (~06/2021) Orthostatic hypotension DDD (degenerative disc disease), lumbar Lumbar scoliosis Cough History of arthroplasty of left knee Arthritis of carpometacarpal (CMC) joint of left thumb Status post rotator cuff repair Right lumbar radiculopathy Knee pain, left S/P hernia surgery (06/24/14) Laparoscopic bilateral inguinal hernia repair, Lumbar stenosis with neurogenic claudication Nonischemic cardiomyopathy Echo 02/2019 showed EF 30-35%, felt secondary to LBBB. No improvement with medical therapy. S/P pacer/ICD implantation 05/2020. Right lumbar radiculopathy Medical History Elevated troponin Leukocytosis LBBB (left bundle branch block) CAD (coronary artery disease) Zenkers diverticulum History of pacemaker Osteoarthritis Chronic back pain Overactive bladder Hiatal hernia GERD (gastroesophageal reflux disease) Hypertension Hyperlipidemia Sleep apnea Surgical History History of umbilical hernia repair (10/27/12) History of repair of rotator cuff History of revision of total replacement of left knee joint History of cataract surgery History of implantable cardioverter-defibrillator (ICD) placement Hx of surgical procedure Hx of vasectomy History of cardiac cath History of esophageal dilatation History of total knee replacement History of laminectomy History of colonoscopy History of esophagogastroduodenoscopy (EGD) History of tooth extraction History of tonsillectomy Family History Father Heart disease Mother Heart disease Other No pertinent family history Social History Smoking Status: Never smoker Second Hand Exposure: No; Do You Dip or Chew Tobacco: No; Hx Alcohol Use: Yes Alcohol type: beer, wine and hard liquor Hx Substance Use: No Preferred Language: Mongolian Communication Ability: Effective Visual Impairment: No Limitations Fruit Sorter Required: No Beliefs That Will Affect Care: None Current Living Situation: Alone current occupational status: employed 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 Feels Safe at Home: Yes Assistive Devices: Cane, CPAP and Glasses Allergies Allergies Allergy/AdvReac Type Severity Reaction Status Date / Time benzonatate Allergy Swelling Verified 11/01/24 10:28 [From Adamaris Lazcano] of Lip/Tongue/Throat hazelnut AdvReac Mild Throat Verified 11/01/24 10:28 numbness levofloxacin AdvReac Unknown Achilles Verified 11/01/24 10:28 heel pain (rxn with oral, tolerated IV) Home Meds Home Medications Medication Instructions Recorded Confirmed tolterodine 4 mg capsule,extended 2 mg PO HS 11/20/19 11/01/24 release 24 hr pantoprazole 40 mg tablet,delayed 20 mg PO QAM 03/28/20 11/01/24 release cyanocobalamin (vitamin B-12) 1,000 mcg IM UD 04/08/20 11/01/24 1,000 mcg/mL injection kit amitriptyline 50 mg tablet 25 mg PO QPM 12/08/20 11/01/24 mirabegron 25 mg tablet,extended 12.5 mg PO QPM 12/08/20 11/01/24 release 24 hr (Myrbetriq) Magnesium Otc 1 tab PO HS 06/04/21 11/01/24 melatonin 3 mg tablet 3 mg PO HS 06/04/21 11/01/24 multivitamin 1 tab PO QAM 06/04/21 11/01/24 atorvastatin 80 mg tablet (Lipitor) 40 mg PO DAILY PRN #90 tabs 05/21/24 11/01/24 albuterol sulfate 90 mcg/actuation 2 puff inhalation Q6H PRN 11/01/24 11/01/24 aerosol inhaler Previous Rx's Medication Instructions Recorded BiPap Machine #1 ea 06/23/20 sacubitril 97 mg-valsartan 103 mg 1 tab PO BID #180 tabs 06/27/24 tablet (Entresto) albuterol sulfate 90 mcg/actuation 2 inh inhalation Q6H PRN shortness 11/23/24 aerosol inhaler of breath or wheezing #8.5 grams doxycycline hyclate 100 mg tablet 100 mg PO BID 7 days #14 tabs 11/23/24 prednisone 20 mg tablet 40 mg (2 x 20 mg) PO DAILY 4 days 11/23/24 #8 tabs Results & Data (ED) Vital Signs Vital Signs - 24 hr 11/24/24 11:45 11/24/24 12:10 11/24/24 12:10 Temperature 36.7 C Temperature Source Temporal Artery Scan Pulse Rate 103 H Pulse Rate [Apical] 86 Respiratory Rate 18 20 Respiratory Effort / Characteristics Non-Labored Spontaneous Respiratory Depth Normal Blood Pressure 134/79 Blood Pressure [Left Arm] 131/82 Blood Pressure Mean 97 Blood Pressure Mean [Left Arm] 98 Blood Pressure Position Sitting Blood Pressure Position [Left Arm] Sitting Pulse Oximetry 96 96 97 Oxygen Delivery Method Room Air Room Air Room Air Sepsis Recent Fever Within 48 Hours No Sepsis New/Unexplained Change in Mental Status N/A Sepsis Action Taken by Nursing No Action Required 11/24/24 13:04 Temperature Temperature Source Pulse Rate 86 Pulse Rate [Apical] Respiratory Rate Respiratory Effort / Characteristics Respiratory Depth Blood Pressure Blood Pressure [Left Arm] Blood Pressure Mean Blood Pressure Mean [Left Arm] Blood Pressure Position Blood Pressure Position [Left Arm] Pulse Oximetry Oxygen Delivery Method Sepsis Recent Fever Within 48 Hours Sepsis New/Unexplained Change in Mental Status Sepsis Action Taken by Nursing Laboratory Data 11/24/24 12:10 11/24/24 12:10 Lab Results 11/24/24 Range/Units 12:10 WBC 18.57 H (4.8-10.8) K/ul RBC 4.08 L (4.70-6.10) M/uL Hgb 13.1 L (14.0-18.0) g/dl Hct 37.7 L (42.0-52.0) % MCV 92.4 (80.0-100.0) fL MCH 32.1 (25.0-34.0) pg MCHC 34.7 (32.0-36.0) g/dL RDW Std Deviation 48.7 H (36.4-46.3) fL RDW Coeff of Joshua 14.2 (11.5-14.5) % Plt Count 221 (130-400) K/uL MPV 9.1 L (9.4-12.4) fL Immature Gran % (Auto) 0.8 % Neut % (Auto) 84.2 % Lymph % (Auto) 6.0 % Sully % (Auto) 8.9 % Eos % (Auto) 0.0 % Baso % (Auto) 0.1 % Neut # (Auto) 15.64 H (1.40-6.50) K/uL Lymph # (Auto) 1.12 L (1.20-3.40) K/uL Sully # (Auto) 1.65 H (0.11-0.59) K/uL Eos # (Auto) 0.00 (0.00-0.50) K/uL Baso # (Auto) 0.02 (0.00-0.20) K/uL Immature Gran # (Auto) 0.14 (0.01-0.20) K/uL Sodium 131 L (136-145) mmol/L Potassium 4.5 (3.5-5.1) mmol/L Chloride 100 (98-107) mmol/L Carbon Dioxide 21 (21-32) mmol/L Anion Gap 10 (3-11) BUN 24 H (6-23) mg/dl Creatinine 1.19 (0.6-1.4) mg/dl Est Cr Clr Drug Dosing 56.9 ml/min eGFR 62.14 BUN/Creatinine Ratio 20.2 H (10-20) Glucose 127 H (70-99(Fasting)) mg/dl Lactate 1.9 (0.4-2.0) mmol/L Calcium 9.1 (8.6-10.3) mg/dl Magnesium 1.9 (1.7-2.4) mg/dl Total Bilirubin 0.6 (0.2-1.0) mg/dl Direct Bilirubin 0.2 (0-0.2) mg/dl AST 27 (13-39) U/L ALT 24 (7-52) U/L Alkaline Phosphatase 49 (34-104) U/L Troponin I High Sens 18.6 D (0-20) pg/ml Total Protein 6.7 (6.0-8.3) gm/dl Albumin 4.4 (3.4-5.0) gm/dl Procalcitonin 0.05 (0-0.5) ng/ml Administered Medications Daptomycin 500 mg/ Syringe 10 mls @ 5 mls/min IV Q24H PENDING SALE TO [facility]; Protocol Stop: 12/08/24 12:14 Last Admin: 11/24/24 13:13 Dose: 5 mls/min Documented By: PIERRE Imaging Data Radiologist's Impression: Chest X-Ray 11/24/24 11:47 XR chest 1V portable CLINICAL HISTORY: Sepsis TECHNIQUE: Single frontal radiograph of the chest was obtained. Comparison: Comparison is made to chest radiograph 11/23/2024 FINDINGS: Pacemaker defibrillator is seen. Cardiomegaly is noted. The lungs are clear. No evidence of pleural effusion or pneumothorax. IMPRESSION: No acute abnormalities and in particular no radiographic evidence of pneumonia. ACT 112: Negative or not required by law. Electronically signed by: Jordan Al M.D. 11/24/2024 1:40 PM Discharge Plan Visit Data Chief Complaint: Infection Stated Complaint: HERE YEST, WAS TOLD TO RETURN, POSSIBLE SEPSIS ED Provider: Radha Rdz Discharge Problem: Lightheadedness, Blood bacterial culture positive Forms Stand Alone Forms: My [facility] Clinked Prescriptions Prescriptions: No Action (DME) BiPap Machine Misc See Rx Instructions .ROUTE .MEDSUPPLY Qty: 1 0RF Rx Instructions: BIPAP 27/08 with heated humidification, tubing, and supplies. OLYA: 99+ years. Entresto 97-103 mg tablet 1 tab PO BID Qty: 180 3RF cyanocobalamin (vitamin B-12) 1,000 mcg/mL kit 1,000 mcg IM UD Rx Instructions: once every other month atorvastatin [Lipitor] 80 mg tablet 40 mg PO DAILY PRNQty: 90 albuterol sulfate 90 mcg/actuation HFA aerosol inhaler 2 puff inhalation Q6H PRN tolterodine 4 mg capsule,extended release 24hr 2 mg PO HS Myrbetriq 25 mg tablet extended release 24 hr 12.5 mg PO QPM pantoprazole 40 mg Tablet,Delayed Release (Dr/Ec) 20 mg PO QAM amitriptyline 50 mg tablet 25 mg PO QPM multivitamin Tablet 1 tab PO QAM melatonin 3 mg Tablet 3 mg PO HS Magnesium Otc 1 tab PO HS doxycycline hyclate 100 mg tablet 100 mg PO BID 7 Days Qty: 14 0RF prednisone 20 mg tablet 40 mg PO DAILY 4 Days Qty: 8 0RF albuterol sulfate 90 mcg/actuation HFA aerosol inhaler 2 inh inhalation Q6H PRN (Reason: shortness of breath or wheezing) Qty: 8.5 0RF Referrals Referrals: Giancarlo Lester MD [Primary Care Provider] -
[2024-11-24 12:36] LABS: Basophils # (auto) 0.02 K/uL (0.00-0.20); Basophils % (auto) 0.1 %; Hematocrit (blood only) 37.7 % (42.0-52.0); Hemoglobin 13.1 g/dl (14.0-18.0); Immature Granulocytes # (auto) 0.14 K/uL (0.01-0.20); Immature Granulocytes % (auto) 0.8 %; Lymphocytes # (auto) 1.12 K/uL (1.20-3.40); Mean Corpuscular Hemoglobin 32.1 pg (25.0-34.0); Mean Corpuscular Hgb Conc 34.7 g/dL (32.0-36.0); Mean Corpuscular Volume 92.4 fL (80.0-100.0); Mean Platelet Volume 9.1 fL (9.4-12.4); Monocytes # (auto) 1.65 K/uL (0.11-0.59); Monocytes % (auto) 8.9 %; Neutrophils # (auto) 15.64 K/uL (1.40-6.50); Neutrophils % (auto) 84.2 %; Platelet Count 221 K/uL (130-400); RDW Coefficient of Variation 14.2 % (11.5-14.5); RDW Standard Deviation 48.7 fL (36.4-46.3); Red Blood Count 4.08 M/uL (4.70-6.10); White Blood Count 18.57 K/ul (4.8-10.8)
[2024-11-24 12:48] LABS: Albumin Level 4.4 gm/dl (3.4-5.0); BUN Creatinine Ratio 20.2 (10-20); Bilirubin Direct 0.2 mg/dl (0-0.2); Bilirubin,Total 0.6 mg/dl (0.2-1.0); Calcium 9.1 mg/dl (8.6-10.3); Creatinine Clr Calc Pharmacy 56.9 ml/min; Magnesium 1.9 mg/dl (1.7-2.4); Potassium 4.5 mmol/L (3.5-5.1); Total Protein 6.7 gm/dl (6.0-8.3)
[2024-11-24 12:57] LABS: Troponin I High Sensitivity 18.6 pg/ml (0-20)
[2024-11-24] MEDS: DAPTOmycin 500 MG in SYRINGE 0 ML IV SCH (13:13)
--- NOTE | 2024-11-24 13:41 | XRay Report ---
XR chest 1V portable CLINICAL HISTORY: Sepsis TECHNIQUE: Single frontal radiograph of the chest was obtained. Comparison: Comparison is made to chest radiograph 11/23/2024 FINDINGS: Pacemaker defibrillator is seen. Cardiomegaly is noted. The lungs are clear. No evidence of pleural e ffusion or pneumothorax. IMPRESSION: No acute abnormalities and in particular no radiographic evidence of pneumonia. ACT 112: Negative or not required by law. Electronically signed by: Jordan Al M.D. 11/24/2024 1:40 PM
--- NOTE | 2024-11-24 13:48 | History & Physical Report ---
<Statement entered by Jesse Guevara DO - 11/25/24 07:04> I have seen and examined the patient and have discussed the case with the provider above. I have reviewed the advanced practitioner's documentation, and I agree with, and take responsibility for that plan of care. Patient seen and examined on the day of admission. Patient already on the medical unit, he actually reports he is feeling better came to the hospital because of a call from the ED saying that his blood cultures were positive. Denied any fevers at home, feels that his cough is getting better. Lungs decreased breath sounds with few coarse wheezing Reviewed CT chest, no infiltrative consolidations, findings consistent with a bronchitis Preliminary blood cultures, staph epi and Staph aureus not MRSA Continue antibiotics Zosyn Repeat blood cultures Continue symptomatic treatment for COVID bronchitis Continue other home medications, monitor for volume overload in setting of chronic reduced ejection heart failure Further plan of care as outlined below Date of Service November 24, 2024 Assessment & Plan (1) Blood bacterial culture positive: (2) COVID-19: (3) Acute bronchitis: (4) Obstructive sleep apnea: (5) GERD without esophagitis: (6) Nonischemic cardiomyopathy: Plan This is a 79 y/o male with CHANDRA on BiPAP, non-ischemic cardiomyopathy, s/p pacer/ICD, hx PSVT, HTN, dyslipidemia, prediabetes, GERD, CKD 3, neuropathy, and other history as outlined below who presents to the ED today after blood cultures from yesterday came back preliminarily positive. Work-up in the ED yesterday also positive for COVID-19 infection. Pt reports symptoms are improved from yesterday but came back to the ED after being called with the positive culture results. #COVID-19 Infection #Positive blood culture (preliminary) - staph aureus (negative for MRSA), staph epi. May be contaminant, further testing pending - Admit to med telemetry - Change to IV Zosyn since MRSA negative on initial results - will adjust antibiotics pending final results - Continue prednisone started yesterday since clinically improving - Since symptoms present for a week and patient not hypoxic, will defer remdesivir - Isolation precautions for COVID - Incentive spirometry, flutter valve - CT chest to evaluate for possible pneumonia - Guaifenesin 600 mg BID, prn anti-tussives #CHANDRA on BiPAP - Continue BiPAP HS at home settings as tolerated #GERD - Continue PPI #Nonischemic cardiomyopathy - has ICD, follows with [facility] - Continue Entresto Pt seen and reviewed with attending physician, Dr. Guevara. Plan of care discussed and as outlined above. Code status: full code DVT prophylaxis: Lovenox. Janiya Higgins PA-C History of Present Illness Chief Complaint: positive blood culture Primary Care Provider: Giancarlo Lester MD This is a 79 y/o male with CHANDRA on BiPAP, non-ischemic cardiomyopathy, s/p pacer/ICD, hx PSVT, HTN, dyslipidemia, prediabetes, GERD, CKD 3, neuropathy, and other history as outlined below who presents to the ED today after blood cultures from yesterday came back preliminarily positive. Pt was seen in the ED yesterday for cough and shortness of breath. Work-up in the ED was positive for SARS-CoV-2. Pt was discharged on doxycycline for possible atypical infection and on prednisone. Blood cultures were drawn as part of sepsis protocol. Today blood cultures resulted as positive for staph epi and staph aureus so patient was called to return to the ED for evaluation. 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 About a week ago started with a cough. Wasn't getting better and felt like he was getting short of breath so he was concerned that he may have pneumonia again and came in for evaluation. Cough has been productive of yellow mucus. He reports feeling fatigued and worn down. No chest pain but was feeling lightheaded yesterday when seen in the ED. He has been using albuterol that he had leftover from prior illness - has helped with chest congestion. Overall, he reports that he is feeling better from yesterday when he was in the ED. He has not been using the BiPAP HS over the last week due to nasal congestion. He has been taking Sudafed for the congesiton and cough medicine with codeine at night, which has helped him be able to sleep. No N/V/D. Last COVID vaccine was about a month ago. Allergies Allergy/AdvReac Type Severity Reaction Status Date / Time benzonatate Allergy Swelling Verified 11/24/24 14:40 [From Adamaris Lazcano] of Lip/Tongue/Throat hazelnut AdvReac Mild Throat Verified 11/24/24 14:40 numbness levofloxacin AdvReac Unknown Achilles Verified 11/24/24 14:40 heel pain (rxn with oral, tolerated IV) Home Medications Medication Instructions Recorded Confirmed Type tolterodine 4 mg capsule,extended 2 mg PO HS 11/20/19 11/24/24 History release 24 hr pantoprazole 40 mg tablet,delayed 40 mg PO QAM 03/28/20 11/24/24 History release cyanocobalamin (vitamin B-12) 1,000 mcg IM UD 04/08/20 11/24/24 History 1,000 mcg/mL injection kit BiPap Machine #1 ea 06/23/20 11/01/24 Rx amitriptyline 50 mg tablet 25 mg PO QPM 12/08/20 11/24/24 History melatonin 3 mg tablet 3 mg PO HS 06/04/21 11/24/24 History atorvastatin 80 mg tablet (Lipitor) 40 mg PO DAILY #90 tabs 05/21/24 11/24/24 History albuterol sulfate 90 mcg/actuation 2 inh inhalation Q6H PRN shortness 11/23/24 11/24/24 Rx aerosol inhaler of breath or wheezing #8.5 grams doxycycline hyclate 100 mg tablet 100 mg PO BID 7 days #14 tabs 11/23/24 11/24/24 Rx prednisone 20 mg tablet 40 mg (2 x 20 mg) PO DAILY 4 days 11/23/24 11/24/24 Rx #8 tabs mirabegron 50 mg tablet,extended 25 mg PO HS 11/24/24 11/24/24 History release 24 hr sacubitril 97 mg-valsartan 103 mg 0.5 tab PO BID 11/24/24 11/24/24 History tablet (Entresto) tramadol 50 mg tablet 50 mg PO Q6H PRN Pain 11/24/24 11/24/24 History triamcinolone acetonide 0.1 % 1 applic topical DAILY 11/24/24 11/24/24 History lotion Past Med/Surg History Problem List (Updated 11/24/24 @ 20:30 by Vikki Higgins PA-C) Blood bacterial culture positive (Acute) Lightheadedness (Acute) Acute bronchitis (Acute) COVID-19 (Acute) Spondylolisthesis, lumbar region Sleep disorder, circadian, delayed sleep phase type Trigger finger of left hand Pure hypercholesterolemia (Acute) Benign neoplasm of colon (Acute) Prediabetes (Acute) Peripheral neuropathy (Acute) Periodic limb movement disorder (Acute) Obstructive sleep apnea (Acute) Hiatal hernia with GERD and esophagitis (Acute) GERD without esophagitis (Acute) CAD (coronary artery disease) (Acute) ICD (implantable cardioverter-defibrillator), biventricular, in situ DDD (degenerative disc disease), lumbar Lumbar scoliosis Lumbar stenosis with neurogenic claudication Medical History Non-ST elevation [place] (NSTEMI) Arthritis of carpometacarpal (CMC) joint of left thumb Right lumbar radiculopathy Systolic CHF, chronic Nonischemic cardiomyopathy Echo 02/2019 showed EF 30-35%, felt secondary to LBBB. No improvement with medical therapy. S/P pacer/ICD implantation 05/2020. Grimaldo esophagus IVCD (intraventricular conduction defect) Low testosterone Paroxysmal supraventricular tachycardia Elevated troponin Leukocytosis LBBB (left bundle branch block) CAD (coronary artery disease) Mild non-obstructive CAD per 2018 cardiac cath Zenkers diverticulum History of pacemaker Pacer/ICD (Implanted 05/2020), [employer]> follows with Dr. Kong> will be getting checked today (04/16/22) per pt Osteoarthritis Chronic back pain Overactive bladder Hiatal hernia GERD (gastroesophageal reflux disease) Hypertension Hyperlipidemia Sleep apnea BIPAP Surgical History (Updated 11/24/24 @ 20:28 by Vikki Higgins PA-C) S/P hernia surgery (06/24/14) Laparoscopic bilateral inguinal hernia repair, History of umbilical hernia repair (10/27/12) Umbilical hernia repair History of repair of rotator cuff right History of revision of total replacement of left knee joint x2 History of cataract surgery R/L History of implantable cardioverter-defibrillator (ICD) placement 05/2020 Hx of surgical procedure Epididymectomy Hx of vasectomy History of cardiac cath 2018 > no stents History of esophageal dilatation History of total knee replacement R/L History of laminectomy Lumbar History of colonoscopy History of esophagogastroduodenoscopy (EGD) History of tooth extraction History of tonsillectomy Family History Father Heart disease Mother Heart disease Other No pertinent family history Social History Smoking Status: Never smoker Second Hand Exposure: No; Do You Dip or Chew Tobacco: No; Hx Alcohol Use: No Hx Substance Use: No Preferred Language: Panamanian Communication Ability: Effective Visual Impairment: No 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 External Required: No Beliefs That Will Affect Care: None Current Living Situation: Alone current occupational status: employed 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 Results & Data Results & Data Vital Signs (Past 12 Hours) Vital Signs Temp Pulse Pulse Resp BP BP Pulse Ox 11/24/24 13:04 86 11/24/24 12:10 97 11/24/24 12:10 86 20 131/82 96 11/24/24 11:45 36.7 C 103 H 18 134/79 96 O2 Del Method 11/24/24 13:04 11/24/24 12:10 Room Air 11/24/24 12:10 Room Air 11/24/24 11:45 Room Air Laboratory Results Lab Results 11/24/24 Range/Units 12:10 WBC 18.57 H (4.8-10.8) K/ul RBC 4.08 L (4.70-6.10) M/uL Hgb 13.1 L (14.0-18.0) g/dl Hct 37.7 L (42.0-52.0) % MCV 92.4 (80.0-100.0) fL MCH 32.1 (25.0-34.0) pg MCHC 34.7 (32.0-36.0) g/dL RDW Std Deviation 48.7 H (36.4-46.3) fL RDW Coeff of Joshua 14.2 (11.5-14.5) % Plt Count 221 (130-400) K/uL MPV 9.1 L (9.4-12.4) fL Immature Gran % (Auto) 0.8 % Neut % (Auto) 84.2 % Lymph % (Auto) 6.0 % [place] % (Auto) 8.9 % Eos % (Auto) 0.0 % Baso % (Auto) 0.1 % Neut # (Auto) 15.64 H (1.40-6.50) K/uL Lymph # (Auto) 1.12 L (1.20-3.40) K/uL [place] # (Auto) 1.65 H (0.11-0.59) K/uL Eos # (Auto) 0.00 (0.00-0.50) K/uL Baso # (Auto) 0.02 (0.00-0.20) K/uL Immature Gran # (Auto) 0.14 (0.01-0.20) K/uL Sodium 131 L (136-145) mmol/L Potassium 4.5 (3.5-5.1) mmol/L Chloride 100 (98-107) mmol/L Carbon Dioxide 21 (21-32) mmol/L Anion Gap 10 (3-11) BUN 24 H (6-23) mg/dl Creatinine 1.19 (0.6-1.4) mg/dl Est Cr Clr Drug Dosing 56.9 ml/min eGFR 62.14 BUN/Creatinine Ratio 20.2 H (10-20) Glucose 127 H (70-99(Fasting)) mg/dl Lactate 1.9 (0.4-2.0) mmol/L Calcium 9.1 (8.6-10.3) mg/dl Magnesium 1.9 (1.7-2.4) mg/dl Total Bilirubin 0.6 (0.2-1.0) mg/dl Direct Bilirubin 0.2 (0-0.2) mg/dl AST 27 (13-39) U/L ALT 24 (7-52) U/L Alkaline Phosphatase 49 (34-104) U/L Troponin I High Sens 18.6 D (0-20) pg/ml Total Protein 6.7 (6.0-8.3) gm/dl Albumin 4.4 (3.4-5.0) gm/dl Procalcitonin 0.05 (0-0.5) ng/ml Diagnostic Findings Chest X-Ray 11/24/24 11:47 XR chest 1V portable CLINICAL HISTORY: Sepsis TECHNIQUE: Single frontal radiograph of the chest was obtained. Comparison: Comparison is made to chest radiograph 11/23/2024 FINDINGS: Pacemaker defibrillator is seen. Cardiomegaly is noted. The lungs are clear. No evidence of pleural effusion or pneumothorax. IMPRESSION: No acute abnormalities and in particular no radiographic evidence of pneumonia. ACT 112: Negative or not required by law. Electronically signed by: Jordan Al M.D. 11/24/2024 1:40 PM Medications Administered Daptomycin 500 mg/ Syringe 10 mls @ 5 mls/min IV Q24H [facility]; Protocol Stop: 12/08/24 12:14 Last Admin: 11/24/24 13:13 Dose: 5 mls/min Documented By: QGV (3) Acute bronchitis Bronchitis organism: other organism Qualified Code(s): J20.8 - Acute bronchitis due to other specified organisms
[2024-11-24] MEDS ORDERED: ACETAMINOPHEN 325 MG TAB PO PRN (16:22)
--- NOTE | 2024-11-24 16:32 | CT Scan Report ---
EXAM: CT Chest Without Intravenous Contrast INDICATION: COVID. TECHNIQUE: Axial computed tomography images of the chest without intravenous contrast. Sagittal and coronal reformatted images were created and reviewed. This CT exam was performed using one or more of the following dose reduction techniques: automated exposure control, adjustment of the mA and/or kV according to patient size, and/or use of iterative reconstruction technique. COMPARISON: 03/05/2024 and 09/03/2023 FINDINGS: Limitations: None. Lungs and pleural spaces: Stable 4 mm nodule right major fissure. Stable 3 mm subpleural lingular nodule. No further assessment required. There is mild airway thickening and minimal dependent atelectasis in both lower lobes. Significantly improved aeration and airway thickening since the most recent study. No bronchiectasis or honeycombing. No pleural effusion or pneumothorax. Heart: Cardiomegaly noted. Cardiac pacing device noted. Metallic artifact limits assessment of lead integrity. Thyroid: No abnormality noted. Bones/joints: No acute changes. Soft tissues: No significant abnormality noted. Vasculature: No abnormality noted. No thoracic aortic aneurysm. Lymph nodes: No enlarged lymph nodes. IMPRESSION: Mild lower lobe bronchitis and atelectasis. No confluent pneumonia. ACT 112: Negative or not required by law. Electronically signed by Razia Franco 11-24-2024 4:31 PM
[2024-11-24] MEDS: PIPERACILLIN/TAZOBACTAM 4.5 GM/100 ML BAG IV ONE (17:18)
[2024-11-24] MEDS: COUGH DROP (SUGAR FREE) LOZ 24 LOZ/1 BOX BUCCAL ONE (18:32)
[2024-11-24] MEDS: ALBUTEROL 0.083% NEBU SOLN 3 ML VIAL NEB PRN (19:00)
[2024-11-24] MEDS: PIPERACILLIN/TAZOBACTAM 4.5 GM/100 ML BAG IV SCH (21:19)
[2024-11-24] MEDS: MELATONIN 3 MG TAB PO SCH (21:19)
[2024-11-24] MEDS: AMITRIPTYLINE HCL 25 MG TAB PO SCH (21:19)
[2024-11-24] MEDS: VALSARTAN/SACUBITRIL 103/97MG TAB PO SCH (21:19)
[2024-11-24] MEDS: VIBEGRON 75 MG TAB PO SCH (21:19)
[2024-11-24] MEDS: guaiFENesin 600 MG TABCR PO SCH (21:19)
[2024-11-24] MEDS: OXYBUTYNIN CHLORIDE XL 5 MG TABCR PO SCH (21:26)
[2024-11-24] MEDS: ATORVASTATIN 40 MG TAB PO SCH (22:12)
[2024-11-24 22:22] LABS: Appearance Urine Clear (Clear); Bilirubin Urine Negative (Negative); Blood Urine Negative (Negative); Color Urine Yellow; Glucose Urine UA Negative (Negative); Ketones Urine Negative (Negative); Leukocyte Esterase Urine Negative (Negative); Nitrite Urine Negative (Negative); Protein Urine Negative (Negative); Specific Gravity Urine 1.014 (1.000-1.030); Urobilinogen Urine Negative (Negative); pH Urine 6.5 (4.5-7.5)
[2024-11-24] MEDS: guaiFENesin/CODEINE 100MG/10MG 5ML UDC PO PRN (23:47)
[2024-11-25 07:17] LABS: Basophils # (auto) 0.02 K/uL (0.00-0.20); Basophils % (auto) 0.1 %; Eosinophils # (auto) 0.01 K/uL (0.00-0.50); Eosinophils % (auto) 0.1 %; Immature Granulocytes # (auto) 0.14 K/uL (0.01-0.20); Lymphocytes # (auto) 1.51 K/uL (1.20-3.40); Lymphocytes % (auto) 10.8 %; Mean Corpuscular Hemoglobin 32.5 pg (25.0-34.0); Mean Corpuscular Hgb Conc 35.3 g/dL (32.0-36.0); Mean Corpuscular Volume 92.1 fL (80.0-100.0); Mean Platelet Volume 8.9 fL (9.4-12.4); Monocytes # (auto) 1.47 K/uL (0.11-0.59); Monocytes % (auto) 10.5 %; Neutrophils # (auto) 10.85 K/uL (1.40-6.50); Neutrophils % (auto) 77.5 %; Platelet Count 201 K/uL (130-400); RDW Coefficient of Variation 14.3 % (11.5-14.5); RDW Standard Deviation 48.9 fL (36.4-46.3); Red Blood Count 3.69 M/uL (4.70-6.10)
[2024-11-25 07:34] LABS: BUN Creatinine Ratio 18.3 (10-20); Calcium 8.6 mg/dl (8.6-10.3); Creatinine Clr Calc Pharmacy 63.6 ml/min; Potassium 4.3 mmol/L (3.5-5.1)
[2024-11-25] MEDS: AMPICILLIN 2,000 MG in SODIUM CHLOR 0.9% MINI-B 100 ML IV SCH (09:28)
[2024-11-25] MEDS: predniSONE 20 MG TAB PO SCH (09:34)
[2024-11-25] MEDS: ADVANCED PROBIOTIC 625 MG CAPSULE PO SCH (09:35)
[2024-11-25] MEDS: PANTOprazole 40 MG TAB PO SCH (09:35)
[2024-11-25] MEDS: ENOXAPARIN INJ 40 MG/0.4 ML SYR SQ SCH (09:37)
[2024-11-25] MEDS: ceFAZolin 2000MG 2,000 MG/15 ML SYR IV SCH (12:55)
--- NOTE | 2024-11-25 14:21 | Hospitalist Progress Note ---
Date of Service November 25, 2024 Assessment & Plan (1) MSSA bacteremia: (2) Blood bacterial culture positive: (3) COVID-19: (4) Acute bronchitis: (5) Obstructive sleep apnea: (6) GERD without esophagitis: (7) Nonischemic cardiomyopathy: Plan Patient return to the hospital after blood cultures obtained in the ED the day prior growing MSSA and other contaminants Reviewed initial blood culture sensitivities. Will only focus treatment on the MSSA, use cefazolin, discontinue Zosyn Check echocardiogram, transthoracic to begin workup for possible occult source for his MSSA bacteremia if blood cultures remain positive Continue to monitor blood cultures minimum 48 hours Continue other supportive care for COVID-19. Admission and Anticipated Discharge Date Admission Date: November 24, 2024 Subjective Patient is feeling well, no chest pain, no shortness of breath. Interestingly, he reports he has never been given guidance about salt restriction and fluid restriction despite his significantly decreased ejection fraction and AICD placement. Physical Exam Physical Exam: Constitutional: Alert HEENT: Mucous membranes moist. Lungs: Clear to auscultation, decreased, no wheezes rales or rhonchi CV: S1-S2, regular Abdomen: Soft, nontender, nondistended Extremities: No significant edema Neuro: No focal deficits Psych: Cooperative, normal mood Results & Data Results & Data Vital Signs (Past 12 Hours) Vital Signs Temp Pulse Resp BP Pulse Ox O2 Del Method 11/25/24 09:43 Room Air 11/25/24 07:34 36.5 C 79 16 126/75 94 Room Air Diagnostic Findings Reviewed imaging, laboratory and diagnostic studies. Pertinent findings as below. WBCs 14.0, improved Hemoglobin 12.0 BMP stable Repeat blood cultures no growth at [address] chest performed yesterday no infiltrate, bronchitis (4) Acute bronchitis Bronchitis organism: other organism Qualified Code(s): J20.8 - Acute bronchitis due to other specified organisms
[2024-11-26 07:51] VITALS: RESP 18
--- NOTE | 2024-11-26 12:40 | XCELERA ---
[id number]
--- NOTE | 2024-11-26 14:51 | Hospitalist Progress Note ---
Date of Service November 26, 2024 Assessment & Plan (1) MSSA bacteremia: Plan: Unknown source (2) Blood bacterial culture positive: (3) COVID-19: (4) Acute bronchitis: (5) Obstructive sleep apnea: (6) GERD without esophagitis: (7) Nonischemic cardiomyopathy: Plan Patient with MSSA bacteremia with unclear source. Curbside consult infectious disease, recommending 4 weeks of IV Ancef Formal consultation infectious disease for definitive recommendations PICC line consent obtained from patient and made aware of need for 4 weeks of IV antibiotics Case management notified and will are arranging home IV antibiotics Check labs in a.m. Anticipate discharge tomorrow Admission and Anticipated Discharge Date Admission Date: November 24, 2024 Subjective No acute issues overnight. Patient is feeling well. Physical Exam Physical Exam: Constitutional: Alert HEENT: Mucous membranes moist. Lungs: Some decreased breath sounds at bases, no wheezes CV: S1-S2, regular Abdomen: Soft, nontender, nondistended Extremities: No significant edema Neuro: No focal deficits Psych: Cooperative, normal mood Results & Data Results & Data Vital Signs (Past 12 Hours) Vital Signs Temp Pulse Resp BP Pulse Ox O2 Del Method 11/26/24 09:00 Room Air 11/26/24 07:50 36.5 C 89 18 138/70 94 Room Air Diagnostic Findings Reviewed imaging, laboratory and diagnostic studies. Pertinent findings as below. Reviewed echocardiogram Ejection fraction improved from previous 40 to 45% with global hypokinesis. No visualized vegetation, no valvular abnormalities Surveillance blood cultures no growth at 48 hours (4) Acute bronchitis Bronchitis organism: other organism Qualified Code(s): J20.8 - Acute bronchitis due to other specified organisms
[2024-11-26 17:44] LABS: Hematocrit (blood only) 39.4 % (42.0-52.0); Mean Corpuscular Hemoglobin 32.7 pg (25.0-34.0); Mean Corpuscular Hgb Conc 35.5 g/dL (32.0-36.0); Mean Corpuscular Volume 92.1 fL (80.0-100.0); Mean Platelet Volume 8.8 fL (9.4-12.4); Platelet Count 242 K/uL (130-400); RDW Standard Deviation 47.2 fL (36.4-46.3); Red Blood Count 4.28 M/uL (4.70-6.10); White Blood Count 8.72 K/ul (4.8-10.8)
--- NOTE | 2024-11-26 21:58 | Electrocardiogram Report ---
Test Reason : Blood Pressure : */* mmHG Vent. Rate : 88 BPM Atrial Rate : 88 BPM P-R Int : 198 ms QRS Dur : 122 ms QT Int : 384 ms P-R-T Axes : 87 37 94 degrees QTcB Int : 464 ms Normal sinus rhythm Low voltage QRS Left bundle branch block Abnormal ECG When compared with ECG of 23-Nov-2024 03:00, Ventricular pacing is no longer present Confirmed by Hugo Dale ([id number]) on 11/26/2024 9:58:30 PM Referred By: Confirmed By: Hugo Dale
[2024-11-27 07:21] LABS: Basophils # (auto) 0.02 K/uL (0.00-0.20); Basophils % (auto) 0.2 %; Eosinophils # (auto) 0.09 K/uL (0.00-0.50); Eosinophils % (auto) 0.9 %; Hematocrit (blood only) 37.9 % (42.0-52.0); Hemoglobin 13.3 g/dl (14.0-18.0); Immature Granulocytes # (auto) 0.12 K/uL (0.01-0.20); Immature Granulocytes % (auto) 1.2 %; Lymphocytes # (auto) 2.14 K/uL (1.20-3.40); Lymphocytes % (auto) 21.5 %; Mean Corpuscular Hemoglobin 32.2 pg (25.0-34.0); Mean Corpuscular Hgb Conc 35.1 g/dL (32.0-36.0); Mean Corpuscular Volume 91.8 fL (80.0-100.0); Mean Platelet Volume 9.2 fL (9.4-12.4); Monocytes # (auto) 1.27 K/uL (0.11-0.59); Monocytes % (auto) 12.8 %; Neutrophils # (auto) 6.31 K/uL (1.40-6.50); Neutrophils % (auto) 63.4 %; Platelet Count 232 K/uL (130-400); RDW Coefficient of Variation 13.7 % (11.5-14.5); RDW Standard Deviation 46.5 fL (36.4-46.3); Red Blood Count 4.13 M/uL (4.70-6.10); White Blood Count 9.95 K/ul (4.8-10.8)
[2024-11-27 07:42] LABS: BUN Creatinine Ratio 22.3 (10-20); C Reactive Protein 0.68 mg/dl (0-0.5); Calcium 8.8 mg/dl (8.6-10.3); Creatinine Clr Calc Pharmacy 62.8 ml/min; Potassium 4.1 mmol/L (3.5-5.1)
[2024-11-27 07:55] VITALS: BP 145/85; TEMP 98.1; O2SAT 94
--- NOTE | 2024-11-27 10:25 | Infectious Disease Consult ---
Date of Service November 27, 2024 Telehealth Information I performed this visit using a real-time telehealth connection between my location and the patients location ([facility]). After connecting through interactive tele-video, patient was identified by name and date of and/or wristband check.Patient (or authorized healthcare financial services sales representative) was informed that this was a telemedicine visit and it was being conducted confidentially over secure lines. My office door was closed and no one else was present in the room with me.Patient (or authorized healthcare financial services sales representative) provided consent to proceed with the visit, expressed an understanding of privacy and security of the telemedicine visit, and gave permission to have a hospital financial services sales representative in the room in order to assist with the visit and to conduct portions of the visit, as needed. I informed the patient (or authorized healthcare financial services sales representative) that I reviewed their record and presented the opportunity for them to ask any questions regarding the visit today. The patient agreed to participate. Assessment & Plan (1) MSSA bacteremia: Plan: Continue Ancef and recommend a ANGELO (2) COVID-19: Plan: Continue symptomatic care Plan Patient who presented to the ER at [facility] with lightheadedness and dizziness and tested positive for COVID19 .His blood cultures were found to be positive for MSSA ,staph epidermidis and staph oralis .His TTE did not reveal any vegetation but he does have a pacemaker and will require a ANGELO to ensure his pacemaker is not infected .Patient reports he is being discharged today and so I have recommended at least 4 weeks of ancef pending his OP ANGELO and adding rifampin if no hepatic issues or DDI as if the pacemaker is infection it will require removal .Thank you for allowing us to participate in the care of this patient ID will continue to follow History of Present Illness History of Present Illness 79 y/o M PMHx CHANDRA on BiPAP, non-ischemic cardiomyopathy, s/p pacer/ICD, hx PSVT, HTN, dyslipidemia, prediabetes, GERD, CKD 3, neuropathy who presented to the ED after blood cultures came back preliminarily positive for MSSA and staph epidermidis and oralis .Patient also tested positive for COVID19.A TTE was done that was negative for vegetations and his blood cultures have cleared 11/24/24 Allergies Allergy/AdvReac Type Severity Reaction Status Date / Time benzonatate Allergy Swelling Verified 11/24/24 14:40 [From Adamaris Lazcano] of Lip/Tongue/Throat hazelnut AdvReac Mild Throat Verified 11/24/24 14:40 numbness levofloxacin AdvReac Unknown Achilles Verified 11/24/24 14:40 heel pain (rxn with oral, tolerated IV) Home Medications Medication Instructions Recorded Confirmed Type tolterodine 4 mg capsule,extended 2 mg PO HS 11/20/19 11/24/24 History release 24 hr pantoprazole 40 mg tablet,delayed 40 mg PO QAM 03/28/20 11/24/24 History release cyanocobalamin (vitamin B-12) 1,000 mcg IM UD 04/08/20 11/24/24 History 1,000 mcg/mL injection kit BiPap Machine #1 ea 06/23/20 11/01/24 Rx amitriptyline 50 mg tablet 25 mg PO QPM 12/08/20 11/24/24 History melatonin 3 mg tablet 3 mg PO HS 06/04/21 11/24/24 History atorvastatin 80 mg tablet (Lipitor) 40 mg PO DAILY #90 tabs 05/21/24 11/24/24 History albuterol sulfate 90 mcg/actuation 2 inh inhalation Q6H PRN shortness 11/23/24 11/24/24 Rx aerosol inhaler of breath or wheezing #8.5 grams doxycycline hyclate 100 mg tablet 100 mg PO BID 7 days #14 tabs 11/23/24 11/24/24 Rx prednisone 20 mg tablet 40 mg (2 x 20 mg) PO DAILY 4 days 11/23/24 11/24/24 Rx #8 tabs mirabegron 50 mg tablet,extended 25 mg PO HS 11/24/24 11/24/24 History release 24 hr sacubitril 97 mg-valsartan 103 mg 0.5 tab PO BID 11/24/24 11/24/24 History tablet (Entresto) tramadol 50 mg tablet 50 mg PO Q6H PRN Pain 11/24/24 11/24/24 History triamcinolone acetonide 0.1 % 1 applic topical DAILY 11/24/24 11/24/24 History lotion L.acidop,casei,lactis,rham-B.lact,marisol 1 cap PO DAILY #60 caps 11/27/24 Rx 625 mg (10 billion cell) capsule (Advanced Probiotic) famotidine 20 mg tablet (Pepcid) 20 mg PO BID 6 weeks #84 tabs 11/27/24 Rx guaifenesin 600 mg tablet, 600 mg PO Q12 PRN Cough #30 tabs 11/27/24 Rx extended release 12 hr (Mucinex) rifampin 300 mg capsule 300 mg PO Q8H 6 weeks #126 caps 11/27/24 Rx Patient History Medical History Non-ST elevation [place] (NSTEMI) Arthritis of carpometacarpal (CMC) joint of left thumb Right lumbar radiculopathy Systolic CHF, chronic Nonischemic cardiomyopathy Echo 02/2019 showed EF 30-35%, felt secondary to LBBB. No improvement with medical therapy. S/P pacer/ICD implantation 05/2020. Grimaldo esophagus IVCD (intraventricular conduction defect) Low testosterone Paroxysmal supraventricular tachycardia Elevated troponin Leukocytosis LBBB (left bundle branch block) CAD (coronary artery disease) Mild non-obstructive CAD per 2018 cardiac cath Zenkers diverticulum History of pacemaker Pacer/ICD (Implanted 05/2020), [employer]> follows with Dr. Kong> will be getting checked today (04/16/22) per pt Osteoarthritis Chronic back pain Overactive bladder Hiatal hernia GERD (gastroesophageal reflux disease) Hypertension Hyperlipidemia Sleep apnea BIPAP Surgical History (Updated 11/24/24 @ 20:28 by Vikki Higgins PA-C) S/P hernia surgery (06/24/14) Laparoscopic bilateral inguinal hernia repair, History of umbilical hernia repair (10/27/12) Umbilical hernia repair History of repair of rotator cuff right History of revision of total replacement of left knee joint x2 History of cataract surgery R/L History of implantable cardioverter-defibrillator (ICD) placement 05/2020 Hx of surgical procedure Epididymectomy Hx of vasectomy History of cardiac cath 2018 > no stents History of esophageal dilatation History of total knee replacement R/L History of laminectomy Lumbar History of colonoscopy History of esophagogastroduodenoscopy (EGD) History of tooth extraction History of tonsillectomy Family History Father Heart disease Mother Heart disease Other No pertinent family history Social History Smoking Status: Never smoker Second Hand Exposure: No; Do You Dip or Chew Tobacco: No; Hx Alcohol Use: No Hx Substance Use: No Preferred Language: Kiswahili Communication Ability: Effective Visual Impairment: No Limitations Senior Merchandiser Required: No Beliefs That Will Affect Care: None Current Living Situation: Alone current occupational status: employed 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 Isolation does not necessarily mean infection. No susceptibility tests performed. Contact microbiology laboratory ([phone]) if further studies are indicated. Blood Culture Anaerobic Final 11/25/24 Organism 1 Staphylococcus aureus Sens Sensitivities to Follow Blood Culture PCR Panel If viewing in EMR, results available under LAB Serology tab. Organism 2 Staphylococcus epidermidis Sens No Sensitivities to Follow Organism 3 Streptococcus mitis/oralis grp Sens No Sensitivities to Follow Critical results sent via [employer] to JAYNE RINCON On 11/23/24 at 1958 by Marycarmen Garner. Confirmed message was read by recipient. S aureus RX M.I.C. --- --------- Clindamycin S 0.5 Daptomycin S 1 Erythromycin S 0.5 Linezolid S 4 Oxacillin S <=0.25 Tetracycline S <=4 Trimeth/Sulfa S <=0.5/9.5 Vancomycin S 1 S = SENSITIVE I = INTERMEDIATE R = RESISTANT Diagnostic Findings TTE did not reveal any vegetations but there is a pacemaker lead in the right atrium
--- NOTE | 2024-11-27 11:39 | Discharge Summary ---
Discharge Summary Date of Service November 27, 2024 Principal Dx & Hospital Course #1 = Principal Diagnosis (1) MSSA bacteremia: Unknown source (2) COVID-19: (3) Acute bronchitis: (4) Obstructive sleep apnea: (5) GERD without esophagitis: (6) Nonischemic cardiomyopathy: Plan Patient presented to the emergency room for hospitalization after being called back to the ED when blood cultures obtained the day prior was positive growth. Patient was admitted to the hospital. Initially started on broad-spectrum antibiotics to cover a Staph aureus positive blood culture. The patient actually was starting to feel improved. He had also been diagnosed with COVID- 19 the day prior and had a bronchitis associated with this. Chest CT was performed showed no definitive infiltrate but findings consistent with a bronchitis. There was no other noted source for his Staph aureus infection. Initial blood culture eventually was identified as methicillin sensitive Staph aureus. Additionally Staph epidermidis and Streptococcus mitis grew in that same bottle. No other bacteria grew in any of the other bottles. Repeat blood cultures showed no growth at 48 hours. Patient did have a AICD pacemaker placed. Transthoracic echocardiogram showed actual improvement in his ejection fraction no evidence of any type of vegetation or infection of the pacemaker wires. There was some suspicion that this could be a contaminant, however the methicillin sensitive Staph aureus is Ariel less likely to be contaminant. Infectious disease consultation was obtained. They recommended continuing him on the cefazolin which she had been started on once sensitivities were no for total 4 weeks. PICC line consent was obtained and placed. Case management was consulted for 4 weeks of home IV antibiotics. Infectious disease did comment on possible need for ANGELO. Again transthoracic echocardiogram showed no evidence of infection. He is on appropriate treatment for his infection. Will coordinate outpatient follow-up with his family medicine chair determine if ANGELO is necessary. If he can have this done as an outpatient while he is undergoing antibiotic treatment. Patient's other medical issues are stable throughout his hospitalization. To be discharged home for ongoing antibiotics at home with a CBC and BMP monitored weekly and outpatient follow-up with his specialist and PCP. Notes For Next Care Provider Monitor CBC and BMP Follow-up with cardiology determine if ANGELO is necessary Medication Changes From Visit Ancef for 4 weeks Completed course of prednisone Doxycycline discontinued Admission HPI Per Admitting Provider This is a 79 y/o male with CHANDRA on BiPAP, non-ischemic cardiomyopathy, s/p pacer/ICD, hx PSVT, HTN, dyslipidemia, prediabetes, GERD, CKD 3, neuropathy, and other history as outlined below who presents to the ED today after blood cultures from yesterday came back preliminarily positive. Pt was seen in the ED yesterday for cough and shortness of breath. Work-up in the ED was positive for SARS-CoV-2. Pt was discharged on doxycycline for possible atypical infection and on prednisone. Blood cultures were drawn as part of sepsis protocol. Today blood cultures resulted as positive for staph epi and staph aureus so patient was called to return to the ED for evaluation. 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 About a week ago started with a cough. Wasn't getting better and felt like he was getting short of breath so he was concerned that he may have pneumonia again and came in for evaluation. Cough has been productive of yellow mucus. He reports feeling fatigued and worn down. No chest pain but was feeling lightheaded yesterday when seen in the ED. He has been using albuterol that he had leftover from prior illness - has helped with chest congestion. Overall, he reports that he is feeling better from yesterday when he was in the ED. He has not been using the BiPAP HS over the last week due to nasal congestion. He has been taking Maria De Jesus afed for the congesiton and cough medicine with codeine at night, which has helped him be able to sleep. No N/V/D. Last COVID vaccine was about a month ago. Admission Exam Per Admitting Provider See H&P Discharge Exam Constitutional: Alert HEENT: Mucous membranes moist. Lungs: Clear to auscultation, decreased, no wheezes rales or rhonchi CV: S1-S2, regular Abdomen: Soft, nontender, nondistended Extremities: No significant edema Neuro: No focal deficits Psych: Cooperative, normal mood Updated Medication List Medication Instructions Recorded Confirmed Type tolterodine 4 mg capsule,extended 2 mg PO HS 11/20/19 11/24/24 History release 24 hr pantoprazole 40 mg tablet,delayed 40 mg PO QAM 03/28/20 11/24/24 History release cyanocobalamin (vitamin B-12) 1,000 mcg IM UD 04/08/20 11/24/24 History 1,000 mcg/mL injection kit BiPap Machine #1 ea 06/23/20 11/01/24 Rx amitriptyline 50 mg tablet 25 mg PO QPM 12/08/20 11/24/24 History melatonin 3 mg tablet 3 mg PO HS 06/04/21 11/24/24 History atorvastatin 80 mg tablet (Lipitor) 40 mg PO DAILY #90 tabs 05/21/24 11/24/24 History albuterol sulfate 90 mcg/actuation 2 inh inhalation Q6H PRN shortness 11/23/24 11/24/24 Rx aerosol inhaler of breath or wheezing #8.5 grams doxycycline hyclate 100 mg tablet 100 mg PO BID 7 days #14 tabs 11/23/24 11/24/24 Rx prednisone 20 mg tablet 40 mg (2 x 20 mg) PO DAILY 4 days 11/23/24 11/24/24 Rx #8 tabs mirabegron 50 mg tablet,extended 25 mg PO HS 11/24/24 11/24/24 History release 24 hr sacubitril 97 mg-valsartan 103 mg 0.5 tab PO BID 11/24/24 11/24/24 History tablet (Entresto) tramadol 50 mg tablet 50 mg PO Q6H PRN Pain 11/24/24 11/24/24 History triamcinolone acetonide 0.1 % 1 applic topical DAILY 11/24/24 11/24/24 History lotion L.acidop,casei,lactis,rham-B.lact,marisol 1 cap PO DAILY #60 caps 11/27/24 Rx 625 mg (10 billion cell) capsule (Advanced Probiotic) guaifenesin 600 mg tablet, 600 mg PO Q12 PRN Cough #30 tabs 11/27/24 Rx extended release 12 hr (Mucinex) Hospital Stay Data Consultations 11/24/24 13:45 ED Decision to Admit Stat 11/26/24 13:27 Consult Infectious Diseases Routine Diagnostic Imagining Performed 11/24/24 15:02 CT chest diagnostic wo con Urgent Reviewed imaging, laboratory and diagnostic studies. Pertinent findings as below. Initial blood culture 1 of 2 sets grew out staph epidermis, staff aureus, methicillin sensitive Streptococcus mitis Repeat blood cultures all sets showed no growth at 48 hoursWBCs 9.9, normalized Hemoglobin 13.3 stable Electrolytes all within normal range Creatinine 1.21 CRP 0.68 on the day of discharge Echocardiogram showed ejection fraction of 40 to 45%, improved from previous no valvular abnormalities, no visualized vegetation, normal right ventricular function. I refer you to the full report for details Pending Results Patient Have Any Pending Studies at Discharge: No Discharge Instructions Given to Patient (Per Discharging Provider) You will need to continue the antibiotics for 4 weeks. Follow-up with your family medicine chair to discuss whether you need a ANGELO in addition to the echocardiogram you had performed here in the hospital to rule out infection of your pacemaker. PICC line care as instructed Continue your BiPAP Recommend wearing mask when going out in public through the end of the week Home Health Attestation I certify that this patient is under my care and that I, or a physicians assistant softball coach working with me, had a face to-face encounter that meets the home health [id number] encounter requirements with this patient. The encounter with the patient was in whole, or in part, for the following medical condition, which is the primary reason for home health care (list medical condition): Instruct on how to administer IV antibiotics via PICC line I certify that, based on my findings, the following services are medically necessary home health services: My clinical findings support the need for the above services because: Skilled Nsg Assessment Skilled Nsg Instruction New Medications Further, I certify that my clinical findings support that this patient is homebound (i.e. absences from home require considerable and taxing effort and are for medical reasons or zoroastrian services or infrequently or of short duration when for other reasons) because: Certification for Home Health Services: Based on the above findings, I certify that this patient is confined to the home and needs intermittent jail care, physical therapy and/or speech therapy or continues to need occupational therapy. The patient is under my care, and I have initiated the establishment of the plan of care. This patient will be followed by a physician who will periodically review the plan of care. Total Time Total Time Spent Total Time Spent (In Minutes): 48
[2024-11-27 17:56] VITALS: PULSE 88
== END 2024-11-27 19:05 | disposition home health service (06) | DRG 871 ==
LOC: ED 11:42 → SUATTDRO 14:47 → 3E 14:47

== ENCOUNTER 2024-12-17 11:32 | Inpatient (IN) ==
[2024-12-17 12:21] LABS: Basophils # (auto) 0.02 K/uL (0.00-0.20); Basophils % (auto) 0.2 %; Eosinophils # (auto) 0.95 K/uL (0.00-0.50); Eosinophils % (auto) 9.1 %; Hematocrit (blood only) 31.9 % (42.0-52.0); Hemoglobin 11.4 g/dl (14.0-18.0); Immature Granulocytes # (auto) 0.12 K/uL (0.01-0.20); Immature Granulocytes % (auto) 1.1 %; Lymphocytes # (auto) 0.35 K/uL (1.20-3.40); Lymphocytes % (auto) 3.3 %; Mean Corpuscular Hgb Conc 35.7 g/dL (32.0-36.0); Mean Corpuscular Volume 89.6 fL (80.0-100.0); Mean Platelet Volume 9.3 fL (9.4-12.4); Monocytes # (auto) 0.32 K/uL (0.11-0.59); Monocytes % (auto) 3.1 %; Neutrophils # (auto) 8.72 K/uL (1.40-6.50); Neutrophils % (auto) 83.2 %; Platelet Count 152 K/uL (130-400); RDW Coefficient of Variation 14.2 % (11.5-14.5); RDW Standard Deviation 46.2 fL (36.4-46.3); Red Blood Count 3.56 M/uL (4.70-6.10); White Blood Count 10.48 K/ul (4.8-10.8)
--- NOTE | 2024-12-17 12:38 | XRay Report ---
XR chest 1V not portable CLINICAL HISTORY: Weakness COMPARISON STUDY: 11/24/2024 FINDINGS: Stable pacemaker. Heart size and pulmonary vasculature are normal. There is an interval rig ht-sided PICC line with the tip in the SVC. There is stable mild stranding at the left lung base. No new consolidation or pleural effusion. No pneumothorax. IMPRESSION: Interval right PICC line in good position. Otherwise stable exam. ACT 112: Negative or not required by law. Electronically signed by: Michele Cortez M.D. 12/17/2024 12:36 PM
[2024-12-17 12:40] LABS: Albumin Globulin Ratio 1.3 (0.9-2); Albumin Level 3.2 gm/dl (3.4-5.0); BUN Creatinine Ratio 26.6 (10-20); Bilirubin,Total 0.7 mg/dl (0.2-1.0); Calcium 8.1 mg/dl (8.6-10.3); Creatinine Clr Calc Pharmacy 43.7 ml/min; Globulin 2.5 gm/dl (2.5-4.0); Magnesium 2.2 mg/dl (1.7-2.4); Potassium 3.3 mmol/L (3.5-5.1); Total Protein 5.7 gm/dl (6.0-8.3)
[2024-12-17 12:46] LABS: INR 2.7 (0.9-1.1); Partial Thromboplastin Ratio 1.7; Partial Thromboplastin Time 47 Seconds (21-31); Prothrombin Time 26.9 Seconds (9.0-12.0); Troponin I High Sensitivity 25.9 pg/ml (0-20)
[2024-12-17 12:56] LABS: Thyroid Stimulating Hormone 4.316 uIu/ml (0.300-4.500)
[2024-12-17 13:17] LABS: Adenovirus PCR Not Detected (NotDetected); Bordetella parapertussis PCR Not Detected (NotDetected); Bordetella pertussis PCR Not Detected (NotDetected); Chlamydia pneumoniae PCR Not Detected (NotDetected); Coronavirus 229E PCR Not Detected (NotDetected); Coronavirus CoV-2 (COVID19)PCR Not Detected (NotDetected); Coronavirus HKU1 PCR Not Detected (NotDetected); Coronavirus NL63 PCR Not Detected (NotDetected); Coronavirus OC43PCR Not Detected (NotDetected); Human Metapneumovirus PCR Not Detected (NotDetected); Influenza A PCR Not Detected (NotDetected); Influenza B PCR Not Detected (NotDetected); Mycoplasma pneumoniae PCR Not Detected (NotDetected); Parainfluenza Virus 1 PCR Not Detected (NotDetected); Parainfluenza Virus 2 PCR Not Detected (NotDetected); Parainfluenza Virus 3 PCR Not Detected (NotDetected); Parainfluenza Virus 4 PCR Not Detected (NotDetected); Respiratory Syncytial VirusPCR Not Detected (NotDetected); Rhinovirus/Enterovirus PCR Not Detected (NotDetected)
--- NOTE | 2024-12-17 13:26 | Emergency Department Note ---
Impression & Plan Generalized weakness, ROBE (acute kidney injury), Hyponatremia, Rash, Hypokalemia ED Provider Note ED Provider Note NAME: JAYLEEN REGAN AGE:79 SEX: Male : 1945 ARRIVES VIA: EMS INFORMANT: Patient ED PROVIDER(s): Brooke Francois DO CHIEF COMPLAINT: Weakness, rash HPI: This is a 79-year-old male presents emerged department due to concern for generalized weakness. Patient has been receiving IV antibiotic infusions at home due to a bloodstream infection he was previously admitted for after having COVID. Patient states he has had worsening weakness and difficulty getting up and down out of his chair and getting around his house over the course of the last week. He also noticed an evolving rash. He states the home health nurse came today to check on him and was concerned for his condition and checked his vital signs at home and was concern for a low blood pressure. Patient states he has been eating and drinking. Denies vomiting or diarrhea. He denies any chest pain or abdominal pain. He still has a cough, but denies shortness of breath. PAST MEDICAL HISTORY:See Below PAST SURGICAL HISTORY:See Below FAMILY HISTORY:See Below SOCIAL HISTORY:See Below HOME MEDICATIONS:See Below ALLERGIES:See Below VITALS:See Below PHYSICAL EXAMINATION: GENERAL: alert, unwell appearing, well nourished, no distress, non-toxic EYE EXAM: normal conjunctiva, PERRL and EOM's grossly intact OROPHARYNX: no exudate, no erythema, lips, buccal mucosa, and tongue normal and mucous membranes are dry NECK: supple, no nuchal rigidity, no adenopathy, non-tender LUNGS: Clear to auscultation. Normal chest wall mechanics, no w/r/r HEART: no murmurs, S1 normal and S2 normal ABDOMEN: abdomen soft, non-tender, normo-active bowel sounds, no masses, no rebound or guarding. BACK: Back is symmetrical on inspection and there is no deformity, no midline tenderness, no CVA tenderness. SKIN: no bruising, petechiae noted to bilateral distal lower extremities, maculopapular erythematous blanching patchy rash noted to bilateral dorsal upper extremities as well as the trunk UPPER EXTREMITIES: upper extremities are grossly normal. FROM, nml pulses b/l. PICC noted proximal right upper extremity LOWER EXTREMITIES: No pitting edema. FROM, nml pulses b/l. NEURO EXAM: Normal sensorium, cranial nerves II-XII grossly intact, normal speech, no facial droop,nogross weakness of arms, no gross weakness of legs. Gross sensation intact. No ataxia. Vital Signs: reviewed and remarkable Differential Diagnosis: anemia, hypoglycemia, hyponatremia, hypernatremia, urinary tract infection, pneumonia, bronchitis, sepsis, gastroenteritis, medication ADR, dehydration, as well as others were considered MEDICAL DECISION MAKING: This is a 79-year-old male presents emergency department due to worsening weakness, and evolving rash. Patient with recent IV antibiotics after being found to be bacteremic following COVID infection. Patient was afebrile, mild hypotension noted initially although subsequent blood pressures were reassuring. Labs drawn and sent including cultures, IV established, EKG and chest x-ray performed at bedside interpreted by me and patient monitored on telemetry. He was started on IV fluids. Patient noted to have hyponatremia, hypokalemia, and ROBE. Patient's platelets are reassuring despite petechiae noted to bilateral lower extremities. I suspect rash noted to arms and trunk more consistent with drug reaction from the recent antibiotics. No mucous membrane involvement to suggest increased risk of Rios-Erik syndrome. Case discussed with hospitalist team additionally due to concern for persistent infection, dehydration, and potential drug reaction/side effects. Consultation(s): 1355: Discussed with Juvenal Zarate hospitalist team, for additional evaluation and management. ER Treatment Provided: See below Diagnostics Interpreted By Me: -ECG: Paced at 81, normal axis, normal QRS, prolonged QTc, nonspecific ST/T wave changes -Cardiac Monitoring: An order was placed for continuous cardiac monitoring. The monitor shows a rate of 78 with paced rhythm. -Laboratory studies: As stated above and show below. -Imaging studies: X-ray Chest: A single view study of the chest was reviewed and was negative for cardiomegaly, focal infiltrate, effusion, pulmonary edema, or wide mediastinum. PICC line noted. Triage Nursing Note Reviewed Prior/Outside Records Reviewed Past Med/Surg History Problem List (Updated 12/18/24 @ 15:17 by Brooke Francois DO) Hypokalemia (Acute) Dermatitis, drug-induced Medication induced coagulopathy Rifampin adverse reaction Rash (Acute) Hyponatremia (Acute) ROBE (acute kidney injury) (Acute) Generalized weakness (Acute) Superficial thrombophlebitis of right upper extremity (Acute) MSSA bacteremia Blood bacterial culture positive (Acute) Lightheadedness (Acute) Acute bronchitis (Acute) COVID-19 (Acute) Spondylolisthesis, lumbar region Sleep disorder, circadian, delayed sleep phase type Trigger finger of left hand Pure hypercholesterolemia (Acute) Benign neoplasm of colon (Acute) Prediabetes (Acute) Peripheral neuropathy (Acute) Periodic limb movement disorder (Acute) Obstructive sleep apnea (Acute) Hiatal hernia with GERD and esophagitis (Acute) GERD without esophagitis (Acute) CAD (coronary artery disease) (Acute) ICD (implantable cardioverter-defibrillator), biventricular, in situ DDD (degenerative disc disease), lumbar Lumbar scoliosis Lumbar stenosis with neurogenic claudication Medical History Non-ST elevation [place] (NSTEMI) Arthritis of carpometacarpal (CMC) joint of left thumb Right lumbar radiculopathy Systolic CHF, chronic Nonischemic cardiomyopathy Echo 02/2019 showed EF 30-35%, felt secondary to LBBB. No improvement with medical therapy. S/P pacer/ICD implantation 05/2020. Grimaldo esophagus IVCD (intraventricular conduction defect) Low testosterone Paroxysmal supraventricular tachycardia Elevated troponin Leukocytosis LBBB (left bundle branch block) CAD (coronary artery disease) Mild non-obstructive CAD per 2018 cardiac cath Zenkers diverticulum History of pacemaker Pacer/ICD (Implanted 05/2020), [employer]> follows with Dr. Kong> will be getting checked today (04/16/22) per pt Osteoarthritis Chronic back pain Overactive bladder Hiatal hernia GERD (gastroesophageal reflux disease) Hypertension Hyperlipidemia Sleep apnea BIPAP Surgical History S/P hernia surgery (06/24/14) Laparoscopic bilateral inguinal hernia repair, History of umbilical hernia repair (10/27/12) Umbilical hernia repair History of repair of rotator cuff right History of revision of total replacement of left knee joint x2 History of cataract surgery R/L History of implantable cardioverter-defibrillator (ICD) placement 05/2020 Hx of surgical procedure Epididymectomy Hx of vasectomy History of cardiac cath 2018 > no stents History of esophageal dilatation History of total knee replacement R/L History of laminectomy Lumbar History of colonoscopy History of esophagogastroduodenoscopy (EGD) History of tooth extraction History of tonsillectomy Family History Father Heart disease Mother Heart disease Other No pertinent family history Social History Smoking Status: Never smoker Second Hand Exposure: No; Do You Dip or Chew Tobacco: No; Hx Alcohol Use: Yes Alcohol type: beer Hx Substance Use: No Preferred Language: Setswana Communication Ability: Effective Visual Impairment: No Limitations Applied Biology Professor Required: No Beliefs That Will Affect Care: None Current Living Situation: Alone current occupational status: employed 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 Feels Safe at Home: Yes Assistive Devices: Cane, CPAP and Walker Allergies Allergies Allergy/AdvReac Type Severity Reaction Status Date / Time cefazolin Allergy Mild Rash Verified 12/17/24 15:22 rifampin Allergy Mild Rash Verified 12/17/24 15:22 benzonatate Allergy Swelling Verified 11/24/24 14:40 [From Adamaris Lazcano] of Lip/Tongue/Throat hazelnut AdvReac Mild Throat Verified 11/24/24 14:40 numbness levofloxacin AdvReac Unknown Achilles Verified 11/24/24 14:40 heel pain (rxn with oral, tolerated IV) Home Meds Home Medications Medication Instructions Recorded Confirmed tolterodine 4 mg capsule,extended 2 mg PO HS 11/20/19 12/17/24 release 24 hr pantoprazole 40 mg tablet,delayed 40 mg PO QAM 03/28/20 12/17/24 release cyanocobalamin (vitamin B-12) 1,000 mcg IM UD 04/08/20 12/17/24 1,000 mcg/mL injection kit amitriptyline 50 mg tablet 50 mg PO QPM 12/08/20 12/17/24 melatonin 3 mg tablet 3 mg PO HS 06/04/21 12/17/24 atorvastatin 80 mg tablet (Lipitor) 40 mg PO DAILY #90 tabs 05/21/24 12/17/24 mirabegron 50 mg tablet,extended 25 mg PO HS 11/24/24 12/17/24 release 24 hr sacubitril 97 mg-valsartan 103 mg 0.5 tab PO BID 11/24/24 12/17/24 tablet (Entresto) tramadol 50 mg tablet 50 mg PO Q6H PRN Pain 11/24/24 12/17/24 triamcinolone acetonide 0.1 % 1 applic topical DAILY 11/24/24 12/17/24 lotion Previous Rx's Medication Instructions Recorded BiPap Machine #1 ea 06/23/20 albuterol sulfate 90 mcg/actuation 2 inh inhalation Q6H PRN shortness 11/23/24 aerosol inhaler of breath or wheezing #8.5 grams L.acidop,casei,lactis,rham-B.lact,marisol 1 cap PO DAILY #60 caps 11/27/24 625 mg (10 billion cell) capsule (Advanced Probiotic) cefazolin 2 gram intravenous 2 g IV Q8H 11/27/24 solution famotidine 20 mg tablet (Pepcid) 20 mg PO BID 6 weeks #84 tabs 11/27/24 guaifenesin 600 mg tablet, 600 mg PO Q12 PRN Cough #30 tabs 11/27/24 extended release 12 hr (Mucinex) rifampin 300 mg capsule 300 mg PO Q8H 6 weeks #126 caps 11/27/24 enoxaparin 40 mg/0.4 mL 40 mg (0.4 mL) subcut DAILY #13 12/09/24 subcutaneous syringe (Lovenox) syringes Results & Data (ED) Vital Signs Vital Signs - 24 hr 12/17/24 11:49 12/17/24 12:44 12/17/24 12:46 Temperature 36.7 C Temperature Source Temporal Artery Scan Pulse Rate 78 72 71 Pulse Rate [Finger] Respiratory Rate 16 23 Respiratory Effort / Characteristics Non-Labored Respiratory Depth Normal Blood Pressure 93/62 L 109/79 Blood Pressure [Left Arm] Blood Pressure Mean 72 84 Blood Pressure Mean [Left Arm] Blood Pressure Position Sitting Pulse Oximetry 99 97 Oxygen Delivery Method Room Air Sepsis Recent Fever Within 48 Hours Yes Sepsis New/Unexplained Change in Mental Status N/A Sepsis Action Taken by Nursing No Action Required 12/17/24 13:21 Temperature Temperature Source Pulse Rate Pulse Rate [Finger] 70 Respiratory Rate 20 Respiratory Effort / Characteristics Respiratory Depth Blood Pressure Blood Pressure [Left Arm] 109/79 Blood Pressure Mean Blood Pressure Mean [Left Arm] 89 Blood Pressure Position Pulse Oximetry Oxygen Delivery Method Sepsis Recent Fever Within 48 Hours Sepsis New/Unexplained Change in Mental Status Sepsis Action Taken by Nursing Laboratory Data 12/18/24 03:36 12/18/24 03:36 Lab Results 12/17/24 12/17/24 12/17/24 Range/Units 12:03 12:04 12:30 WBC 10.48 (4.8-10.8) K/ul RBC 3.56 L (4.70-6.10) M/uL Hgb 11.4 L (14.0-18.0) g/dl Hct 31.9 L (42.0-52.0) % MCV 89.6 (80.0-100.0) fL MCH 32.0 (25.0-34.0) pg MCHC 35.7 (32.0-36.0) g/dL RDW Std Deviation 46.2 (36.4-46.3) fL RDW Coeff of Joshua 14.2 (11.5-14.5) % Plt Count 152 (130-400) K/uL MPV 9.3 L (9.4-12.4) fL Immature Gran % (Auto) 1.1 % Neut % (Auto) 83.2 % Lymph % (Auto) 3.3 % Barbour % (Auto) 3.1 % Eos % (Auto) 9.1 % Baso % (Auto) 0.2 % Neut # (Auto) 8.72 H (1.40-6.50) K/uL Lymph # (Auto) 0.35 L (1.20-3.40) K/uL Barbour # (Auto) 0.32 (0.11-0.59) K/uL Eos # (Auto) 0.95 H (0.00-0.50) K/uL Baso # (Auto) 0.02 (0.00-0.20) K/uL Immature Gran # (Auto) 0.12 (0.01-0.20) K/uL Polychromasia 1+ Acanthocytes (Spur) 2+ Peripher Smr Path Cons ESR 26 H (0-20) mm/hr PT 26.9 H (9.0-12.0) Seconds INR 2.7 H (0.9-1.1) APTT 47 H (21-31) Seconds PTT Ratio 1.7 Sodium 125 L (136-145) mmol/L Potassium 3.3 L (3.5-5.1) mmol/L Chloride 95 L (98-107) mmol/L Carbon Dioxide 19 L (21-32) mmol/L Anion Gap 11 (3-11) BUN 47 H (6-23) mg/dl Creatinine 1.77 H (0.6-1.4) mg/dl Est Cr Clr Drug Dosing 43.7 ml/min eGFR 38.59 BUN/Creatinine Ratio 26.6 H (10-20) Glucose 103 H (70-99(Fasting)) mg/dl Lactate 1.5 (0.4-2.0) mmol/L Calcium 8.1 L (8.6-10.3) mg/dl Phosphorus 2.1 L (2.5-4.9) mg/dl Magnesium 2.2 (1.7-2.4) mg/dl Total Bilirubin 0.7 (0.2-1.0) mg/dl AST 40 H (13-39) U/L ALT 6 L (7-52) U/L Alkaline Phosphatase 48 (34-104) U/L Troponin I High Sens 25.9 H (0-20) pg/ml Total Protein 5.7 L (6.0-8.3) gm/dl Albumin 3.2 L (3.4-5.0) gm/dl Globulin 2.5 (2.5-4.0) gm/dl Albumin/Globulin Ratio 1.3 (0.9-2) Procalcitonin 2.11 H (0-0.5) ng/ml TSH 4.316 (0.300-4.500) uIu/ml Adenovirus (PCR) Not Detected (NotDetected) B. pertussis DNA (PCR) Not Detected (NotDetected) B.parapertussis DNA PCR Not Detected (NotDetected) C. pneumoniae DNA (PCR) Not Detected (NotDetected) Coronavirus OC43 (PCR) Not Detected (NotDetected) Coronavirus HKU1 (PCR) Not Detected (NotDetected) Coronavirus 229E (PCR) Not Detected (NotDetected) SARS-CoV-2 (PCR) Not Detected (NotDetected) Coronavirus NL63 (PCR) Not Detected (NotDetected) Human Metapneumovir PCR Not Detected (NotDetected) Influenza Type A (PCR) Not Detected (NotDetected) Influenza Type B (PCR) Not Detected (NotDetected) M. pneumoniae (PCR) Not Detected (NotDetected) Parainfluenza 1 (PCR) Not Detected (NotDetected) Parainfluenza 2 (PCR) Not Detected (NotDetected) Parainfluenza 3 (PCR) Not Detected (NotDetected) Parainfluenza 4 (PCR) Not Detected (NotDetected) RSV (PCR) Not Detected (NotDetected) Entero/Rhino (PCR) Not Detected (NotDetected) Administered Medications Acetaminophen (Acetaminophen 325 Mg Tab) 650 mg PO Q4H PRN PRN Reason: Pain or Fever Stop: 01/16/25 13:57 Last Admin: 12/18/24 03:53 Dose: 650 mg Documented By: TY Amitriptyline HCl (Amitriptyline Hcl 50 Mg Tab) 50 mg PO QPM [facility] Stop: 01/16/25 20:59 Last Admin: 12/17/24 21:35 Dose: 50 mg Documented By: TY Enoxaparin Sodium (Enoxaparin Inj 40 Mg/0.4 Ml Syr) 40 mg SQ QAM [facility] Stop: 01/17/25 08:59 Last Admin: 12/18/24 08:17 Dose: 40 mg Documented By: DONNELL Famotidine (Famotidine 20 Mg Tab) 20 mg PO DAILY [facility] Stop: 01/17/25 08:59 Last Admin: 12/18/24 08:16 Dose: 20 mg Documented By: OVince Daptomycin 475 mg/ Syringe 9.5 mls @ 4.75 mls/min IV Q24H [facility]; Protocol Stop: 01/01/25 09:14 Last Admin: 12/18/24 10:37 Dose: 4.75 mls/min Documented By: OO Sodium Phosphate 30 mmol/ (Dextrose) 510 mls @ 88 mls/hr IV ONE ONE Stop: 12/18/24 17:02 Last Admin: 12/18/24 13:45 Dose: 88 mls/hr Documented By: OO Magnesium Sulfate/Dextrose (Magnesium Sulfate / D5w) 1 gm in 100 mls @ 50 mls/hr IV Q2H [facility] Stop: 12/18/24 17:14 Last Admin: 12/18/24 14:00 Dose: 50 mls/hr Documented By: OO Lactobacillus Acidophilus (Advanced Probiotic 625 Mg Capsule) 1,250 mg PO DAILY [facility] Stop: 01/17/25 08:59 Last Admin: 12/18/24 08:16 Dose: 1,250 mg Documented By: DONNELL Melatonin (Melatonin 3 Mg Tab) 3 mg PO [facility] Stop: 01/16/25 20:59 Last Admin: 12/17/24 21:35 Dose: 3 mg Documented By: TY Menthol (Cough Drop (Sugar Free) Naomi 24 Naomi/1 Box) 1 naomi BUCCAL TID PRN PRN Reason: Sore Throat Stop: 01/16/25 20:07 Last Admin: 12/17/24 21:34 Dose: 1 naomi Documented By: TY Oxybutynin Chloride (Oxybutynin Chloride Xl 5 Mg Tabcr) 5 mg PO [facility] Stop: 01/16/25 20:59 Last Admin: 12/17/24 21:35 Dose: 5 mg Documented By: TY Pantoprazole Sodium (Pantoprazole 40 Mg Tab) 40 [facility] [place] [place] Stop: 01/17/25 08:59 Last Admin: 12/18/24 10:10 Dose: 40 mg Documented By: DONNELL Potassium Phosphate (Pot Phosphate Monobasic W/ Sod Tab) 1 tab PO QID [facility] Stop: 12/19/24 20:59 Last Admin: 12/18/24 13:46 Dose: 1 tab Documented By: Admin: 12/18/24 08:17 Dose: 1 tab Documented By: Admin: 12/17/24 21:35 Dose: 1 tab Documented By: TY Vibegron (Vibegron 75 Mg Tab) 75 mg PO [facility] Stop: 01/16/25 20:59 Last Admin: 12/17/24 21:35 Dose: 75 mg Documented By: TY Discontinued Medications Sodium Chloride (Nss) 1,000 mls @ 125 mls/hr IV .Q8H [facility] Stop: 12/18/24 13:14 Last Infusion: 12/17/24 17:37 Dose: Infused Documented By: Admin: 12/17/24 13:34 Dose: 125 mls/hr Documented By: JARROD Piperacillin Sod/Tazobactam Sod (Zosyn) 4.5 gm in 100 mls @ 200 mls/hr IV NOW ONE; Protocol Stop: 12/17/24 14:13 Last Infusion: 12/17/24 15:25 Dose: Infused Documented By: Admin: 12/17/24 14:50 Dose: 200 mls/hr Documented By: ALEC Potassium Chloride/Sodium Chloride (Normal Saline W/20 Meq Kcl) 20 meq in 1,000 mls @ 80 mls/hr IV .[id number] ALF Stop: 12/18/24 04:59 Last Admin: 12/18/24 06:15 Dose: 80 mls/hr Documented By: Infusion: 12/18/24 06:07 Dose: Infused Documented By: Admin: 12/17/24 17:37 Dose: 80 mls/hr Documented By: OO Sodium Chloride (Nss) 1,000 mls @ 80 mls/hr IV .[id number] ALF Stop: 12/18/24 16:59 Last Admin: 12/17/24 17:54 Dose: Not Given Documented By: OO Piperacillin Sod/Tazobactam Sod (Zosyn) 4.5 gm in 100 mls @ 25 mls/hr IV Q8H [facility]; Protocol Stop: 12/31/24 19:59 Last Infusion: 12/18/24 08:12 Dose: Infused Documented By: Admin: 12/18/24 03:53 Dose: 25 mls/hr Documented By: Infusion: 12/18/24 01:34 Dose: Infused Documented By: Admin: 12/17/24 21:34 Dose: 25 mls/hr Documented By: MMChin Sodium Chloride (Nss) 1,000 mls @ 999 mls/hr IV .Q1H1M ONE Stop: 12/18/24 09:28 Last Infusion: 12/18/24 10:07 Dose: Infused Documented By: Admin: 12/18/24 08:59 Dose: 999 mls/hr Documented By: OO Calcium Gluconate () 1,000 mg in 60 mls @ 240 mls/hr IV Q15M ALF Stop: 12/18/24 11:44 Last Infusion: 12/18/24 13:47 Dose: Infused Documented By: Admin: 12/18/24 12:29 Dose: 240 mls/hr Documented By: Infusion: 12/18/24 12:27 Dose: Infused Documented By: Admin: 12/18/24 12:12 Dose: 240 mls/hr Documented By: DONNELL Potassium Chloride (Potassium Chloride Crtab 20 Meq Tabcr) 40 meq PO NOW STA Stop: 12/17/24 14:06 Last Admin: 12/17/24 14:51 Dose: 40 meq Documented By: ALEC Imaging Data Radiologist's Impression: Chest X-Ray 12/17/24 11:56 XR chest 1V not portable CLINICAL HISTORY: Weakness COMPARISON STUDY: 11/24/2024 FINDINGS: Stable pacemaker. Heart size and pulmonary vasculature are normal. There is an interval right-sided PICC line with the tip in the SVC. There is stable mild stranding at the left lung base. No new consolidation or pleural effusion. No pneumothorax. IMPRESSION: Interval right PICC line in good position. Otherwise stable exam. ACT 112: Negative or not required by law. Electronically signed by: Michele Cortez M.D. 12/17/2024 12:36 PM Discharge Plan Visit Data Chief Complaint: Weakness Stated Complaint: HYPOTENSION, LOW OX ED Provider: Brooke Francois Discharge Problem: Generalized weakness, ROBE (acute kidney injury), Hyponatremia, Rash, Hypokalemia
[2024-12-17] MEDS: SODIUM CHLORIDE 0.9% 1,000 ML IV SCH ×2 (13:34→17:54)
--- NOTE | 2024-12-17 13:51 | Electrocardiogram Report ---
Test Reason : Blood Pressure : */* mmHG Vent. Rate : 81 BPM Atrial Rate : 81 BPM P-R Int : 194 ms QRS Dur : 118 ms QT Int : 422 ms P-R-T Axes : 76 76 63 degrees QTcB Int : 490 ms Atrial-sensed ventricular-paced rhythm with Premature atrial complexes with Aberrant conduction Abnormal ECG When compared with ECG of 24-Nov-2024 12:18, Electronic ventricular pacemaker has replaced Sinus rhythm Confirmed by Elmo Rivera ([id number]) on 12/17/2024 1:51:05 PM Referred By: Confirmed By: Elmo Rivera
[2024-12-17] MEDS ORDERED: POLYETHYLENE (MIRALAX) 17 GM PACK PO PRN (13:58)
[2024-12-17] MEDS ORDERED: ONDANSETRON INJ 2 MG/ML 2 ML VIAL IV PRN (13:58)
[2024-12-17] MEDS: PIPERACILLIN/TAZOBACTAM 4.5 GM/100 ML BAG IV ONE (14:50)
[2024-12-17] MEDS: POTASSIUM CHLORIDE CRTAB 20 MEQ TABCR PO STA (14:51)
--- NOTE | 2024-12-17 15:07 | History & Physical Report ---
Date of Service December 17, 2024 Assessment & Plan (1) Generalized weakness: (2) ROBE (acute kidney injury): (3) Hyponatremia: (4) Rash: (5) MSSA bacteremia: Plan This is a 79-year-old male who has significant past medical history of nonischemic cardiomyopathy, EF 40 to 45%, biventricular AICD, HTN, HLD, prediabetes, history of PSVT, Zenker's diverticulum, GERD, Grimaldo's esophagus, B12 deficiency, gout and testosterone deficiency who presents to ED secondary to extreme weakness and fatigue x 1 week. Patient recently hospitalized 11/24 to 11/27 secondary to MSSA bacteremia, Staph epidermidis and Streptococcus mitis, unclear source, infectious disease recommended IV Ancef and oral rifampin, PICC line in place. On 12/13 patient was seen in ED and diagnosed with distal SVT of the right cephalic vein. He was started on subcu Lovenox. Over the last week patient has had significant generalized weakness, loose stool and profound fatigue. It takes him approximately 5 minutes to get up from the seated position. At baseline patient lives alone and typically walks 30 minutes a day. Patient with overall poor intake and now a diffuse macular papular erythematous rash that is not itchy or painful on his upper extremities and trunk. Lower extremities revealed a more petechial type rash. Pt now being admitted with ROBE, profound weakness, Electrolyte derangements and concerning for ongoing weakness vs deconditioning from MSSA bacteremia #Generalized Weakness #ROBE #Chronic Hyponatremia admit to tele urine osm/serum osm, urine na, electrolytes gentle IVF NSS 80cc/hr given hx of HFrEF suspect in setting of loose stool/poor intake hold/avoid nephrotoxic meds including entresto check stool culture Na baseline usually > 130, now 125, will do approp urine studies and rehydrate #Diffuse maculopapular rash, sparing palms/soles, mucous membranes #Recent MSSA, Staph epidermidis and Streptococcus mitis bacteremia suspect ADR to cefazolin or rifampin will hold above antibiotics and start on IV Zosyn which she had tolerated before consult infectious disease will also consult cardiology for consideration for ANGELO patient with profound weakness, elevated procalcitonin and concern for ongoing infection we will repeat blood cultures, also obtain blood cultures from PICC line consider removal of PICC if rash doesn't improve obtain esr/crp, anaplasma, lyme #Coagulopathy #Petechial rash of lower extremities INR 2.7, pt currently only on lovenox SQ at prophylactic dose obtain peripheral smear, DIC lab work up LFTS/PLT normal repeat INR in a.m. Pts DDimer is 1020, no clinical susp for PE as it is part of DIC work up. will obtain venous duplex of lower extremities, unable to perform CTA given creatinine today; however again low susp as this is part of the DIC work up Suspect Rash is ADR from cefazolin or rifampin, less likely from lovenox as he has been on this before #Nonischemic CAKE STRIPPER #BiV AICD in Place #HTN/HLD #Elevated trop echo 11/26 EF 40-45% global hypokinesis follows [facility] cards daily weights, I and O hold entresto given ROBE no CP, ecg w/o ischemic change, cards consulted, will cycle trops #Hypokalemia: replete #CHANDRA: Bipap at HS #DVT ppx: SQ Lovenox FULL CODE PCP: Trevon Dispo: admit to tele for ongoing IV antibiotics and further infectious work up, will consult PT/OT I spent a total of 90 minutes coordinating, documenting and providing care for this patient excluding time spent in the performance of separately billed services or time spent by another provider/QHP. Pt was seen and examined in collaboration with Dr. Angel, please see addendum History of Present Illness Chief Complaint: Extreme weakness and fatigue x 1 week. Primary Care Provider: Giancarlo Lester MD This is a 79-year-old male who has significant past medical history of nonischemic cardiomyopathy, EF 40 to 45%, biventricular AICD, HTN, HLD, prediabetes, history of PSVT, Zenker's diverticulum, GERD, Grimaldo's esophagus, B12 deficiency, gout and testosterone deficiency who presents to ED secondary to extreme weakness and fatigue x 1 week. Of significance patient was recently seen in ED on 11/23. He tested positive for COVID and infectious workup revealed MSSA bacteremia. He was called back to return to ED for admission due to positive blood cultures. Initial blood culture identified methicillin sensitive Staph aureus as well as staph epidermis and Streptococcus mitis. Repeat cultures on 11/24 were negative. He was initially started on IV Zosyn. Infectious disease was consulted who recommended IV cefazolin along with oral rifampin. There was no clear source for his bacteremia. Transthoracic echocardiogram showed improvement in his ejection fraction but otherwise no evidence of vegetation or infection of the pacemaker wires. A PICC line was placed and he was discharged on home infusion IV antibiotic therapy. He was scheduled to see cardiology as an outpatient to obtain a ANGELO. Since discharge she has not felt well. He reports coming back to the ED on 12/13 secondary to swelling and redness in his right hand. He was diagnosed with a superficial vein thrombus and started on subcutaneous Lovenox once daily. He reports since starting this injection he developed a diffuse full body rash. He denies any pain or itching with the rash. He also has a different rash to his legs, and is unsure when this started. The rash spares his palms and soles. He generally feels significantly weak. It takes him approximately 5 minutes to get up from a seated position. At baseline he lives alone and his son lives across the street from him. He previously was walking 30 minutes a day and currently has difficulty getting out of a chair. He overall has a poor appetite. He has been moving his bowels frequently and they are loose. He also reports foul-smelling urine and orange color due to his antibiotic. He denies any documented fever, chills, sweats, lightheadedness, dizziness, chest pain, shortness of breath, nausea, vomiting, abdominal pain, hematuria, melena, hematochezia. He has been taking his medications as prescribed. History obtained from outpatient chart review, discussion with ED provider and patient. Allergies Allergy/AdvReac Type Severity Reaction Status Date / Time cefazolin Allergy Mild Rash Verified 12/17/24 15:22 rifampin Allergy Mild Rash Verified 12/17/24 15:22 benzonatate Allergy Swelling Verified 11/24/24 14:40 [From Adamaris Lazcano] of Lip/Tongue/Throat hazelnut AdvReac Mild Throat Verified 11/24/24 14:40 numbness levofloxacin AdvReac Unknown Achilles Verified 11/24/24 14:40 heel pain (rxn with oral, tolerated IV) Home Medications Medication Instructions Recorded Confirmed Type tolterodine 4 mg capsule,extended 2 mg PO HS 11/20/19 12/17/24 History release 24 hr pantoprazole 40 mg tablet,delayed 40 mg PO QAM 03/28/20 12/17/24 History release cyanocobalamin (vitamin B-12) 1,000 mcg IM UD 04/08/20 12/17/24 History 1,000 mcg/mL injection kit BiPap Machine #1 ea 06/23/20 12/17/24 Rx amitriptyline 50 mg tablet 50 mg PO QPM 12/08/20 12/17/24 History melatonin 3 mg tablet 3 mg PO HS 06/04/21 12/17/24 History atorvastatin 80 mg tablet (Lipitor) 40 mg PO DAILY #90 tabs 05/21/24 12/17/24 History albuterol sulfate 90 mcg/actuation 2 inh inhalation Q6H PRN shortness 11/23/24 12/17/24 Rx aerosol inhaler of breath or wheezing #8.5 grams mirabegron 50 mg tablet,extended 25 mg PO HS 11/24/24 12/17/24 History release 24 hr sacubitril 97 mg-valsartan 103 mg 0.5 tab PO BID 11/24/24 12/17/24 History tablet (Entresto) tramadol 50 mg tablet 50 mg PO Q6H PRN Pain 11/24/24 12/17/24 History triamcinolone acetonide 0.1 % 1 applic topical DAILY 11/24/24 12/17/24 History lotion L.acidop,casei,lactis,rham-B.lact,marisol 1 cap PO DAILY #60 caps 11/27/24 12/17/24 Rx 625 mg (10 billion cell) capsule (Advanced Probiotic) cefazolin 2 gram intravenous 2 g IV Q8H 11/27/24 12/17/24 Rx solution famotidine 20 mg tablet (Pepcid) 20 mg PO BID 6 weeks #84 tabs 11/27/24 12/17/24 Rx guaifenesin 600 mg tablet, 600 mg PO Q12 PRN Cough #30 tabs 11/27/24 12/17/24 Rx extended release 12 hr (Mucinex) rifampin 300 mg capsule 300 mg PO Q8H 6 weeks #126 caps 11/27/24 12/17/24 Rx enoxaparin 40 mg/0.4 mL 40 mg (0.4 mL) subcut DAILY #13 12/09/24 12/17/24 Rx subcutaneous syringe (Lovenox) syringes Past Med/Surg History Problem List (Updated 12/18/24 @ 11:04 by Jesse Guevara, ) Dermatitis, drug-induced Medication induced coagulopathy Rifampin adverse reaction Rash (Acute) Hyponatremia (Acute) ROBE (acute kidney injury) (Acute) Generalized weakness (Acute) Superficial thrombophlebitis of right upper extremity (Acute) MSSA bacteremia Blood bacterial culture positive (Acute) Lightheadedness (Acute) Acute bronchitis (Acute) COVID-19 (Acute) Spondylolisthesis, lumbar region Sleep disorder, circadian, delayed sleep phase type Trigger finger of left hand Pure hypercholesterolemia (Acute) Benign neoplasm of colon (Acute) Prediabetes (Acute) Peripheral neuropathy (Acute) Periodic limb movement disorder (Acute) Obstructive sleep apnea (Acute) Hiatal hernia with GERD and esophagitis (Acute) GERD without esophagitis (Acute) CAD (coronary artery disease) (Acute) ICD (implantable cardioverter-defibrillator), biventricular, in situ DDD (degenerative disc disease), lumbar Lumbar scoliosis Lumbar stenosis with neurogenic claudication Medical History Non-ST elevation NV (NSTEMI) Arthritis of carpometacarpal (CMC) joint of left thumb Right lumbar radiculopathy Systolic CHF, chronic Nonischemic cardiomyopathy Echo 02/2019 showed EF 30-35%, felt secondary to LBBB. No improvement with medical therapy. S/P pacer/ICD implantation 05/2020. Grimaldo esophagus IVCD (intraventricular conduction defect) Low testosterone Paroxysmal supraventricular tachycardia Elevated troponin Leukocytosis LBBB (left bundle branch block) CAD (coronary artery disease) Mild non-obstructive CAD per 2018 cardiac cath Zenkers diverticulum History of pacemaker Pacer/ICD (Implanted 05/2020), [employer]> follows with Dr. Kong> will be getting checked today (04/16/22) per pt Osteoarthritis Chronic back pain Overactive bladder Hiatal hernia GERD (gastroesophageal reflux disease) Hypertension Hyperlipidemia Sleep apnea BIPAP Surgical History S/P hernia surgery (06/24/14) Laparoscopic bilateral inguinal hernia repair, History of umbilical hernia repair (10/27/12) Umbilical hernia repair History of repair of rotator cuff right History of revision of total replacement of left knee joint x2 History of cataract surgery R/L History of implantable cardioverter-defibrillator (ICD) placement 05/2020 Hx of surgical procedure Epididymectomy Hx of vasectomy History of cardiac cath 2018 > no stents History of esophageal dilatation History of total knee replacement R/L History of laminectomy Lumbar History of colonoscopy History of esophagogastroduodenoscopy (EGD) History of tooth extraction History of tonsillectomy Family History Father Heart disease Mother Heart disease Other No pertinent family history Social History Smoking Status: Never smoker Second Hand Exposure: No; Do You Dip or Chew Tobacco: No; Hx Alcohol Use: Yes Alcohol type: beer Hx Substance Use: No Preferred Language: Nicaraguan Communication Ability: Effective Visual Impairment: No Limitations 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 Required: No Beliefs That Will Affect Care: None Current Living Situation: Alone current occupational status: employed 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 Normal insp/exp effort, no accessory muscle use Cardiovascular: RRR, no murmur, no edema Vessels: no JVD or carotid bruit Chest: normal inspection of chest, RUE PICC line in place, Abdomen: normal bowel sounds, soft, nontender, no hepatosplenomegaly Musculoskeletal: no cyanosis or clubbing, extremities motor strength 4/5 Skin: +diffuse macularpapular rash on upper extremities/trunk, legs with diffuse petechial rash. Spares palms/soles/mucous membranes, warm and dry normal turgor Neurologic: PERRL, EOMI, accommodation nl, no face palsy, no dysarthria CN's II-XI intact bilaterally and moves all extremities Psychiatric: A+Ox3, euthymic affect Results & Data Results & Data Vital Signs (Past 12 Hours) Vital Signs Temp Pulse Pulse Resp BP BP Pulse Ox 12/17/24 14:59 79 20 109/53 L 97 12/17/24 13:21 70 20 109/79 12/17/24 12:46 71 23 109/79 97 12/17/24 12:44 72 12/17/24 11:49 36.7 C 78 16 93/62 L 99 O2 Del Method 12/17/24 14:59 Room Air 12/17/24 13:21 12/17/24 12:46 12/17/24 12:44 12/17/24 11:49 Room Air Laboratory Results I have independently reviewed and interpreted patient's admitting labs including CBC, CMP, PTT, PT/INR, mag and troponin. Diagnostic Findings Chest X-Ray 12/17/24 11:56 XR chest 1V not portable CLINICAL HISTORY: Weakness COMPARISON STUDY: 11/24/2024 FINDINGS: Stable pacemaker. Heart size and pulmonary vasculature are normal. There is an interval right-sided PICC line with the tip in the SVC. There is stable mild stranding at the left lung base. No new consolidation or pleural effusion. No pneumothorax. IMPRESSION: Interval right PICC line in good position. Otherwise stable exam. ACT 112: Negative or not required by law. Electronically signed by: Michele Cortez M.D. 12/17/2024 12:36 PM Medications Administered Medication List Sodium Chloride (Nss) 1,000 mls @ 125 mls/hr IV .Q8H [facility] Stop: 12/18/24 13:14 Last Admin: 12/17/24 13:34 Dose: 125 mls/hr Documented By: JW Discontinued Medications Piperacillin Sod/Tazobactam Sod (Zosyn) 4.5 gm in 100 mls @ 200 mls/hr IV NOW ONE; Protocol Stop: 12/17/24 14:13 Last Admin: 12/17/24 14:50 Dose: 200 mls/hr Documented By: ALEC Potassium Chloride (Potassium Chloride Crtab 20 Meq Tabcr) 40 meq PO NOW STA Stop: 12/17/24 14:06 Last Admin: 12/17/24 14:51 Dose: 40 meq Documented By: ALEC ECG Additional Comments: I have independently reviewed and interpreted patient's admitting EKG which revealed: 81 a sensed vpaced COVID-19 Results Results COVID-19 Adm Lab Results: RBC 3.12 M/uL (4.70-6.10) L 12/18/24 WBC 7.44 K/ul (4.8-10.8) 12/18/24 Hgb 10.1 g/dl (14.0-18.0) L 12/18/24 Hct 27.8 % (42.0-52.0) L 12/18/24 Plt Count 133 K/uL (130-400) 12/18/24 Neutrophils (%) (Auto) 73.9 % 12/18/24 Lymphocytes (%) (Auto) 6.2 % 12/18/24 Monocytes # (Auto) 0.44 K/uL (0.11-0.59) 12/18/24 Eosinophils # (Auto) 0.93 K/uL (0.00-0.50) H 12/18/24 Immature Granulocyte % (Auto) 1.2 % 12/18/24 Neutrophils # (Auto) 5.50 K/uL (1.40-6.50) 12/18/24 Lymphocytes # (Auto) 0.46 K/uL (1.20-3.40) L 12/18/24 Monocytes # (Auto) 0.44 K/uL (0.11-0.59) 12/18/24 Eosinophils # (Auto) 0.93 K/uL (0.00-0.50) H 12/18/24 Basophils # (Auto) 0.02 K/uL (0.00-0.20) 12/18/24 Immature Granulocyte # (Auto) 0.09 K/uL (0.01-0.20) 5 Polychromasia 1+ 12/17/24 Acanthocytes 2+ 12/17/24 Na 125 mmol/L (136-145) L 12/18/24 K 3.8 mmol/L (3.5-5.1) 12/18/24 Cl 99 mmol/L (98-107) 12/18/24 CO2 19 mmol/L (21-32) L 12/18/24 Anion Gap 7 (3-11) 12/18/24 BUN 42 mg/dl (6-23) H 12/18/24 Creatinine 1.70 mg/dl (0.6-1.4) H 12/18/24 BUN/Creatinine Ratio 24.7 (10-20) H 12/18/24 Glucose Level 116 mg/dl (70-99(Fasting)) H 12/18/24 Ca 6.7 mg/dl (8.6-10.3) L 12/18/24 Phosphorus Level 1.6 mg/dl (2.5-4.9) L 12/18/24 Total Bilirubin 0.4 mg/dl (0.2-1.0) 12/18/24 AST/SGOT 33 U/L (13-39) 12/18/24 ALT/SGPT 6 U/L (7-52) L 12/18/24 Alkaline Phosphatase 48 U/L (34-104) 12/18/24 Total Protein 4.9 gm/dl (6.0-8.3) L 12/18/24 Albumin 2.7 gm/dl (3.4-5.0) L 12/18/24 Globulin 2.2 gm/dl (2.5-4.0) L 12/18/24 Albumin/Globulin Ratio 1.2 (0.9-2) 12/18/24 LDH 274 U/L (86-244) H 12/17/24 CRP 24.13 mg/dl (0-0.5) H 12/17/24 Procalcitonin 2.11 ng/ml (0-0.5) H 12/17/24 D-Dimer 1020 ug/L FEU (0-500) H* 12/17/24 Fibrinogen 558 mg/dl (184-400) H 12/17/24 PTT 47 Seconds (21-31) H 12/17/24 INR 3.0 (0.9-1.1) H 12/18/24 Adenovirus (PCR) Not Detected (NotDetected) 12/17/24 B. parapertussis DNA (PCR) Not Detected (NotDetected) 02/05 B. pertussis DNA (PCR) Not Detected (NotDetected) 12/17/24 C. pneumoniae DNA (PCR) Not Detected (NotDetected) 5 Coronavirus Type OC43 (PCR) Not Detected (NotDetected) 02/05 Coronavirus Type HKU1 (PCR) Not Detected (NotDetected) 02/05 Coronavirus Type 229E (PCR) Not Detected (NotDetected) 02/05 COVID-19 PCR Not Detected (NotDetected) 12/17/24 Coronavirus Type NL63 (PCR) Not Detected (NotDetected) 02/05 Human Metapneumovirus (PCR) Not Detected (NotDetected) 02/05 Influenza Virus Type A (PCR) Not Detected (NotDetected) Influenza Virus Type B (PCR) Not Detected (NotDetected) M. pneumoniae (PCR) Not Detected (NotDetected) 12/17/24 Parainfluenza Type 1 (PCR) Not Detected (NotDetected) 02/05 Parainfluenza Type 2 (PCR) Not Detected (NotDetected) 02/05 Parainfluenza Type 3 (PCR) Not Detected (NotDetected) 02/05 Parainfluenza Type 4 (PCR) Not Detected (NotDetected) 02/05 RSV (PCR) Not Detected (NotDetected) 12/17/24 Enterovirus/Rhinovirus (PCR) Not Detected (NotDetected) Chest X-Ray 12/17/24 Code Status & VTE Plan Code Status FULL CODE VTE Prophylaxis Plan VTE Prophylaxis will be ordered: Yes Supervising Physician Co-Signing Physician Notes Attending addendum: The patient was seen and examined in the emergency room He has been complaining of profound weakness for the last 5 days and also has generalized rash for the last 3 days Denies any significant diarrhea, chest pain, palpitation or shortness of breath Denies any fever and/or chills On examination Lying in bed without any apparent distress Hemodynamically stable with blood pressure on the lower side at 109/53 and afebrile Chestclear to auscultate bilaterally HeartS1-S2, no murmur Abdomenbenign Extremitiesno edema CNSalert, awake and oriented x 3 and no focal sensory and motor deficit appreciated skinhas generalized petechial and macular rash His labs, EKG and imaging studies reviewed Noted to have hyponatremia of 125 and hypokalemia 3.3 and INR of 2.4 and not being on any anticoagulation with slightly abnormal LFTs Profound weaknesslikely multifactorial including recent COVID in November,ROBE with dehydration, ongoing infection and bacteremia with MSSA, hyponatremia and hypokalemia,side effects from Rifampicin, rule out any other infective causes- Anaplasma/lyme disease Generalized petechia/maculopapular rashcould be secondary to use of cefazolin as a delayed reaction or doubt due to Lovenox. ITP could be another thought Recent superficial phlebitis and has been on Lovenox which will be continued Agree with assessment and plan as outlined above by Jenni Quintana PA-C and take the full responsibility of care in the hospital. Dr John Angel
[2024-12-17 15:28] LABS: Appearance Urine Cloudy (Clear); Bacteria Urine Automated None Seen (None Seen); Bilirubin Urine 1+ (Negative); Blood Urine 2+ (Negative); Color Urine Dark Yellow; Glucose Urine UA Negative (Negative); Ketones Urine 1+ (Negative); Leukocyte Esterase Urine Trace (Negative); Nitrite Urine Negative (Negative); Protein Urine 2+ (Negative); RBC Urine Automated 0-2 /hpf (0-2); Specific Gravity Urine 1.024 (1.000-1.030); Urobilinogen Urine Negative (Negative); WBC Urine Automated 0-5 /hpf (0-5)
[2024-12-17 15:35] LABS: Acanthocytes 2+; Polychromasia 1+
[2024-12-17 16:36] LABS: Fibrinogen 558 mg/dl (184-400)
[2024-12-17 16:49] LABS: D Dimer 1020 ug/L FEU (0-500)
[2024-12-17 16:52] LABS: Troponin I High Sensitivity 22.1 pg/ml (0-20)
[2024-12-17 16:53] LABS: C Reactive Protein 24.13 mg/dl (0-0.5)
[2024-12-17] MEDS ORDERED: traMADol HCL 50 MG TABLET PO PRN (17:00)
[2024-12-17 17:28] LABS: Phosphorus 2.1 mg/dl (2.5-4.9)
[2024-12-17] MEDS: NSS + 20MEQ KCL 20 MEQ/1,000 ML BAG IV SCH (17:37)
--- OUTSIDE RECORDS SUMMARY | 2024-12-17 17:49 | External Medical Summary | Summary of Care ---
Author Name Unknown Organization [facility] Address [address] [place] [address] Phone [phone] Care Team Providers Care Tile Machine Operator Name Role Phone Giancarlo Lester MD Primary Care Provider +1- [phone] Encounter Details Date Type Department Care Team (Late st Contact Info) Description 12/06/2024 Population Health External Data Unspecified Department Allergies Active Allergy Reactions Criticality Noted Date Comments Cephalexin Diarrhea Low 01/03/2012 Levofloxacin 06/12/2012 Pt developed pain in his achilles tendon. Levofloxacin Unknown 02/27/2017 Other Reaction(s): Achilles heel pain (rxn with oral, tolerated IV) Benzonatate Cough 10/18/2019 documented as of this encounter (statuses as of 12/06/2024) Medications Multiple Vitamin Tablet Take 1 Tablet [...] 0.1 % Nasal Solution (Astelin) Administer 1 [place] into nostril in the morning and 1 [place] before bedtime. 30 mL 12 10/05/20 24 Active Fluocinolone Acetonide Scalp 0.01 % External Oil ([place]-Smoothe/FS Scalp) Apply to external ear bilaterally as [...] inj 1,000 mcgIndications:B12 deficiency 1000 mcg IM [id number] 06/16/2022 03/20/2025 Active vitamin b-12 (Cyanocobalamin) inj 1,000 mcgIndications:B12 deficiency 1000 mcg IM [id number] 02/15/2023 12/18/2024 Active vitamin b-12 (Cyanocobalamin) inj 1,000 mcgIndications:B12 deficiency 1000 mcg IM [id number] 10/04/2023 08/06/2025 Active Testosterone Cypionate (Depotestosterone Cypionate) 200 MG/ML inj 200 mgIndications:Testosterone deficiency in male 200 mg IM [id number] 10/10/2024 Active documented as of this encounter (statuses as of 12/06/2024) Active Problems Problem Noted Date Diagnosed Date [...] as of this encounter (statuses as of 12/06/2024) Resolved Problems Problem Noted Date Diagnosed Date [...] as of this encounter (statuses as of 12/06/2024) Immunizations Name Administration Dates Next Due COVID-19 mRNA, LNP-s, No Pre serve, 2-Dose Series (IdenIve) 08/10/2022,01/27/2021,12/30/2020 COVID-19, MRNA-LNP, PF, 30 M CG/0.3 mL, 12 YRS AND ABOVE, IM ([facility]) 11/12/2024 HEP A - Hepatitis A (Adult > 18 yrs) 04/02/2008, 07/03/2007 Hepatitis B, 20+ yrs 04/02/2008,08/17/2007,07/03 Pneumococcal Conjugate Vacc, 13 Valent (Prevnar) 11/02/2016 Pneumococcal Polysaccharide PPV23 (Pneumovax) 08/14/2010 RSV Vac., Recomb, Adjuvant, PF,0.5 Ml (Arexvy) 11/17/2023 Seasonal Influenza Vac., MDV , IM, 0.5 mL (Fluzone) 07/31/2015,07/31/2014,08/01/2013,0903/2012,08/13/2011,08/14/2010,10/15/20 08,08/17/2007,09/24/2006 07/31/2016 Seasonal Influenza, High Dos e, [...] Care Team (Late st Contact Info) Description 12/07/2024 2:00 PM EST Office Visit Family Practice, [facility] [address] [phone] Giancarlo Lester MD [address] [address] 12/10/2024 11:00 AM EST Nurse Only Ancillary Department, Aldo Lower[address] [phone] Nurse Aldo [address] [place] [address] 12/21/2024 10:00 AM EST Nutrition Services Nutrition, [facility] [address] [place] [address] Liberty Mayfield RDN [address] [place] [address] 01/07/2025 11:00 AM EST Nurse Only Ancillary Department, [place], [place] [phone] [place], Nurse [address], [place] [address] 02/07/2025 11:00 AM EDT Nurse Only Ancillary Department, [place], [place] [phone] [place], Nurse Yousuf [place], [place] [address] 03/14/2025 10:00 AM EDT Office Visit Dermatology [facility] [address] [place] [address] Martínez Neri MD [address] [facility] [place] [address] 09/27/2025 11:00 AM EST Office Visit Otolaryngology [facility] [address] [place] [address] Kavya Knight MD [address] [facility] [place] [address] Scheduled Procedures Name Priority Associated Diagnoses Date/Ti [...] 10/21/2025 10/21/2022, 10/21/2022, 09/17/2022, Additional history exists HbA1c 10/24/2025 10/24/2024, 11/14, 02/22/2023, Additional history exists GFR 12/03/2025 12/03/2024, 10/14, 03/26/2024, Additional history exists Albumin/Creatinine Ratio 03/26/2027 024, [...] this encounter Medical Devices Implanted Type Area Milk Tanker Driver Device Identifier Shelf Expiration Date Model / Serial / Lot Cement Bone R 1112-140-01 - [id number] [place] [facility] [place] Knee [employer] 10/14/2012 00-1112-1 40-01 / / [id number] Plate Tibial Flu - [id number] Implanted:Qty: 1 on 07/03/2008 [place] [facility] [place]: Knee [employer] 00-5996-0 58-02 / / [id number] Patella Poly Nexgen - [id number] Implanted:Qty: 1 on 07/03/2008 [place] [facility] [place]: Knee [employer] 03/14/2016 00-5972-0 65-41 / / [id number] Femur Nexgn F Left - [id number] Implanted:Qty: 1 on 07/03/2008 [place] [facility] [place]: Knee [employer] 04/14/2018 00-5996-0 16-51 / / [id number] Implant On The Fly - [id number] Implanted:Qty: 1 on 07/03/2008 [place] [facility] [place]: Knee [employer] 00-5964-0 51-10 / / [id number] Duraclip 11mm Repositionable - [id number] Implanted:Qty: 6 on 10/21/2022 by Elmo Booker MD [place] [facility] [place]/A: Esophagus Xanitos 01/20/2025 [id number] / / [id number] documented as of this encounter Advance [...] 1:21 PM 02/12/2009 1:22 PM Care Teams Tile Machine Operator Relationship Specialty Start Date End Date Giancarlo Lester MD PCP - General Family Medicine 12/21/18 documented as of this encounter
--- OUTSIDE RECORDS SUMMARY | 2024-12-17 17:49 | External Medical Summary | Summary of Care ---
Author Name Unknown Organization [facility] Address [address] [place] [address] Phone [phone] Care Team Providers Care Director Product Safety Name Role Phone Giancarlo Lester MD Primary Care Provider +1- [phone] Reason for Visit * Reason Onset Date Comments Nurse Documentation 12/10/2024 Encounter Details Date Type Department Care Team (Late st Contact Info) Description 12/10/2024 Telephone [facility] [address] [facility] [place] [phone] Giancarlo Lester MD [address] [place] [address] Nurse Documentation Allergies Active Allergy Reactions Criticality Noted Date Comments Cephalexin Diarrhea Low 01/03/2012 Levofloxacin 06/12/2012 Pt developed pain in his achilles tendon. Levofloxacin Unknown 02/27/2017 Other Reaction(s): Achilles heel pain (rxn with oral, tolerated IV) Benzonatate Cough 10/18/2019 documented as of this encounter (statuses as of 12/10/2024) Medications Multiple Vitamin Tablet Take 1 Tablet [...] morning. 16 g 1 07/10/20 24 Active Additional Information Patient not taking.Reported on 12/07/2024 predniSONE 10 MG Oral Tablet (Deltasone) Take 4 tabs for 2 days, 3 tabs for 2 days, 2 tabs for 2 days 1 tab for 2 days 20 Tablet 07/13/20 24 Active Additional Information Patient not taking.Reported on 12/07/2024 Azelastine HCl 0.1 % Nasal Solution (Astelin) Administer 1 [place] into nostril in the morning and 1 [place] before bedtime. 30 mL 12 10/05/20 24 Active Additional Information Patient not taking.Reported on 12/07/2024 Fluocinolone Acetonide Scalp 0.01 % External Oil ([place]-Smoothe/FS Scalp) Apply to external ear bilaterally as needed for itching. 20 mL 6 10/05/20 24 Active Additional Information Patient not taking.Reported on 10/24/2024 Fluticasone Propionate 50 MCG/ACT Nasal Suspension (Flonase) Administer 2 Sprays into each nostril in the morning and 2 Sprays before bedtime. 3 Each 10/05/20 24 025 Active Additional Information Patient not taking.Reported on 12/07/2024 guaiFENesin-Codeine 100-10 MG/5ML Oral Solution (Robitussin AC) [...] breakfast 90 Tablet 3 10/24/20 24 Active Additional Information Patient not taking.Reported on 12/07/2024 Triamcinolone Acetonide 0.1 % External Lotion (Aristocort) Apply topically to affected area 2 times a day. To affected area. 60 mL 5 10/24/20 24 Active traMADol HCl 50 MG Oral Tablet (Ultram)Indications: Enthesopathy of knee,Spinal stenosis of lumbar region with neurogenic claudication Take 1 Tablet by mouth every 8 hours as needed for Pain, Moderate. 90 Tablet 10/24/20 24 Active rifAMPin 300 MG Oral Capsule (Rifadin) 1 Capsule. 11/27/19 25 Active Famotidine 20 MG Oral Tablet (Pepcid) 0 25 Active ceFAZolin Sodium 1 GM Injection Solution Reconstituted (Ancef) 12/04/19 25 Active Mirabegron ER 50 MG Oral Tablet Extended Release 24 Hour (Myrbetriq) Take 1 Tablet by mouth in the morning. 90 Tablet 3 12/07/19 Active Hospital, Clinic, or Other Facility Administered Medication Ordered Dose Route Frequency Start Date End Date Status vitamin b-12 (Cyanocobalamin) inj 1,000 mcgIndications:B12 deficiency 1000 mcg IM [id number] 06/16/2022 03/20/2025 Active vitamin b-12 (Cyanocobalamin) inj 1,000 mcgIndications:B12 deficiency 1000 mcg IM [id number] 02/15/2023 12/18/2024 Active vitamin b-12 (Cyanocobalamin) inj 1,000 mcgIndications:B12 deficiency 1000 mcg IM [id number] 10/04/2023 08/06/2025 Active Testosterone Cypionate (Depotestosterone Cypionate) 200 MG/ML inj 200 mgIndications:Testosterone deficiency in male 200 mg IM [id number] 10/10/2024 Active documented as of this encounter (statuses as of 12/10/2024) Active Problems Problem Noted Date Diagnosed Date [...] as of this encounter (statuses as of 12/10/2024) Resolved Problems Problem Noted Date Diagnosed Date [...] as of this encounter (statuses as of 12/10/2024) Immunizations Name Administration Dates Next Due COVID-19 mRNA, LNP-s, No Pre serve, 2-Dose Series ([place]) 08/10/2022,01/27/2021,12/30/2020 COVID-19, MRNA-LNP, PF, 30 M CG/0.3 mL, 12 YRS AND ABOVE, IM (PFIZER-Comirnaty) 11/12/2024 HEP A - Hepatitis A (Adult [...] No 03/26/2024 Does the household have a [facility] source of income? (Household - for ages [...] Encounter - Lulu George MED ASSIST - 12/10/2024 1:33 PM EST Received Fax for BFPROVIDERS: Dr. Giancarlo Lester PT PLAN OF CARE/EVALUATION received from [facility] and FAXED documented in this encounter Plan of Treatment Upcoming Encounters Date Type Department Care Team (Late st Contact Info) Description 12/21/2024 10:00 AM EST Nutrition Services Nutrition, [facility] [address] [place] [address] Liberty Mayfield RDN [address] [place] [address] 01/07/2025 11:00 AM EST Nurse Only Ancillary Department, [address] [phone] [place], Nurse [address] [place] [address] 02/07/2025 11:00 AM EDT Nurse Only Ancillary Department, [address] [phone] [place], Nurse [address] [address] 03/14/2025 10:00 AM EDT Office Visit Dermatology [facility] [address] [facility] [place] [address] Martínez Neri MD [address] [facility] [place] [address] 09/27/2025 11:00 AM EST Office Visit Otolaryngology [facility] [address] [place] [address] Kavya Knight MD [address] [place] [address] Scheduled Procedures Name Priority Associated Diagnoses Date/Ti [...] Additional history exists Zoster Vaccines Completed 04/15/2020, 0303/2020, 08/09/2011 Influenza Vaccine (FLU shot) Completed 09/10/2024, 09/10/2024, 08/08/2023, Additional history exists COVID-19 Vaccine Completed 11/12/2024, , 09/07/2022, Additional history exists HPV (Gardasil) Vaccine Aged Out No lo nger eligible based on patient's age to complete this topic MENINGOCOCCAL (MENACTRA/MENVEO) Aged Out No longer eligible based on patient's age to complete this topic documented as of this encounter Medical Devices Implanted Type Area Lime Slaker Device Identifier Shelf Expiration Date Model / Serial / Lot Cement Bone R 1112-140-01 - [id number] Implanted:Qty: 1 on 07/03/2008 at [place] [facility] [place]: Knee [employer] 10/14/2012 00-1112-1 40-01 / / [id number] Plate Tibial Flu - [id number] Implanted:Qty: 1 on 07/03/2008 at [place] [facility] [place] Left: Knee [employer] 00-5996-0 58-02 / / [id number] Patella Poly Nexgen - [id number] Implanted:Qty: 1 on 07/03/2008 at [place] [facility] [place] Left: Knee [employer] 03/14/2016 00-5972-0 65-41 / / [id number] Femur Nexgn F Left - [id number] Implanted:Qty: 1 on 07/03/2008 at [place] [facility] [place] Left: Knee [employer] 04/14/2018 00-5996-0 16-51 / / [id number] Implant On The Fly - [id number] Implanted:Qty: 1 on 07/03/2008 at [place] [facility] [place] Left: Knee [employer] 00-5964-0 51-10 / / [id number] Duraclip 11mm Repositionable - [id number] Implanted:Qty: 6 on 10/21/2022 by Elmo Booker MD at [place] [facility] [place] N/A: Esophagus Tailored Fit 01/20/2025 [id number] / / [id number] documented as of this encounter Advance [...] 1:21 PM 02/12/2009 1:22 PM Care Teams Director Product Safety Relationship Specialty Start Date End Date Giancarlo Lester MD PCP - General Family Medicine 12/21/18 documented as of this encounter
[2024-12-17 20:50] LABS: Urine Chloride < 15 mmol/L; Urine Potassium 41.8 mmol/L; Urine Sodium 13 mmol/L
--- NOTE | 2024-12-17 20:54 | Ultrasound Report ---
Exam(s): US VENOUS BILATERAL LOWER EXTREMITIES EXAM: US Duplex Bilateral Lower Extremities Veins CLINICAL HISTORY: Reason for exam: elevated dimer. TECHNIQUE: Real-time duplex ultrasound scan of the bilateral lower extremity veins integrating B-mode two-dimensional vascular structure, Doppler spectral analysis, color flow Doppler imaging and compression. COMPARISON: No relevant prior studies available. FINDINGS: Right deep veins: Unremarkable. The visualized deep veins of the right lower extremity are compressible with color flow. No visualized thrombus. Right superficial veins: Unremarkable. Left deep veins: Unremarkable. The visualized deep veins of the left lower extremity are compressible with color flow. No visualized thrombus. Left superficial veins: Unremarkable. Soft tissues: No acute findings. IMPRESSION: No DVT within the bilateral lower extremities. Electronically signed by: Volodymyr Nicholas MD 12/17/24 20:53 PM
[2024-12-17] MEDS: PIPERACILLIN/TAZOBACTAM 4.5 GM/100 ML BAG IV SCH (21:34)
[2024-12-17] MEDS: COUGH DROP (SUGAR FREE) LOZ 24 LOZ/1 BOX BUCCAL PRN (21:34)
[2024-12-17] MEDS: POT PHOSPHATE MONOBASIC W/ SOD TAB PO SCH (21:35)
[2024-12-17] MEDS: AMITRIPTYLINE HCL 50 MG TAB PO SCH (21:35)
[2024-12-17] MEDS: OXYBUTYNIN CHLORIDE XL 5 MG TABCR PO SCH (21:35)
[2024-12-17] MEDS: VIBEGRON 75 MG TAB PO SCH (21:35)
[2024-12-17] MEDS: MELATONIN 3 MG TAB PO SCH (21:35)
[2024-12-18 01:19] LABS: BUN Creatinine Ratio 25.5 (10-20); Calcium 6.7 mg/dl (8.6-10.3); Creatinine Clr Calc Pharmacy 46.4 ml/min; Potassium 3.8 mmol/L (3.5-5.1)
[2024-12-18 03:53] LABS: Basophils # (auto) 0.02 K/uL (0.00-0.20); Basophils % (auto) 0.3 %; Eosinophils # (auto) 0.93 K/uL (0.00-0.50); Eosinophils % (auto) 12.5 %; Hematocrit (blood only) 27.8 % (42.0-52.0); Hemoglobin 10.1 g/dl (14.0-18.0); Immature Granulocytes # (auto) 0.09 K/uL (0.01-0.20); Immature Granulocytes % (auto) 1.2 %; Lymphocytes # (auto) 0.46 K/uL (1.20-3.40); Lymphocytes % (auto) 6.2 %; Mean Corpuscular Hemoglobin 32.4 pg (25.0-34.0); Mean Corpuscular Hgb Conc 36.3 g/dL (32.0-36.0); Mean Corpuscular Volume 89.1 fL (80.0-100.0); Mean Platelet Volume 9.1 fL (9.4-12.4); Monocytes # (auto) 0.44 K/uL (0.11-0.59); Monocytes % (auto) 5.9 %; Neutrophils % (auto) 73.9 %; Platelet Count 133 K/uL (130-400); RDW Coefficient of Variation 14.3 % (11.5-14.5); RDW Standard Deviation 45.9 fL (36.4-46.3); Red Blood Count 3.12 M/uL (4.70-6.10); White Blood Count 7.44 K/ul (4.8-10.8)
[2024-12-18] MEDS: ACETAMINOPHEN 325 MG TAB PO PRN (03:53)
[2024-12-18 04:09] LABS: Albumin Globulin Ratio 1.2 (0.9-2); Albumin Level 2.7 gm/dl (3.4-5.0); BUN Creatinine Ratio 24.7 (10-20); Bilirubin,Total 0.4 mg/dl (0.2-1.0); Calcium 6.7 mg/dl (8.6-10.3); Globulin 2.2 gm/dl (2.5-4.0); Magnesium 2.1 mg/dl (1.7-2.4); Phosphorus 1.6 mg/dl (2.5-4.9); Potassium 3.8 mmol/L (3.5-5.1); Total Protein 4.9 gm/dl (6.0-8.3)
[2024-12-18 04:17] LABS: Prothrombin Time 29.6 Seconds (9.0-12.0)
[2024-12-18] MEDS: FAMOTIDINE 20 MG TAB PO SCH (08:16)
[2024-12-18] MEDS: ADVANCED PROBIOTIC 625 MG CAPSULE PO SCH (08:16)
[2024-12-18] MEDS: ENOXAPARIN INJ 40 MG/0.4 ML SYR SQ SCH (08:17)
[2024-12-18] MEDS: SODIUM CHLORIDE 0.9% 1,000 ML IV ONE (08:59)
[2024-12-18] MEDS: PANTOprazole 40 MG TAB PO SCH (10:10)
[2024-12-18] MEDS: DAPTOmycin 475 MG in SYRINGE 0 ML IV SCH (10:37)
[2024-12-18] MEDS ORDERED: SODIUM PHOSPHATE 3 MMOL/1 ML INFUSION IV STA (11:01)
--- NOTE | 2024-12-18 11:08 | Hospitalist Progress Note ---
Date of Service December 18, 2024 Assessment & Plan (1) Rifampin adverse reaction: (2) ROBE (acute kidney injury): (3) Medication induced coagulopathy: (4) Dermatitis, drug-induced: (5) Hyponatremia: (6) Superficial thrombophlebitis of right upper extremity: (7) MSSA bacteremia: (8) ICD (implantable cardioverter-defibrillator), biventricular, in situ: (9) Nonischemic cardiomyopathy: Plan Patient presents with multiple laboratory abnormalities and dermatitis most likely due to rifampin patient was being treated with for his MSSA bacteremia. Patient remains significantly ill with multiple laboratory abnormalities. Blood pressure has been running low most likely due to intravascular volume depletion. Patient needs IV fluids, medications, specialty evaluation and frequent laboratory monitoring that requires hospital level care. Detailed review of adverse reactions rifampin very consistent with patient's clinical findings Continue to hold rifampin Monitor laboratory studies daily Daptomycin for bacteremia, infectious disease input pending, Patient had transthoracic echocardiogram when he was admitted for the bacteremia, no evidence of vegetation. Communication with cardiology would consider ANGELO if blood cultures this hospitalization returned positive. Probably does not need ANGELO if blood cultures are sterile Nephrology consultation, suspect renal function will improve with time and hydration Extensive conversation with patient at the bedside explaining laboratory studies and diagnosis. 53 minutes reviewing record, care at the bedside, communication with nursing, communication with specialist, review and interpretation of diagnostic data Admission and Anticipated Discharge Date Admission Date: December 17, 2024 Subjective Patient still feels extremely ill, weak, sick. Concerned about the rash. Notified by nursing of relatively low blood pressure overnight. He denies any new symptoms. No real chest pain or shortness of breath just general malaise and arthralgias Physical Exam Physical Exam: Constitutional: Alert, moderately ill in appearance but nontoxic HEENT: Mucous membranes dry, lips cracked Lungs: Decreased breath sounds CV: S1-S2, regular Abdomen: Soft, nontender, nondistended Extremities: No significant edema Neuro: No focal deficits, generalized weakness Derm: Diffuse macular, papular rash over entire body Psych: Cooperative, normal mood Results & Data Results & Data Vital Signs (Past 12 Hours) Vital Signs Temp Pulse Resp BP BP Pulse Ox O2 Del Method 12/18/24 09:09 104/53 L 12/18/24 08:10 91/49 L 12/18/24 07:27 91/47 L 12/18/24 07:24 36.7 C 71 18 87/47 L 93 Room Air 12/18/24 04:32 38.0 C H 88 18 101/57 L 90 Room Air 12/17/24 23:36 37.2 C 84 18 94/52 L 95 Room Air Diagnostic Findings Reviewed imaging, laboratory and diagnostic studies. Pertinent findings as below. WBC 7.4 Hemoglobin 10.1 Platelets 133 INR 3.0 PTT 29.6 PTT 47 Sodium 125 Carbon dioxide 19 BUN 42 Creatinine 1.7 Phosphorus 1.6 LDH 274 Procalcitonin 211 Urinalysis unremarkable Repeat blood cultures pending Ultrasound lower extremity negative for DVT
[2024-12-18] MEDS: CALCIUM GLUCONATE 1,000 MG/60 ML BAG IV SCH (12:12)
--- NOTE | 2024-12-18 12:59 | Nephrology Consultation ---
Date of Consultation December 18, 2024 Assessment & Plan (1) Hyponatremia: probably multifactorial with background SIADH but it appears she also has very low oral intake of solid food as evidence by extremely low phosphorus and other electrolytes being low. However is liquid intake by his account was not low. So I would say his current hyponatremia is combination of low osmolar diet with background SIADH. urine osmolarity urine sodium is consistent with SIADH. given low blood pressure it is reasonable to continue IV fluid with normal saline and potassium chloride for 1 more day. his serum osmolarity was 272 which was exactly the same as what he had last year. Slight worsening of hyponatremia is also related with ROBE as his BUN is much higher than before. Also serum osmolarity of 272 is not super low. Restrict free water to 1500 mL given already high BUN with ROBE I would not give urea for now. BMP can be done every 8 hours to monitor renal function and hyponatremia. will continue to follow. he also has significant other electrolyte problems including critically low phosphorus of 1.6 and for this we would like to give sodium phosphate 30 millimole. but also continue the oral phosphate. calcium was low and will give 2 g IV calcium gluconate. However corrected calcium for low albumin is not that critically low. magnesium was also low and will give 2 g IV supplement (2) ROBE (acute kidney injury): acute kidney injury with a creatinine up to 1.7 likely related with prerenal state and/or allergic interstitial nephritis potentially cause by rifampin. He does have drug rash all over his body. He is making urine in his current creatinine is not overwhelmingly high. urine analysis done yesterday was quite active with significant urine sediment blood and protein which can happen with AIN as well as ATN. Would like to repeat UA again today. if creatinine continues to worsen we will do renal imaging also but I do not feel we need a today Plan Case complexity moderately high. Total time spent 63 minutes History of Present Illness Reason for Consultation: Hyponatremia and ROBE Attending Physician: Jesse Guevara DO History of Present Illness 79/M with nonischemic cardiomyopathy, EF 40 to 45%, biventricular AICD, HTN, HLD, prediabetes, history of PSVT, Zenker's diverticulum, GERD, Grimaldo's esophagus, B12 deficiency, gout and testosterone deficiency who presented to ED secondary to extreme weakness and fatigue x 1 week. He was recently in hospital for positive COVID and MSSA bacteremia. He was initially started on IV Zosyn. Infectious disease was consulted who recommended IV cefazolin along with oral rifampin. There was no clear source for his bacteremia. Transthoracic echocardiogram showed improvement in his ejection fraction but otherwise no evidence of vegetation or infection of the pacemaker wires. A PICC line was placed and he was discharged on home infusion IV antibiotic therapy. He was scheduled to see cardiology as an outpatient to obtain a ANGELO. Since discharge he has not felt well. He reports coming back to the ED on 12/13 secondary to swelling and redness in his right hand. He was diagnosed with a superficial vein thrombus and started on subcutaneous Lovenox once daily. He reports since starting this injection he developed a diffuse full body rash. He denies any pain or itching with the rash. At baseline he lives alone and his son lives across the street from him. He overall has a poor appetite. solid food intake is very low but he is still trying to drink lot liquids which includes water as well as lot of tea. He has been moving his bowels frequently and they are loose. He denies any documented fever, chills, sweats, lightheadedness, dizziness, chest pain, shortness of breath, nausea, vomiting, abdominal pain, hematuria, melena, hematochezia. He has been taking his medications as prescribed. it appears his sodium does run somewhat low in the low 130s and even in the previous hospital admission he had somewhat low sodium. But at this time his serum sodium is 125. He has received normal saline but sodium has not changed and it is still exactly the same at 125. blood pressure was low yesterday but it is starting to get better and otherwise vital signs are normal. as an outpatient he was not on any type of diuretics. Not taking any NSAIDs. review of systems as detailed in HPI. Unless stated otherwise 12 systems reviewed and negative. Physical Exam Physical Exam: Constitutional: awake alert oriented. Able to report his medical history in great detail Head: Normocephalic, Atraumatic oropharynx normal Neck: supple no JVD Respiratory: normal respiratory effort, lungs clear to auscultation, no wheeze, rales, rhonchi. Cardiovascular: RRR, no murmur, no edema Vessels: no JVD or carotid bruit Chest: normal inspection of chest, RUE PICC line in place, Abdomen: soft, nontender, Skin: +diffuse maculo-papular rash on upper extremities/trunk, legs with diffuse petechial rash. Spares palms/soles/mucous membranes, warm and dry normal turgor Allergies Allergy/AdvReac Type Severity Reaction Status Date / Time cefazolin Allergy Mild Rash Verified 12/17/24 15:22 rifampin Allergy Mild Rash Verified 12/17/24 15:22 benzonatate Allergy Swelling Verified 11/24/24 14:40 [From Adamaris Lazcano] of Lip/Tongue/Throat hazelnut AdvReac Mild Throat Verified 11/24/24 14:40 numbness levofloxacin AdvReac Unknown Achilles Verified 11/24/24 14:40 heel pain (rxn with oral, tolerated IV) Home Medications Medication Instructions Recorded Confirmed Type tolterodine 4 mg capsule,extended 2 mg PO HS 11/20/19 12/17/24 History release 24 hr pantoprazole 40 mg tablet,delayed 40 mg PO QAM 03/28/20 12/17/24 History release cyanocobalamin (vitamin B-12) 1,000 mcg IM UD 04/08/20 12/17/24 History 1,000 mcg/mL injection kit BiPap Machine #1 ea 06/23/20 12/17/24 Rx amitriptyline 50 mg tablet 50 mg PO QPM 12/08/20 12/17/24 History melatonin 3 mg tablet 3 mg PO HS 06/04/21 12/17/24 History atorvastatin 80 mg tablet (Lipitor) 40 mg PO DAILY #90 tabs 05/21/24 12/17/24 History albuterol sulfate 90 mcg/actuation 2 inh inhalation Q6H PRN shortness 11/23/24 12/17/24 Rx aerosol inhaler of breath or wheezing #8.5 grams mirabegron 50 mg tablet,extended 25 mg PO HS 11/24/24 12/17/24 History release 24 hr sacubitril 97 mg-valsartan 103 mg 0.5 tab PO BID 11/24/24 12/17/24 History tablet (Entresto) tramadol 50 mg tablet 50 mg PO Q6H PRN Pain 11/24/24 12/17/24 History triamcinolone acetonide 0.1 % 1 applic topical DAILY 11/24/24 12/17/24 History lotion L.acidop,casei,lactis,rham-B.lact,marisol 1 cap PO DAILY #60 caps 11/27/24 12/17/24 Rx 625 mg (10 billion cell) capsule (Advanced Probiotic) cefazolin 2 gram intravenous 2 g IV Q8H 11/27/24 12/17/24 Rx solution famotidine 20 mg tablet (Pepcid) 20 mg PO BID 6 weeks #84 tabs 11/27/24 12/17/24 Rx guaifenesin 600 mg tablet, 600 mg PO Q12 PRN Cough #30 tabs 11/27/24 12/17/24 Rx extended release 12 hr (Mucinex) rifampin 300 mg capsule 300 mg PO Q8H 6 weeks #126 caps 11/27/24 12/17/24 Rx enoxaparin 40 mg/0.4 mL 40 mg (0.4 mL) subcut DAILY #13 12/09/24 12/17/24 Rx subcutaneous syringe (Lovenox) syringes Patient History Medical History Non-ST elevation SC (NSTEMI) Arthritis of carpometacarpal (CMC) joint of left thumb Right lumbar radiculopathy Systolic CHF, chronic Nonischemic cardiomyopathy Echo 02/2019 showed EF 30-35%, felt secondary to LBBB. No improvement with medical therapy. S/P pacer/ICD implantation 05/2020. Grimaldo esophagus IVCD (intraventricular conduction defect) Low testosterone Paroxysmal supraventricular tachycardia Elevated troponin Leukocytosis LBBB (left bundle branch block) CAD (coronary artery disease) Mild non-obstructive CAD per 2018 cardiac cath Zenkers diverticulum History of pacemaker Pacer/ICD (Implanted 05/2020), [employer]> follows with Dr. Kong> will be getting checked today (04/16/22) per pt Osteoarthritis Chronic back pain Overactive bladder Hiatal hernia GERD (gastroesophageal reflux disease) Hypertension Hyperlipidemia Sleep apnea BIPAP Surgical History S/P hernia surgery (06/24/14) Laparoscopic bilateral inguinal hernia repair, History of umbilical hernia repair (10/27/12) Umbilical hernia repair History of repair of rotator cuff right History of revision of total replacement of left knee joint x2 History of cataract surgery R/L History of implantable cardioverter-defibrillator (ICD) placement 05/2020 Hx of surgical procedure Epididymectomy Hx of vasectomy History of cardiac cath 2017 > no stents History of esophageal dilatation History of total knee replacement R/L History of laminectomy Lumbar History of colonoscopy History of esophagogastroduodenoscopy (EGD) History of tooth extraction History of tonsillectomy Family History Father Heart disease Mother Heart disease Other No pertinent family history Social History Smoking Status: Never smoker Second Hand Exposure: No; Do You Dip or Chew Tobacco: No; Hx Alcohol Use: Yes Alcohol type: beer Hx Substance Use: No Preferred Language: Maldivian Communication Ability: Effective Visual Impairment: No Limitations Medical Receptionist Required: No Beliefs That Will Affect Care: None Current Living Situation: Alone current occupational status: employed 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
[2024-12-18 13:38] LABS: Adenovirus F 40/41 PCR Not Detected (NotDetected); Astrovirus PCR Not Detected (NotDetected); Campylobacter PCR Not Detected (NotDetected); Cryptosporidium PCR Not Detected (NotDetected); Cyclospora cayetanensis PCR Not Detected (NotDetected); Entamoeba histolytica PCR Not Detected (NotDetected); Enteroaggregative E.coli(EAEC) Not Detected (NotDetected); Enteropathogenic E.coli (EPEC) Not Detected (NotDetected); Enterotoxigenic E.coli (ETEC) Not Detected (NotDetected); Giardia lamblia PCR Not Detected (NotDetected); Norovirus GI/GII PCR Not Detected (NotDetected); Plesiomonas shigelloides PCR Not Detected (NotDetected); Rotavirus A PCR Not Detected (NotDetected); Salmonella PCR Not Detected (NotDetected); Sapovirus PCR Not Detected (NotDetected); Shiga-like Toxin E.coli (STEC) Not Detected (NotDetected); Shigella/Enteroinvasive E.coli Not Detected (NotDetected); Vibrio cholerae PCR Not Detected (NotDetected); Vibrio species PCR Not Detected (NotDetected); Yersinia enterocolitica PCR Not Detected (NotDetected)
[2024-12-18] MEDS: SODIUM PHOSPHATE 30 MMOL in DEXTROSE 5% 500 ML IV ONE (13:45)
[2024-12-18] MEDS: MAGNESIUM SULFATE / D5W 1 GM/100 ML BAG IV SCH (14:00)
[2024-12-18] MEDS: guaiFENesin/DEXTROM SYRUP 200MG/20MG 10ML UDC PO PRN (15:17)
--- NOTE | 2024-12-18 15:29 | Infectious Disease Consult ---
Date of Service December 18, 2024 Telehealth Information I performed this visit using a real-time telehealth connection between my location and the patients location ([facility]). After connecting through interactive tele-video, patient was identified by name and date of and/or wristband check.Patient (or authorized healthcare sales representative livestock) was informed that this was a telemedicine visit and it was being conducted confidentially over secure lines. My office door was closed and no one else was present in the room with me.Patient (or authorized healthcare sales representative livestock) provided consent to proceed with the visit, expressed an understanding of privacy and security of the telemedicine visit, and gave permission to have a hospital sales representative livestock in the room in order to assist with the visit and to conduct portions of the visit, as needed. I informed the patient (or authorized healthcare sales representative livestock) that I reviewed their record and presented the opportunity for them to ask any questions regarding the visit today. The patient agreed to participate. Assessment & Plan (1) Dermatitis, drug-induced: Plan: Assessment: Fever and rash w/ eosinophilia suspected drug reaction due to rifampin ROBE biv AICD in place Hx of polymicrobial bacteremia of unclear significance (MSSA (1 of 4), SNA and Strep) Hx of reaction to cefazolin (rash), lvq (achilles heel pain w/ oral?), rifampin (rash) Recommendations: - Stop daptomycin - No clear indication to continue abx at this time - Management for drug reaction per primar team - ID signing off It is difficult to tell if the positive blood culture from 11/23/24 represented true bacteremia vs contaminant. Regardless, the patient has already received more than 3 weeks of iv abx therapy. I would stop abx at this time as there is n o clear indication to continue abx w/ the adverse reactions: it seems like risk outweighs the beneift at this time. The patient can continue to follow up w/ his PCP/chlorine cells operator closely for ANGELO or for any signs or symptoms of active infection. He does not appear to have active infection at this time. I spent a total of 60 minutes coordinating, documenting, and providing care for this patient excluding time spent in the performance of separately billed services or time spent by another provider/QHP. (2) Rifampin adverse reaction: (3) MSSA bacteremia: History of Present Illness History of Present Illness This is a 79 y/o male ([place]) w/ a hx of nonischemic cardiomyopathy (EF 40- 45%), biv AICD, HTN, Zenkers diverticulum, GERD, and gout, who was recently hospitalized 11/24-11/27/24 for Covid-19 infection and polymicrobial bacteremia w/ MSSA, Staph epi and Srep oralis of unclear etiolog and discharged on cefazolin and rifampin w/ a plan to get ANGELO as outpatient (TTE was unremarkable). The patient presented to ED for 1 week of generalized weakness and profound fatigue (I could not walk and I was barely able to get up on my own) w/ overall poor po intake and diffuse maculopupular rash on UE, LE and trunk: non itching or painful. Fever was noted on 12/18 w/ eosinophils. Currently on daptomycin. He still feels profoundly fatigued w/ low energy. He has been having watery diarrhea prior to this admission, which is continuing. He denies coughing, cp, sob, CARMICHAEL, n/v, abd pain, or urinary symptoms. He still has the rash but not painful or itching. Allergies Allergy/AdvReac Type Severity Reaction Status Date / Time cefazolin Allergy Mild Rash Verified 12/17/24 15:22 rifampin Allergy Mild Rash Verified 12/17/24 15:22 benzonatate Allergy Swelling Verified 11/24/24 14:40 [From Adamaris Lazcano] of Lip/Tongue/Throat hazelnut AdvReac Mild Throat Verified 11/24/24 14:40 numbness levofloxacin AdvReac Unknown Achilles Verified 11/24/24 14:40 heel pain (rxn with oral, tolerated IV) Home Medications Medication Instructions Recorded Confirmed Type tolterodine 4 mg capsule,extended 2 mg PO HS 11/20/19 12/17/24 History release 24 hr pantoprazole 40 mg tablet,delayed 40 mg PO QAM 03/28/20 12/17/24 History release cyanocobalamin (vitamin B-12) 1,000 mcg IM UD 04/08/20 12/17/24 History 1,000 mcg/mL injection kit BiPap Machine #1 ea 06/23/20 12/17/24 Rx amitriptyline 50 mg tablet 50 mg PO QPM 12/08/20 12/17/24 History melatonin 3 mg tablet 3 mg PO HS 06/04/21 12/17/24 History atorvastatin 80 mg tablet (Lipitor) 40 mg PO DAILY #90 tabs 05/21/24 12/17/24 History albuterol sulfate 90 mcg/actuation 2 inh inhalation Q6H PRN shortness 11/23/24 12/17/24 Rx aerosol inhaler of breath or wheezing #8.5 grams mirabegron 50 mg tablet,extended 25 mg PO HS 11/24/24 12/17/24 History release 24 hr sacubitril 97 mg-valsartan 103 mg 0.5 tab PO BID 11/24/24 12/17/24 History tablet (Entresto) tramadol 50 mg tablet 50 mg PO Q6H PRN Pain 11/24/24 12/17/24 History triamcinolone acetonide 0.1 % 1 applic topical DAILY 11/24/24 12/17/24 History lotion L.acidop,casei,lactis,rham-B.lact,marisol 1 cap PO DAILY #60 caps 11/27/24 12/17/24 Rx 625 mg (10 billion cell) capsule (Advanced Probiotic) cefazolin 2 gram intravenous 2 g IV Q8H 11/27/24 12/17/24 Rx solution famotidine 20 mg tablet (Pepcid) 20 mg PO BID 6 weeks #84 tabs 11/27/24 12/17/24 Rx guaifenesin 600 mg tablet, 600 mg PO Q12 PRN Cough #30 tabs 11/27/24 12/17/24 Rx extended release 12 hr (Mucinex) rifampin 300 mg capsule 300 mg PO Q8H 6 weeks #126 caps 11/27/24 12/17/24 Rx enoxaparin 40 mg/0.4 mL 40 mg (0.4 mL) subcut DAILY #13 12/09/24 12/17/24 Rx subcutaneous syringe (Lovenox) syringes Patient History Medical History Non-ST elevation [place] (NSTEMI) Arthritis of carpometacarpal (CMC) joint of left thumb Right lumbar radiculopathy Systolic CHF, chronic Nonischemic cardiomyopathy Echo 02/2019 showed EF 30-35%, felt secondary to LBBB. No improvement with medical therapy. S/P pacer/ICD implantation 05/2020. Grimaldo esophagus IVCD (intraventricular conduction defect) Low testosterone Paroxysmal supraventricular tachycardia Elevated troponin Leukocytosis LBBB (left bundle branch block) CAD (coronary artery disease) Mild non-obstructive CAD per 2018 cardiac cath Zenkers diverticulum History of pacemaker Pacer/ICD (Implanted 05/2020), [employer]> follows with Dr. Kong> will be getting checked today (04/16/22) per pt Osteoarthritis Chronic back pain Overactive bladder Hiatal hernia GERD (gastroesophageal reflux disease) Hypertension Hyperlipidemia Sleep apnea BIPAP Surgical History S/P hernia surgery (06/24/14) Laparoscopic bilateral inguinal hernia repair, History of umbilical hernia repair (10/27/12) Umbilical hernia repair History of repair of rotator cuff right History of revision of total replacement of left knee joint x2 History of cataract surgery R/L History of implantable cardioverter-defibrillator (ICD) placement 05/2020 Hx of surgical procedure Epididymectomy Hx of vasectomy History of cardiac cath 2017 > no stents History of esophageal dilatation History of total knee replacement R/L History of laminectomy Lumbar History of colonoscopy History of esophagogastroduodenoscopy (EGD) History of tooth extraction History of tonsillectomy Family History Father Heart disease Mother Heart disease Other No pertinent family history Social History Smoking Status: Never smoker Second Hand Exposure: No; Do You Dip or Chew Tobacco: No; Hx Alcohol Use: Yes Alcohol type: beer Hx Substance Use: No Preferred Language: Guinean Communication Ability: Effective Visual Impairment: No Limitations Casino Surveillance Officer Required: No Beliefs That Will Affect Care: None Current Living Situation: Alone current occupational status: employed 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 Feels Safe at Home: Yes Assistive Devices: Cane, CPAP and Walker Review of Systems as above and all others negative Physical Exam Gen: no acute distress Lungs: breathing comfortably on room air Skin: maculopapular rash throughout UE and LE b/l and chest and abdomen Neuro: alert and Ox3, conversant Results & Data Vital Signs (Past 12 Hours) Vital Signs Temp Pulse Pulse Resp BP BP Pulse Ox 12/18/24 12:48 76 12/18/24 11:23 36.7 C 84 18 108/67 96 12/18/24 09:35 108/66 12/18/24 09:09 104/53 L 12/18/24 08:10 91/49 L 12/18/24 08:00 12/18/24 07:27 91/47 L 12/18/24 07:24 36.7 C 71 18 87/47 L 93 12/18/24 04:32 38.0 C H 88 18 101/57 L 90 O2 Del Method 12/18/24 12:48 12/18/24 11:23 Room Air 12/18/24 09:35 12/18/24 09:09 12/18/24 08:10 12/18/24 08:00 Room Air 12/18/24 07:27 12/18/24 07:24 Room Air 12/18/24 04:32 Room Air Laboratory Results WBC 7.44K H 10.1 Plt 133K Cr 1.78 -> 1.7 AST 40 -> 33 CRP 24.13 LDH 274 D-dimer 1020 Fibrinogen 558 Blood cx (11/23/24): MSSA (1 of 4), Staph epi (2 of 4, the same set), VSG (1 of 4); all from the same set Blood cx (11/24): NG Blood cx (2/3): pending Doppler: No DVT within the bilateral lower extremities. CXR: Stable pacemaker. Heart size and pulmonary vasculature are normal. There is an interval right-sided PICC line with the tip in the SVC. There is stable mild stranding at the left lung base. No new consolidation or pleural effusion. No pneumothorax.
[2024-12-18 18:02] LABS: Albumin Level 3.1 gm/dl (3.4-5.0); BUN Creatinine Ratio 25.7 (10-20); Calcium 7.4 mg/dl (8.6-10.3); Creatinine Clr Calc Pharmacy 49.8 ml/min; Phosphorus 2.8 mg/dl (2.5-4.9); Potassium 3.5 mmol/L (3.5-5.1)
[2024-12-18] MEDS: LOPERAMIDE HCL 2 MG CAP PO STA (18:22)
[2024-12-19 06:29] LABS: Basophils # (auto) 0.02 K/uL (0.00-0.20); Basophils % (auto) 0.2 %; Eosinophils # (auto) 0.81 K/uL (0.00-0.50); Eosinophils % (auto) 10.1 %; Hematocrit (blood only) 26.7 % (42.0-52.0); Hemoglobin 9.6 g/dl (14.0-18.0); Immature Granulocytes # (auto) 0.13 K/uL (0.01-0.20); Immature Granulocytes % (auto) 1.6 %; Lymphocytes # (auto) 0.62 K/uL (1.20-3.40); Lymphocytes % (auto) 7.7 %; Mean Corpuscular Hemoglobin 32.2 pg (25.0-34.0); Mean Corpuscular Volume 89.6 fL (80.0-100.0); Mean Platelet Volume 9.5 fL (9.4-12.4); Monocytes # (auto) 0.51 K/uL (0.11-0.59); Monocytes % (auto) 6.4 %; Neutrophils # (auto) 5.93 K/uL (1.40-6.50); Platelet Count 147 K/uL (130-400); RDW Coefficient of Variation 14.6 % (11.5-14.5); RDW Standard Deviation 47.7 fL (36.4-46.3); Red Blood Count 2.98 M/uL (4.70-6.10); White Blood Count 8.02 K/ul (4.8-10.8)
[2024-12-19] MEDS: LOPERAMIDE HCL 2 MG CAP PO STA ×2 (06:41→10:25)
[2024-12-19 06:49] LABS: Albumin Globulin Ratio 1.3 (0.9-2); Albumin Level 2.5 gm/dl (3.4-5.0); BUN Creatinine Ratio 23.1 (10-20); Bilirubin,Total 0.4 mg/dl (0.2-1.0); Calcium 7.3 mg/dl (8.6-10.3); Creatinine Clr Calc Pharmacy 55.9 ml/min; Globulin 1.9 gm/dl (2.5-4.0); Phosphorus 2.9 mg/dl (2.5-4.9); Potassium 3.3 mmol/L (3.5-5.1); Total Protein 4.4 gm/dl (6.0-8.3)
[2024-12-19 06:53] LABS: INR 2.9 (0.9-1.1); Prothrombin Time 28.7 Seconds (9.0-12.0)
[2024-12-19] MEDS: POTASSIUM CHLORIDE CRTAB 20 MEQ TABCR PO STA (09:02)
--- NOTE | 2024-12-19 11:02 | Nephrology Progress Note ---
Date of Service December 19, 2024 Assessment & Plan Admission and Anticipated Discharge Date Admission Date: December 17, 2024 Subjective Assessment & Plan (1) Hyponatremia: probably multifactorial with background SIADH but it appears he also has very low oral intake of solid food as evidence by extremely low phosphorus and other electrolytes being low. However is liquid intake by his account was not low. So I would say his current hyponatremia is combination of low osmolar diet with background SIADH. urine osmolarity urine sodium is consistent with SIADH. No need of iv fluids now. his serum osmolarity was 272 which was exactly the same as what he had last year. Slight worsening of hyponatremia is also related with ROBE as his BUN is much higher than before. Also serum osmolarity of 272 is not super low. Restrict free water to 1500 mL Daily BMP at this point. Corrected Ca for low Alb near normal. Will write for Calcium carbonate. Phos and mag normal. Na now baseline of 130 encourage more protein diet. (2) ROBE (acute kidney injury): acute kidney injury with a creatinine up to 1.7 likely related with prerenal state and/or allergic interstitial nephritis potentially cause by rifampin. He does have drug rash all over his body. He is making urine in his current creatinine is not overwhelmingly high. urine analysis done yesterday was quite active with significant urine sediment blood and protein which can happen with AIN as well as ATN. Would like to repeat UA again today. Creat down to baseline of 1.2 now. S--feels better. labs are all better. review of systems as detailed in HPI. Unless stated otherwise 12 systems reviewed and negative. Physical Exam Physical Exam: Constitutional: awake alert oriented. Able to report his medical history in great detail Head: Normocephalic, Atraumatic oropharynx normal Neck: supple no JVD Respiratory: normal respiratory effort, lungs clear to auscultation, no wheeze, rales, rhonchi. Cardiovascular: RRR, no murmur, no edema Vessels: no JVD or carotid bruit Chest: normal inspection of chest, RUE PICC line in place, Abdomen: soft, nontender, Skin: +diffuse maculo-papular rash on upper extremities/trunk, legs with diffuse petechial rash. Spares palms/soles/mucous membranes, warm and dry normal turgor Results & Data Vital Signs (Past 12 Hours) Vital Signs Temp Pulse Resp BP Pulse Ox O2 Del Method 12/19/24 07:22 36.5 C 74 18 97/56 L 92 Room Air 12/19/24 03:05 36.8 C 83 19 100/60 94 Room Air
--- NOTE | 2024-12-19 14:16 | Hospitalist Progress Note ---
Date of Service December 19, 2024 Assessment & Plan (1) Generalized weakness: (2) ROBE (acute kidney injury): (3) Hyponatremia: (4) Rash: (5) MSSA bacteremia: Plan Mr. Sterling is a 79-year-old male who has significant past medical history of nonischemic cardiomyopathy, EF 40 to 45%, biventricular AICD, HTN, HLD, prediabetes, history of PSVT, Zenker's diverticulum, GERD, Grimaldo's esophagus, B12 deficiency, gout and testosterone deficiency who is admitted due to ROBE and exanthematous reaction 2/2 medication. #Exanthematous eruption, likely 2/2 rifampin #Eosinophilia #Recent MSSA bacteremia completed 3 weeks of IV ancef and rifampin ID consulted: discontinue abx given no clear indication to continue #Diarrhea c diff negative, potentially viral v effect of abx start immodium encourage po and oral hydration #ROBE on CKD #Multiple electrolyte abnormalities likely iso prerenal state v interstitial component Repeat UA ordered avoid nephrotoxic agents, trend bmp replace lytes prn #Acute on chronic hyponatremia 2/2 SIADH v poor po intake encourage protein intake gentle IVF today 2/2 diarrhea and hypotension repeat BMP this evening continue FR 1500 #Relative hypotension #Nonischemic Cardiomyopathy s/p AICD #HTN/HLD #Elevated trop 2/2 demand echo 11/26 EF 40-45% global hypokinesis follows [facility] cards DVT ppx lovenox PT/OT, rehab, however pt request HH Dispo 2 days likely Admission and Anticipated Discharge Date Admission Date: December 17, 2024 Subjective Reports modest improvement States that he still feels weak--after long discussion does states he would prefer no rehab if possible States that he is still with diarrhea Denies any other concerns outside of fatigue at this time Physical Exam Constitutional: WD/WN, vitals as above pleasant conversational Respiratory: normal respiratory effort, lungs clear to auscultation Cardiovascular: RRR, no murmur, no edema Skin: diffuse maculopapular rash, with signs of resolution/areas of softenig borders/fading on upper extremities and torso Results & Data Results & Data Vital Signs (Past 12 Hours) Vital Signs Temp Pulse Pulse Resp BP Pulse Ox O2 Del Method 12/19/24 09:00 Room Air 12/19/24 07:30 98 H 12/19/24 07:22 36.5 C 74 18 97/56 L 92 Room Air 12/19/24 03:05 36.8 C 83 19 100/60 94 Room Air Laboratory Results Short CBC 12/19/24 Range/Units 06:09 WBC 8.02 (4.8-10.8) K/ul Hgb 9.6 L (14.0-18.0) g/dl Hct 26.7 L (42.0-52.0) % Plt Count 147 (130-400) K/uL BMP 12/18/24 12/19/24 17:20 06:09 Sodium 127 L 130 L Potassium 3.5 3.3 L Chloride 100 103 Carbon Dioxide 19 L 19 L BUN 35 H 28 H Creatinine 1.36 D 1.21 Glucose 125 H 100 H Calcium 7.4 L 7.3 L Liver Function 12/18/24 12/19/24 Range/Units 17:20 06:09 Total Bilirubin 0.4 (0.2-1.0) mg/dl AST 33 (13-39) U/L ALT 9 (7-52) U/L Alkaline Phosphatase 48 (34-104) U/L Albumin 3.1 L 2.5 L (3.4-5.0) gm/dl Medications Administered Home Medications Medication Instructions Recorded Confirmed Last Taken tolterodine 4 mg capsule,extended 2 mg PO HS 11/20/19 12/17/24 11/23/24 release 24 hr pantoprazole 40 mg tablet,delayed 40 mg PO QAM 03/28/20 12/17/24 11/23/24 release cyanocobalamin (vitamin B-12) 1,000 mcg IM UD 04/08/20 12/17/24 12/22/22 1,000 mcg/mL injection kit BiPap Machine #1 ea 06/23/20 12/17/24 Unknown amitriptyline 50 mg tablet 50 mg PO QPM 12/08/20 12/17/24 11/23/24 melatonin 3 mg tablet 3 mg PO HS 06/04/21 12/17/24 05/15/24 atorvastatin 80 mg tablet (Lipitor) 40 mg PO DAILY #90 tabs 05/21/24 12/17/24 11/23/24 albuterol sulfate 90 mcg/actuation 2 inh inhalation Q6H PRN shortness 11/23/24 12/17/24 Unknown aerosol inhaler of breath or wheezing #8.5 grams mirabegron 50 mg tablet,extended 25 mg PO HS 11/24/24 12/17/24 11/23/24 release 24 hr sacubitril 97 mg-valsartan 103 mg 0.5 tab PO BID 11/24/24 12/17/24 11/23/24 tablet (Entresto) tramadol 50 mg tablet 50 mg PO Q6H PRN Pain 11/24/24 12/17/24 Unknown triamcinolone acetonide 0.1 % 1 applic topical DAILY 11/24/24 12/17/24 Unknown lotion L.acidop,casei,lactis,rham-B.lact,marisol 1 cap PO DAILY #60 caps 11/27/24 12/17/24 Unknown 625 mg (10 billion cell) capsule (Advanced Probiotic) cefazolin 2 gram intravenous 2 g IV Q8H 11/27/24 12/17/24 Unknown solution famotidine 20 mg tablet (Pepcid) 20 mg PO BID 6 weeks #84 tabs 11/27/24 12/17/24 Unknown guaifenesin 600 mg tablet, 600 mg PO Q12 PRN Cough #30 tabs 11/27/24 12/17/24 Unknown extended release 12 hr (Mucinex) rifampin 300 mg capsule 300 mg PO Q8H 6 weeks #126 caps 11/27/24 12/17/24 Unknown enoxaparin 40 mg/0.4 mL 40 mg (0.4 mL) subcut DAILY #13 12/09/24 12/17/24 Unknown subcutaneous syringe (Lovenox) syringes Active Medications Generic Name Dose Route Start Last Admin Trade Name Freq PRN Reason Stop Dose Admin Acetaminophen 650 mg 12/17/24 13:58 12/18/24 03:53 Acetaminophen 325 Mg Tab PO 01/16/25 13:57 650 mg Q4H PRN Administration Pain or Fever Amitriptyline HCl 50 mg 12/17/24 21:00 12/18/24 20:10 Amitriptyline Hcl 50 Mg Tab PO 01/16/25 20:59 50 mg QPM ALF Administration Enoxaparin Sodium 40 mg 12/18/24 09:00 12/19/24 09:03 Enoxaparin Inj 40 Mg/0.4 Ml Syr SQ 01/17/25 08:59 40 mg QAM ALF Administration Famotidine 20 mg 12/18/24 09:00 12/19/24 09:21 Famotidine 20 Mg Tab PO 01/17/25 08:59 20 mg DAILY ALF Administration Guaifenesin/Dextromethorphan 10 ml 12/18/24 14:09 12/19/24 14:45 Guaifenesin/Dextrom Syrup 200mg/20mg 10ml Udc PO 01/17/25 14:08 10 ml Q6H PRN Administration Cough Lactobacillus Acidophilus 1,250 mg 12/18/24 09:00 12/19/24 09:21 Advanced Probiotic 625 Mg Capsule PO 01/17/25 08:59 1,250 mg DAILY ALF Administration Melatonin 3 mg 12/17/24 21:00 12/18/24 20:10 Melatonin 3 Mg Tab PO 01/16/25 20:59 3 mg HS ALF Administration Menthol 1 devonte 12/17/24 20:08 12/17/24 21:34 Cough Drop (Sugar Free) Devonte 24 Devonte/1 Box BUCCAL 01/16/25 20:07 1 devonte TID PRN Administration Sore Throat Oxybutynin Chloride 5 mg 12/17/24 21:00 12/18/24 20:10 Oxybutynin Chloride Xl 5 Mg Tabcr PO 01/16/25 20:59 5 mg HS ALF Administration Pantoprazole Sodium 40 mg 12/18/24 09:00 12/19/24 09:21 Pantoprazole 40 Mg Tab PO 01/17/25 08:59 40 mg QAM ALF Administration Vibegron 75 mg 12/17/24 21:00 12/18/24 20:09 Vibegron 75 Mg Tab PO 01/16/25 20:59 75 mg HS ALF Administration
[2024-12-19] MEDS: LACTATED RINGER'S 500 ML IV ONE (14:47)
[2024-12-19] MEDS: LOPERAMIDE HCL 2 MG CAP PO PRN (17:16)
[2024-12-19 18:06] LABS: BUN Creatinine Ratio 22.5 (10-20); Calcium 7.2 mg/dl (8.6-10.3); Potassium 3.6 mmol/L (3.5-5.1)
[2024-12-20 08:18] LABS: Hematocrit (blood only) 26.9 % (42.0-52.0); Hemoglobin 9.6 g/dl (14.0-18.0); Mean Corpuscular Hemoglobin 32.3 pg (25.0-34.0); Mean Corpuscular Hgb Conc 35.7 g/dL (32.0-36.0); Mean Corpuscular Volume 90.6 fL (80.0-100.0); Mean Platelet Volume 9.6 fL (9.4-12.4); Platelet Count 179 K/uL (130-400); RDW Coefficient of Variation 14.7 % (11.5-14.5); RDW Standard Deviation 48.8 fL (36.4-46.3); Red Blood Count 2.97 M/uL (4.70-6.10); White Blood Count 8.96 K/ul (4.8-10.8)
[2024-12-20 08:27] LABS: BUN Creatinine Ratio 21.3 (10-20); Calcium 7.5 mg/dl (8.6-10.3); Creatinine Clr Calc Pharmacy 70.6 ml/min; Phosphorus 2.2 mg/dl (2.5-4.9); Potassium 3.6 mmol/L (3.5-5.1)
--- NOTE | 2024-12-20 13:34 | Cardiology Consultation ---
Date of Consultation December 20, 2024 Assessment & Plan (1) Dermatitis, drug-induced: (2) Rifampin adverse reaction: (3) ICD (implantable cardioverter-defibrillator), biventricular, in situ: (4) Nonischemic cardiomyopathy: (5) CAD (coronary artery disease): Plan Patient was evaluated and planned for transesophageal echocardiogram, however given negative cultures and alternative explanation for his fever/dermatitis (rifampin reaction), there was no need to proceed with this study. No other active cardiac problems were apparent at the time of my evaluation. History of Present Illness Reason for Consultation: consideration for ANGELO Requesting Physician: Myra Fall MD Attending Physician: Myra Fall MD History of Present Illness 79-year-old male with nonischemic cardiomyopathy (recent EF 40 to 45%), biventricular ICD, left bundle branch block, nonobstructive CAD, and prior PSVT who was admitted 12/17/2024 with fatigue and weakness, in November he had an MSSA bacteremia (Staph epidermidis and Strep mitis), there was concern about recu rrent infection and I was asked to see the patient to evaluate for transesophageal echocardiogram. Fortunately, multiple blood cultures drawn on 12/17/2024 were negative and based on dermatitis and eosinophilia the patient was felt to actually have had a drug reaction to rifampin rather than a recurrent infection. As such, there was no indication for transesophageal echocardiogram. Allergies Allergy/AdvReac Type Severity Reaction Status Date / Time cefazolin Allergy Mild Rash Verified 12/17/24 15:22 rifampin Allergy Mild Rash Verified 12/17/24 15:22 benzonatate Allergy Swelling Verified 11/24/24 14:40 [From Tessalon Jaleesa] of Lip/Tongue/Throat hazelnut AdvReac Mild Throat Verified 11/24/24 14:40 numbness levofloxacin AdvReac Unknown Achilles Verified 11/24/24 14:40 heel pain (rxn with oral, tolerated IV) Home Medications Medication Instructions Recorded Confirmed Type tolterodine 4 mg capsule,extended 2 mg PO HS 11/20/19 12/17/24 History release 24 hr pantoprazole 40 mg tablet,delayed 40 mg PO QAM 03/28/20 12/17/24 History release cyanocobalamin (vitamin B-12) 1,000 mcg IM UD 04/08/20 12/17/24 History 1,000 mcg/mL injection kit BiPap Machine #1 ea 06/23/20 12/17/24 Rx amitriptyline 50 mg tablet 50 mg PO QPM 12/08/20 12/17/24 History melatonin 3 mg tablet 3 mg PO HS 06/04/21 12/17/24 History atorvastatin 80 mg tablet (Lipitor) 40 mg PO DAILY #90 tabs 05/21/24 12/17/24 History albuterol sulfate 90 mcg/actuation 2 inh inhalation Q6H PRN shortness 11/23/24 12/17/24 Rx aerosol inhaler of breath or wheezing #8.5 grams mirabegron 50 mg tablet,extended 25 mg PO HS 11/24/24 12/17/24 History release 24 hr sacubitril 97 mg-valsartan 103 mg 0.5 tab PO BID 11/24/24 12/17/24 History tablet (Entresto) tramadol 50 mg tablet 50 mg PO Q6H PRN Pain 11/24/24 12/17/24 History triamcinolone acetonide 0.1 % 1 applic topical DAILY 11/24/24 12/17/24 History lotion L.acidop,casei,lactis,rham-B.lact,marisol 1 cap PO DAILY #60 caps 11/27/24 12/17/24 Rx 625 mg (10 billion cell) capsule (Advanced Probiotic) cefazolin 2 gram intravenous 2 g IV Q8H 11/27/24 12/17/24 Rx solution famotidine 20 mg tablet (Pepcid) 20 mg PO BID 6 weeks #84 tabs 11/27/24 12/17/24 Rx guaifenesin 600 mg tablet, 600 mg PO Q12 PRN Cough #30 tabs 11/27/24 12/17/24 Rx extended release 12 hr (Mucinex) rifampin 300 mg capsule 300 mg PO Q8H 6 weeks #126 caps 11/27/24 12/17/24 Rx enoxaparin 40 mg/0.4 mL 40 mg (0.4 mL) subcut DAILY #13 12/09/24 12/17/24 Rx subcutaneous syringe (Lovenox) syringes Patient History Medical History Non-ST elevation ND (NSTEMI) Arthritis of carpometacarpal (CMC) joint of left thumb Right lumbar radiculopathy Systolic CHF, chronic Nonischemic cardiomyopathy Echo 02/2019 showed EF 30-35%, felt secondary to LBBB. No improvement with medical therapy. S/P pacer/ICD implantation 05/2020. Grimaldo esophagus IVCD (intraventricular conduction defect) Low testosterone Paroxysmal supraventricular tachycardia Elevated troponin Leukocytosis LBBB (left bundle branch block) CAD (coronary artery disease) Mild non-obstructive CAD per 2018 cardiac cath Zenkers diverticulum History of pacemaker Pacer/ICD (Implanted 05/2020), [employer]> follows with Dr. Kong> will be getting checked today (04/16/22) per pt Osteoarthritis Chronic back pain Overactive bladder Hiatal hernia GERD (gastroesophageal reflux disease) Hypertension Hyperlipidemia Sleep apnea BIPAP Surgical History S/P hernia surgery (06/24/14) Laparoscopic bilateral inguinal hernia repair, History of umbilical hernia repair (10/27/12) Umbilical hernia repair History of repair of rotator cuff right History of revision of total replacement of left knee joint x2 History of cataract surgery R/L History of implantable cardioverter-defibrillator (ICD) placement 05/2020 Hx of surgical procedure Epididymectomy Hx of vasectomy History of cardiac cath 2017 > no stents History of esophageal dilatation History of total knee replacement R/L History of laminectomy Lumbar History of colonoscopy History of esophagogastroduodenoscopy (EGD) History of tooth extraction History of tonsillectomy Family History Father Heart disease Mother Heart disease Other No pertinent family history Social History Smoking Status: Never smoker Second Hand Exposure: No; Do You Dip or Chew Tobacco: No; Hx Alcohol Use: Yes Alcohol type: beer Hx Substance Use: No Preferred Language: Burmese Communication Ability: Effective Visual Impairment: No 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 Normotensive. Pulse 80 bpm and regular. Respirations 18 unlabored skin: no ecchymoses or generalized lesions. HEENT: unremarkable. Neck: JVP at the clavicle at 90 degrees, no carotid bruits. Chest: ICD implant site benign. Lungs: clear. Cardiac: regular rhythm, normal S1-2, no murmur. Abdomen: benign. Extremities: no edema, pulses intact. Neurologic: normal affect and conversation, nonfocal. Results & Data Vital Signs (Past 12 Hours) Vital Signs Temp Pulse Pulse Resp BP BP Pulse Ox 12/20/24 13:00 12/20/24 11:13 12/20/24 10:58 98.2 F 79 18 103/63 92 12/20/24 10:32 106 H 12/20/24 06:58 98.2 F 82 18 116/66 93 12/20/24 03:11 100.0 F H 75 21 110/62 92 Pulse Ox O2 Del Method O2 Del Method O2 Flow Rate 12/20/24 13:00 93 Room Air 12/20/24 11:13 Room Air 12/20/24 10:58 Room Air 12/20/24 10:32 12/20/24 06:58 Nasal Cannula 2 12/20/24 03:11 Nasal Cannula 2 Laboratory Results As noted, blood cultures x 2 negative. PG Care Time/CCT Total # of Minutes Spent Total Time Spent with Patient: Total time spent is greater than 50% in coordination of care (as documented) at patient's floor/unit and/or counseling patient: Coding Level of Care Code 37347 INT INP/OBS CARE 1/40MIN Diagnoses Dermatitis, drug-induced L27.0 Rifampin adverse reaction T36.6X5A ICD (implantable cardioverter-defibrillator), biventricular, in situ Z95.810 Nonischemic cardiomyopathy I42.8 Coronary artery disease involving l[place] coronary artery of [place] heart without angina pectoris I25.10 Coronary Disease-Associated Artery/Lesion type: [place] artery [place] vs. transplanted heart: [place] heart Associated angina: without angina (5) CAD (coronary artery disease) Coronary Disease-Associated Artery/Lesion type: [place] artery [place] vs. t ransplanted heart: l[place] heart Associated angina: without angina Qualified Code(s): I25.10 - Atherosclerotic heart disease of [place] coronary artery without angina pectoris
--- NOTE | 2024-12-20 13:48 | Hospitalist Progress Note ---
Date of Service December 20, 2024 Assessment & Plan (1) Generalized weakness: (2) ROBE (acute kidney injury): (3) Hyponatremia: (4) Rash: (5) MSSA bacteremia: Plan Mr. Sterling is a 79-year-old male who has significant past medical history of nonischemic cardiomyopathy, EF 40 to 45%, biventricular AICD, HTN, HLD, prediabetes, history of PSVT, Zenker's diverticulum, GERD, Grimaldo's esophagus, B12 deficiency, gout and testosterone deficiency who is admitted due to ROBE and exanthematous reaction 2/2 medication. #Exanthematous eruption, likely 2/2 rifampin #Eosinophilia #Recent MSSA bacteremia completed 3 weeks of IV ancef and rifampin ID consulted: discontinue abx given no clear indication to continue #Diarrhea *improving c diff negative, potentially viral v effect of abx start Imodium encourage po and oral hydration #ROBE on CKD *improving #Multiple electrolyte abnormalities likely iso prerenal state v interstitial component Repeat UA ordered avoid nephrotoxic agents, trend bmp replace lytes prn #Acute on chronic hyponatremia 2/2 SIADH v poor po intake encourage protein intake gentle IVF today 2/2 diarrhea and hypotension repeat BMP this evening continue FR 1500 #Relative hypotension #Nonischemic Cardiomyopathy s/p AICD #HTN/HLD #Elevated trop 2/2 demand echo 11/26 EF 40-45% global hypokinesis follows [facility] cards DVT ppx lovenox PT/OT, rehab, however pt request HH Dispo potentially tomorrow Admission and Anticipated Discharge Date Admission Date: December 17, 2024 Subjective Reports improvement in diarrhea and resolution of rash Denies any new symptoms at this time Agrees to work and ambulate in room Physical Exam Constitutional: WD/WN, vitals as above Respiratory: normal respiratory effort, lungs clear to auscultation Cardiovascular: RRR, no murmur, no edema Skin: improvement in maculopapular rash Results & Data Results & Data Vital Signs (Past 12 Hours) Vital Signs Temp Pulse Pulse Resp BP BP Pulse Ox 12/20/24 13:00 12/20/24 11:13 12/20/24 10:58 36.8 C 79 18 103/63 92 12/20/24 10:32 106 H 12/20/24 06:58 36.8 C 82 18 116/66 93 12/20/24 03:11 37.8 C H 75 21 110/62 92 Pulse Ox O2 Del Method O2 Del Method O2 Flow Rate 12/20/24 13:00 93 Room Air 12/20/24 11:13 Room Air 12/20/24 10:58 Room Air 12/20/24 10:32 12/20/24 06:58 Nasal Cannula 2 12/20/24 03:11 Nasal Cannula 2 Laboratory Results Short CBC 12/20/24 Range/Units 07:44 WBC 8.96 (4.8-10.8) K/ul Hgb 9.6 L (14.0-18.0) g/dl Hct 26.9 L (42.0-52.0) % Plt Count 179 (130-400) K/uL BMP 12/19/24 12/20/24 17:23 07:44 Sodium 130 L 131 L Potassium 3.6 3.6 Chloride 103 104 Carbon Dioxide 20 L 21 BUN 25 H 23 Creatinine 1.11 1.08 Glucose 119 H 112 H Calcium 7.2 L 7.5 L Medications Administered Home Medications Medication Instructions Recorded Confirmed Last Taken tolterodine 4 mg capsule,extended 2 mg PO HS 11/20/19 12/17/24 11/23/24 release 24 hr pantoprazole 40 mg tablet,delayed 40 mg PO QAM 03/28/20 12/17/24 11/23/24 release cyanocobalamin (vitamin B-12) 1,000 mcg IM UD 04/08/20 12/17/24 12/22/22 1,000 mcg/mL injection kit BiPap Machine #1 ea 06/23/20 12/17/24 Unknown amitriptyline 50 mg tablet 50 mg PO QPM 12/08/20 12/17/24 11/23/24 melatonin 3 mg tablet 3 mg PO HS 06/04/21 12/17/24 05/15/24 atorvastatin 80 mg tablet (Lipitor) 40 mg PO DAILY #90 tabs 05/21/24 12/17/24 11/23/24 albuterol sulfate 90 mcg/actuation 2 inh inhalation Q6H PRN shortness 11/23/24 12/17/24 Unknown aerosol inhaler of breath or wheezing #8.5 grams mirabegron 50 mg tablet,extended 25 mg PO HS 11/24/24 12/17/24 11/23/24 release 24 hr sacubitril 97 mg-valsartan 103 mg 0.5 tab PO BID 11/24/24 12/17/24 11/23/24 tablet (Entresto) tramadol 50 mg tablet 50 mg PO Q6H PRN Pain 11/24/24 12/17/24 Unknown triamcinolone acetonide 0.1 % 1 applic topical DAILY 11/24/24 12/17/24 Unknown lotion L.acidop,casei,lactis,rham-B.lact,marisol 1 cap PO DAILY #60 caps 11/27/24 12/17/24 Unknown 625 mg (10 billion cell) capsule (Advanced Probiotic) cefazolin 2 gram intravenous 2 g IV Q8H 11/27/24 12/17/24 Unknown solution famotidine 20 mg tablet (Pepcid) 20 mg PO BID 6 weeks #84 tabs 11/27/24 12/17/24 Unknown guaifenesin 600 mg tablet, 600 mg PO Q12 PRN Cough #30 tabs 11/27/24 12/17/24 Unknown extended release 12 hr (Mucinex) rifampin 300 mg capsule 300 mg PO Q8H 6 weeks #126 caps 11/27/24 12/17/24 Unknown enoxaparin 40 mg/0.4 mL 40 mg (0.4 mL) subcut DAILY #13 12/09/24 12/17/24 Unknown subcutaneous syringe (Lovenox) syringes Active Medications Generic Name Dose Route Start Last Admin Trade Name Freq PRN Reason Stop Dose Admin Acetaminophen 650 mg 12/17/24 13:58 12/18/24 03:53 Acetaminophen 325 Mg Tab PO 01/16/25 13:57 650 mg Q4H PRN Administration Pain or Fever Amitriptyline HCl 50 mg 12/17/24 21:00 12/19/24 20:23 Amitriptyline Hcl 50 Mg Tab PO 01/16/25 20:59 50 mg QPM ALF Administration Enoxaparin Sodium 40 mg 12/18/24 09:00 12/20/24 09:08 Enoxaparin Inj 40 Mg/0.4 Ml Syr SQ 01/17/25 08:59 40 mg QAM ALF Administration Famotidine 20 mg 12/18/24 09:00 12/20/24 09:09 Famotidine 20 Mg Tab PO 01/17/25 08:59 20 mg DAILY ALF Administration Guaifenesin/Dextromethorphan 10 ml 12/18/24 14:09 12/20/24 09:09 Guaifenesin/Dextrom Syrup 200mg/20mg 10ml Udc PO 01/17/25 14:08 10 ml Q6H PRN Administration Cough Lactobacillus Acidophilus 1,250 mg 12/18/24 09:00 12/20/24 09:08 Advanced Probiotic 625 Mg Capsule PO 01/17/25 08:59 1,250 mg DAILY ALF Administration Loperamide HCl 2 mg 12/19/24 09:44 12/20/24 06:02 Loperamide Hcl 2 Mg Cap PO 01/18/25 09:43 2 mg Q6H PRN Administration Diarrhea Melatonin 3 mg 12/17/24 21:00 12/19/24 20:23 Melatonin 3 Mg Tab PO 01/16/25 20:59 3 mg HS ALF Administration Menthol 1 devonte 12/17/24 20:08 12/17/24 21:34 Cough Drop (Sugar Free) Devonte 24 Devonte/1 Box BUCCAL 01/16/25 20:07 1 devonte TID PRN Administration Sore Throat Oxybutynin Chloride 5 mg 12/17/24 21:00 12/19/24 20:23 Oxybutynin Chloride Xl 5 Mg Tabcr PO 01/16/25 20:59 5 mg HS ALF Administration Pantoprazole Sodium 40 mg 12/18/24 09:00 12/20/24 09:08 Pantoprazole 40 Mg Tab PO 01/17/25 08:59 40 mg QAM ALF Administration Potassium Phosphate 1 tab 12/20/24 13:00 12/20/24 14:04 Pot Phosphate Monobasic W/ Sod Tab PO 01/19/25 12:59 1 tab QID ALF Administration Vibegron 75 mg 12/17/24 21:00 12/19/24 20:23 Vibegron 75 Mg Tab PO 01/16/25 20:59 75 mg HS ALF Administration
[2024-12-20] MEDS: POT PHOSPHATE MONOBASIC W/ SOD TAB PO SCH (14:04)
[2024-12-21 05:33] LABS: BUN Creatinine Ratio 18.3 (10-20); Calcium 7.2 mg/dl (8.6-10.3); Creatinine Clr Calc Pharmacy 69.9 ml/min; Magnesium 1.9 mg/dl (1.7-2.4); Potassium 3.8 mmol/L (3.5-5.1)
[2024-12-21] MEDS: VALSARTAN/SACUBITRIL 26/24MG TAB PO SCH (09:43)
[2024-12-21 11:31] VITALS: PULSE 83; RESP 19; TEMP 97.3; O2SAT 96
--- NOTE | 2024-12-21 11:37 | Discharge Summary ---
Discharge Summary Date of Service December 21, 2024 Principal Dx & Hospital Course #1 = Principal Diagnosis (1) Generalized weakness: (2) ROBE (acute kidney injury): (3) Hyponatremia: (4) Rash: (5) MSSA bacteremia: Plan Mr. Sterling is a 79-year-old male who has significant past medical history of nonischemic cardiomyopathy, EF 40 to 45%, biventricular AICD, HTN, HLD, prediabetes, history of PSVT, Zenker's diverticulum, GERD, Grimaldo's esophagus, B12 deficiency, gout and testosterone deficiency who is admitted due to ROBE and exanthematous reaction 2/2 medication. Patient was treated symptomatically. Labs revealed ROBE and multiple electrolyte abnormalities, which resolved with iv replacement and fluid resuscitation. Cardiology did not pursue ANGELO given concern for vegatative process low. ID followed patient and determined no further need for antibiotics at this time. On day of discharge, patient with near resolution of maculopapular rash, eating well, and working indpeendtently with PT/OT #Exanthematous eruption, likely 2/2 rifampin *resolving #Eosinophilia #Recent MSSA bacteremia completed 3 weeks of IV ancef and rifampin ID consulted: discontinue abx given no clear indication to continue #Diarrhea *improving c diff negative, potentially viral v effect of abx started Imodium prn encourage po and oral hydration #ROBE on CKD *improving #Multiple electrolyte abnormalities likely iso prerenal state v interstitial component avoid nephrotoxic agents, #Acute on chronic hyponatremia 2/2 SIADH v poor po intake encourage protein intake gentle IVF today 2/2 diarrhea and hypotension continue FR 1500 #Relative hypotension #Nonischemic Cardiomyopathy s/p AICD #HTN/HLD #Elevated trop 2/2 demand echo 11/26 EF 40-45% global hypokinesis follows [facility] cards Resume entresto Notes For Next Care Provider Repeat BMP in 1 week Medication Changes From Visit Discontinue IV antibiotics and rifampin Admission HPI Per Admitting Provider This is a 79-year-old male who has significant past medical history of nonischemic cardiomyopathy, EF 40 to 45%, biventricular AICD, HTN, HLD, prediabetes, history of PSVT, Zenker's diverticulum, GERD, Grimaldo's esophagus, B12 deficiency, gout and testosterone deficiency who presents to ED secondary to extreme weakness and fatigue x 1 week. Of significance patient was recently seen in ED on 1/10. He tested positive for COVID and infectious workup revealed MSSA bacteremia. He was called back to return to ED for admission due to positive blood cultures. Initial blood culture identified methicillin sensitive Staph aureus as well as staph epidermis and Streptococcus mitis. Repeat cultures on 11/24 were negative. He was initially started on IV Zosyn. Infectious disease was consulted who recommended IV cefazolin along with oral rifampin. There was no clear source for his bacteremia. Transthoracic echocardiogram showed improvement in his ejection fraction but otherwise no evidence of vegetation or infection of the pacemaker wires. A PICC line was placed and he was discharged on home infusion IV antibiotic therapy. He was scheduled to see cardiology as an outpatient to obtain a ANGELO. Since discharge she has not felt well. He reports coming back to the ED on 12/13 secondary to swelling and redness in his right hand. He was diagnosed with a superficial vein thrombus and started on subcutaneous Lovenox once daily. He reports since starting this injection he developed a diffuse full body rash. He denies any pain or itching with the rash. He also has a different rash to his legs, and is unsure when this started. The rash spares his palms and soles. He generally feels significantly weak. It takes him approximately 5 minutes to get up from a seated position. At baseline he lives alone and his son lives across the street from him. He previously was walking 30 minutes a day and currently has difficulty getting out of a chair. He overall has a poor appetite. He has been moving his bowels frequently and they are loose. He also reports foul-smelling urine and orange color due to his antibiotic. He denies any documented fever, chills, sweats, lightheadedness, dizziness, chest pain, shortness of breath, nausea, vomiting, abdominal pain, hematuria, melena, hematochezia. He has been taking his medications as prescribed. History obtained from outpatient chart review, discussion with ED provider and patient. Admission Exam Per Admitting Provider Constitutional: WD/WN, vitals as above, NAD, sitting up in bed, pleasant, conversing easily Head: Normocephalic, Atraumatic Eyes: PERRL, conjunctivae normal, anicteric sclerae ENMT: external ear and nose normal, oropharynx normal Neck: trachea midline, no thyromegaly normal visual inspection Respiratory: normal respiratory effort, lungs clear to auscultation, no wheeze, rales, rhonchi. Normal insp/exp effort, no accessory muscle use Cardiovascular: RRR, no murmur, no edema Vessels: no JVD or carotid bruit Chest: normal inspection of chest, RUE PICC line in place, Abdomen: normal bowel sounds, soft, nontender, no hepatosplenomegaly Musculoskeletal: no cyanosis or clubbing, extremities motor strength 4/5 Skin: +diffuse macularpapular rash on upper extremities/trunk, legs with diffuse petechial rash. Spares palms/soles/mucous membranes, warm and dry normal turgor Neurologic: PERRL, EOMI, accommodation nl, no face palsy, no dysarthria CN's II-XI intact bilaterally and moves all extremities Psychiatric: A+Ox3, euthymic affect Discharge Exam Constitutional WD/WN, vitals as above Respiratory normal respiratory effort, lungs clear to auscultation Cardiovascular RRR, no murmur, no edema Gastrointestinal (Abdomen) normal bowel sounds, soft, nontender, no hepatosplenomegaly Skin residual maculopapular rash on anterior thigh, front of chest, and on BLE on sparse areas of forearms much improved overall Updated Medication List Medication Instructions Recorded Confirmed Type tolterodine 4 mg capsule,extended 2 mg PO HS 11/20/19 12/17/24 History release 24 hr pantoprazole 40 mg tablet,delayed 40 mg PO QAM 03/28/20 12/17/24 History release cyanocobalamin (vitamin B-12) 1,000 mcg IM UD 04/08/20 12/17/24 History 1,000 mcg/mL injection kit BiPap Machine #1 ea 06/23/20 12/17/24 Rx amitriptyline 50 mg tablet 50 mg PO QPM 12/08/20 12/17/24 History melatonin 3 mg tablet 3 mg PO HS 06/04/21 12/17/24 History atorvastatin 80 mg tablet (Lipitor) 40 mg PO DAILY #90 tabs 05/21/24 12/17/24 Hi story albuterol sulfate 90 mcg/actuation 2 inh inhalation Q6H PRN shortness 11/23/24 12/17/24 Rx aerosol inhaler of breath or wheezing #8.5 grams mirabegron 50 mg tablet,extended 25 mg PO HS 11/24/24 12/17/24 History release 24 hr sacubitril 97 mg-valsartan 103 mg 0.5 tab PO BID 11/24/24 12/17/24 History tablet (Entresto) tramadol 50 mg tablet 50 mg PO Q6H PRN Pain 11/24/24 12/17/24 History triamcinolone acetonide 0.1 % 1 applic topical DAILY 11/24/24 12/17/24 History lotion L.acidop,casei,lactis,rham-B.lact,marisol 1 cap PO DAILY #60 caps 11/27/24 12/17/24 Rx 625 mg (10 billion cell) capsule (Advanced Probiotic) famotidine 20 mg tablet (Pepcid) 20 mg PO BID 6 weeks #84 tabs 11/27/24 12/17/24 Rx guaifenesin 600 mg tablet, 600 mg PO Q12 PRN Cough #30 tabs 11/27/24 12/17/24 Rx extended release 12 hr (Mucinex) Hospital Stay Data Consultations 12/17/24 13:58 Consult Cardiology Routine 12/17/24 14:11 ED Decision to Admit Stat 12/17/24 14:59 Consult Infectious Diseases Routine 12/18/24 08:31 Consult Nephrology Routine Diagnostic Imagining Performed 12/17/24 16:58 US venous doppler LE BI Stat Pending Results Patient Have Any Pending Studies at Discharge: No Discharge Instructions Given to Patient (Per Discharging Provider) You were admitted for weakness and rash. You were likely experiencing a drug reaction to the antibiotics you were on. You were evaluated by Infectious disease who does not suspect you will require any further antibiotics at this time. The two antibiotics you cannot take are rifampin and cefazolin You were treated conservatively and encourage to increase food intake, in particular protein intake. Your kidney function improved notably and your electrolytes also improved. Total Time Total Time Spent Total Time Spent (In Minutes): 45
[2024-12-21] MEDS: LORATADINE 10 MG TAB PO ONE (12:03)
[2024-12-21] MEDS: ARTIFICIAL TEARS OP OINT 3.5 GM TUBE OP ONE (12:04)
[2024-12-21 13:04] VITALS: BP 110/66
== END 2024-12-21 13:41 | disposition home health service (06) | DRG 682 ==
LOC: ED 11:32 → 4W 13:58 → SUATTDRO 13:58 → 4W 17:42